=== PATIENT | female | born 1940 | race Caucasian/White ===

== ENCOUNTER → 2017-08-10 14:10 | Outpatient (CLI) | payer MEDICARE, OTHER, SELFPAY ==
--- NOTE | 2017-08-10 14:11 | ECHOD_ITS ---
Reason For Study: Dyspnea/SOB Procedure This was a 2D Doppler, Color Flow transthoracic echocardiogram. The study was technically difficult. Did not use Definity due to increased PAP. Exam performed in department. Left Ventricle Normal size and thickness. The estimated ejection fraction is 60 %. No regional wall motion abnormalities noted. Right Ventricle Normal size and thickness. Normal systolic function. Atria The left atrium is mildly enlarged. Normal right atrium. Normal atrial septum. Mitral Valve The mitral valve is structurally normal. No prolapse or stenosis seen. Trivial mitral valve insufficiency. Tricuspid Valve Normal tricuspid valve. Mild (1+) tricuspid valve insufficiency. Right ventricular systolic pressure estimated to be 55 mmHg. Moderate pulmonary hypertension. Aortic Valve Trisinus/trileaflet aortic valve. Mild diffuse aortic valve thickening. Trivial aortic valve insufficiency. Pulmonic Valve Normal pulmonic valve. Great Vessels Normal aortic root. Normal arch. The inferior vena cava is dilated. No collapse of the inferior vena cava. Pericardium/Pleural No pericardial effusion. MMode/2D Measurements & Calculations LVIDd: 4.3 cm IVSd: 0.85 cm Ao root diam: 2.9 cm LVIDs: 2.6 cm LVPWd: 0.67 cm LA dimension: 3.6 cm RVDd: 3.1 cm FS: 38.5 % LAV(MOD-bp): 52.2 ml LA A4 area: 20.1 cm2 RA A4 area: 17.8 cm2 LAV(MOD-bp) Indexed: 28.0 ml/m2 LAV(MOD-sp2): 43.5 ml LAV(MOD-sp4): 50.2 ml Time Measurements MV dec time: 0.10 sec Doppler Measurements & Calculations MV E max lori: 148.2 cm/sec MV V2 max: 142.4 cm/sec MV P1/2t max lori: 136.5 cm/sec MV max P.2 mmHg MV P1/2t: 70.7 msec MV V2 mean: 71.7 cm/sec MV dec slope: 565.3 cm/sec2 MV mean P.6 mmHg MVA(P1/2t): 3.1 cm2 MV V2 VTI: 30.2 cm Ao V2 max: 186.2 cm/sec LV V1 max: 121.6 cm/sec PA V2 max: 118.2 cm/sec Ao max P.0 mmHg LV V1 max P.0 mmHg Ao V2 mean: 131.0 cm/sec Ao mean P.6 mmHg Ao V2 VTI: 35.4 cm TR max lori: 340.1 cm/sec TR max P.3 mmHg Interpretation Summary The estimated ejection fraction is 60 %. The left atrium is mildly enlarged. Mild (1+) tricuspid valve insufficiency. Right ventricular systolic pressure estimated to be 55 mmHg. Moderate pulmonary hypertension. Compared to echo report dated 06/10/2013, LV function has remained the same, and RVSP is slightly worse; 49 to 55 mm Hg. Pt appears to be in atrial fibrillation. Ordering Physician: Shaheen Ford Referring Physician: Otis Roman Performed By: Nubia Limon, JARRED, RVT
== END ==
PROVIDERS: Family Provider Family Medicine; PCP Family Medicine; Visit Provider Internal Medicine Critical Care Medicine
DX: R06.02 Shortness of breath (principal)
CPT/HCPCS: 93306

== ENCOUNTER → 2017-08-25 11:40 | Outpatient (CLI) | payer MEDICARE, OTHER, SELFPAY ==
--- NOTE | 2017-08-25 11:50 | RAD_ITS ---
STUDY: X-RAY - THORACIC SPINE REASON FOR EXAM: Female, 77 years old. Back pain x2 years, getting worse TECHNIQUE: 3 view(s) of the thoracic spine were obtained. COMPARISON: None. FINDINGS: Normal kyphosis of the thoracic spine. There is no substantial scoliosis. There is multilevel endplate spondylosis of the thoracic vertebrae. There is multilevel disc space narrowing of the thoracic spine. The soft tissue structures are unremarkable. RAD/Thoracic Spine 3 Views IMPRESSION: Multilevel degenerative changes. No malalignment or compression injury detected. Electronically Signed: Vita Zuniga MD at 7:20 EDT , Service support ,
== END ==
PROVIDERS: Family Provider Family Medicine; PCP Family Medicine; Visit Provider Anesthesiology Pain Medicine
DX: M54.9 Dorsalgia, unspecified (principal)
CPT/HCPCS: 72072

== ENCOUNTER → 2017-12-22 10:49 | Outpatient (CLI) | payer MEDICARE, OTHER, SELFPAY ==
[2017-12-22 11:14] VITALS: PULSE 64; PULSE 75; PULSE 82; PULSE 83; PULSE 84; O2SAT 95; O2SAT 96; O2SAT 97
--- NOTE | 2017-12-22 13:51 | PCM.PSN.6M ---
PSN 6 Minute Walk Test - 6 Minute Walk Test 6 Minute Walk Test: 6 Minute Walk Test PSN:6-Minute Walk Test Start: 12/22/17 11:13 Freq: Status: Active Protocol: RESP.6MINW Document 12/22/17 11:14 RENAE (Rec: 12/22/17 11:16 RENAE [id number]) 6 Minute Walk Test Date Performed 12/22/17 Time Performed 11:00 Height 5 ft 1 in Weight: 102.512 kg Weight in Pounds 226.[address]: Shaheen Ford Assistive device used: Walker Pre-test Oxygen Delivery Method Room Air Pulse Ox (%) 95 Pulse Rate (60-100 beats/min) 64 Dyspnea Rene Scale (0-10) 0 Exertion Rene Scale (6-20) 6 1st minute Oxygen Delivery Method Room Air Pulse Ox (%) 97 Pulse Rate (60-100 beats/min) 82 2nd minute Oxygen Delivery Method Room Air Pulse Ox (%) 96 Pulse Rate (60-100 beats/min) 84 3rd minute Oxygen Delivery Method Room Air Pulse Ox (%) 97 Pulse Rate (60-100 beats/min) 75 4th minute Oxygen Delivery Method Room Air Pulse Ox (%) 95 Pulse Rate (60-100 beats/min) 83 Number of Rests Taken 1 5th minute Oxygen Delivery Method Room Air Pulse Ox (%) 96 Pulse Rate (60-100 beats/min) 84 6th minute Oxygen Delivery Method Room Air Pulse Ox (%) 97 Pulse Rate (60-100 beats/min) 84 Dyspnea Rene Scale (0-10) 3 Exertion Rene Scale (6-20) 11 Post-test Oxygen Delivery Method Room Air Pulse Ox (%) 97 Pulse Rate (60-100 beats/min) 75 Full Laps Walked 9 Partial Lap, Number of Tiles Walked 15 Total Distance Walked (ft) 546 - Interpretation Interpretation: The patient was able to ambulate only 546 feet over the course of 6 minutes on room air with the assistance of a walker and one break. No significant desaturation or tachycardia was noted. These findings are consistent with a musculoskeletal limitation exercise tolerance.
== END ==
PROVIDERS: Family Provider Family Medicine; PCP Family Medicine; Visit Provider Internal Medicine Cardiovascular Disease
DX: R06.02 Shortness of breath (principal); I27.21 Secondary pulmonary arterial hypertension; I36.1 Nonrheumatic tricuspid (valve) insufficiency
CPT/HCPCS: 94618

== ENCOUNTER → 2017-12-24 10:43 | Outpatient (CLI) | payer MEDICARE, OTHER, SELFPAY ==
--- NOTE | 2017-12-24 15:10 | PFTCOMP ---
COMPLETE PULMONARY FUNCTION TEST INTERPRETATION Brief HPI: Patient is a 77 year old female, currently under the care of Dr. Watkins and Dr. Ford, who presents to [facility] for complete pulmonary function tests secondary to diagnosis of dyspnea. Respiratory therapist reports good effort and reproducible results. Interpretation: Forced expiration spirometry shows no large airways obstructive ventilatory defect with an FEV1 of 76% predicted. There is no significant bronchodilator response by ATS criteria. Spirograms are of good quality and plateau normally. The respiratory flow volume loop shows decreased expiratory flow rates at all lung volumes consistent with airway obstruction. Lung volumes by body plethysmography show a normal total lung capacity at 3.25 L, 82% predicted. All other lung volumes are reduced symmetrically. Diffusion capacity by carbon monoxide is decreased at 59% predicted. The airway resistance is normal. No previous pulmonary function tests were available for review. Impression: Isolated reduction in diffusing capacity consistent with a pulmonary vascular disorder. Lung volumes are at the lower limit of normal, so early interstitial lung disease cannot be excluded.
== END ==
PROVIDERS: Family Provider Family Medicine; PCP Family Medicine; Visit Provider Internal Medicine Cardiovascular Disease
DX: I27.21 Secondary pulmonary arterial hypertension (principal); R06.02 Shortness of breath
CPT/HCPCS: 94060; 94726; 94729

== ENCOUNTER → 2018-02-23 10:22 | Outpatient (CLI) | payer MEDICARE, OTHER, SELFPAY ==
--- NOTE | 2018-02-23 10:25 | RAD_ITS ---
STUDY: X-RAY - THORACIC SPINE REASON FOR EXAM: Female, 77 years old. Pain after twisting TECHNIQUE: 3 view(s) of the thoracic spine were obtained. COMPARISON: 08/25/2017 FINDINGS: Stable diffuse spondylosis. No acute compression deformities are seen. Normal alignment. Soft tissues are unremarkable. Rotator cuff repair. RAD/Thoracic Spine 2 Views IMPRESSION: Stable diffuse spondylosis with normal alignment. Electronically Signed: Kalen Cartwright MD at 9:17 EST Tel , Service support ,
--- NOTE | 2018-02-23 10:26 | RAD_ITS ---
STUDY: X-RAY - LUMBAR SPINE REASON FOR EXAM: Female, 77 years old. pain x 1 week pt states she twisted wrong last week TECHNIQUE: 3 view(s) of the lumbar spine were obtained. COMPARISON: None FINDINGS: Normal lumbar lordosis. There is a subtle dextroscoliosis. There is subtle anterior listhesis of L5 on S1 by approximately 4.5 mm. This appears secondary to posterior facet arthropathy. Vertebral body height is maintained. Multilevel degenerative endplate changes are present with multilevel marginal osteophytes and subtle endplate sclerosis. There is posterior facet arthropathy most evident from L3 through S1. Diffuse disc height loss is noted with multilevel vacuum disc phenomenon throughout the lumbar spine. Mild atherosclerosis noted. RAD/Lumbar Spine 2 or 3 Views IMPRESSION: Diffuse degenerative spondylosis of the lumbar spine. No evidence of acute superimposed fracture. See above. Electronically Signed: Luba Haney MD at 9:23 EST , Service support ,
== END ==
PROVIDERS: Family Provider Family Medicine; PCP Family Medicine; Referring Provider Anesthesiology Pain Medicine; Visit Provider Anesthesiology Pain Medicine
DX: M54.9 Dorsalgia, unspecified (principal)
CPT/HCPCS: 72070; 72100

== ENCOUNTER → 2018-03-29 15:26 | Outpatient (CLI) | payer MEDICARE, OTHER, SELFPAY ==
[2018-01-18 13:10] VITALS: BMI 43.0
--- NOTE | 2018-03-29 15:31 | BI_ITS ---
MAMMOGRAPHY - BILATERAL SCREENING REASON FOR EXAM: Female, 77 years old. Routine annual screening examination. PERTINENT HISTORY: Non-contributory. TECHNIQUE: Digital bilateral breast julianne (3D mammographic acquisition) in the CC and MLO projections. 2-D mediolateral oblique (MLO) and craniocaudad (CC) views of both breasts were obtained. CAD: Full Field Digital Mammography with Computer Added Detection was performed. COMPARISON: Comparison is made with prior study dated January 20, 2017 and December 11, 2015. FINDINGS: Breast Composition: There are scattered areas of fibroglandular density. There are no dominant masses or suspicious calcifications. Stable small benign-appearing bilateral axillary lymph nodes. No other significant abnormalities are identified. There has been no significant change since the prior study. BI/SCREENING MAMM (CAD), BILAT IMPRESSION: Stable bilateral screening mammogram. Yearly follow-up mammogram recommended. (A) ASSESSMENT CATEGORY: BIRADS Category 2: Benign. A letter regarding these results will be sent to the patient by the facility within 30 days. Approximately 10% of breast cancers are not detected by mammography. A normal mammogram should not delay biopsy of a clinically suspicious abnormality. [id number] Electronically Signed: Carlos Soto MD at 9:02 EST Tel [phone], Service support ,
--- OUTSIDE RECORDS SUMMARY | 2018-05-15 21:53 | XMS RPT_ITS ---
:1940 Author Organization OHIP Support Name Relationship Address Phone R Unavailable Unavailable Unavailable ANGI MAYNARD Unavailable [address] + [place] [address] R Unavailable Unavailable Unavailable ALEYDA ANGI Unavailable [address] + [place] [address] R Unavailable Unavailable Unavailable ANGI MAYNARD Unavailable [address] + [place] [address] R Unavailable Unavailable Unavailable ALEYDA ANGI Unavailable [address] + [place] [address] R Unavailable Unavailable Unavailable ANGI MAYNARD Unavailable [address] + [place] [address] R Unavailable Unavailable Unavailable ALEYDA ANGI Unavailable [address] + [place] [address] R Unavailable Unavailable Unavailable ANGI MAYNARD Unavailable [address] + [place] [address] R Unavailable Unavailable Unavailable ALEYDA ANGI Unavailable [address] + [place] [address] R Unavailable Unavailable Unavailable ANGI MAYNARD Unavailable [address] + [place] [address] R Unavailable Unavailable Unavailable JEANNE MAYNARDE Unavailable [phone] [place] [address] R Unavailable Unavailable Unavailable ANGI MAYNARD Unavailable [phone] [place] [address] R Unavailable Unavailable Unavailable ALEYDA ANGI Unavailable [phone] [place] [address] R Unavailable Unavailable Unavailable ALEYDA ANGI Unavailable [phone] [place] [address] R Unavailable Unavailable Unavailable SCHONFELD, ANGI Unavailable [phone] [place] [address] R Unavailable Unavailable Unavailable SCHONFELD, ANGI Unavailable [phone] [place] [address] R Unavailable Unavailable Unavailable SCHONFELD, ANGI Unavailable [phone] [place] [address] R Unavailable Unavailable Unavailable SCHONFELD, ANGI Unavailable [phone] [place] [address] R Unavailable Unavailable Unavailable SCHONFELD, ANGI Unavailable [phone] [place] [address] R Unavailable Unavailable Unavailable SCHONFELD, ANGI Unavailable [phone] [place] [address] R Unavailable Unavailable Unavailable SCHONFELD, ANGI Unavailable [phone] [place] [address] R Unavailable Unavailable Unavailable SCHONFELD, ANGI Unavailable [address] [phone] [place] [address] Care Team Providers Name Role Phone Tanphaichitr, Natthavat Attending Unavailable Tanphaichitr, Natthavat Referring Unavailable Ranney, Christopher Primary Care Unavailable Tanphaichitr Natthavat Attending Unavailable Tanphaichitr, Natthavat Referring Unavailable Ranney, Christopher Primary Care Unavailable Ying Santana Attending Unavailable Ranney, Christopher Referring Unavailable Meri Gonzales Attending Unavailable Shaheen Ford Attending Unavailable Ranney, Christophjesusita Referring Unavailable Ranney, Christopher Primary Care Unavailable Shaheen Ford Attending Unavailable Shaheen Ford Referring Unavailable Ranney, Christopher Primary Care Unavailable Shaheen Ford Attending Unavailable Shaheen Ford Referring Unavailable Ranney, Christopher Primary Care Unavailable Carson Watkins D.O. Attending Unavailable Ranney, Christophjesusita Referring Unavailable Ranney, Christopher Primary Care Unavailable Carson Watkins D.O. Attending Unavailable Carson Watkins D.O. Referring Unavailable Ranney, Christopher Primary Care Unavailable Kiana Broussard Attending Unavailable Kiana Broussard Referring Unavailable Ranney, Christopher Primary Care Unavailable Shaheen Ford Attending Unavailable Carson Watkins D.O. Attending Unavailable Ranney, Christopher Referring Unavailable Ranney, Christopher Primary Care Unavailable Ford, Shaheen Attending Unavailable Ranney, Christopher Referring Unavailable Ford, Shaheen Attending Unavailable Ranney, Christopher Primary Care Unavailable Ford, Shaheen Referring Unavailable Ford, Shaheen Attending Unavailable Ford, Shaheen Referring Unavailable Ranney, Christopher Primary Care Unavailable Tanphaichitr, Natthavat Attending Unavailable Ranney, Christopher Primary Care Unavailable Tanphaichitr, Natthavat Referring Unavailable KipHamlet mendez Attending Unavailable Ford, Shaheen Referring Unavailable Kip, Hamlet Attending Unavailable Ford, Shaheen Referring Unavailable Santana, Ying Attending Unavailable Ranney, Christopher Referring Unavailable Ranney, Christopher Attending Unavailable Ranney, Christopher Primary Care Unavailable Basali, Ayman Attending Unavailable Basali, Ayman Referring Unavailable Ranney, Christopher Primary Care Unavailable PROBLEMS PROBLEMS DATE TYPE CONDITION / CODE ATTENDING STATUS SOURCE 04/21/2018 Unknown E03.9 - Tanphaichitr, Active [place] Hypothyroidism, Natthavat [facility] unspecified / Hospital E03.9(ICD-10) Repository 04/21/2018 Unknown I10 - Essential Tanphaichitr, Active [place] [facility] hypertension / Hospital I10(ICD-10) Repository 01/18/2018 Unknown Z23 - Encounter for Santana, Active [place] immunization / [facility] Z23(ICD-10) Hospital Repository 01/05/2018 Unknown R06.02 - Shortness Hamlet Shin Active [place] of breath / Community R06.02(ICD-10) Hospital Repository 12/07/2017 Unknown I48.2 - Chronic Shaheen Ford Active [place] atrial fibrillation Community / I48.2(ICD-10) Hospital Repository 12/07/2017 Unknown 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 / Hospital I27.21(ICD-10) Repository 12/07/2017 Unknown I36.1 - Shaheen Ford Active [place] Nonrheumatic [facility] tricuspid (valve) Hospital insufficiency / Repository I36.1(ICD-10) 07/22/2017 Unknown G47.33 - Tessie Green Obstructive sleep D.O. Community apnea (adult) Hospital (pediatric) / Repository G47.33(ICD-10) 07/22/2017 Unknown E66.9 - Obesity, Carson Watkins, Active [place] unspecified / D.O. Community E66.9(ICD-10) Hospital Repository 07/22/2017 Unknown I27.20 - Pulmonary Carson Watkins, Active [place] hypertension, D.O. Community unspecified / Hospital I27.20(ICD-10) Repository 05/29/2017 Unknown R06.09 - Other Shaheen Ford Active [place] forms of dyspnea / Community R06.09(ICD-10) Hospital Repository 05/29/2017 Unknown E66.01 - Morbid Shaheen Ford Active [place] (severe) obesity Community due to excess Hospital calories / Repository E66.01(ICD-10) 05/29/2017 Unknown Z68.41 - Body mass Shaheen Ford Active [place] index (BMI) Community 40.0-44.9, adult / Hospital Z68.41(ICD-10) Repository PROCEDURES PROCEDURES No Procedure Records FoundRESULTS RESULTS PULMONARY VISIT REPORT Observed: 04/22/2018 Status: F Source: [place] 12:11 PM [facility] [place] [facility] [place] [address] [place] [address] OFFICE VISIT Date of Service: 04/22/18 MR#: [id number] Acct: [id number] Name: SIS FARR Rep #: [id number] : 1940 Provider: Ying Santana Age/Sex: 77/F Location: [facility].PMW Status: Signed Assessment AND Plan 1. HELGA (obstructive sleep apnea) G47.33 Plan Improved. Patient is using and benefiting from Pap therapy. No indication for titration study at this time. Continue to encourage weight loss. Contact the office for any new or worsening symptoms in the meantime. Follow-up in 6 months. 2. Secondary pulmonary 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 Plan Stable. Follow-up with Dr. Watkins in 6 months. Contact the office with any new or worsening symptoms in the meantime. 3. Morbid obesity with BMI of 40.0-44.9, adult E66.01; Z68.41 Plan Continue to encourage weight loss. 4. Chronic atrial fibrillation I48.2 Plan Complicates exam, plan, care and prognosis. Plan Detail Follow Up 6 Months (DMB) HPI 2 M FU: Chief Complaint: Shortness of breath on exertion HPI Comments Details: This is a 77 year old F, here to follow up for sleep apnea shortness of breath on exertion and pulmonary hypertension. 40, with the use of. She is on room air and accompanied today by a nurses aid. She has not required any prednisone or antibiotics since her last office visit. She has not been seen in the ED or urgent care for any illnesses since her last office visit. Last office visit she was prescribed an albuterol rescue inhaler to be used for shortness of breath. She states that she continues to experience shortness of breath on exertion only, denies any shortness of breath with rest or conversation. She has utilized a rescue inhaler a few times before exertional activities and reports that she did receive some relief. She denies any cough, sputum production or hemoptysis. She denies any wheezing, chest pain, chest tightness or palpitations. She denies any fever, chills or body aches. She continues to experience a moderate amount of lower extremity edema. Current use of pressure support therapy is on average of 9 hours per night with current settings of 17/11 cmH2O. SIS denies any daytime somnolence, dry mouth in the morning, nocturia, snoring through the mask, morning headaches or difficulty with mask leaks. SIS reports feeling rested in the morning and is benefitting from current therapy. Compliance report was reviewed and shows 100% compliance, AHI is slightly elevated at an average of 4.3 events per hour and leaks appear to be occasional problem. Intake Vital Signs04/22/18 Height 5 ft 04/22/18 Weight: 229 lb 04/22/18 Body Mass Index (BMI) 44.7 04/22/18 Blood Pressure 150/90 H Intake Visit Reasons: 2 M FU DME Vendor: [employer] Accompanied by: Family / Other Allergies atorvastatin calcium [From Lipitor] Allergy (Verified 04/22/18 08:02) Pain in joints Penicillins Allergy (Verified 04/22/18 08:02) Rash pseudoephedrine Allergy (Verified 04/22/18 08:02) Rash Sulfa (Sulfonamide Antibiotics) Allergy (Verified 04/22/18 08:02) Rash hydrochlorothiazide Adverse Reaction (Verified 04/22/18 08:02) Nausea sulfamethoxazole [From Bactrim] Adverse Reaction (Verified 04/22/18 08:02) Nausea trimethoprim [From Bactrim] Adverse Reaction (Verified 04/22/18 08:02) Nausea SSRI Allergy (Unknown, Uncoded 04/22/18 08:02) Other Medications Fenofibrate Nanocrystallized [Tricor] 48 mg PO QHS 04/18/16 [History Confirmed 04/22/18] Pramipexole Di-HCl [Mirapex] 0.25 mg PO QHS 04/18/16 [History Confirmed 04/22/18] Rivaroxaban [Xarelto] 20 mg PO DAILY 04/18/16 [History Confirmed 04/22/18] Levothyroxine Sodium [Synthroid] 50 mcg PO DAILY 04/19/16 [History Confirmed 04/22/18] Acetaminophen [Tylenol Tablet] 650 mg PO Q6H PRN PRN #0 tab 05/09/16 [Rx Confirmed 04/22/18] Valsartan [Diovan] 160 mg PO DAILY #30 tab 05/09/16 [Rx Confirmed 04/22/18] simvastatin 80 mg tablet 80 mg PO QPM 05/26/17 [History Confirmed 04/22/18] carvedilol 12.5 mg tablet 12.5 mg PO BID #180 tab 07/02/17 [Rx Confirmed 04/22/18] gabapentin 600 mg tablet 600 mg PO .QID tab 07/22/17 [History Confirmed 04/22/18] albuterol sulfate 90 mcg/actuation breath activated powder inhaler 2 puff INHALATION Q4H PRN #1 ea 01/18/18 [Rx Confirmed 04/22/18] furosemide 40 mg tablet 40 mg PO DAILY #90 tab 03/30/18 [Rx Confirmed 04/22/18] PFSH Medical History Chronic atrial fibrillation (Chronic) Non-rheumatic tricuspid valve insufficiency (Chronic) Secondary pulmonary arterial hypertension (Chronic) Morbid obesity with BMI of 40.0-44.9, adult (Chronic) Occlusion of carotid artery without cerebral infarction (Chronic) HTN (hypertension) (Chronic) History of hypothyroidism (Chronic) H/O transient cerebral ischemia (Chronic) Asthma (Chronic) Obstructive sleep apnea (Chronic) Surgical History History of arthroscopy of left knee (Chronic) History of bunionectomy of both great toes (Chronic) History of repair of right rotator cuff (Chronic) Hx of cholecystectomy (Chronic) Family History Mother CVA (cerebral vascular accident) Diabetes Social History Smoking Status: Never smoker alcohol intake: current alcohol intake frequency: holidays/special occasions only Alcohol type: wine Review of Systems Const CONSTITUTIONAL: Negative anorexia, body ache, chills, daytime sleepiness, fever(s), night sweats, oral thrush, stops breathing during sleep, weight loss, sleeping in chair, fatigue, weight loss, weight gain, frequent colds, seasonal allergies, other, headache(s) or orthopnea EETM Ear Nose Throat Mouth: Positive hearing normal; negative hard of hearing, hoarseness, dry mouth in morning, change in vision, itchy eyes, eye pain, swallowing Difficulty, ear pain, nose bleed, headache(s), mouth pain, nasal congestion, nasal discharge, post nasal drip, sinus pain, sinus pressure, sore throat or other Cardio Cardiovascular: Negative chest pain, chest pain at rest, chest pain with activity, irregular heart rhythm, edema, shortness of breath when lying down, palpitations, murmur or other Resp Respiratory: Positive as per HPI and shortness of breath shortness of breath: Positive with activity; negative pain with cough, wheezing, chest congestion, cough, chest tightness, pain on inspiration, inhalers, increase use of rescue inhalers, snoring, apnea or other Gastro Gastrointestional: Negative bloody stools, change in appetite, difficulty swallowing, reflux, hematemesis, melena stool, loose stool, constipation or other Genitourinary: Negative blood in urine, nocturia, pain with urination or other Musc Musculoskeletal: Negative body pain, back pain, neck pain or other Skin/Breast Skin/Breast: Negative dry skin, itching, rash, unusual bruising, breast lump or other Neuro Neurological: Negative restless legs, confusion, weakness or other Psych Psychocological: Negative abnormal sleep pattern, anxiety, thoughts of hurting self/others, hopelessness or other Lymph Lymphatic: Negative easy bleeding, easy bruising, swollen lymph nodes or other Exam Const Constitutional: Positive conversant, cooperative, in no acute respiratory distress, well developed, well nourished, good hygiene and obese Head Head: Positive normocephalic and atraumatic; negative cyanosis of lips/distal nose Eyes Eye: Positive clear conjunctiva; negative nystagmus or scleral abnormality Ears Ear: Positive hearing normal and external ears normal; negative hard of hearing Nose Nose: Positive external nose normal and no nasal discharge; negative epistaxis Mouth Mouth: Positive oral mucosae normal, no lesions, dentures and crowded posterior oropharynx; negative post nasal drip, malodorous breath or oral thrush present Mallampati Score: III: Mallampati Score Neck Neck: Positive normal visual inspection, full ROM and trachea midline; negative lymphadenopathy, JVD or tender Chest Wall Chest: Positive normal inspection of the chest and symmetric chest movement; negative increased A/P diameter Resp lung sounds: Positive clear to auscultation, good air exchange, normal expiratory time and normal respiratory effort; negative diminished, wheezes, rhonchi, rales, dullness to percussion or wheeze present on forced exhalation Cardio Cardiac: Positive regular rate, regular rhythm, S1 normal and S2 normal; negative murmur GI GI: Positive normal to inspection and obese; negative distended Genitourinary: Positive deferred Musc Musculoskeletal: Positive steady gait, ROM normal and using an assistive device for ambulation; negative kyphosis or scoliosis Skin Pulmonary Skin Exam: Positive intact; negative rash Pulses Pulse: Yes pulses normal x4 extremities Extremities Extremities: Yes capillary refill normal, No clubbing, No cyanosis, Yes edema Location: lower extremity location: Bilateral pitting +2 Neuro Neurologic: Yes conversant, Yes no focal neuro deficits, Yes normal concentration, Yes understands questions, Yes cooperative, No tremor, Yes normal cognition, Yes normal coordination Lymph Lymphatic: No lymphadenopathy, No tenderness, No cervical adenopathy Psych Appearance: Positive grossly normal, eye contact and well kempt Mental Status: Positive mental status grossly normal Mood: Positive congruent mood Affect: Positive normal affect Coding Level of Care Code Off vis,est,level 3 Diagnoses HELGA (obstructive sleep apnea) G47.33 Secondary pulmonary 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 Morbid obesity with BMI of 40.0-44.9, adult E66.01; Z68.41 Chronic atrial fibrillation I48.2 04/22/18 1211 <Electronically signed by Ying CHOI> Date Ying CHOI Cosigner Signature: Date (if applicable) CC: Otis Roman MD CBC-COMPLETE BLOOD CNT Collected: 04/21/2018 Status: F Source: [place] NO [place] 1:42 PM [facility] [place] TYPE CODE TESTS RESULT OUT OF RANGE REFERENCE UNITS LAB L100.1000 4.4-11.0 K/mm3 Normal WBC 9.6 LAB L100.1200 4.2-5.4 M/mm3 Low RBC 3.06 LAB L100.1300 12.0-15.0 g/dl Low HGB 9.2 LAB L100.1400 37-47 % Low HCT 31.7 LAB L100.1500 81-99 fL High MCV 103.6 LAB L100.1600 27.0-32.0 pg Normal MCH 30.1 LAB L100.1700 32-36 g/gl Low MCHC 29.0 LAB L100.1810 11.6-14.6 % High RDW CV 16.3 LAB L100.1820 35.1-43.9 fl High RDW SD 59.8 LAB L100.1900 150-450 K/mm3 Normal PLT 290 LAB L100.2000 6.2-12.0 fl Normal MPV 11.0 Performed By: #### L100.0500 #### [facility] [address] [place], [address] RENAL PROFILE Collected: 04/21/2018 Status: F Source: [place] 1:42 PM [facility] [place] TYPE CODE TESTS RESULT OUT OF RANGE REFERENCE UNITS LAB L501.0100 74-106 mg/dL Normal GLU 98 Result Comment: Please note revised GLUCOSE reference range effective 2017. LAB L501.1000 7-18 mg/dL Normal BUN 11 LAB L501.1100 0.55-1.02 mg/dL Normal CREAT,SERUM 0.86 Result Comment: The validity of the calculated GFR AND GFRAA in patients over 70 years has not been determined. Clinical correlation is essential. LAB L501.1110 >60 mL/min Normal EST GFR 68 Result Comment: Non- GFR Calc LAB L501.1115 >60 mL/min Normal EST GFR - AA 82 Result Comment: GFR Calc LAB L501.1300 10-20 RATIO Normal BUN/CRE 12.8 LAB L501.1800 3.2-5.0 g/dL Normal ALB 3.7 LAB L501.2200 8.5-10.1 mg/dL CA Normal 8.6 LAB L501.2300 2.5-4.9 mg/dL Normal PHOS 3.1 LAB L501.5300 136-145 mmol/L NA Normal 140 LAB L501.5600 3.5-5.1 mmol/L K Normal 3.8 LAB L501.5900 98-107 mmol/L CL Normal 104 LAB L501.6100 21.0-32.0 mmol/L Normal CO2 26.0 Performed By: #### L500.3600, L501.5200 #### [facility] [address] [place], [place], [address] MAGNESIUM Collected: 04/21/2018 Status: F Source: [place] 1:42 PM [facility] [place] TYPE CODE TESTS RESULT OUT OF RANGE REFERENCE UNITS LAB L501.5200 1.6-2.6 mg/dL Normal MG 2.0 Performed By: #### L500.3600, L501.5200 #### [facility] [address] [place], [address] VITAMIN D,25 HYDROXY Collected: 04/21/2018 Status: F Source: [place] 1:42 PM [facility] [place] TYPE CODE TESTS RESULT OUT OF REFERENCE UNITS RANGE LAB L506.1000 29.95-100.01 ng/mL Low Vitamin D 9.4 25-OH Result Comment: Vitamin D 25(OH) Status Range Deficiency <20 ng/mL (50nmol/L) Insuffciency 20 - 30 ng/mL (50 - 75 nmol/L) Sufficiency 30 - 100 ng/mL (75 - 250 nmol/L) Toxicity >100 ng/mL (>250 nmol/L) Performed By: #### L506.1000 #### [facility] [address] [place], [place], [address] MICROALB:CREAT Collected: 04/21/2018 Status: F Source: [place] RATIO,RANDOM UR 1:42 PM [facility] [place] TYPE CODE TESTS RESULT OUT OF RANGE REFERENCE UNITS LAB L501.1200 NO RANGE EST. mg/dL < Normal UR 13.00 CREAT LAB L502.0500 NO RANGE EST. mg/L 10.5 Normal MICROALBUMI N,UR LAB L502.0600 <30 mg/g CRE mg/g CRE Test Normal not performed MALB:CREAT Performed By: #### L502.0250 #### [facility] [place], [place], [id number] PTHIN Collected: 04/21/2018 Status: F Source: [place] 1:42 PM [facility] [place] TYPE CODE TESTS RESULT OUT OF RANGE REFERENCE UNITS LAB L509.1000 18.4-80.1 pg/mL Normal PTHIN 58.8 Performed By: #### L509.1000 #### [facility] [place], [address] URINE SODIUM Collected: 04/05/2018 Status: F Source: [place] 12:00 PM [facility] [place] TYPE CODE TESTS RESULT OUT OF RANGE REFERENCE UNITS LAB L501.5500 Not Establ. mmol/L Normal UR NA 70 Performed By: #### L501.5500, L502.0250 #### [facility] [address] [place], [address] MICROALB:CREAT Collected: 04/05/2018 Status: F Source: [place] RATIO,RANDOM UR 12:00 PM [facility] [place] TYPE CODE TESTS RESULT OUT OF RANGE REFERENCE UNITS LAB L501.1200 NO RANGE EST. mg/dL Normal UR CREAT 161.00 LAB L502.0500 NO RANGE EST. mg/L Normal 121.0 MICROALBUMIN ,UR LAB L502.0600 <30 mg/g CRE mg/g CRE High 75.2 MALB:CREAT Performed By: #### L501.5500, L502.0250 #### [facility] [place], [address] COMPREHENSIVE METABOLIC Collected: 04/02/2018 Status: F Source: [place] 10:59 AM [facility] [place] TYPE CODE TESTS RESULT OUT OF RANGE REFERENCE UNITS LAB L501.0100 74-106 mg/dL Normal GLU 96 Result Comment: Please note revised GLUCOSE reference range effective 2017. LAB L501.1000 7-18 mg/dL Normal BUN 13 LAB L501.1100 0.55-1.02 mg/dL Normal CREAT,SERUM 0.69 Result Comment: The validity of the calculated GFR AND GFRAA in patients over 70 years has not been determined. Clinical correlation is essential. LAB L501.1110 >60 mL/min Normal EST GFR 88 Result Comment: Non- GFR Calc LAB L501.1115 >60 mL/min Normal EST GFR - AA 106 Result Comment: GFR Calc LAB L501.1300 10-20 RATIO Normal BUN/CRE 18.9 LAB L501.1500 6.4-8.2 g/dL T Normal PROT 6.5 LAB L501.1800 3.2-5.0 g/dL Normal ALB 3.7 LAB L501.1950 2.2-4.2 g/dL Normal GLOB 2.8 LAB L501.2000 0.9-2.4 RATIO Normal A/G 1.3 LAB L501.2200 8.5-10.1 mg/dL CA Normal 8.6 LAB L501.4100 15-37 U/L Low AST 12 LAB L501.4305 45-117 U/L Normal ALK P 70 LAB L501.4405 13-56 U/L Normal ALT 18 LAB L501.4600 0.20-1.00 mg/dL T Normal BILI 0.90 LAB L501.5300 136-145 mmol/L NA Normal 142 LAB L501.5600 3.5-5.1 mmol/L K Normal 3.9 LAB L501.5900 98-107 mmol/L CL Normal 106 LAB L501.6100 21.0-32.0 mmol/L Normal CO2 27.0 LAB L501.6200 5-15 Normal GAP 9 Performed By: #### L500.4050 #### [facility] [address] [place], [place], [address] LIPID PROFILE Collected: 04/02/2018 Status: F Source: [place] 10:59 AM [facility] [place] TYPE CODE TESTS RESULT OUT OF RANGE REFERENCE UNITS LAB L501.4900 200 mg/dL Normal CHOL 122 Result Comment: <200 mg/dL Desirable 200-240 mg/dL Borderline >240 mg/dL High Risk LAB L501.5000 mg/dL Normal TRIG 63 Result Comment: The drugs N-Acetylcysteine and Metamizole may falsely depress this assay. Serum Triglycerides Reference Interval Normal <150 mg/dL Borderline high 150 - 199 mg/dL High 200 - 499 mg/dL Very High > or = 500 mg/dL LAB L501.6400 mg/dL Normal HDL 57 Result Comment: The drugs N-Acetylcysteine and Metamizole may falsely depress this assay. Reference Range HDL <40 mg/dL Low HDL Cholesterol HDL >or= 60 mg/dL High HDL Cholesterol LAB L501.6500 0-130 mg/dL Normal LDL 52 LAB L501.6600 5-40 mg/dL Normal VLDL 13 Performed By: #### L500.4100 #### [facility] [address] [place], [place], [address] RENAL PROFILE Collected: 04/02/2018 Status: F Source: [place] 10:38 AM [facility] [place] Order Comment: DR. VERMA ORDERED NA URINE PROCRE MG RENAL DR. YADAV ORDERED BMP LIPID TYPE CODE TESTS RESULT OUT OF RANGE REFERENCE UNITS LAB L501.0100 74-106 mg/dL Normal GLU 96 Result Comment: Please note revised GLUCOSE reference range effective 2017. LAB L501.1000 7-18 mg/dL Normal BUN 14 LAB L501.1100 0.55-1.02 mg/dL Normal CREAT,SERUM 0.66 Result Comment: The validity of the calculated GFR AND GFRAA in patients over 70 years has not been determined. Clinical correlation is essential. LAB L501.1110 >60 mL/min Normal EST GFR 93 Result Comment: Non- GFR Calc LAB L501.1115 >60 mL/min Normal EST GFR - AA 112 Result Comment: GFR Calc LAB L501.1300 10-20 RATIO High BUN/CRE 21.4 LAB L501.1800 3.2-5.0 g/dL Normal ALB 3.7 LAB L501.2200 8.5-10.1 mg/dL CA Normal 8.5 LAB L501.2300 2.5-4.9 mg/dL Normal PHOS 3.3 LAB L501.5300 136-145 mmol/L NA Normal 142 LAB L501.5600 3.5-5.1 mmol/L K Normal 3.9 LAB L501.5900 98-107 mmol/L CL Normal 106 LAB L501.6100 21.0-32.0 mmol/L Normal CO2 28.0 Performed By: #### L500.3600, L501.5200 #### [facility] [address] [place], [address] MAGNESIUM Collected: 04/02/2018 Status: F Source: [place] 10:38 AM [facility] [place] Order Comment: DR. VERMA ORDERED NA URINE PROCRE MG RENAL DR. YADAV ORDERED BMP LIPID TYPE CODE TESTS RESULT OUT OF RANGE REFERENCE UNITS LAB L501.5200 1.6-2.6 mg/dL Normal MG 2.0 Performed By: #### L500.3600, L501.5200 #### [facility] [address] [place], [address] SCREENING MAMM (CAD), Observed: 03/29/2018 Status: F Source: [place] BIL 3:31 PM [facility] [place] [facility] Imaging Services [address] [place] [address] SCREENING MAMM (CAD), BILAT MR#: [id number] Acct: [id number] Name: SIS FARR Rep #: [id number] : 1940 F 77 From: Carlos Soto MD PCP: Otis Roman MD Status: REG CLI Study: SCREENING MAMM (CAD), BILAT Date of Exam: 03/29/18 Exam# [id number] Ordering Dr: Ej Roman MD MAMMOGRAPHY - BILATERAL SCREENING REASON FOR EXAM: Female, 77 years old. Routine annual screening examination. PERTINENT HISTORY: Non-contributory. TECHNIQUE: Digital bilateral breast julianne (3D mammographic acquisition) in the CC and MLO projections. 2-D mediolateral oblique (MLO) and craniocaudad (CC) views of both breasts were obtained. CAD: Full Field Digital Mammography with Computer Added Detection was performed. COMPARISON: Comparison is made with prior study dated January 20, 2017 and December 11, 2015. FINDINGS: Breast Composition: There are scattered areas of fibroglandular density. There are no dominant masses or suspicious calcifications. Stable small benign-appearing bilateral axillary lymph nodes. No other significant abnormalities are identified. There has been no significant change since the prior study. BI/SCREENING MAMM (CAD), BILAT IMPRESSION: Stable bilateral screening mammogram. Yearly follow-up mammogram recommended. (A) ASSESSMENT CATEGORY: BIRADS Category 2: Benign. A letter regarding these results will be sent to the patient by the facility within 30 days. Approximately 10% of breast cancers are not detected by mammography. A normal mammogram should not delay biopsy of a clinically suspicious abnormality. [id number] Electronically Signed: Carlos Soto MD at 9:02 EST Tel [phone], Service support , CC: Otis Roman MD Grease Rack Worker: Signed THORACIC SPINE 2 Observed: 02/23/2018 Status: F Source: [place] 10:26 AM [facility] [place] [facility] [place] [address] Thoracic Spine 2 Views MR#: [id number] Acct: [id number] Name: SIS FARR Rep #: [id number] : 1940 F 77 From: Kalen Cartwright MD PCP: Otis Roman MD Status: REG CLI Study: Thoracic Spine 2 Views Date of Exam: 02/23/18 Exam# [id number] Ordering Dr: Kiana Broussard MD STUDY: X-RAY - THORACIC SPINE REASON FOR EXAM: Female, 77 years old. Pain after twisting TECHNIQUE: 3 view(s) of the thoracic spine were obtained. COMPARISON: 08/25/2017 FINDINGS: Stable diffuse spondylosis. No acute compression deformities are seen. Normal alignment. Soft tissues are unremarkable. Rotator cuff repair. RAD/Thoracic Spine 2 Views IMPRESSION: Stable diffuse spondylosis with normal alignment. Electronically Signed: Kalen Cartwright MD at 9:17 EST Tel , Service support , CC: Kiana Broussard MD; Otis Roman MD Grease Rack Worker: Signed LUMBAR SPINE 2 OR 3 Observed: 02/23/2018 Status: F Source: [place] VIEWS 10:26 AM [facility] [place] [facility] Imaging Services [address] [place] [address] Lumbar Spine 2 or 3 Views MR#: [id number] Acct: [id number] Name: SIS FARR Rep #: [id number] : 1940 F 77 From: Luba Haney MD PCP: Otis Roman MD Status: REG CLI Study: Lumbar Spine 2 or 3 Views Date of Exam: 02/23/18 Exam# [id number] Ordering Dr: Kiana Broussard MD STUDY: X-RAY - LUMBAR SPINE REASON FOR EXAM: Female, 77 years old. pain x 1 week pt states she twisted wrong last week TECHNIQUE: 3 view(s) of the lumbar spine were obtained. COMPARISON: None FINDINGS: Normal lumbar lordosis. There is a subtle dextroscoliosis. There is subtle anterior listhesis of L5 on S1 by approximately 4.5 mm. This appears secondary to posterior facet arthropathy. Vertebral body height is maintained. Multilevel degenerative endplate changes are present with multilevel marginal osteophytes and subtle endplate sclerosis. There is posterior facet arthropathy most evident from L3 through S1. Diffuse disc height loss is noted with multilevel vacuum disc phenomenon throughout the lumbar spine. Mild atherosclerosis noted. RAD/Lumbar Spine 2 or 3 Views IMPRESSION: Diffuse degenerative spondylosis of the lumbar spine. No evidence of acute superimposed fracture. See above. Electronically Signed: Luba Haney MD at 9:23 EST , Service support , CC: Kiana Broussard MD; Otis Roman MD Grease Rack Worker: Signed PULMONARY VISIT REPORT Observed: 01/18/2018 Status: F Source: [place] 2:54 PM [facility] [place] [facility] [address] [place] [address] OFFICE VISIT Date of Service: 01/18/18 MR#: [id number] Acct: [id number] Name: SIS FARR Rep #: [id number] : 1940 Provider: Ying Santana Age/Sex: 77/F Location: [facility] Status: Signed Assessment AND Plan 1. HELGA (obstructive sleep apnea) G47.33 Plan Deteriorated. Due for a new/upgraded machine in February. Plan to follow-up in March at which time I can review a one-month compliance report and determine if the patient requires additional testing, such as a titration study. Explained this to the patient, she is agreeable to follow-up and plan. Currently, she is using and benefiting from her BiPAP. 2. Secondary pulmonary 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 Plan New. Explained pulmonary hypertension to the patient. Ruled out need for supplemental oxygen. No additional testing at this time. Follow-up in 2 months. 3. Morbid obesity with BMI of 40.0-44.9, adult E66.01; Z68.41 Plan Continue to encourage weight loss. Complicates exam, plan, care and prognosis. 4. Chronic atrial fibrillation I48.2 Plan Also complicates plan, exam, care and prognosis. Certainly makes treating sleep apnea a high priority. 5. Dyspnea on exertion R06.09 Plan Deteriorated. Trial on albuterol rescue inhaler. At the follow-up visit we will evaluate how frequently she was using the medication and how effective it was. Plan Detail Other Orders Orders: Other Medications New: albuterol sulfate 90 mcg/actuation (ProAir Re2 puffs Inhalation Q4H PRN 1 ea 6RF yunes spiClick) administer with spacer s of breath or wheezing Discontinued: Fluad 2017- 65yr up(PF)45 mcg(15 mcgx3)/0.5 mL intramuscula0.5 mL IM ONCE #1 0RF NS Z23 r syringe (flu vac 2017 [id number](PF)) Discontinued Re ason: Office Medication has been Documented as given Follow Up 2 Months (CSM) HPI TEST RESULTS: Chief Complaint: Shortness of breath on exertion HPI Comments Details: This patient presents the office today to review recent test results ordered by her gear shaper. She is in a wheelchair, currently on room air and accompanied by family. She reports that she continues to experience the same shortness of breath on exertion that has been going on for the past 2-3 months. The shortness of breath is more prevalent when going up stairs, walking long distances or rushing around. She denies any chest pain or palpitations, but does report that she has A. fib. She has some trouble with lower extremity edema, however today her family member reports that she has 60 ankles. She denies any cough, sputum production or hemoptysis. She denies any wheezing or chest tightness. She is not currently on any inhalers. She does report that at times it feels as though it is difficult to get air in or get air out. She has not experienced any fever, chills or body aches. She is compliant with her Pap therapy, currently on BiPAP. Her last sleep study was in 2012, this is when the machine was originally awarded to her. She did report that if she was waiting very long for me she would have fallen asleep in a wheelchair. She does report persistent daytime hypersomnia. Unfortunately, due to the age of her machine I am unable to obtain a compliance report. She states that she is eligible for a new machine next month. Pulmonary function test was completed on December 24, 2017 and was interpreted as showing an isolated reduction in diffusing capacity, consider pulmonary vascular disorder. FVC 79% of predicted, FEV1 76% of predicted, FEV1/FVC 71% of predicted, TLC 82% of predicted, RV 91% of predicted and DLCO 59% of predicted. Prior stress test completed on December 22, 2017 the patient was able to Evangelina 546 feet over the course of 6 minutes. She did not become hypoxic and therefore supplemental oxygen is not indicated. She also did not become tachycardic. Intake Vital Signs01/18/18 Height 5 ft 1 in 01/18/18 Weight: 228 lb Intake Visit Reasons: TEST RESULTS DME Vendor: [employer] Accompanied by: Family / Other Allergies atorvastatin calcium [From Lipitor] Allergy (Verified 01/18/18 13:10) Pain in joints Penicillins Allergy (Verified 01/18/18 13:10) Rash pseudoephedrine Allergy (Verified 01/18/18 13:10) Rash Sulfa (Sulfonamide Antibiotics) Allergy (Verified 01/18/18 13:10) Rash hydrochlorothiazide Adverse Reaction (Verified 01/18/18 13:10) Nausea sulfamethoxazole [From Bactrim] Adverse Reaction (Verified 01/18/18 13:10) Nausea trimethoprim [From Bactrim] Adverse Reaction (Verified 01/18/18 13:10) Nausea SSRI Allergy (Unknown, Uncoded 01/18/18 13:10) Other Medications Fenofibrate Nanocrystallized [Tricor] 48 mg PO QHS 04/18/16 [History Confirmed 01/18/18] Furosemide [Lasix] 40 mg PO DAILY 04/18/16 [History Confirmed 01/18/18] Pramipexole Di-HCl [Mirapex] 0.25 mg PO QHS 04/18/16 [History Confirmed 01/18/18] Rivaroxaban [Xarelto] 20 mg PO DAILY 04/18/16 [History Confirmed 01/18/18] Levothyroxine Sodium [Synthroid] 50 mcg PO DAILY 04/19/16 [History Confirmed 01/18/18] Acetaminophen [Tylenol Tablet] 650 mg PO Q6H PRN PRN #0 tab 05/09/16 [Rx Confirmed 01/18/18] Valsartan [Diovan] 160 mg PO DAILY #30 tab 05/09/16 [Rx Confirmed 01/18/18] simvastatin 80 mg tablet 80 mg PO QPM 05/26/17 [History Confirmed 01/18/18] carvedilol 12.5 mg tablet 12.5 mg PO BID #180 tab 07/02/17 [Rx Confirmed 01/18/18] gabapentin 600 mg tablet 600 mg PO .QID tab 07/22/17 [History Confirmed 01/18/18] albuterol sulfate 90 mcg/actuation breath activated powder inhaler 2 puff INHALATION Q4H PRN #1 ea 01/18/18 [Rx Confirmed 01/18/18] PFSH Medical History Chronic atrial fibrillation (Chronic) Non-rheumatic tricuspid valve insufficiency (Chronic) Secondary pulmonary arterial hypertension (Chronic) Morbid obesity with BMI of 40.0-44.9, adult (Chronic) Occlusion of carotid artery without cerebral infarction (Chronic) HTN (hypertension) (Chronic) History of hypothyroidism (Chronic) H/O transient cerebral ischemia (Chronic) Asthma (Chronic) Obstructive sleep apnea (Chronic) Surgical History History of arthroscopy of left knee (Chronic) History of bunionectomy of both great toes (Chronic) History of repair of right rotator cuff (Chronic) Hx of cholecystectomy (Chronic) Family History Mother CVA (cerebral vascular accident) Diabetes Social History Smoking Status: Never smoker alcohol intake: current alcohol intake frequency: holidays/special occasions only Alcohol type: wine Review of Systems Const CONSTITUTIONAL: Positive fatigue; negative anorexia, body ache, chills, daytime sleepiness, fever(s), night sweats, oral thrush, stops breathing during sleep, weight loss, sleeping in chair, weight loss, weight gain, frequent colds, seasonal allergies, other, headache(s) or orthopnea EETM Ear Nose Throat Mouth: Positive nasal discharge (chronic) and hearing normal; negative hoarseness, dry mouth in morning, change in vision, itchy eyes, eye pain, swallowing Difficulty, ear pain, headache(s), mouth pain, nasal congestion, sinus pain, sinus pressure, sore throat, other, hard of hearing, nose bleed or post nasal drip Cardio Cardiovascular: Positive murmur; negative chest pain, chest pain at rest, chest pain with activity, irregular heart rhythm, edema, shortness of breath when lying down, palpitations or other Resp Respiratory: Positive as per HPI and shortness of breath shortness of breath: Positive with activity; negative pain with cough, wheezing, chest congestion, cough, chest tightness, pain on inspiration, inhalers, increase use of rescue inhalers, snoring, apnea or other Gastro Gastrointestional: Negative bloody stools, change in appetite, difficulty swallowing, reflux, hematemesis, melena stool, loose stool, constipation or other Genitourinary: Negative blood in urine, nocturia, pain with urination or other Musc Musculoskeletal: Negative body pain, back pain, neck pain or other Skin/Breast Skin/Breast: Negative dry skin, itching, unusual bruising, breast lump, other or rash Neuro Neurological: Negative restless legs, confusion, weakness or other Psych Psychocological: Negative abnormal sleep pattern, anxiety, thoughts of hurting self/others, hopelessness or other Lymph Lymphatic: Negative easy bleeding, easy bruising, other or swollen lymph nodes Exam Const Constitutional: Positive cooperative, in no acute respiratory distress, well developed, well nourished, good hygiene, obese and conversant Head Head: Positive normocephalic and atraumatic; negative cyanosis of lips/distal nose Eyes Eye: Positive clear conjunctiva; negative nystagmus or scleral abnormality Ears Ear: Positive hearing normal and external ears normal; negative hard of hearing Nose Nose: Positive external nose normal and no nasal discharge; negative epistaxis Mouth Mouth: Positive oral mucosae normal, posterior oropharynx is adequate and no lesions; negative post nasal drip, malodorous breath or oral thrush present Mallampati Score: II: Mallampati Score Neck Neck: Positive normal visual inspection, full ROM, trachea midline, thick neck and female neck greater than 37 cm (15 in); negative lymphadenopathy, JVD or tender Chest Wall Chest: Positive normal inspection of the chest and symmetric chest movement; negative increased A/P diameter Resp lung sounds: Positive clear to auscultation, diminished, normal expiratory time and normal respiratory effort; negative wheezes, rhonchi, rales, dullness to percussion or wheeze present on forced exhalation Cardio Cardiac: Positive regular rate, regular rhythm, S1 normal, S2 normal and murmur murmur: Positive systolic, LUSB and RUSB GI GI: Positive normal to inspection and obese; negative distended Genitourinary: Positive deferred Musc Musculoskeletal: Positive ROM normal and in a wheelchair; negative kyphosis or scoliosis Skin Pulmonary Skin Exam: Positive intact; negative rash, lesion, ulcers or erythema Pulses Pulse: Yes pulses normal x4 extremities Extremities Extremities: Yes capillary refill normal, No clubbing, No cyanosis, No edema Neuro Neurologic: Yes conversant, Yes no focal neuro deficits, Yes normal concentration, Yes understands questions, Yes cooperative, Yes normal cognition, Yes normal coordination, No tremor Lymph Lymphatic: No lymphadenopathy, No tenderness, No cervical adenopathy Psych Appearance: Positive grossly normal, eye contact and well kempt Mental Status: Positive mental status grossly normal Mood: Positive congruent mood Affect: Positive normal affect Office Meds Fluad 2017- 65yr up(PF)45 mcg(15 mcgx3)/0.5 mL intramuscular syringe Performing Provider: JIMBO Fair Administered by: Mackenzie Taylor on 01/18/18 13:54 Dose Route Admin Location Lot Number Expiration Date [employer] 0.5 mL IM Lt Deltoid [id number] 08/17/18 05370-517-28 SEQIRUS Coding Level of Care Code Off vis,est,level 4 Diagnoses HELGA (obstructive sleep apnea) G47.33 Secondary pulmonary 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 Morbid obesity with BMI of 40.0-44.9, adult E66.01; Z68.41 Chronic atrial fibrillation I48.2 Dyspnea on exertion R06.09 01/18/18 1454 <Electronically signed by Ying CHOI> Date Ying CHOI Cosigner Signature: Date (if applicable) CC: Otis Roman MD PULMONARY FUNCTION Observed: 12/24/2017 Status: F Source: [place] RE[place] COMP 3:14 PM [facility] [place] [facility] Pulmonary Services/Neurology [address] [place] [address] MR#: [id number] Acct: [id number] Name: SIS FARR Rep #: [id number] : 1940 77 From: Hamlet Shin MD Referring Dr: Shaheen Ford MD Status: REG CLI Ordering Dr: Date: Location: [facility] Sex: F C COMPLETE PULMONARY FUNCTION TEST INTERPRETATION Brief HPI: Patient is a 77 year old female, currently under the care of Dr. Watkins and Dr. Ford, who presents to [facility] for complete pulmonary function tests secondary to diagnosis of dyspnea. Respiratory therapist reports good effort and reproducible results. Interpretation: Forced expiration spirometry shows no large airways obstructive ventilatory defect with an FEV1 of 76% predicted. There is no significant bronchodilator response by ATS criteria. Spirograms are of good quality and plateau normally. The respiratory flow volume loop shows decreased expiratory flow rates at all lung volumes consistent with airway obstruction. Lung volumes by body plethysmography show a normal total lung capacity at 3.25 L, 82% predicted. All other lung volumes are reduced symmetrically. Diffusion capacity by carbon monoxide is decreased at 59% predicted. The airway resistance is normal. No previous pulmonary function tests were available for review. Impression: Isolated reduction in diffusing capacity consistent with a pulmonary vascular disorder. Lung volumes are at the lower limit of normal, so early interstitial lung disease cannot be excluded. 12/24/17 1514 <Electronically signed by Hamlet Shin MD> Date Hamlet Shin MD CC: Hamlet Shin MD; Otis Roman MD; Shaheen Ford MD Date Dictated: 12/24/171509 Date Transcribed: 12/24/171509 Grease Rack Worker: MANUEL Signed 6 MINUTE WALK TEST Observed: 12/22/2017 Status: F Source: [place] 1:52 PM [facility] [place] [facility] Pulmonary Services/Neurology [address] [place] [address] MR#: [id number] Acct: [id number] Name: SIS FARR Rep #: [id number] : 1940 77 From: Hamlet Shin MD Referring Dr: Shaheen Ford MD Date: Ordering Dr: Sex: F C Location: PSN PSN 6 Minute Walk Test - 6 Minute Walk Test 6 Minute Walk Test: 6 Minute Walk Test PSN:6-Minute Walk Test Start: 12/22/17 11:13 Freq: Status: Active Protocol: RESP.6MINW Document 12/22/17 11:14 JLA (Rec: 12/22/17 11:16 JLA [id number]) 6 Minute Walk Test Date Performed 12/22/17 Time Performed 11:00 Height 5 ft 1 in Weight: 102.512 kg Weight in Pounds 226.[address]: Shaheen Ford Assistive device used: Walker Pre-test Oxygen Delivery Method Room Air Pulse Ox (%) 95 Pulse Rate (60-100 beats/min) 64 Dyspnea Rene Scale (0-10) 0 Exertion Rene Scale (6-20) 6 1st minute Oxygen Delivery Method Room Air Pulse Ox (%) 97 Pulse Rate (60-100 beats/min) 82 2nd minute Oxygen Delivery Method Room Air Pulse Ox (%) 96 Pulse Rate (60-100 beats/min) 84 3rd minute Oxygen Delivery Method Room Air Pulse Ox (%) 97 Pulse Rate (60-100 beats/min) 75 4th minute Oxygen Delivery Method Room Air Pulse Ox (%) 95 Pulse Rate (60-100 beats/min) 83 Number of Rests Taken 1 5th minute Oxygen Delivery Method Room Air Pulse Ox (%) 96 Pulse Rate (60-100 beats/min) 84 6th minute Oxygen Delivery Method Room Air Pulse Ox (%) 97 Pulse Rate (60-100 beats/min) 84 Dyspnea Rene Scale (0-10) 3 Exertion Rene Scale (6-20) 11 Post-test Oxygen Delivery Method Room Air Pulse Ox (%) 97 Pulse Rate (60-100 beats/min) 75 Full Laps Walked 9 Partial Lap, Number of Tiles Walked 15 Total Distance Walked (ft) 546 - Interpretation Interpretation: The patient was able to ambulate only 546 feet over the course of 6 minutes on room air with the assistance of a walker and one break. No significant desaturation or tachycardia was noted. These findings are consistent with a musculoskeletal limitation exercise tolerance. 12/22/17 1352 <Electronically signed by Hamlet Shin MD> Date Hamlet Shin MD CC: Date Dictated: 12/22/17 135 Date Transcribed: 12/22/171350 Grease Rack Worker: Hamlet Shin Signed CARDIOLOGY VISIT Observed: 12/07/2017 Status: F Source: [place] REPORT 3:54 PM [facility] [place] [facility] [address] [place] [address] OFFICE VISIT Date of Service: 12/07/17 MR#: [id number] Acct: [id number] Name: SIS FARR Rep #: [id number] : 1940 Provider: Shaheen Ford MD Age/Sex: 77/F Location: [facility] [place] Status: Signed HPI HPI Chief Complaint: Routine F/u Details: Referring physician Dr. Roman Mrs FarrIs a very pleasant 77-year-old morbidly obese nondiabetic female with a history of hypertension, hypercholesterolemia, hypothyroidism, obstructive sleep apnea diagnosed in 2012, currently using CPAP. Patient presented in 2010 with new onset CVA with a aphasia which lasted about 3 days' time and then completely resolved. That time she was not found to be in atrial fibrillation and was treated medically. 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 Patient was found to be in atrial fibrillation and was placed on xeralto, which she has been on consistently over the last several years. In addition she underwent a 2-D echo with Doppler on 06/10/13 which demonstrated an LVEF of 55%, mild biatrial enlargement, 1-2+ tricuspid regurgitation with an RVSP of approximately 59 mmHg. The patient reports that she has been compliant with her CPAP every night. patient underwent a stress echocardiogram on 04/05/14 which was negative for inducible ischemia. Since her last visit, she has been doing relatively well. She has no ability to detect whether she is in and out of atrial fibrillation. She denies any chest pain, angina, shortness of breath or dyspnea on exertion. She is taking and tolerating her medicines well. Patient states that she recently had a mechanical fall tripping over her cane which got caught on her toe. She had no presyncope, syncope,lightheadedness, dizziness or head trauma. patient was previously admitted to [facility] on 05/12/16 with what appeared to be significant flu like symptoms Which progressed into sepsis due to pneumonia. She also apparently had a UTI. on 04/27/16 patient underwent a non-walking nuclear stress test which was negative for inducible ischemia. The symptoms have completely resolved and she is doing fairly well. From a cardiac standpoint she denies any exertional chest pain, angina, but does use the conrad and doorways to get her way around the house. She has had no falls. she walks with a wheeled walker, without any difficulty. Patient's main complaint today is dyspnea on exertion and shortness of breath as well as occasional lower extremity edema. She reports that her dyspnea on exertion is fairly acute when she gets in and out of a car. She is seen Dr. Watkins in the past, and it has been many years since her last pulmonary function In our office today her blood pressure is 112/52, and pulse is 68 and irregular. Her physical exam demonstrates significant obesity, clear lungs bilaterally, irregularly irregular rhythm, normal S2, with a faint 2/6 holosystolic murmur best heard at the lower left sternal border. She has No significant edema, and her lipids as of 09/25/16 showed an HDL of 68 and an LDL of 55.. Recent EKG dated 03/15/14 demonstrates atrial fibrillation with possible old anteroseptal wall myocardial infarction versus lead misplacement. EKG On previous visit and as of 04/26/16 demonstrates atrial fibrillation with controlled ventricular response. Echocardiogram dated 08/10/17 showed an EF of 60%, RVSP of 55 mmHg, and consistent atrial fibrillation. Intake Vital Signs12/07/17 Body Mass Index (BMI) 43.9 12/07/17 Blood Pressure 112/52 12/07/17 Body Mass Index (BMI) 43.9 12/07/17 Blood Pressure 112/52 Intake Visit Reasons: 6 M [employer] Required: No Accompanied by: Caregiver Is patient in pain?: No Allergies atorvastatin calcium [From Lipitor] Allergy (Verified 12/07/17 08:36) Pain in joints Penicillins Allergy (Verified 12/07/17 08:36) Rash pseudoephedrine Allergy (Verified 12/07/17 08:36) Rash Sulfa (Sulfonamide Antibiotics) Allergy (Verified 12/07/17 08:36) Rash hydrochlorothiazide Adverse Reaction (Verified 12/07/17 08:36) Nausea sulfamethoxazole [From Bactrim] Adverse Reaction (Verified 12/07/17 08:36) Nausea trimethoprim [From Bactrim] Adverse Reaction (Verified 12/07/17 08:36) Nausea SSRI Allergy (Unknown, Uncoded 10/27/17 13:00) Other Medications Fenofibrate Nanocrystallized [Tricor] 48 mg PO QHS 04/18/16 [History Confirmed 10/27/17] Furosemide [Lasix] 40 mg PO DAILY 04/18/16 [History Confirmed 10/27/17] Pramipexole Di-HCl [Mirapex] 0.25 mg PO QHS 04/18/16 [History Confirmed 10/27/17] Rivaroxaban [Xarelto] 20 mg PO DAILY 04/18/16 [History Confirmed 10/27/17] Levothyroxine Sodium [Synthroid] 50 mcg PO DAILY 04/19/16 [History Confirmed 10/27/17] Acetaminophen [Tylenol Tablet] 650 mg PO Q6H PRN PRN #0 tab 05/09/16 [Rx Confirmed 10/27/17] Valsartan [Diovan] 160 mg PO DAILY #30 tab 05/09/16 [Rx Confirmed 10/27/17] simvastatin 80 mg tablet 80 mg PO QPM 05/26/17 [History Confirmed 10/27/17] carvedilol 12.5 mg tablet 12.5 mg PO BID #180 tab 07/02/17 [Rx Confirmed 10/27/17] gabapentin 600 mg tablet 600 mg PO .QID tab 07/22/17 [History Confirmed 10/27/17] PFSH Medical History Chronic atrial fibrillation (Chronic) Non-rheumatic tricuspid valve insufficiency (Chronic) Secondary pulmonary arterial hypertension (Chronic) Morbid obesity with BMI of 40.0-44.9, adult (Chronic) Occlusion of carotid artery without cerebral infarction (Chronic) HTN (hypertension) (Chronic) History of hypothyroidism (Chronic) H/O transient cerebral ischemia (Chronic) Asthma (Chronic) Obstructive sleep apnea (Chronic) Surgical History History of arthroscopy of left knee (Chronic) History of bunionectomy of both great toes (Chronic) History of repair of right rotator cuff (Chronic) Hx of cholecystectomy (Chronic) Family History Mother CVA (cerebral vascular accident) Diabetes Social History Smoking Status: Never smoker alcohol intake: current alcohol intake frequency: holidays/special occasions only Alcohol type: wine ROS Const Const: Positive for other (still having dyspnea, cath cancelled d/t shingles in May); negative for body ache, fever(s), chills, night sweats, daytime sleepiness, difficulty sleeping, weight gain, weight loss, increased appetite, poor appetite, anorexia, fatigue, excessive sweating, weakness, headache(s) or frequent falls Eyes Eyes: Negative for blind spots, loss of peripheral vision, transient loss of vision, change in vision, floaters, tunnel vision, other, blurry vision or double vision ENT ENT: Positive for balance problems (from CVA); negative for hearing loss, tinnitus, Nosebleed/epistaxis, post nasal drip, bleeding gums, hoarseness, neck pain, dry mouth, other, headache(s), dizziness, lip swelling or tongue swelling Cardio Chest Pain: No Palpitations: Yes (sometimes can feel fluttering from her a-fib) Edema: Bilateral (mjild pittind to [place]) Muscle aches with walking: None Resp Respiratory: Positive for SOB with activity, Cough (dry cough) and other (Uses CPAP); negative for SOB at rest, SOB orthopnea\SOB lying down, Coughing up blood/hemoptysis, chest congestion, pain on inspiration, snoring, stridor, wheezing, crackles or paroxysmal nocturnal dyspnea GI GI: Negative nausea, vomiting, heartburn, constipation, belching, bloating, cramping, vomiting blood/hematemesis, bright, red blood in stools, black,tarry stools, loose stools, Difficulty Swallowing or other : Negative for hematuria, frequent nighttime urination/ nocturia, erectile dysfunction or abnormal vaginal bleeding Musc Musc: Positive for balance problems (from CVA) and joint pain (left knee); negative for muscle aches/ myalgia or muscle weakness Skin Skin: Negative redness, non-healing lesions, unusual bruising, skin ulcer, wounds, jaundice, other or rash Neuro Neuro: Positive for lack of coordination and other (History of CVS, also left kene arthritis, walks with a cane); negative for weakness, headache(s), frequent falls, blurry vision, double vision, dizziness, lightheadedness, near syncope, syncope, orthostatic symptoms, confusion, memory loss, restless legs, vertigo or seizures Chepe Hematologic/Lymphatic: Negative for easy bleeding, easy bruising, enlarged lymph nodes or other Endo Endo: Negative for fatigue, excessive sweating, cold intolerance, heat intolerance, flushing, increased thirst/drinking, increased hunger, hair loss, hair growth or other Psych Psych: Negative for anxiety, depression, thoughts of harming anyone, thoughts of harming yourself, visual hallucinations, panic attacks or audible hallucinations Allergy Allergy/Immunology: Negative for lip swelling, Negative for tongue swelling, Negative for rash, Negative for throat swelling, Negative for hives Cardiology Exam Const Appearance: cooperative, healthy appearing and no acute distress Nutritional Appearance: well nourished Orientation: alert, oriented x3 and oriented to person Head Head: normal to inspection, atraumatic and normocephalic Nose: external nose normal Face and Sinus: face symmetric Mouth: oral mucosae normal Eyes General: appearance normal, both eyes and all related structures Eyelids: eyelids normal Conjunctivae: conjunctivae normal Pupils: PERRL and normal by confrontation EOM: EOM intact bilaterally Neck Neck: normal visual inspection and full ROM Carotids: normal carotid upstroke Chest Chest inspection: normal inspection of the chest Auscultation: Bilateral: Clear to Auscultation Cardio Palpation: normal PMI Rate: regular rate Rhythm: irregular rhythm Heart sounds: S2 normal Murmur: Grade 2/6 and holosystolic GI GI: normal to inspection, no hepatosplenomegaly and bowel sounds present Neuro General: alert, oriented x3, awake, CN's II-XI intact bilaterally and moves all extremities Skin Skin: no rashes or lesions noted Extremities Pulses: Normal: Right Femoral Pulse, Left Femoral Pulse, Right Dorsalis Pedis Pulse, Left Dorsalis Pedis Pulse, Right Posterior Tibial Pulse, Left Posterior Tibial Pulse, Right Radial Pulse, Left Radial Pulse Lower Extremity Edema: None: Bilateral Psych Psychological: normal affect Assessment AND Plan 1. Chronic atrial fibrillation I48.2 Plan 1. Atrial fibrillation: The patient has chronic persistent atrial fibrillation is not a candidate for invasive or external cardioversion. Her heart rate and blood pressure well controlled. Recommend that she continue her Coreg, Lasix, and Xarelto. Her blood pressure is optimized. Continue valsartan. 2. Secondary pulmonary 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 Plan 2. Pulmonary hypertension: The patient has at least moderate pulmonary hypertension by echocardiogram with an RVSP of at least 55 mmHg. I recommended that she undergo full pulmonary function test as she has not had this in several years and complains of dyspnea on exertion with minimal activity. In addition recommend that she continue her anticoagulation long-term. Would also recommend evaluation of possible chronic O2 therapy with a 6 minute walk test equivalent with her walker. We will then refer her back to Dr. Watkins for possible low tooth herpes. 3. Hyperlipidemia: Her LDL and HDL cholesterol are fairly well-controlled as of February 2017. Continue Zocor. 4. Return office in 6 Months. This note was generated using a voice recognition system and there may be incorrect words, spelling or punctuation that were not noted when reviewing the office note prior to saving.. Orders Orders: Plan Detail Other Orders Orders: Other Medications Discontinued: Follow Up +6M ([place]) Coding Level of Care Code Off vis,est,level 3 Diagnoses Chronic atrial fibrillation I48.2 Secondary pulmonary 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 Coding Level of Care Code Off vis,est,level 3 Diagnoses Chronic atrial fibrillation I48.2 Secondary pulmonary 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 12/07/17 8854 <Electronically signed by Shaheen Ford MD> Date Shaheen Ford MD Cosigner Signature: Date (if applicable) CC: Otis Roman MD CARDIOLOGY VISIT Observed: 12/07/2017 Status: F Source: [facility] RE[facility] 9:49 AM [facility] [place] [facility] [address] [place] [address] OFFICE VISIT Date of Service: 12/07/17 MR#: [id number] Acct: [id number] Name: SIS FARR Rep #: [id number] : 1940 Provider: Shaheen Ford MD Age/Sex: 77/F Location: [facility] [place] Status: Signed HPI HPI Details: SIS FARR, is a 77 F who presents to the office today for Intake Vital Signs12/07/17 Body Mass Index (BMI) 43.9 12/07/17 Blood Pressure 112/52 Intake Visit Reasons: 6 M FU Allergies atorvastatin calcium [From Lipitor] Allergy (Verified 12/07/17 08:36) Pain in joints Penicillins Allergy (Verified 12/07/17 08:36) Rash pseudoephedrine Allergy (Verified 12/07/17 08:36) Rash Sulfa (Sulfonamide Antibiotics) Allergy (Verified 12/07/17 08:36) Rash hydrochlorothiazide Adverse Reaction (Verified 12/07/17 08:36) Nausea sulfamethoxazole [From Bactrim] Adverse Reaction (Verified 12/07/17 08:36) Nausea trimethoprim [From Bactrim] Adverse Reaction (Verified 12/07/17 08:36) Nausea SSRI Allergy (Unknown, Uncoded 10/27/17 13:00) Other Medications Fenofibrate Nanocrystallized [Tricor] 48 mg PO QHS 04/18/16 [History Confirmed 10/27/17] Furosemide [Lasix] 40 mg PO DAILY 04/18/16 [History Confirmed 10/27/17] Pramipexole Di-HCl [Mirapex] 0.25 mg PO QHS 04/18/16 [History Confirmed 10/27/17] Rivaroxaban [Xarelto] 20 mg PO DAILY 04/18/16 [History Confirmed 10/27/17] Levothyroxine Sodium [Synthroid] 50 mcg PO DAILY 04/19/16 [History Confirmed 10/27/17] Acetaminophen [Tylenol Tablet] 650 mg PO Q6H PRN PRN #0 tab 05/09/16 [Rx Confirmed 10/27/17] Valsartan [Diovan] 160 mg PO DAILY #30 tab 05/09/16 [Rx Confirmed 10/27/17] aspirin 81 mg tablet,delayed release 81 mg PO QDAY 05/26/17 [History Confirmed 10/27/17] enoxaparin 100 mg/mL subcutaneous syringe 100 mg SC Q12H #10 ml 05/26/17 [Rx Confirmed 10/27/17] simvastatin 80 mg tablet 80 mg PO QPM 05/26/17 [History Confirmed 10/27/17] clopidogrel 75 mg tablet 75 mg PO QDAY #30 tab 06/30/17 [Rx Confirmed 10/27/17] carvedilol 12.5 mg tablet 12.5 mg PO BID #180 tab 07/02/17 [Rx Confirmed 10/27/17] gabapentin 600 mg tablet 600 mg PO .QID tab 07/22/17 [History Confirmed 10/27/17] PFSH Medical History Chronic atrial fibrillation (Chronic) Non-rheumatic tricuspid valve insufficiency (Chronic) Secondary pulmonary arterial hypertension (Chronic) Morbid obesity with BMI of 40.0-44.9, adult (Chronic) Occlusion of carotid artery without cerebral infarction (Chronic) HTN (hypertension) (Chronic) History of hypothyroidism (Chronic) H/O transient cerebral ischemia (Chronic) Asthma (Chronic) Obstructive sleep apnea (Chronic) Surgical History History of arthroscopy of left knee (Chronic) History of bunionectomy of both great toes (Chronic) History of repair of right rotator cuff (Chronic) Hx of cholecystectomy (Chronic) Family History Mother CVA (cerebral vascular accident) Diabetes Social History Smoking Status: Never smoker alcohol intake: current alcohol intake frequency: holidays/special occasions only Alcohol type: wine ROS Const Const: Negative for fatigue, weakness, body ache, fever(s), headache(s), chills, frequent falls, night sweats, daytime sleepiness, difficulty sleeping, excessive sweating, weight gain, weight loss, increased appetite, poor appetite, anorexia or other Eyes Eyes: Negative for blind spots, loss of peripheral vision, transient loss of vision, blurry vision, change in vision, double vision, floaters, tunnel vision or other ENT ENT: Negative for headache(s), dizziness, hearing loss, tinnitus, Nosebleed/epistaxis, balance problems, post nasal drip, lip swelling, tongue swelling, bleeding gums, hoarseness, neck pain, dry mouth or other Cardio Chest Pain: No Resp Respiratory: Negative for SOB with activity, SOB at rest, SOB orthopnea\SOB lying down, Coughing up blood/hemoptysis, chest congestion, pain on inspiration, snoring, stridor, wheezing, crackles, paroxysmal nocturnal dyspnea or other GI GI: Negative nausea, vomiting, heartburn, constipation, belching, bloating, cramping, vomiting blood/hematemesis, bright, red blood in stools, black,tarry stools, loose stools, Difficulty Swallowing or other : Negative for hematuria, frequent nighttime urination/ nocturia, erectile dysfunction or abnormal vaginal bleeding Musc Musc: Negative for balance problems, muscle aches/ myalgia, muscle weakness or joint pain Skin Skin: Negative redness, non-healing lesions, rash, unusual bruising, skin ulcer, wounds, jaundice or other Neuro Neuro: Negative for weakness, headache(s), frequent falls, blurry vision, double vision, dizziness, lightheadedness, near syncope, syncope, orthostatic symptoms, confusion, memory loss, restless legs, vertigo, seizures, lack of coordination or other Chepe Hematologic/Lymphatic: Negative for easy bleeding, easy bruising, enlarged lymph nodes or other Endo Endo: Negative for fatigue, excessive sweating, cold intolerance, heat intolerance, flushing, increased thirst/drinking, increased hunger, hair loss, hair growth or other Psych Psych: Negative for anxiety, depression, thoughts of harming anyone, thoughts of harming yourself, visual hallucinations, panic attacks or audible hallucinations Allergy Allergy/Immunology: Negative for lip swelling, Negative for tongue swelling, Negative for rash, Negative for throat swelling, Negative for hives Assessment AND Plan Medications Discontinued: albuterol sulfate Discontinued 2.5 mg (3 mL) Inhalation Q2H PRN P Zamzam Ngo NP-C Reason: PT.NTKING RN #90 0RF guaifenesin ER Discontinued Rea1,200 mg PO BID 30 tabs 0RF Zamzam Ngo, ACCOUNTING INSTRUCTOR-C son: .REASON Coding Level of Care Code Off vis,est,level 3 Coding Level of Care Code Off vis,est,level 3 12/07/17 0949 <Electronically signed by Shaheen Ford MD> Date Shaheen Ford MD Cosigner Signature: Date (if applicable) CC: Otis Roman MD PULMONARY VISIT REPORT Observed: 10/27/2017 Status: F Source: [place] 1:38 PM [facility] [place] [facility] Medicine [address] [place] [address] OFFICE VISIT Date of Service: 10/27/17 MR#: [id number] Acct: [id number] Name: SIS FARR Rep #: [id number] : 1940 Provider: Carson Watkins D.O. Age/Sex: 77/F Location: [facility] Status: Signed Assessment AND Plan 1. HELGA (obstructive sleep apnea) G47.33 Plan The patient is currently compliant with the use of nocturnal BiPAP therapy with a pressure support setting of 17/11 cm of water. She appears to be benefiting clinically from its use, noting the presence of restorative sleep and less daytime hypersomnolence. We will plan to continue the aforementioned therapy without change. The patient has been advised to call this office with any issues pertaining to her BiPAP machine. She will follow-up with us in 1 year. 2. Obesity E66.9 Plan Weight loss through dietary modification and a graded exercise regimen is strongly encouraged. Plan Detail Follow Up 1 Year (DMB) HPI HPI Comments Details: The patient is a 77-year-old female who presents to the clinic today for a routine scheduled follow-up office visit. If you recall, the patient did complete a diagnostic polysomnogram and titration study in 2012, for which it was recommended that the patient be placed on bilevel with a pressure setting of 17/11 cm water with humidification. Surface echocardiogram completed in 2013 demonstrated preserved ejection fraction with mild biatrial enlargement and a right ventricular systolic pressure estimated to be 59 mmHg. She has been followed by Dr. Ford of cardiology. Per Dr. Ford's last cardiology office visit note, there was tentative plan for the patient to undergo a repeat echocardiogram and cardiac catheterization. However, the patient developed shingles and the procedure had to be canceled. She is a lifelong non- smoker. 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 She is currently compliant with use of her nocturnal BiPAP. She will be due to have her equipment replaced in February of this year. She is currently utilizing a full facemask. Her DME provider is [employer]. A repeat surface echocardiogram completed in July 2017 revealed normal LV size and thickness with an ejection fraction of 60%. Right ventricular systolic pressure was estimated to be 55 mmHg. The patient's nocturnal compliance report was personally reviewed at today's office visit. Over the last 30 days, she has demonstrated 100% compliance with its use. She is currently utilizing her BiPAP just over 8 hours per night. She is currently prescribed a bilevel pressure support of 17/11 cm of water with humidification. She has a residual AHI of 2.9. Occasional air leaks are noted. The patient denies any BiPAP related issues. She does report that her cushions are currently in need of replacement. She receives her equipment through [employer]. He does report the presence of restorative sleep upon awakening in the morning. She denies significant daytime hypersomnolence. She does report that she occasionally takes an afternoon nap. Intake Vital Signs10/27/17 Height 5 ft 10/27/17 Weight: 230 lb Intake Visit Reasons: 3 M FU Chief Complaint: Routine F/u Accompanied by: Daughter Allergies atorvastatin calcium [From Lipitor] Allergy (Verified 10/27/17 13:00) Pain in joints Penicillins Allergy (Verified 10/27/17 13:00) Rash pseudoephedrine Allergy (Verified 10/27/17 13:00) Rash Sulfa (Sulfonamide Antibiotics) Allergy (Verified 10/27/17 13:00) Rash hydrochlorothiazide Adverse Reaction (Verified 10/27/17 13:00) Nausea sulfamethoxazole [From Bactrim] Adverse Reaction (Verified 10/27/17 13:00) Nausea trimethoprim [From Bactrim] Adverse Reaction (Verified 10/27/17 13:00) Nausea SSRI Allergy (Unknown, Uncoded 10/27/17 13:00) Other Medications Fenofibrate Nanocrystallized [Tricor] 48 mg PO QHS 04/18/16 [History Confirmed 10/27/17] Furosemide [Lasix] 40 mg PO DAILY 04/18/16 [History Confirmed 10/27/17] Pramipexole Di-HCl [Mirapex] 0.25 mg PO QHS 04/18/16 [History Confirmed 10/27/17] Rivaroxaban [Xarelto] 20 mg PO DAILY 04/18/16 [History Confirmed 10/27/17] Levothyroxine Sodium [Synthroid] 50 mcg PO DAILY 04/19/16 [History Confirmed 10/27/17] Acetaminophen [Tylenol Tablet] 650 mg PO Q6H PRN PRN #0 tab 05/09/16 [Rx Confirmed 10/27/17] Valsartan [Diovan] 160 mg PO DAILY #30 tab 05/09/16 [Rx Confirmed 10/27/17] aspirin 81 mg tablet,delayed release 81 mg PO QDAY 05/26/17 [History Confirmed 10/27/17] enoxaparin 100 mg/mL subcutaneous syringe 100 mg SC Q12H #10 ml 05/26/17 [Rx Confirmed 10/27/17] simvastatin 80 mg tablet 80 mg PO QPM 05/26/17 [History Confirmed 10/27/17] clopidogrel 75 mg tablet 75 mg PO QDAY #30 tab 06/30/17 [Rx Confirmed 10/27/17] carvedilol 12.5 mg tablet 12.5 mg PO BID #180 tab 07/02/17 [Rx Confirmed 10/27/17] gabapentin 600 mg tablet 600 mg PO .QID tab 07/22/17 [History Confirmed 10/27/17] PFSH Medical History Chronic atrial fibrillation (Chronic) Non-rheumatic tricuspid valve insufficiency (Chronic) Secondary pulmonary arterial hypertension (Chronic) Morbid obesity with BMI of 40.0-44.9, adult (Chronic) Occlusion of carotid artery without cerebral infarction (Chronic) HTN (hypertension) (Chronic) History of hypothyroidism (Chronic) H/O transient cerebral ischemia (Chronic) Asthma (Chronic) Obstructive sleep apnea (Chronic) Surgical History History of arthroscopy of left knee (Chronic) History of bunionectomy of both great toes (Chronic) History of repair of right rotator cuff (Chronic) Hx of cholecystectomy (Chronic) Family History Mother CVA (cerebral vascular accident) Diabetes Social History Smoking Status: Never smoker alcohol intake: current alcohol intake frequency: holidays/special occasions only Alcohol type: wine Review of Systems Const CONSTITUTIONAL: Negative anorexia, body ache, chills, daytime sleepiness, fever(s), night sweats, oral thrush, stops breathing during sleep, weight loss, sleeping in chair, fatigue, weight loss, weight gain, frequent colds, seasonal allergies, other, headache(s) or orthopnea EETM Ear Nose Throat Mouth: Positive hearing normal; negative hard of hearing, hoarseness, dry mouth in morning, change in vision, itchy eyes, eye pain, swallowing Difficulty, ear pain, nose bleed, headache(s), mouth pain, nasal congestion, nasal discharge, post nasal drip, sinus pain, sinus pressure, sore throat or other Cardio Cardiovascular: Negative chest pain, chest pain at rest, chest pain with activity, irregular heart rhythm, edema, shortness of breath when lying down, palpitations, murmur or other Resp Respiratory: Positive as per HPI and shortness of breath shortness of breath: Positive with activity; negative pain with cough, wheezing, chest congestion, cough, chest tightness, pain on inspiration, inhalers, increase use of rescue inhalers, snoring, apnea or other Gastro Gastrointestional: Negative bloody stools, change in appetite, difficulty swallowing, reflux, hematemesis, melena stool, loose stool, constipation or other Genitourinary: Negative blood in urine, nocturia, pain with urination or other Musc Musculoskeletal: Positive body pain; negative back pain, neck pain or other Skin/Breast Skin/Breast: Negative dry skin, itching, rash, unusual bruising, breast lump or other Neuro Neurological: Negative restless legs, confusion, weakness or other Psych Psychocological: Negative abnormal sleep pattern, anxiety, thoughts of hurting self/others, hopelessness or other Lymph Lymphatic: Negative easy bleeding, easy bruising, swollen lymph nodes or other Exam Const Constitutional: Positive conversant, cooperative, in no acute respiratory distress, well developed, well nourished, good hygiene and obese Head Head: Positive normocephalic and atraumatic; negative cyanosis of lips/distal nose Eyes Eye: Positive clear conjunctiva; negative nystagmus or scleral abnormality Ears Ear: Positive hearing normal and external ears normal; negative hard of hearing Nose Nose: Positive external nose normal; negative epistaxis Mouth Mouth: Positive oral mucosae normal and posterior oropharynx is adequate; negative no lesions or post nasal drip Mallampati Score: III: Mallampati Score Neck Neck: Positive normal visual inspection, trachea midline and thick neck; negative lymphadenopathy Chest Wall Chest: Positive symmetric chest movement Normal AP diameter. Resp lung sounds: Positive clear to auscultation and good air exchange; negative wheezes, rhonchi or rales Cardio Cardiac: Positive S1 normal and S2 normal; negative rub, gallop or murmur Irregular rhythm GI GI: Positive normal bowel sounds and obese Soft without distention Genitourinary: Positive deferred Musc Musculoskeletal: Positive in a wheelchair Skin Pulmonary Skin Exam: Positive intact; negative lesion, ulcers, dermal atrophy or rash Pulses Pulse: Yes Pedal pulses present: Extremities Extremities: No clubbing, No cyanosis, No edema Neuro Neurologic: Yes conversant, Yes no focal neuro deficits, Yes cooperative Lymph Lymphatic: No lymphadenopathy Psych Appearance: Positive grossly normal Mental Status: Positive mental status grossly normal Mood: Positive congruent mood Affect: Positive normal affect Coding Level of Care Code Off vis,est,level 3 Diagnoses HELGA (obstructive sleep apnea) G47.33 Obesity E66.9 10/27/17 1338 <Electronically signed by Carson Watkins DO> Date Carson Watkins DO Cosigner Signature: Date (if applicable) CC: Otis Roman MD THORACIC SPINE 3 Observed: 08/25/2017 Status: F Source: [place] VIEWS 11:44 AM [facility] REPOSITORY [facility] Imaging Services [address] [place] [address] Thoracic Spine 3 Views MR#: [id number] Acct: [id number] Name: SIS FARR Rep #: [id number] : 1940 F [id number] From: Vita Zuniga MD PCP: Otis Roman MD Status: REG CLI Study: Thoracic Spine 3 Views Date of Exam: 08/25/17 Exam# [id number] Ordering Dr: Kiana Broussard MD STUDY: X-RAY - THORACIC SPINE REASON FOR EXAM: Female, 77 years old. Back pain x2 years, getting worse TECHNIQUE: 3 view(s) of the thoracic spine were obtained. COMPARISON: None. FINDINGS: Normal kyphosis of the thoracic spine. There is no substantial scoliosis. There is multilevel endplate spondylosis of the thoracic vertebrae. There is multilevel disc space narrowing of the thoracic spine. The soft tissue structures are unremarkable. RAD/Thoracic Spine 3 Views IMPRESSION: Multilevel degenerative changes. No malalignment or compression injury detected. Electronically Signed: Vita Zuniga MD at 7:20 EDT , Service support , CC: Kiana Broussard MD; Otis Roman MD Grease Rack Worker: Signed ECHOCARDIOGRAM COMPLETE Observed: 08/11/2017 Status: F Source: [place] 5:12 PM [facility] REPOSITORY [facility] Cardiovascular Services [address] [place] [address] Echo Complete 08/10/17 1413 MR#: [id number] Acct: [id number] Name: SIS FARR Rep #: [id number] : 1940 77 From: Shaheen Ford MD Attending Dr: Carson Watkins D.O. Status: REG CLI Ordering Dr: Carson Watkins DO Date: 08/10/17 Location: [facility] Sex: F C Admitted: Reason For Study: Dyspnea/SOB Procedure This was a 2D Doppler, Color Flow transthoracic echocardiogram. The study was technically difficult. Did not use Definity due to increased PAP. Exam performed in department. Left Ventricle Normal size and thickness. The estimated ejection fraction is 60 %. No regional wall motion abnormalities noted. Right Ventricle Normal size and thickness. Normal systolic function. Atria The left atrium is mildly enlarged. Normal right atrium. Normal atrial septum. Mitral Valve The mitral valve is structurally normal. No prolapse or stenosis seen.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 de/V779251353(RXN Community SNOMED CT) ORM) Hospital Repository Drug sulfamethoxazole/ Nausea Unknown [place] 9 Allergy/909007585( M372213257(RXNORM Community SNOMED CT) ) Hospital Repository Drug trimethoprim/F006 Nausea Unknown [place] 9 Allergy/629198224( 462457(RXNORM) [facility] SNOMED CT) Hospital Repository Miscellaneous SSRI Other Unknown [place] 9 Allergy/410383109( Community SNOMED [facility]) Hospital Repository ENCOUNTERS ENCOUNTERS ADMIT/DISCHARGE ACCOUNT ADMITTING ENCOUNTER LOCATION SOURCE NUMBER CLASS 04/22/2018/ [id number] Ambulatory BMSBuilding:B [place] 9 5 [facility] Repository 04/21/2018 [id number] Ambulatory [place] 2 [facility] ing:MTLAB Repository 04/05/2018 [id number] Ambulatory [place] 4 [facility] ing:LABSPEC Repository 04/02/2018 [id number] Ambulatory [place] 8 [facility] ing:MTLAB Repository 03/29/2018 [id number] Ambulatory [place] 8 [facility] ing:OPBI Repository 02/23/2018 [id number] Ambulatory [place] 6 [facility] ing:RAD Repository 01/18/2018/ [id number] Ambulatory BMSBuilding:B [place] 8 0 MS.[facility] Hospital Repository 12/24/2017 [id number] Ambulatory [place] 1 [facility] ing:PSN Repository 12/24/2017 [id number] Ambulatory BMSBuilding:W [place] 8 [facility] Repository 12/22/2017 [id number] Ambulatory [place] 0 [facility] ing:PSN Repository 12/22/2017 [id number] Ambulatory BMSBuilding:W [place] 1 [facility] Repository 12/07/2017/ [id number] Ambulatory BMSBuilding:B [place] [address] Repository 10/27/2017/ [id number] Ambulatory BMSBuilding:B [place] 8 6 [facility] Repository 08/25/2017 [id number] Ambulatory [place] 6 [facility] ing:RAD Repository 08/10/2017 [id number] Ambulatory [place] 4 [facility] ing:CVS Repository 08/10/2017 [id number] Ambulatory BMSBuilding:W [place] 2 [facility] Repository 07/22/2017/ [id number] Ambulatory BMSBuilding:B [place] 8 0 [facility] Repository 07/01/2017 [id number] Ambulatory [place] 5 [facility] ing:CLSP Repository 06/26/2017 [id number] Ambulatory [place] 3 [facility] ing:CVS Repository 05/26/2017/ [id number] Ambulatory BMSBuilding:B [place] [address] [facility] Repository 05/25/2017 [id number] Ambulatory BMSBuilding:B [place] [address] [facility] Repository PAYERS PAYERS ENCOUNTER GUARANTOR PAYER SUBSCRIBER SOURCE 04/22/2018 SIS Colin Primary SIS L [place] [id number] Insurance:MEDICARE CIUCADOB: [facility] PART A [facility] [id number] Number[place] Repository [address]Udu: [phone]) [id number] [phone] () Date:2018-01-18 04/22/2018 Secondary SIS L [place] Insurance:AETNAPolicy CIUCADOB: [facility] Number: [id number] Hospital [id number] Repository Date:6611-69-67GN DEBBIE 444362JOGÉNESIS LOZOYA [address]EU: 04/22/2018 Tertiary NOT GIVENUNK [place] Insurance:SELF PAY [facility] Number: Effective Repository Date:2018-03-16 04/21/2018 SIS L Primary SIS L [place] [id number] Insurance:MEDICARE CIUCADOB: Community [place] PART A [facility] [id number] Number: Repository [address]Hah: 234 [id number] [phone] () Date:2018-04-21 04/21/2018 Secondary SIS L [place] Insurance:AETNAPolicy CIUCADOB: Community Number: [id number] Hospital [id number] Repository Date:6801-94-52ZK [facility] [id number] [place] [address]NF: 04/21/2018 Tertiary NOT GIVENUNK [place] Insurance:SELF PAY [facility] Number: Effective Repository Date:2018-04-21 04/05/2018 SIS L Primary SIS L [place] [id number] Insurance:MEDICARE CIUCADOB: Community [place] PART A [facility] [id number] Number: Repository [address]Ywm: 234 [id number] [phone] () Date:2018-04-05 04/05/2018 Secondary SIS L [place] Insurance:AETNAPolicy CIUCADOB: Community Number: [id number] Hospital [id number] Repository Date:6645-96-62AB [address] [address]NK: 04/05/2018 Tertiary NOT GIVENUNK [place] Insurance:SELF PAY [facility] Number: Effective Repository Date:2018-04-05 04/02/2018 SIS L Primary SIS L [place] [id number] Insurance:MEDICARE CIUCADOB: Community [place] PART A [facility] [id number] [place] Number: Repository [address]Aid: [id number] [phone] (HP) Date:2017-12-30 04/02/2018 Secondary SIS L [place] Insurance:AETNAPolicy CIUCADOB: Community Number: [id number] Hospital [id number] Repository Date:4327-50-82DD [address] [place], [place] [address]QI: 04/02/2018 Tertiary NOT GIVENUNK [place] Insurance:SELF PAY [facility] Number: Effective Repository Date:2017-12-30 03/29/2018 SIS L Primary SIS L [place] [id number] Insurance:MEDICARE CIUCADOB: Community [place] PART A [facility] [id number] Number: Repository [id number]: 234 [id number] [phone] () Date:2018-01-07 03/29/2018 Secondary SIS L [place] Insurance:AETNAPolicy CIUCADOB: Community Number: [id number] Hospital [id number] Repository Date:5448-96-01DP [address] [address]YN: 03/29/2018 Tertiary NOT GIVENUNK [place] Insurance:SELF PAY [facility] Number: Effective Repository Date:2018-01-07 02/23/2018 SIS L Primary SIS L [place] [id number] Insurance:MEDICARE CIUCADOB: Community [place] PART A [facility] [id number] [place] Number: Repository [address]Xoi: 234 [id number] [phone] () Date:2018-02-23 02/23/2018 Secondary SIS L [place] Insurance:AETNAPolicy CIUCADOB: Community Number: [id number] Hospital [id number] Repository Date:1029-81-72OJ [address] [place] [address]QI: 02/23/2018 Tertiary NOT GIVENUNK [place] Insurance:SELF PAY Community [facility] Number: Effective Repository Date:2018-02-23 01/18/2018 SIS Colin Primary SIS Colin [place] [id number] Insurance:MEDICARE CIUCADOB: Community [place] PART A olic [id number] [place] Number: Repository [id number]: [phone] [id number] [phone] (HP) Date:2018-01-18 01/18/2018 Secondary SIS Colin [place] Insurance:AETNAPolicy CIUCADOB: Community Number: [id number] Hospital [id number] Repository Date:7789-97-11ME [address] [address]DN: 01/18/2018 Tertiary NOT GIVENUNK [place] Insurance:SELF PAY [facility] Number: Effective Repository Date:2018-01-18 12/24/2017 SIS L Primary SIS Colin [place] [id number] Insurance:MEDICARE CIUCADOB: Community [place] PART A [facility] [id number] [place] Number[facility] Repository [address]Cbk: 234 [id number] [phone] (HP) Date:2017-12-07 12/24/2017 Secondary SIS [place] Insurance:AETNAPolicy CIUCADOB: Community Number: [id number] Hospital [id number] Repository Date:5507-29-07JM [address] [address]XO: 12/24/2017 Tertiary NOT GIVENUNK [place] Insurance:SELF PAY [facility] Number: Effective Repository Date:2017-12-07 12/24/2017 SIS L Primary SIS Colin [place] [id number] Insurance:MEDICARE CIUCADOB: Community [place] PART A [facility] [id number] [facility] [place] Number: Repository [address]Cvi: ([phone]) [id number] [phone] (HP) Date:2017-12-07 12/24/2017 Secondary SIS L [place] Insurance:AETNAPolicy CIUCADOB: Community Number: [id number] Hospital [id number] Repository Date:2529-83-12GT [address] [place] [address]NZ: 12/24/2017 Tertiary NOT GIVENUNK [place] Insurance:SELF PAY [facility] Number: Effective Repository Date:2017-12-24 12/22/2017 SIS L Primary SIS L [place] [id number] Insurance:MEDICARE CIUCADOB: Community [place] PART A [facility] [id number] [facility] [place] Number: Repository [address]Bns: [phone] [id number] [phone] () Date:2017-12-07 12/22/2017 Secondary SIS L [place] Insurance:AETNAPolicy CIUCADOB: Community Number: [id number] Hospital [id number] Repository Date:4770-26-20KC [address] [place] [address]IA: 12/22/2017 Tertiary NOT GIVENUNK [place] Insurance:SELF PAY [facility] Number: Effective Repository Date:2017-12-07 12/22/2017 SIS L Primary SIS L [place] [id number] Insurance:MEDICARE CIUCADOB: Community [place] PART A [facility] [id number] [facility] [place] Number: Repository [address]Koo: [phone] [id number] [phone] () Date:2017-12-07 12/22/2017 Secondary SIS L [place] Insurance:AETNAPolicy CIUCADOB: Community Number: [id number] Hospital [id number] Repository Date:9826-80-86WK [address] [place] [address]BY: 12/22/2017 Tertiary NOT GIVENUNK [place] Insurance:SELF PAY [facility] Number: Effective Repository Date:2017-12-22 12/07/2017 SIS L Primary SIS L [place] [id number] Insurance:MEDICARE CIUCADOB: Community [place] PART A [facility] [id number] [place] Number: Repository [address]Ikc: 234 [id number] [phone] () Date:2017-05-26 12/07/2017 Secondary SIS L [place] Insurance:AETNAPolicy CIUCADOB: Community Number: [id number] Hospital [id number] Repository Date:4513-55-71AD [address] [address]LX: 12/07/2017 Tertiary NOT GIVENUNK [place] Insurance:SELF PAY [facility] Number: Effective Repository Date:2017-12-07 10/27/2017 SIS L Primary SIS L [place] [id number] Insurance:MEDICARE CIUCADOB: Community [place] PART A [facility] [id number] [facility] [place] [facility] [place] Number: Repository [address]Msz: 234 [id number] [phone] () Date:2017-07-22 10/27/2017 Secondary SIS L [place] Insurance:AETNAPolicy CIUCADOB: Community Number: [id number] Hospital [id number] Repository Date:4500-73-91TP [address] [address]CS: 10/27/2017 Tertiary NOT GIVENUNK [place] Insurance:SELF PAY [facility] Number: Effective Repository Date:2017-10-19 08/25/2017 SIS L Primary SIS L [place] [id number] Insurance:MEDICARE CIUCADOB: Community [place] PART A [facility] [id number] Number: Repository [address]Xzv: 234 [id number] [phone] () Date:2017-08-25 08/25/2017 Secondary SIS L [place] Insurance:AETNAPolicy CIUCADOB: Community Number: [id number] Hospital [id number] Repository Date:9542-38-38AP [address] [address]ZQ: 08/25/2017 Tertiary NOT GIVENUNK [place] Insurance:SELF PAY [facility] Number: Effective Repository Date:2017-08-25 08/10/2017 SIS L Primary SIS L [place] [id number] Insurance:MEDICARE CIUCADOB: Community [place] PART A [facility] [id number] [place], [place] Number: Repository [id number]: 234 [id number] [phone] (HP) Date:2017-07-22 08/10/2017 Secondary SIS L [place] Insurance:AETNAPolicy CIUCADOB: Community Number: [id number] Hospital [id number] Repository Date:9488-29-80ST [address] [address]EW: 08/10/2017 Tertiary NOT GIVENUNK [place] Insurance:SELF PAY [facility] Number: Effective Repository Date:2017-07-22 08/10/2017 SIS L Primary SIS L [place] [id number] Insurance:MEDICARE CIUCADOB: Community [place] PART A [facility] [id number] [place] Number: Repository [address]Xsy: 234 [id number] [phone] () Date:2017-07-22 08/10/2017 Secondary SIS L [place] Insurance:AETNAPolicy CIUCADOB: Community Number: [id number] Hospital [id number] Repository Date:7064-87-73KQ [address] [address]OT: 08/10/2017 Tertiary NOT GIVENUNK [place] Insurance:SELF PAY [facility] Number: Effective Repository Date:2017-08-10 07/22/2017 SIS L Primary SIS L [place] [id number] Insurance:MEDICARE CIUCADOB: Community [place] PART A [facility] [id number] Number: Repository [address]Npl: [phone] [id number] [phone] (HP) Date:2017-05-28 07/22/2017 Secondary SIS L [place] Insurance:AETNAPolicy CIUCADOB: Community Number: [id number] Hospital [id number] Repository Date:1543-71-85RN [address] [address]ZY: 07/22/2017 Tertiary NOT GIVENUNK [place] Insurance:SELF PAY [facility] Number: Effective Repository Date:2017-07-17 07/01/2017 SIS L Primary SIS L [place] [id number] Insurance:MEDICARE CIUCADOB: Community [place] PART A [facility] [id number] Number: Repository [id number]: 234 [id number] [phone] () Date:2017-05-26 07/01/2017 Secondary SIS L [place] Insurance:AETNAPolicy CIUCADOB: Community Number: [id number] Hospital [id number] Repository Date:3746-47-20FY [address] [address]RO: 07/01/2017 Tertiary NOT GIVENUNK [place] Insurance:SELF PAY [facility] Number: Effective Repository Date:2017-05-26 06/26/2017 SIS L Primary SIS L [place] [id number] Insurance:MEDICARE CIUCADOB: Community [place] PART A [facility] [id number] [place] Number: Repository [id number]: 234 [id number] [phone] () Date:2017-05-26 06/26/2017 Secondary SIS L [place] Insurance:AETNAPolicy CIUCADOB: Community Number: [id number] Hospital [id number] Repository Date:0663-19-91ET [address] [address]YQ: 06/26/2017 Tertiary NOT GIVENUNK [place] Insurance:SELF PAY [facility] Number: Effective Repository Date:2017-05-26 05/26/2017 SIS L Primary SIS [place] [id number] Insurance:MEDICARE CIUCADOB: Community [place] PART A [facility] [id number] [place] Number: Repository [id number]: [phone] [id number] [phone] (HP) Date:2017-03-22 05/26/2017 Secondary SIS L [place] Insurance:AETNAPolicy CIUCADOB: Community Number: [id number] Hospital [id number] Repository Date:3611-37-22JY [address]ÉN[place] [place] [address]TB: 05/26/2017 Tertiary NOT GIVENUNK [place] Insurance:SELF PAY [facility] Hospital Number: Effective Repository Date:2017-03-22 05/25/2017 Sis L Primary Sis [place] [id number] Insurance:AETNAPolicy CiucaDOB: [place] Number: [id number] [id number] Repository [address]Fpu: Date:6026-05-84HD [phone]~216 715818FZGÉNESIS PEREZ 2 (HP) [address]WR: 05/25/2017 Secondary Sis [place] Insurance:MEDICARE CiucaDOB: Community PART A [facility] [id number] Hospital Number: Repository [id number] Date:2017-05-25 05/25/2017 Tertiary NOT GIVENUNK [place] Insurance:SELF PAY [facility] Number: Effective Repository Date:2017-05-25
== END ==
PROVIDERS: Family Provider Family Medicine; PCP Family Medicine; Visit Provider Family Medicine
DX: Z12.31 Encounter for screening mammogram for malignant neoplasm of breast (principal)
CPT/HCPCS: 77063; 77067

== ENCOUNTER → 2018-04-02 10:29 | Outpatient (CLI) | payer MEDICARE, OTHER, SELFPAY ==
[2018-01-18 13:10] VITALS: BMI 43.0
[2018-04-02 13:34] LABS: Albumin, Serum 3.7 g/dL (3.2-5.0); BUN 14 mg/dL (7-18); BUN/Creat Ratio 21.4 RATIO (10-20); Calcium,Total 8.5 mg/dL (8.5-10.1); Chloride 106 mmol/L (98-107); Creatinine, Serum 0.66 mg/dL (0.55-1.02); EST Glomerular Filtration Rate 93 mL/min (>60); Est Glom Filt Rate - Afr Amer 112 mL/min (>60); Glucose 96 mg/dL (74-106); Phosphorus 3.3 mg/dL (2.5-4.9); Potassium 3.9 mmol/L (3.5-5.1); Sodium Level 142 mmol/L (136-145)
[2018-04-02 15:17] LABS: ALB/GLOB Ratio 1.3 RATIO (0.9-2.4); AST(SGOT) 12 U/L (15-37); Alanine Aminotransfer ALT/SGPT 18 U/L (13-56); Albumin, Serum 3.7 g/dL (3.2-5.0); Alkaline Phosphatase 70 U/L (45-117); Anion Gap 9 (5-15); BUN 13 mg/dL (7-18); BUN/Creat Ratio 18.9 RATIO (10-20); Calcium,Total 8.6 mg/dL (8.5-10.1); Chloride 106 mmol/L (98-107); Cholesterol 122 mg/dL (200); Creatinine, Serum 0.69 mg/dL (0.55-1.02); EST Glomerular Filtration Rate 88 mL/min (>60); Est Glom Filt Rate - Afr Amer 106 mL/min (>60); Globulin 2.8 g/dL (2.2-4.2); Glucose 96 mg/dL (74-106); High Density Lipoprotein 57 mg/dL; Potassium 3.9 mmol/L (3.5-5.1); Protein, Total 6.5 g/dL (6.4-8.2); Sodium Level 142 mmol/L (136-145); Triglycerides 63 mg/dL; Very Low Density Lipoprotein 13 mg/dL (5-40)
--- OUTSIDE RECORDS SUMMARY | 2018-05-19 01:30 | XMS RPT_ITS ---
:1940 Author Organization OHIP Support Name Relationship Address Phone R Unavailable Unavailable Unavailable ANGI MAYNARD Unavailable [address] + [place] [address] R Unavailable Unavailable Unavailable ALEYDA ANGI Unavailable [address] + [place] [address] R Unavailable Unavailable Unavailable ANGI MAYNARD Unavailable [address] + [place] [address] R Unavailable Unavailable Unavailable ALEYDA ANGI Unavailable [address] + [place] [address] R Unavailable Unavailable Unavailable ANGI MAYNARD Unavailable [address] + [place] [address] R Unavailable Unavailable Unavailable ALEYDA ANGI Unavailable [address] + [place] [address] R Unavailable Unavailable Unavailable ANGI MAYNARD Unavailable [address] + [place] [address] R Unavailable Unavailable Unavailable ALEYDA ANGI Unavailable [address] + [place] [address] R Unavailable Unavailable Unavailable ANGI MAYNARD Unavailable [address] + [place] [address] R Unavailable Unavailable Unavailable JEANNE MAYNARDE Unavailable [phone] [place] [address] R Unavailable Unavailable Unavailable ANGI MAYNARD Unavailable [phone] [place] [address] R Unavailable Unavailable Unavailable ALEYDA ANGI Unavailable [phone] [place] [address] R Unavailable Unavailable Unavailable ALEYDA ANGI Unavailable [phone] [place] [address] R Unavailable Unavailable Unavailable SCHONFELD, ANGI Unavailable [phone] [place] [address] R Unavailable Unavailable Unavailable SCHONFELD, ANGI Unavailable [phone] [place] [address] R Unavailable Unavailable Unavailable SCHONFELD, ANGI Unavailable [phone] [place] [address] R Unavailable Unavailable Unavailable SCHONFELD, ANGI Unavailable [phone] [place] [address] R Unavailable Unavailable Unavailable SCHONFELD, ANGI Unavailable [phone] [place] [address] R Unavailable Unavailable Unavailable SCHONFELD, ANGI Unavailable [phone] [place] [address] R Unavailable Unavailable Unavailable SCHONFELD, ANGI Unavailable [phone] [place] [address] R Unavailable Unavailable Unavailable SCHONFELD, ANGI Unavailable [address] [phone] [place] [address] Care Team Providers Name Role Phone Tanphaichitr, Natthavat Attending Unavailable Tanphaichitr, Natthavat Referring Unavailable Ranney, Christopher Primary Care Unavailable Tanphaichitr Natthavat Attending Unavailable Tanphaichitr, Natthavat Referring Unavailable Ranney, Christopher Primary Care Unavailable Meri Gonzales Attending Unavailable Shaheen Ford Attending Unavailable Ranney, Christopher Referring Unavailable Ranney, Christopher Primary Care Unavailable Shaheen Ford Attending Unavailable Shaheen Ford Referring Unavailable Ranney, Christopher Primary Care Unavailable Ying Santana Attending Unavailable Ranney, Christopher Referring Unavailable Shaheen Ford Attending Unavailable Shaheen Ford Referring Unavailable Ranney, Christopher Primary Care Unavailable Carson Watkins D.O. Attending Unavailable Ranney, Christopher Referring Unavailable Ranney, Christopher Primary Care Unavailable Carson Watkins D.O. Attending Unavailable Carson Watkins D.O. Referring Unavailable Ranney, Christopher Primary Care Unavailable Kiaan Broussard Attending Unavailable Kiana Broussard Referring Unavailable [...] SOURCE 04/21/2018 Unknown E03.9 - Tanphaichitr, Active [place] Hypothyroidism, Natthavat [facility] unspecified / Hospital E03.9(ICD-10) Repository 04/21/2018 Unknown I10 - Essential Tanphaichitr, Active [place] [facility]) [facility] hypertension / Hospital I10(ICD-10) Repository 01/18/2018 Unknown Z23 - Encounter for Santana, Active [place] immunization / [facility] Z23(ICD-10) Hospital Repository 01/05/2018 Unknown R06.02 - Shortness Hamlet Shin Active [place] of breath / Community R06.02(ICD-10) Hospital Repository 12/07/2017 Unknown I48.2 - Chronic Shaheen Ford Active [place] atrial fibrillation Community / I48.2(ICD-10) Hospital Repository 12/07/2017 Unknown 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 / Hospital I27.21(ICD-10) Repository 12/07/2017 Unknown I36.1 - Shaheen Ford Active [place] Nonrheumatic [facility] tricuspid (valve) Hospital insufficiency / Repository I36.1(ICD-10) [...] Unknown E66.01 - Morbid Shaheen Ford Active [place] (severe) obesity Community due to excess Hospital calories / Repository E66.01(ICD-10) 05/29/2017 Unknown Z68.41 - Body mass Shaheen Ford Active [place] index (BMI) Community 40.0-44.9, adult / Hospital Z68.41(ICD-10) Repository PROCEDURES PROCEDURES No Procedure Records FoundRESULTS RESULTS PULMONARY VISIT REPORT Observed: 04/22/2018 Status: F Source: [place] 12:11 PM [facility] REPOSITORY [facility] [place] [address] [place] [address] OFFICE VISIT Date of Service: 04/22/18 MR#: [id number] Acct: [id number] Name: SIS FARR Rep #: [id number] : 1940 Provider: Ying Santana Age/Sex: 77/F Location: [facility] Status: Signed Assessment AND Plan 1. HELGA [...] F Source: [place] NO DIFF 1:42 PM [facility] REPOSITORY TYPE CODE TESTS RESULT OUT OF [...] MPV 11.0 Performed By: #### L100.0500 #### [facility] [address] [place], [address] RENAL PROFILE Collected: 04/21/2018 Status: F Source: [place] 1:42 PM [facility] REPOSITORY TYPE CODE TESTS RESULT OUT OF [...] 26.0 Performed By: #### L500.3600, L501.5200 #### [facility] [address] [place], [place], [address] MAGNESIUM Collected: 04/21/2018 Status: F Source: [place] 1:42 PM [facility] REPOSITORY TYPE CODE TESTS RESULT OUT OF RANGE REFERENCE UNITS LAB L501.5200 1.6-2.6 mg/dL Normal MG 2.0 Performed By: #### L500.3600, L501.5200 #### [facility] [address] [place] [place], [address] VITAMIN D,25 HYDROXY Collected: 04/21/2018 Status: F Source: [place] 1:42 PM [facility] REPOSITORY TYPE CODE TESTS RESULT OUT OF REFERENCE UNITS RANGE LAB L506.1000 29.95-100.01 ng/mL Low Vitamin D 9.4 25-OH Result Comment: Vitamin D 25(OH) Status Range Deficiency <20 ng/mL (50nmol/L) Insuffciency 20 - 30 ng/mL (50 - 75 nmol/L) Sufficiency 30 - 100 ng/mL (75 - 250 nmol/L) Toxicity >100 ng/mL (>250 nmol/L) Performed By: #### L506.1000 #### [facility] [address] [place], [place], [address] MICROALB:CREAT Collected: 04/21/2018 Status: F Source: [place] RATIO,RANDOM UR 1:42 PM [facility] REPOSITORY TYPE CODE TESTS RESULT OUT OF RANGE REFERENCE UNITS LAB L501.1200 NO RANGE EST. mg/dL < Normal UR 13.00 CREAT LAB L502.0500 NO RANGE EST. mg/L 10.5 Normal MICROALBUMI N,UR LAB L502.0600 <30 mg/g CRE mg/g CRE Test Normal not performed MALB:CREAT Performed By: #### L502.0250 #### [facility] [place], [place], [address] PTHIN Collected: 04/21/2018 Status: F Source: [place] 1:42 PM [facility] REPOSITORY TYPE CODE TESTS RESULT OUT OF RANGE REFERENCE UNITS LAB L509.1000 18.4-80.1 pg/mL Normal PTHIN 58.8 Performed By: #### L509.1000 #### [facility] [place], [address] URINE SODIUM Collected: 04/05/2018 Status: F Source: [place] 12:00 PM [facility] REPOSITORY TYPE CODE TESTS RESULT OUT OF RANGE REFERENCE UNITS LAB L501.5500 Not Establ. mmol/L Normal UR NA 70 Performed By: #### L501.5500, L502.0250 #### [facility] [address] [place], [address] MICROALB:CREAT Collected: 04/05/2018 Status: F Source: [place] RATIO,RANDOM UR 12:00 PM [facility] REPOSITORY TYPE CODE TESTS RESULT OUT OF RANGE REFERENCE UNITS LAB L501.1200 NO RANGE EST. mg/dL Normal UR CREAT 161.00 LAB L502.0500 NO RANGE EST. mg/L Normal 121.0 MICROALBUMIN ,UR LAB L502.0600 <30 mg/g CRE mg/g CRE High 75.2 MALB:CREAT Performed By: #### L501.5500, L502.0250 #### [facility] [place], [address] COMPREHENSIVE METABOLIC Collected: 04/02/2018 Status: F Source: [place] LOVE 10:59 AM [facility] REPOSITORY TYPE CODE TESTS RESULT OUT OF [...] GAP 9 Performed By: #### L500.4050 #### [facility] [address] [place], [place], [address] LIPID PROFILE Collected: 04/02/2018 Status: F Source: [place] 10:59 AM [facility] REPOSITORY TYPE CODE TESTS RESULT OUT OF [...] VLDL 13 Performed By: #### L500.4100 #### [facility] [address] [place], [place], [address] RENAL PROFILE Collected: 04/02/2018 Status: F Source: [place] 10:38 AM [facility] REPOSITORY Order Comment: DR. VERMA ORDERED NA [...] 28.0 Performed By: #### L500.3600, L501.5200 #### [facility] [address] [place], [address] MAGNESIUM Collected: 04/02/2018 Status: F Source: [place] 10:38 AM [facility] REPOSITORY Order Comment: DR. VERMA ORDERED NA URINE PROCRE MG RENAL DR. YADAV ORDERED BMP LIPID TYPE CODE TESTS RESULT OUT OF RANGE REFERENCE UNITS LAB L501.5200 1.6-2.6 mg/dL Normal MG 2.0 Performed By: #### L500.3600, L501.5200 #### [facility] [address] [place], [address] SCREENING MAMM (CAD), Observed: 03/29/2018 Status: F Source: [place] BIL 3:31 PM [facility] REPOSITORY [facility] Imaging Services [address] [place] [address] SCREENING MAMM (CAD), BILAT MR#: [id number] Acct: [id number] Name: SIS FARR Rep #: [id number] : 1940 F 77 From: Carlos Soto MD PCP: Otis Roman MD Status: REG CLI Study: SCREENING MAMM (CAD), BILAT Date of Exam: 03/29/18 Exam# [id number] Ordering Dr: Ej Roman MD MAMMOGRAPHY - [...] delay biopsy of a clinically suspicious abnormality. [id number] Electronically Signed: Carlos Soto MD at 9:02 EST Tel [phone], Service support , CC: Otis Roman MD Revenue Cycle Specialist: Signed THORACIC SPINE 2 Observed: 02/23/2018 Status: F Source: [place] VIEWS 10:26 AM [facility] REPOSITORY [facility] [place] [address] Thoracic Spine 2 Views MR#: [id number] Acct: [id number] Name: SIS FARR Rep #: [id number] : 1940 F 77 From: Kalen Cartwright MD PCP: Otis Roman MD Status: REG CLI Study: Thoracic Spine 2 Views Date of Exam: 02/23/18 Exam# [id number] Ordering Dr: Kiana Broussard MD STUDY: X-RAY [...] CC: Kiana Broussard MD; Otis Roman MD Revenue Cycle Specialist: Signed LUMBAR SPINE 2 OR 3 Observed: 02/23/2018 Status: F Source: [place] VIEWS 10:26 AM [facility] REPOSITORY [facility] Imaging Services [address] [place] [address] Lumbar Spine 2 or 3 Views MR#: [id number] Acct: [id number] Name: SIS FARR Rep #: [id number] : 1940 F 77 From: Luba Haney MD PCP: Otis Roman MD Status: REG CLI Study: Lumbar Spine 2 or 3 Views Date of Exam: 02/23/18 Exam# [id number] Ordering Dr: Kiana Broussard MD STUDY: X-RAY [...] CC: Kiana Broussard MD; Otis Roman MD Revenue Cycle Specialist: Signed PULMONARY VISIT REPORT Observed: 01/18/2018 Status: F Source: [place] 2:54 PM [facility] REPOSITORY Pulmonary Medicine of [address] [place] [address] OFFICE VISIT Date of Service: 01/18/18 MR#: [id number] Acct: [id number] Name: SIS FARR Rep #: [id number] : 1940 Provider: Ying Santana Age/Sex: 77/F Location: [facility] Status: Signed Assessment AND Plan 1. HELGA [...] NS Z23 r syringe (flu vac 2017 [id number](PF)) Discontinued Re ason: Office Medication has been Documented as given Follow Up 2 Months (CSM) HPI TEST RESULTS: Chief Complaint: Shortness of breath on exertion HPI Comments Details: This patient presents the office today to review recent test results ordered by her hoister. She is in a wheelchair, currently on [...] Admin Location Lot Number Expiration Date NDC Media Buyer 0.5 mL IM Lt Deltoid [id number] 08/17/18 68323-283-05 SEQIRUS Coding Level of Care Code Off [...] F Source: [place] REPORT COMP 3:14 PM [facility] REPOSITORY [facility] Pulmonary Services/Neurology [address] [place] [address] MR#: [id number] Acct: [id number] Name: SIS FARR Rep #: [id number] : 1940 77 From: Hamlet Shin MD Referring Dr: Shaheen Ford MD Status: REG CLI Ordering Dr: Date: Location: [facility] Sex: F C COMPLETE PULMONARY FUNCTION TEST INTERPRETATION Brief HPI: Patient is a 77 year old female, currently under the care of Dr. Watkins and Dr. Ford, who presents to [facility] for complete pulmonary function tests secondary to [...] excluded. 12/24/17 1514 <Electronically signed by Hamlet Sihn MD> Date Hamlet Shin MD CC: Hamlet Shin MD; Otis Roman MD; Shaheen Ford MD Date Dictated: 12/24/171509 Date Transcribed: 12/24/171509 Revenue Cycle Specialist: MANUEL Signed 6 MINUTE WALK TEST Observed: 12/22/2017 Status: F Source: [place] 1:52 PM [facility] REPOSITORY [facility] Pulmonary Services/Neurology [address] [place] [address] MR#: [id number] Acct: [id number] Name: SIS FARR Rep #: [id number] : 1940 77 From: Hamlet Shin MD Referring Dr: Shaheen Ford MD Date: Ordering Dr: Sex: F C Location: PSN PSN 6 Minute Walk Test - 6 Minute Walk Test 6 Minute Walk Test: 6 Minute Walk Test PSN:6-Minute Walk Test Start: 12/22/17 11:13 Freq: Status: Active Protocol: RESP.6MINW Document 12/22/17 11:14 JLA (Rec: 12/22/17 11:16 JLA [id number]) 6 Minute Walk Test Date Performed 12/22/17 [...] Date Dictated: 12/22/17 135 Date Transcribed: 12/22/171350 Revenue Cycle Specialist: Hamlet Shin Signed CARDIOLOGY VISIT Observed: 12/07/2017 Status: F Source: [place] REPORT 3:54 PM [facility] REPOSITORY [place] [facility] [address] [place] [address] OFFICE VISIT Date of Service: 12/07/17 MR#: [id number] Acct: [id number] Name: SIS FARR Rep #: [id number] : 1940 Provider: Shaheen Ford MD Age/Sex: 77/F Location: [facility] Status: Signed HPI HPI Chief Complaint: Routine [...] head trauma. 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 [place] [address] OFFICE VISIT Date of Service: 12/07/17 MR#: [id number] Acct: [id number] Name: SIS FARR Rep #: [id number] : 1940 Provider: Shaheen Ford MD Age/Sex: 77/F Location: [facility] Status: Signed HPI HPI Details: SIS FARR, [...] PO BID 30 tabs 0RF Zamzam Ngo, PRINTING ROLLER POLISHER-C son: .REASON Coding Level of Care Code Off vis,est,level 3 Coding Level of Care Code Off vis,est,level 3 12/07/17 0949 <Electronically signed by Shaheen Ford MD> Date Shaheen Ford MD Cosigner Signature: Date (if applicable) CC: Otis Roman MD PULMONARY VISIT REPORT Observed: 10/27/2017 Status: F Source: [place] 1:38 PM [facility] REPOSITORY Pulmonary Medicine [address] [place] [address] OFFICE VISIT Date of Service: 10/27/17 MR#: [id number] Acct: [id number] Name: SIS FARR Rep #: [id number] : 1940 Provider: Carson Watkins D.O. Age/Sex: 77/F [facility] Status: Signed Assessment AND Plan 1. HELGA [...] of replacement. She receives her equipment through [email or web address]. He does report the presence of restorative [...] Status: F Source: [place] VIEWS 11:44 AM [facility] REPOSITORY [facility] Imaging Services [address] [place] [address] Thoracic Spine 3 Views MR#: [id number] Acct: [id number] Name: SIS FARR Rep #: [id number] : 1940 F 77 From: Vita Zuniga MD PCP: Otis Roman MD Status: REG CLI Study: Thoracic Spine 3 Views Date of Exam: 08/25/17 Exam# [id number] Ordering Dr: Kiana Broussard MD STUDY: X-RAY [...] CC: Kiana Broussard MD; Otis Roman MD Revenue Cycle Specialist: Signed ECHOCARDIOGRAM COMPLETE Observed: 08/11/2017 Status: F Source: [place] 5:12 PM [facility] REPOSITORY [facility] Cardiovascular Services [address] [place] [address] Echo Complete 08/10/17 1413 MR#: [id number] Acct: [id number] Name: SIS FARR Rep #: [id number] : 1940 77 From: Shaheen Ford MD Attending Dr: Carson Watkins D.O. Status: REG CLI Ordering Dr: Carson Watkins DO Date: 08/10/17 Location: [facility] Sex: F C Admitted: Reason For [...] Date Dictated: 08/10/17 1413 Date Transcribed: 08/11/171710 Revenue Cycle Specialist: Signed PULMONARY VISIT REPORT Observed: 07/22/2017 Status: F Source: [place] 1:52 PM [facility] REPOSITORY Pulmonary Medicine of [address] [place] [address] OFFICE VISIT Date of Service: 07/22/17 MR#: [id number] Acct: [id number] Name: SIS FARR Rep #: [id number] : 1940 Provider: Carson Watkins D.O. Age/Sex: 76/F Location: [facility] Status: Signed Assessment AND Plan 1. HELGA (obstructive sleep apnea) G47.33 Plan The patient is currently benefiting clinically from the use of nocturnal BiPAP therapy. She will be continued on her current pressure settings. Will ask that [facility] provide us with a download of [...] CARDIOLOGY VISIT Observed: 05/26/2017 Status: F Source: [place] REPORT 2:03 PM [facility] REPOSITORY [facility] [address] [place] [address] OFFICE VISIT Date of Service: 05/26/17 MR#: [id number] Acct: [id number] Name: SIS FARR Rep #: [id number] : 1940 Provider: Shaheen Ford MD Age/Sex: 76/F [place] [facility] Status: Signed HPI HPI Chief Complaint: Routine [...] Observed: 05/26/2017 Status: F Source: [place] BY [facility] 1:54 PM [facility] REPOSITORY [facility] [address] [place] [address] 12 Lead EKG performed by [facility] 05/26/17 1352 MR#: [id number] Acct: [id number] Name: SIS FARR Rep #: [id number] : 1940 76 From: Shaheen Ford MD Attending Dr: Shaheen Ford MD Status: DEP [facility] Ordering Dr: Shaheen Ford MD Date: 05/26/17 [place] [facility] Sex: F C Admitted: BMS/12 Lead EKG performed by [facility] ECG Report Interpretation Atrial fibrillation Diffuse low voltage. -Anteroseptal infarct -age undetermined. ABNORMAL Electronically signed on 06/08/2017 at 13:52 by Shaheen Ford 06/08/17 1358 Date Shaheen Ford MD CC: Otis Roman MD Date Dictated: 05/26/17 135 Date Transcribed: 05/26/171351 Revenue Cycle Specialist: Signed ALLERGIES ALLERGIES DATE TYPE / CODE NAME / CODE REACTION SEVERITY SOURCE Drug atorvastatin Pain in Unknown [place] 9 Allergy/484524101( calcium/K14531136 joints Community SNOMED CT) 2(RXNORM) Hospital Repository Drug Penicillins/F0010 Rash Unknown [place] 9 Allergy/540105848( 99704(RXNORM) Community SNOMED CT) Hospital Repository Drug Sulfa Rash Unknown [place] 9 Allergy/447890046( (Sulfonamide Community SNOMED CT) Antibiotics)/F001 Hospital 067227(RXNORM) Repository Drug pseudoephedrine/F Rash Unknown [place] 9 Allergy/514194817( 076461364(RXNORM) [facility] SNOMED CT) Hospital Repository Drug hydrochlorothiazi Nausea Unknown [place] 9 Allergy/072227477( de/E418982035(RXN Community SNOMED CT) ORM) Hospital Repository Drug sulfamethoxazole/ Nausea Unknown [place] 9 Allergy/067142783( I635867221(RXNORM Community SNOMED CT) ) Hospital Repository Drug trimethoprim/F006 Nausea Unknown [place] 9 Allergy/731972349( 711183(RXNORM) [facility] SNOMED CT) Hospital Repository Miscellaneous SSRI Other Unknown [place] 9 Allergy/422700622( Community SNOMED CT) Hospital Repository ENCOUNTERS ENCOUNTERS ADMIT/DISCHARGE ACCOUNT ADMITTING ENCOUNTER LOCATION SOURCE NUMBER CLASS 04/22/2018/ [id number] Ambulatory BMSBuilding:B [place] 9 5 [facility] Repository 04/21/2018 [id number] Ambulatory [place] [facility] ing:MTLAB Repository 04/05/2018 [id number] Ambulatory [place] 4 [facility] ing:LABSPEC Repository 04/02/2018 [id number] Ambulatory [place] 8 [facility] ing:MTLAB Repository 03/29/2018 [id number] Ambulatory [place] 8 [facility] ing:OPBI Repository 02/23/2018 [id number] Ambulatory [place] 6 [facility] ing:RAD Repository 01/18/2018/ [id number] Ambulatory BMSBuilding:B [place] 8 0 [facility] Hospital Repository 12/24/2017 [id number] Ambulatory [place] 1 [facility] ing:PSN Repository 12/24/2017 [id number] Ambulatory BMSBuilding:W [place] 8 [facility] Repository 12/22/2017 [id number] Ambulatory [place] 0 [facility] ing:PSN Repository 12/22/2017 [id number] Ambulatory BMSBuilding:W [place] 1 [facility] Repository 12/07/2017/ [id number] Ambulatory BMSBuilding:B [place] 8 8 [facility] Repository 10/27/2017/ [id number] Ambulatory BMSBuilding:B [place] 8 6 [place].[facility] Repository 08/25/2017 [id number] Ambulatory [place] 6 [facility] ing:RAD Repository 08/10/2017 [id number] Ambulatory [place] 4 [facility] ing:CVS Repository 08/10/2017 [id number] Ambulatory BMSBuilding:W [place] 2 [facility] Repository 07/22/2017/ [id number] Ambulatory BMSBuilding:B [place] 8 0 [facility] Repository 07/01/2017 [id number] Ambulatory [place] 5 [facility] ing:CLSP Repository 06/26/2017 [id number] Ambulatory [place] 3 [facility] ing:CVS Repository 05/26/2017/ [id number] Ambulatory BMSBuilding:B [place] 8 2 [facility] Repository 05/25/2017 [id number] Ambulatory BMSBuilding:B [place] 2 [facility] Repository PAYERS PAYERS ENCOUNTER GUARANTOR PAYER SUBSCRIBER SOURCE 04/22/2018 SIS Colin Primary SIS L [place] [id number] Insurance:MEDICARE CIUCADOB: [facility] PART A [facility] [id number]: Repository [address]Rlj: [phone] [id number] [phone] () Date:2018-01-18 04/22/2018 Secondary SIS L [place] Insurance:AETNAPolicy CIUCADOB: [facility] Number: [id number] Hospital [id number] Repository Date:[id number] DEBBIE [id number] LOZOYA [id number]: 04/22/2018 Tertiary NOT GIVENUNK [place] Insurance:SELF PAY [facility] Number: Effective Repository Date:2018-03-16 04/21/2018 SIS L Primary SIS L [place] [id number] Insurance:MEDICARE CIUCADOB: Community DALY PART A [facility] [id number] Number: Repository [id number]: 234 [id number] [phone] () Date:2018-04-21 04/21/2018 Secondary SIS L [place] Insurance:AETNAPolicy CIUCADOB: Community Number: [id number] Hospital [id number] Repository Date:3881-72-91SY [facility] [address] [place] [address]QP: 04/21/2018 Tertiary NOT GIVENUNK [place] Insurance:SELF PAY [facility] Number: Effective Repository Date:2018-04-21 04/05/2018 SIS L Primary SIS L [place] [id number] Insurance:MEDICARE CIUCADOB: Community DALY PART A [facility] [id number] [place] Number: Repository [address]Uoq: 234 [id number] [phone] () Date:2018-04-05 04/05/2018 Secondary SIS L [place] Insurance:AETNAPolicy CIUCADOB: Community Number: [id number] Hospital [id number] Repository Date:9920-86-98FS [address] [place] [address]OG: 04/05/2018 Tertiary NOT GIVENUNK [place] Insurance:SELF PAY [facility] Number: Effective Repository Date:2018-04-05 04/02/2018 SIS L Primary SIS L [place] [id number] Insurance:MEDICARE CIUCADOB: Community DALY PART A [facility] [id number] Number: Repository [id number]: 234 [id number] [phone] (HP) Date:2017-12-30 04/02/2018 Secondary SIS L [place] Insurance:AETNAPolicy CIUCADOB: Community Number: [id number] Hospital [id number] Repository Date:9042-52-14SJ [address] [place], [place] [address]MU: 04/02/2018 Tertiary NOT GIVENUNK [place] Insurance:SELF PAY [facility] Effective Rep[facility] Date:2017-12-30 03/29/2018 SIS L Primary SIS L [place] [id number] Insurance:MEDICARE CIUCADOB: Community DALY PART A [facility] [id number] [place] Number: Repository [address]Zvi: 234 [id number] [phone] () Date:2018-01-07 03/29/2018 Secondary SIS L [place] Insurance:AETNAPolicy CIUCADOB: Community Number: [id number] Hospital [id number] Repository Date:5334-15-50UF [address], [place] [address]JV: 03/29/2018 Tertiary NOT GIVENUNK [place] Insurance:SELF PAY [facility] Number: Effective Repository Date:2018-01-07 02/23/2018 SIS L Primary SIS L [place] [id number] Insurance:MEDICARE CIUCADOB: Community DALY PART A [facility] [id number] Number: Repository [address]Lsu: 234 [id number] [phone] () Date:2018-02-23 02/23/2018 Secondary SIS L [place] Insurance:AETNAPolicy CIUCADOB: Community Number: [id number] Hospital [id number] Repository Date:4125-08-14VT [address] [place] [address]SJ: 02/23/2018 Tertiary NOT GIVENUNK [place] Insurance:SELF PAY [facility] Number: Effective Repository Date:2018-02-23 01/18/2018 SIS Colin Primary SIS Colin [place] [id number] Insurance:MEDICARE CIUCADOB: Community DALY PART A olic [id number] Number: Repository [id number]: [phone] [id number] [phone] (HP) Date:2018-01-18 01/18/2018 Secondary SIS Colin [place] Insurance:AETNAPolicy CIUCADOB: Community Number: [id number] Hospital [id number] Repository Date:5073-34-19ZJ [address], [place] [address]AJ: 01/18/2018 Tertiary NOT GIVENUNK [place] Insurance:SELF PAY [facility] Number: Effective Repository Date:2018-01-18 12/24/2017 SIS L Primary SIS Colin [place] [id number] Insurance:MEDICARE CIUCADOB: Community DALY PART A [facility] [id number] Number[facility] Repository [address]Qsy: 234 [id number] [phone] (HP) Date:2017-12-07 12/24/2017 Secondary SIS [place] Insurance:AETNAPolicy CIUCADOB: Community Number: [id number] Hospital [id number] Repository Date:3483-15-45AX [address], [place] [address]JK: 12/24/2017 Tertiary NOT GIVENUNK [place] Insurance:SELF PAY [facility] Number: Effective Repository Date:2017-12-07 12/24/2017 SIS L Primary SIS Colin [place] [id number] Insurance:MEDICARE CIUCADOB: Community DALY PART A [id number] [place] Number[facility] Repository [address]Fnb: [phone] [id number] [phone] (HP) Date:2017-12-07 12/24/2017 Secondary SIS L [place] Insurance:AETNAPolicy CIUCADOB: Community Number: [id number] Hospital [id number] Repository Date:7390-46-04AX [address] [place] [address]EW: 12/24/2017 Tertiary NOT GIVENUNK [place] Insurance:SELF PAY [facility] Number: Effective Repository Date:2017-12-24 12/22/2017 SIS L Primary SIS L [place] [id number] Insurance:MEDICARE CIUCADOB: Community DALY PART A [facility] [id number] [place] Number: Repository [address]Sjy: [phone] [id number] [phone] () Date:2017-12-07 12/22/2017 Secondary SIS L [place] Insurance:AETNAPolicy CIUCADOB: Community Number: [id number] Hospital [id number] Repository Date:2169-77-50VX [address] [place] [address]XK: 12/22/2017 Tertiary NOT GIVENUNK [place] Insurance:SELF PAY [facility] Number: Effective Repository Date:2017-12-07 12/22/2017 SIS L Primary SIS L [place] [id number] Insurance:MEDICARE CIUCADOB: Community DALY PART A [facility] [id number] [place] Number: Repository [address]Oag: [phone] [id number] [phone] () Date:2017-12-07 12/22/2017 Secondary SIS L [place] Insurance:AETNAPolicy CIUCADOB: Community Number: [id number] Hospital [id number] Repository Date:1473-30-47CA [address] [place] [address]BB: 12/22/2017 Tertiary NOT GIVENUNK [place] Insurance:SELF PAY [facility] Number: Effective Repository Date:2017-12-22 12/07/2017 SIS L Primary SIS L [place] [id number] Insurance:MEDICARE CIUCADOB: Community DALY PART A [facility] [id number] Number: Repository [address]Elp: 234 [id number] [phone] () Date:2017-05-26 12/07/2017 Secondary SIS L [place] Insurance:AETNAPolicy CIUCADOB: Community Number: [id number] Hospital [id number] Repository Date:3120-78-60IC [address], [place] [address]BO: 12/07/2017 Tertiary NOT GIVENUNK [place] Insurance:SELF PAY [facility] Number: Effective Repository Date:2017-12-07 10/27/2017 SIS L Primary SIS L [place] [id number] Insurance:MEDICARE CIUCADOB: Community DALY PART A [facility] [id number][facility] [place] Number: Repository [address]Jyu: 234 [id number] [phone] () Date:2017-07-22 10/27/2017 Secondary SIS L [place] Insurance:AETNAPolicy CIUCADOB: Community Number: [id number] Hospital [id number] Repository Date:8489-55-19EZ [address], [place] [address]IT: 10/27/2017 Tertiary NOT GIVENUNK [place] Insurance:SELF PAY [facility] Number: Effective Repository Date:2017-10-19 08/25/2017 SIS L Primary SIS L [place] [id number] Insurance:MEDICARE CIUCADOB: Community DALY PART A [facility] [id number] [place] Number: Repository [address]Znt: 234 [id number] [phone] () Date:2017-08-25 08/25/2017 Secondary SIS L [place] Insurance:AETNAPolicy CIUCADOB: Community Number: [id number] Hospital [id number] Repository Date:6898-37-64KF [address] [place] [address]GP: 08/25/2017 Tertiary NOT GIVENUNK [place] Insurance:SELF PAY [facility] Number: Effective Repository Date:2017-08-25 08/10/2017 SIS L Primary SIS L [place] [id number] Insurance:MEDICARE CIUCADOB: Community DALY PART A [facility] [id number] [place] Number: Repository [address]Wbo: 234 [id number] [phone] (HP) Date:2017-07-22 08/10/2017 Secondary SIS L [place] Insurance:AETNAPolicy CIUCADOB: Community Number: [id number] Hospital [id number] Repository Date:7190-60-61EL [address] [place] [address]WF: 08/10/2017 Tertiary NOT GIVENUNK [place] Insurance:SELF PAY [facility] Number: Effective Repository Date:2017-07-22 08/10/2017 SIS L Primary SIS L [place] [id number] Insurance:MEDICARE CIUCADOB: Community DALY PART A [facility] [id number] Number: Repository [address]Mui: 234 [id number] [phone] () Date:2017-07-22 08/10/2017 Secondary SIS L [place] Insurance:AETNAPolicy CIUCADOB: Community Number: [id number] Hospital [id number] Repository Date:7261-52-01LM [address], [place] [address]CG: 08/10/2017 Tertiary NOT GIVENUNK [place] Insurance:SELF PAY [facility] Number: Effective Repository Date:2017-08-10 07/22/2017 SIS L Primary SIS L [place] [id number] Insurance:MEDICARE CIUCADOB: Community DALY PART A [facility] [id number] [place] Number: Repository [address]Two: [phone] [id number] [phone] (HP) Date:2017-05-28 07/22/2017 Secondary SIS L [place] Insurance:AETNAPolicy CIUCADOB: Community Number: [id number] Hospital [id number] Repository Date:3688-64-23GX [address] [place] [address]FA: 07/22/2017 Tertiary NOT GIVENUNK [place] Insurance:SELF PAY [facility] Number: Effective Repository Date:2017-07-17 07/01/2017 SIS L Primary SIS L [place] [id number] Insurance:MEDICARE CIUCADOB: Community DALY PART A [facility] [id number] Number: Repository [address]Oai: 234 [id number] [phone] () Date:2017-05-26 07/01/2017 Secondary SIS L [place] Insurance:AETNAPolicy CIUCADOB: Community Number: [id number] Hospital [id number] Repository Date:8227-52-06OF [address], [place] [address]PU: 07/01/2017 Tertiary NOT GIVENUNK [place] Insurance:SELF PAY [facility] Number: Effective Repository Date:2017-05-26 06/26/2017 SIS L Primary SIS L [place] [id number] Insurance:MEDICARE CIUCADOB: Community DALY PART A [facility] [id number] [place] Number: Repository [address]Umc: 234 [id number] [phone] () Date:2017-05-26 06/26/2017 Secondary SIS L [place] Insurance:AETNAPolicy CIUCADOB: Community Number: [id number] Hospital [id number] Repository Date:8984-67-55YK [address], [place] [address]UQ: 06/26/2017 Tertiary NOT GIVENUNK [place] Insurance:SELF PAY [facility] Number: Effective Repository Date:2017-05-26 05/26/2017 SIS L Primary SIS [place] [id number] Insurance:MEDICARE CIUCADOB: Community DALY PART A [facility] [id number] Number: Repository [address]Uep: [phone] [id number] [phone] (HP) Date:2017-03-22 05/26/2017 Secondary SIS L [place] Insurance:AETNAPolicy CIUCADOB: Community Number: [id number] Hospital [id number] Repository Date:2705-71-57VY [address] [place] [address]CV: 05/26/2017 Tertiary NOT GIVENUNK [place] Insurance:SELF PAY [facility] Number: Effective Repository Date:2017-03-22 05/25/2017 Sis L Primary Sis [place] [id number] Insurance:AETNAPolicy CiucaDOB: Community [place] Number: [id number] [id number] Repository [address]Kmv: Date:2446-16-94[phone]~216 [address]GOGÉN[place] PEREZ 2 (HP) [address]FO: 05/25/2017 Secondary Sis [place] Insurance:MEDICARE CiucaDOB: Community PART A [facility] [id number] Hospital Number: Repository [id number] Date:2017-05-25 05/25/2017 Tertiary NOT GIVENUNK [place] Insurance:SELF PAY [facility] Number: Effective Repository Date:2017-05-25
== END ==
PROVIDERS: Family Medicine; Family Provider Family Medicine; PCP Family Medicine; Referring Provider Internal Medicine Nephrology; Visit Provider Internal Medicine Nephrology
DX: I10 Essential (primary) hypertension (principal)
CPT/HCPCS: 36415; 80053; 80061; 80069; 83735

== ENCOUNTER → 2018-04-05 14:16 | Outpatient (CLI) | payer MEDICARE, OTHER, SELFPAY ==
[2018-04-05 14:16] VITALS: BMI 43.9
[2018-04-06 08:32] LABS: Microalbumin:Creatinine Ratio 75.2 mg/g CRE (<30 mg/g CRE); Urine Sodium 70 mmol/L (Not Establ.)
== END ==
PROVIDERS: Family Provider Family Medicine; PCP Family Medicine; Referring Provider Internal Medicine Nephrology; Visit Provider Internal Medicine Nephrology
DX: E87.1 Hypo-osmolality and hyponatremia (principal); E22.2 Syndrome of inappropriate secretion of antidiuretic hormone
CPT/HCPCS: 82043; 82570; 84300

== ENCOUNTER → 2018-04-21 13:35 | Outpatient (CLI) | payer MEDICARE, OTHER, SELFPAY ==
[2018-04-05 14:16] VITALS: BMI 43.9
[2018-04-21 15:44] LABS: Hematocrit 31.7 % (37-47); Hemoglobin 9.2 g/dl (12.0-15.0); Mean Corpuscular Hgb 30.1 pg (27.0-32.0); Mean Corpuscular Volume 103.6 fL (81-99); Platelet Count 290 K/mm3 (150-450); RBC Distribution Width CV 16.3 % (11.6-14.6); RBC Distribution Width SD 59.8 fl (35.1-43.9); Red Blood Count 3.06 M/mm3 (4.2-5.4); White Blood Count 9.6 K/mm3 (4.4-11.0)
[2018-04-21 15:55] LABS: Scan Indicated on CBC? Y/N NO
[2018-04-21 15:59] LABS: Albumin, Serum 3.7 g/dL (3.2-5.0); BUN 11 mg/dL (7-18); BUN/Creat Ratio 12.8 RATIO (10-20); Calcium,Total 8.6 mg/dL (8.5-10.1); Chloride 104 mmol/L (98-107); Creatinine, Serum 0.86 mg/dL (0.55-1.02); EST Glomerular Filtration Rate 68 mL/min (>60); Est Glom Filt Rate - Afr Amer 82 mL/min (>60); Glucose 98 mg/dL (74-106); Phosphorus 3.1 mg/dL (2.5-4.9); Potassium 3.8 mmol/L (3.5-5.1); Sodium Level 140 mmol/L (136-145)
[2018-04-21 16:05] LABS: Vitamin D,25 Hydroxy 9.4 ng/mL (29.95-100.01)
[2018-04-21 16:15] LABS: Creatinine, Urine (random) < 13.00 mg/dL (NO RANGE EST.); Microalbumin,Random Urine 10.5 mg/L (NO RANGE EST.)
[2018-04-21 16:20] LABS: PTHIN 58.8 pg/mL (18.4-80.1)
== END ==
PROVIDERS: Family Provider Family Medicine; PCP Family Medicine; Referring Provider Internal Medicine Nephrology; Visit Provider Internal Medicine Nephrology
DX: E03.9 Hypothyroidism, unspecified (principal); I10 Essential (primary) hypertension
CPT/HCPCS: 36415; 80069; 82043; 82306; 82570; 83735; 83970; 85027

== ENCOUNTER → 2018-07-22 12:17 | Outpatient (CLI) | payer MEDICARE, OTHER, SELFPAY ==
[2018-07-14 15:01] VITALS: BMI 43.9
[2018-07-22 14:22] LABS: Absolute Lymphocyte Count 1.18 X10^3/ul (0.83-4.51); Absolute Neutrophil Count 7.9 X10^3/uL (2.0-7.7); Basophil# 0.02 X10^3/uL; Basophil% 0.2 % (0-1); Eosinophil# 0.08 X10^3/uL; Eosinophils% 0.8 % (0-5); Hematocrit 31.6 % (37-47); Hemoglobin 9.5 g/dl (12.0-15.0); Lymphocyte # 1.18 X10^3/ul (4.0); Lymphocyte % 11.1 % (19-41); Mean Corp Hgb Conc 30.1 g/gl (32-36); Mean Corpuscular Hgb 29.4 pg (27.0-32.0); Mean Corpuscular Volume 97.8 fL (81-99); Mean Platelet Vol. 10.9 fl (6.2-12.0); Monocyte# 1.48 X10^3/uL; Monocyte% 13.9 % (0-10); Neutrophil # 7.85 X10^3/uL (2.7-7.7); Neutrophil % 73.7 % (47-70); Platelet Count 258 K/mm3 (150-450); RBC Distribution Width CV 19.7 % (11.6-14.6); RBC Distribution Width SD 70.9 fl (35.1-43.9); Red Blood Count 3.23 M/mm3 (4.2-5.4); White Blood Count 10.6 K/mm3 (4.4-11.0)
[2018-07-22 14:25] LABS: Differential Indicated SCAN CRITERIA MET; POSITIVE COUNT NO; POSITIVE DIFFERENTIAL NO; POSITIVE MORPHOLOGY YES
[2018-07-22 14:26] LABS: ALB/GLOB Ratio 1.1 RATIO (0.9-2.4); AST(SGOT) 16 U/L (15-37); Alanine Aminotransfer ALT/SGPT 17 U/L (13-56); Albumin, Serum 3.3 g/dL (3.2-5.0); Alkaline Phosphatase 73 U/L (45-117); Anion Gap 9 (5-15); BUN 7 mg/dL (7-18); BUN/Creat Ratio 11.1 RATIO (10-20); Calcium,Total 8.6 mg/dL (8.5-10.1); Chloride 102 mmol/L (98-107); Creatinine, Serum 0.63 mg/dL (0.55-1.02); EST Glomerular Filtration Rate 97 mL/min (>60); Est Glom Filt Rate - Afr Amer 117 mL/min (>60); Globulin 2.9 g/dL (2.2-4.2); Glucose 111 mg/dL (74-106); Protein, Total 6.2 g/dL (6.4-8.2); Sodium Level 138 mmol/L (136-145)
[2018-07-22 14:51] LABS: Anisocytosis 2+; Hypochromasia 1+
== END ==
PROVIDERS: Family Provider Family Medicine; PCP Family Medicine; Referring Provider Family Medicine; Visit Provider Family Medicine
DX: K57.92 Diverticulitis of intestine, part unspecified, without perforation or abscess without bleeding (principal)
CPT/HCPCS: 36415; 80053; 85025; 86140

== ENCOUNTER → 2018-09-28 09:54 | Outpatient (CLI) | payer MEDICARE, OTHER, SELFPAY ==
[2018-07-14 15:01] VITALS: BMI 43.9
[2018-09-28 12:12] LABS: Hematocrit 34.9 % (37-47); Hemoglobin 10.8 g/dl (12.0-15.0); Mean Corp Hgb Conc 30.9 g/gl (32-36); Mean Corpuscular Hgb 31.8 pg (27.0-32.0); Mean Corpuscular Volume 102.6 fL (81-99); Mean Platelet Vol. 10.6 fl (6.2-12.0); Platelet Count 297 K/mm3 (150-450); RBC Distribution Width SD 59.8 fl (35.1-43.9); White Blood Count 11.2 K/mm3 (4.4-11.0)
[2018-09-28 12:13] LABS: Scan Indicated on CBC? Y/N NO
[2018-09-28 12:45] LABS: ALB/GLOB Ratio 1.1 RATIO (0.9-2.4); AST(SGOT) 14 U/L (15-37); Alanine Aminotransfer ALT/SGPT 20 U/L (13-56); Albumin, Serum 3.6 g/dL (3.2-5.0); Alkaline Phosphatase 77 U/L (45-117); Anion Gap 6 (5-15); BUN 11 mg/dL (7-18); BUN/Creat Ratio 17.4 RATIO (10-20); Calcium,Total 8.8 mg/dL (8.5-10.1); Chloride 105 mmol/L (98-107); Cholesterol 130 mg/dL (200); Creatinine, Serum 0.63 mg/dL (0.55-1.02); EST Glomerular Filtration Rate 96 mL/min (>60); Est Glom Filt Rate - Afr Amer 116 mL/min (>60); Ferritin 27 ng/mL (8-252); Globulin 3.2 g/dL (2.2-4.2); Glucose 94 mg/dL (74-106); High Density Lipoprotein 56 mg/dL; Iron 52 ug/dL (50-170); Protein, Total 6.8 g/dL (6.4-8.2); Sodium Level 138 mmol/L (136-145); Thyroid Stim Hormone (TSH) 2.45 uIU/mL (0.358-3.74); Triglycerides 65 mg/dL; Very Low Density Lipoprotein 13 mg/dL (5-40)
[2018-09-28 12:46] LABS: Vitamin D,25 Hydroxy 41.2 ng/mL (29.95-100.01)
== END ==
PROVIDERS: Family Provider Family Medicine; PCP Family Medicine; Referring Provider Family Medicine; Visit Provider Family Medicine
DX: E55.9 Vitamin D deficiency, unspecified (principal); I10 Essential (primary) hypertension; E03.9 Hypothyroidism, unspecified; D64.9 Anemia, unspecified
CPT/HCPCS: 36415; 80053; 80061; 82306; 82728; 83540; 84443; 85027

== ENCOUNTER 2019-01-23 14:02 | Emergency (ER) | payer MEDICARE, OTHER, SELFPAY ==
[2018-10-26 06:38] VITALS: BMI 42.2
[2019-01-23 14:03] VITALS: BP 140/77; PULSE 88; RESP 18; TEMP 36.9; O2SAT 97; BMI 41.5
--- NOTE | 2019-01-23 14:59 | ED.VISSUMM ---
- ER Visit Summary Date of Service: 01/23/19 Chief Complaint: Left leg laceration History of Present Illness: The patient is a 78 F who cut her right left lateral mid leg on a car door prior to arrival. Unknown last tetanus. She is on anticoagulation Physical Examination: Afebrile vital signs stable There is an approximately 12 cm L-shaped laceration to the anterior lateral left leg. The skin is thin. There Is exposed fat cells. There is lymphedema.. Emergency Department Course and Treatment: Wound was locally anesthetized using 1% lidocaine. Is washed with Shur-Clens and explored. Patient skin was extremely thin and can easily tear. It was clear the wound edges were going to be under tension and therefore horizontal mattresses were placed. A total of 6 horizontal 4-0 Ethilon sutures were placed. 2 simple interrupted Ethilon sutures were placed. Wound edges were approximated skin was under less tension. I discussed with the patient and son-in-law at length regarding the high risk of infection and poor wound healing that she is at risk for. We will place her on Keflex. Family states she has been on this in the past and tolerated it well. Have asked that they follow-up with her doctor later this week for wound check. Stitches will need to be removed in about 10 days Impression: 1. 12 cm left leg laceration with the. 2. Tetanus update This note was generated with [employer] dictation software. It may contain incorrect words, spelling, and punctuation that were not noted in review of the chart prior to signing ED Disposition - Plan for ED Patient: Disposition: Home or Assisted Living Instructions: LACERATION, Extrem (Suture, Staple or Tape) Prescriptions: Cephalexin [Keflex] 500 mg PO Q6 #20 cap Prescription Printed Referrals: Ej Roman MD [Primary Care Provider] - (later this week for wound check. ) Additional Instructions: Stitches will need to be removed in about 10 days. You are at high risk for wound infection and poor wound healing. I asked that he follow-up with your doctor for wound checks.
[2019-01-23] MEDS: Diphth,Pertuss(Acell),Tet Vac 0.5 ML Vial IM (15:11)
[2019-01-23 15:37] VITALS: BP 148/69; PULSE 63; TEMP -8.8; TEMP 16
== END 2019-01-23 15:38 | disposition home or self-care (01) ==
PROVIDERS: Emergency Provider Emergency Medicine; Family Provider Family Medicine; PCP Family Medicine
DX: S81.812A Laceration without foreign body, left lower leg, initial encounter (principal); W45.8XXA Other foreign body or object entering through skin, initial encounter; Y93.9 Activity, unspecified; I48.91 Unspecified atrial fibrillation; I10 Essential (primary) hypertension; Z79.01 Long term (current) use of anticoagulants; Z79.899 Other long term (current) drug therapy
CPT/HCPCS: 12004; 90715; 99283

== ENCOUNTER → 2019-02-18 11:44 | Outpatient (CLI) | payer MEDICARE, OTHER, SELFPAY ==
[2019-01-31 14:33] VITALS: BMI 41.0
--- NOTE | 2019-02-18 11:48 | RAD_ITS ---
STUDY: X-RAY CHEST REASON FOR EXAM: Female, 78 years old. Asthma exacerbation TECHNIQUE: AP and lateral views of the chest. COMPARISON: April 25, 2016 chest x-ray FINDINGS: The interstitial markings are mildly prominent similar to the prior study within the right lung base. There are similar appearing lingular atelectasis and/or scarring. There is no demonstrated pleural abnormality. There is mild cardiomegaly. Normal mediastinum and susie. Normal visualized pulmonary arteries. Normal visualized aortic arch and descending thoracic aorta. There are diffuse degenerative changes of the visualized thoracic spine. Normal visualized ribs, clavicles, and shoulders. There is no demonstrated abnormality of the visualized soft tissue structures of the upper abdomen. RAD/Chest PA and Lateral IMPRESSION: Stable chest. Chronic-appearing right lower lobe atelectasis. Lingular atelectasis and/or scarring. Electronically Signed: Floridalma Trent MD at 16:08 EST Tel , Service support ,
== END ==
PROVIDERS: Family Provider Family Medicine; PCP Family Medicine; Referring Provider Family Medicine; Visit Provider Family Medicine
DX: J45.901 Unspecified asthma with (acute) exacerbation (principal)
CPT/HCPCS: 71046

== ENCOUNTER → 2019-03-31 15:30 | Outpatient (CLI) | payer MEDICARE, OTHER, SELFPAY ==
[2018-10-26 06:38] VITALS: BMI 42.2
[2019-01-31 14:33] VITALS: BMI 41.0
--- NOTE | 2019-03-31 15:32 | BI_ITS ---
MAMMOGRAPHY - BILATERAL SCREENING REASON FOR EXAM: Female, 78 years old. Routine annual screening examination. PERTINENT HISTORY: Non-contributory. TECHNIQUE: Digital bilateral breast nancy (3D mammographic acquisition) in the CC and MLO projections. 2-D mediolateral oblique (MLO) and craniocaudad (CC) views of both breasts were obtained. CAD: Full Field Digital Mammography with Computer Added Detection was performed. COMPARISON: Comparison is made with prior study dated March 29, 2018 and January 20, 2017. FINDINGS: Breast Composition: There are scattered areas of fibroglandular density. There are no dominant masses or suspicious calcifications. Stable appearance of the benign appearing bilateral axillary lymph nodes. No other significant abnormalities are identified. There has been no significant change since the prior study. BI/SCREEN MAMM (CAD) W/NANCY BILAT IMPRESSION: Stable bilateral screening mammogram. Yearly follow-up mammogram recommended. (A) ASSESSMENT CATEGORY: BIRADS Category 2: Benign. A letter regarding these results will be sent to the patient by the facility within 30 days. Approximately 10% of breast cancers are not detected by mammography. A normal mammogram should not delay biopsy of a clinically suspicious abnormality. [id number] Electronically Signed: Carlos Soto, at 8:42 EST , Service support ,
--- NOTE | 2019-03-31 15:36 | BD_ITS ---
STUDY: DUAL ENERGY X-RAY ABSORPTIOMETRY / DXA REASON FOR EXAM: Female, 78 years old. The patient is postmenopausal. Loss of height. TECHNIQUE: Bone Mineral Density (BMD) measurements of lumbar spine and bilateral hips were obtained. COMPARISON: Comparison is made with prior study dated December 11, 2015. FINDINGS: Lumbar Spine (L1-L4): g/cm2 (1.318) / T-score (1.0) / Z-score (2.8) Findings are suggestive of normal bone density with a low fracture risk. Left Femur Total: g/cm2 (0.938) / T-score (-0.6) / Z-score (1.4) Left Femoral Neck: g/cm2 (0.837) / T-score (-1.4) / Z-score (0.7) Right Femur Total: g/cm2 (0.942) / T-score (-0.5) / Z-score (1.5) Right Femoral Neck: g/cm2 (0.819) / T-score (-1.6) / Z-score (0.6) The T-Scores on the most recent prior examination were: Lumbar Spine (L1-L4): There has been worsening of bone density since the previous examination. Left Femur Total: which represents a worsening of 2.8%. Right Femur Total: which represents a worsening of 7.4%. BD/Dexa Bone Density Study IMPRESSION: The patient is considered osteopenic as outlined below according to World Anthony Organization (WHO) criteria with a moderate fracture risk. There has been worsening of bone density since the previous examination. Reference Information: The T-score is the number of standard deviations above or below the standard which is normal for young adults at their peak bone mineral density. The World Health Organization (WHO) interprets the T-scores as follows: Above -1 Normal bone density Between -1 and -2.5 Osteopenia Equal to / or below -2.5 Osteoporosis As a practical clinical guideline, osteopenia may be graded as follows: Mild -1 through -1.5 Moderate -1.6 through -2.0 Severe -2.1 through -2.4 The Z-score is the number of standard deviations above or below age-matched controls. A Z-score of less than -1.5 would be considered abnormal. References: 1. NIH Osteoporosis and Related Bone Diseases http://www.osteo.org 2. International Society for Clinical Densitometry http://www.iscd.org 3. National Osteoporosis Foundation http://www.nof.org Electronically Signed: Carlos Soto, at 10:26 EST , Service support ,
== END ==
PROVIDERS: Family Provider Family Medicine; PCP Family Medicine; Referring Provider Family Medicine; Visit Provider Family Medicine
DX: Z12.31 Encounter for screening mammogram for malignant neoplasm of breast (principal); Z78.0 Asymptomatic menopausal state
CPT/HCPCS: 77063; 77067; 77080

== ENCOUNTER → 2019-04-07 14:57 | Outpatient (CLI) | payer MEDICARE, OTHER, SELFPAY ==
[2019-01-31 14:33] VITALS: BMI 41.0
--- NOTE | 2019-04-07 14:57 | ECHOD_ITS ---
Reason For Study: PHTN Procedure This was a 2D Doppler, Color Flow transthoracic echocardiogram. The study was technically difficult. Contrast injection was performed. Exam performed in department. Left Ventricle Normal size and thickness. The estimated ejection fraction is 65 %. Unable to assess diastolic dysfunction due to arrhythmia. No regional wall motion abnormalities noted. Right Ventricle Severely dilated right ventricle. Mild global right ventricular systolic dysfunction. Atria The left atrium is moderately enlarged. The right atrium is severely enlarged. Normal atrial septum. Mitral Valve The mitral valve is structurally normal. No prolapse or stenosis seen. Trivial mitral valve insufficiency. Tricuspid Valve Normal tricuspid valve. Mild to moderate (1-2+) tricuspid valve insufficiency. Right ventricular systolic pressure estimated to be 60 mmHg. Severe pulmonary hypertension. Aortic Valve Trisinus/trileaflet aortic valve. Mild diffuse aortic valve thickening. Trivial aortic valve insufficiency. Pulmonic Valve Normal pulmonic valve. Trivial pulmonic valve insufficiency. Great Vessels Normal aortic root. Normal arch. The inferior vena cava is dilated. No collapse of the inferior vena cava. Pericardium/Pleural No pericardial effusion. Medication 22 gauge I.V. with prn adaptor inserted into left arm. Diluted definity 1.5ml given slow IV push to enhance endocardial definition. MMode/2D Measurements & Calculations LVIDd: 4.6 cm IVSd: 0.76 cm Ao root diam: 3.4 cm LVIDs: 2.6 cm LVPWd: 0.86 cm RVDd: 4.0 cm FS: 44.1 % LAV(MOD-bp): 60.3 ml LVAd ap4: 29.0 cm2 SV(MOD-sp4): 69.9 ml LAV(MOD-bp) Indexed: 32.3 ml/m2 EDV(MOD-sp4): 96.0 ml LAV(MOD-sp2): 64.4 ml EDV(sp4-el): 98.5 ml LAV(MOD-sp4): 55.2 ml LVAs ap4: 13.3 cm2 ESV(MOD-sp4): 26.0 ml ESV(sp4-el): 26.1 ml EF(MOD-sp4): 72.9 % EF(sp4-el): 73.5 % SV(sp4-el): 72.5 ml LA A4 area: 21.4 cm2 LA dimension(2D): 4.4 cm RA A4 area: 26.3 cm2 Doppler Measurements & Calculations Ao V2 max: 134.1 cm/sec LV V1 max: 126.0 cm/sec PA V2 max: 119.2 cm/sec Ao max P.2 mmHg LV V1 max P.4 mmHg TR max lori: 326.5 cm/sec TR max P.8 mmHg Interpretation Summary The estimated ejection fraction is 65 %. Unable to assess diastolic dysfunction due to arrhythmia. Severely dilated right ventricle. Mild global right ventricular systolic dysfunction. The left atrium is moderately enlarged. The right atrium is severely enlarged. Trivial mitral valve insufficiency. Mild to moderate (1-2+) tricuspid valve insufficiency. Right ventricular systolic pressure estimated to be 60 mmHg. Severe pulmonary hypertension. Trivial aortic valve insufficiency. The inferior vena cava is dilated Pt appears to be in atrial fibrillation. Compared to echo report dated 08/10/2017, no appreciable changes noted. The study was technically difficult. Contrast injection was performed. Ordering Physician: Shaheen Ford Referring Physician: LULÚ WEBSTER Performed By: Susan Camejo, JARRED, RVT
== END ==
PROVIDERS: Family Provider Family Medicine; PCP Family Medicine; Referring Provider Internal Medicine Cardiovascular Disease; Visit Provider Internal Medicine Cardiovascular Disease
DX: G47.33 Obstructive sleep apnea (adult) (pediatric) (principal); I10 Essential (primary) hypertension; I48.20 Chronic atrial fibrillation, unspecified; I27.21 Secondary pulmonary arterial hypertension
CPT/HCPCS: 93306; Q9957; A4216; C8929

== ENCOUNTER → 2019-04-25 10:19 | Outpatient (CLI) | payer MEDICARE, SELFPAY ==
[2019-01-31 14:33] VITALS: BMI 41.0
[2019-04-25 12:22] LABS: Hematocrit 39.5 % (37-47); Hemoglobin 12.6 g/dL (12.0-15.0); Mean Corp Hgb Conc 31.9 g/dL (32-36); Mean Corpuscular Hgb 34.7 pg (27.0-32.0); Mean Corpuscular Volume 108.8 fL (81-99); Mean Platelet Vol. 10.7 fl (6.2-12.0); Platelet Count 236 K/mm3 (150-450); RBC Distribution Width SD 57.1 fl (35.1-43.9); Red Blood Count 3.63 M/mm3 (4.2-5.4); White Blood Count 11.5 K/mm3 (4.4-11.0)
[2019-04-25 12:48] LABS: Albumin, Serum 3.6 g/dL (3.2-5.0); BUN 14 mg/dL (7-18); BUN/Creat Ratio 19.8 RATIO (10-20); Calcium,Total 9.1 mg/dL (8.5-10.1); Chloride 106 mmol/L (98-107); Creatinine, Serum 0.71 mg/dL (0.55-1.02); EST Glomerular Filtration Rate 85 mL/min (>60); Est Glom Filt Rate - Afr Amer 103 mL/min (>60); Glucose 96 mg/dL (74-106); Phosphorus 3.4 mg/dL (2.5-4.9); Potassium 3.8 mmol/L (3.5-5.1); Sodium Level 138 mmol/L (136-145)
[2019-04-25 13:15] LABS: Anion Gap 4 (5-15); BUN 14 mg/dL (7-18); BUN/Creat Ratio 19.6 RATIO (10-20); Calcium,Total 9.2 mg/dL (8.5-10.1); Chloride 105 mmol/L (98-107); Creatinine, Serum 0.72 mg/dL (0.55-1.02); EST Glomerular Filtration Rate 84 mL/min (>60); Est Glom Filt Rate - Afr Amer 101 mL/min (>60); Glucose 96 mg/dL (74-106); Potassium 3.8 mmol/L (3.5-5.1); Sodium Level 138 mmol/L (136-145); Thyroid Stim Hormone (TSH) 2.85 uIU/mL (0.358-3.74)
[2019-04-25 13:54] LABS: Color, Urine Yellow (Yellow); Glucose, Dipstick Normal (Normal); Ketone-Dipstick Negative (Negative); Leukocyte Esterase-Dipstick 500 /ul (Negative); Nitrite-Dipstick Positive (Negative); Occult Blood-Urine 25 /ul (Negative); Protein-Dipstick 100 mg/dl (Negative); Urine Bilirubin Dipstick Negative (Negative); Urine Clarity Cloudy (Clear); Urine Urobilinogen 1 mg/dl (Normal)
== END ==
PROVIDERS: Family Provider Family Medicine; PCP Family Medicine; Referring Provider Internal Medicine Nephrology; Visit Provider Internal Medicine Nephrology
DX: I10 Essential (primary) hypertension (principal); D64.9 Anemia, unspecified; E03.9 Hypothyroidism, unspecified; E87.1 Hypo-osmolality and hyponatremia
CPT/HCPCS: 36415; 80048; 80069; 81002; 84443; 85027

== ENCOUNTER → 2019-11-01 12:34 | Outpatient (CLI) | payer MEDICARE, SELFPAY ==
[2019-10-25 07:40] VITALS: BMI 42.6
== END ==
PROVIDERS: PCP Family Medicine; Referring Provider Internal Medicine Critical Care Medicine; Visit Provider Internal Medicine Critical Care Medicine
DX: G47.33 Obstructive sleep apnea (adult) (pediatric) (principal)
CPT/HCPCS: 98960; G0463

== ENCOUNTER → 2020-01-16 09:20 | Outpatient (CLI) | payer MEDICARE, SELFPAY ==
[2019-12-09 10:02] VITALS: BMI 42.0
[2020-01-16 12:14] LABS: Hematocrit 36.8 % (37-47); Hemoglobin 11.5 g/dL (12.0-15.0); Mean Corp Hgb Conc 31.3 g/dL (32-36); Mean Corpuscular Hgb 33.9 pg (27.0-32.0); Mean Corpuscular Volume 108.6 fL (81-99); Mean Platelet Vol. 10.5 fl (6.2-12.0); Platelet Count 235 K/mm3 (150-450); RBC Distribution Width CV 13.7 % (11.6-14.6); RBC Distribution Width SD 54.5 fl (35.1-43.9); RET-HE 37.4 pg (30-35); Red Blood Count 3.39 M/mm3 (4.2-5.4); Reticulocyte Count 3.66 % (0.5-1.5); White Blood Count 9.9 K/mm3 (4.4-11.0)
[2020-01-16 12:51] LABS: Vitamin B12 > 2000 pg/mL (211-911)
[2020-01-16 12:52] LABS: ALB/GLOB Ratio 1.2 RATIO (0.9-2.4); AST(SGOT) 15 U/L (15-37); Alanine Aminotransfer ALT/SGPT 20 U/L (13-56); Albumin, Serum 3.5 g/dL (3.2-5.0); Alkaline Phosphatase 78 U/L (45-117); Anion Gap 4 (5-15); BUN 11 mg/dL (7-18); BUN/Creat Ratio 16.9 RATIO (10-20); Bilirubin, Direct 0.44 mg/dL (0.00-0.30); Calcium,Total 8.7 mg/dL (8.5-10.1); Chloride 105 mmol/L (98-107); Cholesterol 127 mg/dL (200); Creatinine, Serum 0.65 mg/dL (0.55-1.02); EST Glomerular Filtration Rate 93 mL/min (>60); Est Glom Filt Rate - Afr Amer 113 mL/min (>60); Ferritin 125 ng/mL (8-252); Globulin 2.9 g/dL (2.2-4.2); Glucose 99 mg/dL (74-106); High Density Lipoprotein 61 mg/dL; Iron 102 ug/dL (50-170); Potassium 3.7 mmol/L (3.5-5.1); Protein, Total 6.4 g/dL (6.4-8.2); Sodium Level 138 mmol/L (136-145); Thyroid Stim Hormone (TSH) 2.87 uIU/mL (0.358-3.74); Triglycerides 66 mg/dL; Very Low Density Lipoprotein 13 mg/dL (5-40)
== END ==
PROVIDERS: PCP Family Medicine; Referring Provider Family Medicine; Visit Provider Family Medicine
DX: D64.9 Anemia, unspecified (principal); E03.9 Hypothyroidism, unspecified; I10 Essential (primary) hypertension
CPT/HCPCS: 36415; 80053; 80061; 82248; 82607; 82728; 83540; 84443; 85027; 85045

== ENCOUNTER → 2020-04-10 14:39 | Outpatient (CLI) | payer MEDICARE, SELFPAY ==
[2019-12-09 10:02] VITALS: BMI 42.0
== END ==
PROVIDERS: PCP Family Medicine; Referring Provider Family Medicine; Visit Provider Family Medicine
DX: R39.15 Urgency of urination (principal)
CPT/HCPCS: 87086; 87088; 87186

== ENCOUNTER → 2020-04-23 12:58 | Outpatient (CLI) | payer MEDICARE, SELFPAY ==
[2019-12-09 10:02] VITALS: BMI 42.0
[2020-04-23 13:11] LABS: Mucous, Urine 0 SEEN /hpf (<or=2+)
[2020-04-23 15:40] LABS: Color, Urine Yellow (Yellow); Glucose, Dipstick Normal (Normal); Ketone-Dipstick Negative (Negative); Leukocyte Esterase-Dipstick 25 /ul (Negative); Nitrite-Dipstick Negative (Negative); Occult Blood-Urine 10 /ul (Negative); Protein-Dipstick 15 mg/dl (Negative); Urine Bilirubin Dipstick Negative (Negative); Urine Clarity Clear (Clear); Urine Urobilinogen 4 mg/dl (Normal)
[2020-04-23 15:59] LABS: Protein:Creat Ratio 70 mg/g CRE (0-200); Vitamin D,25 Hydroxy 21.8 ng/mL
[2020-04-23 16:00] LABS: Anion Gap 6 (5-15); BUN 13 mg/dL (7-18); BUN/Creat Ratio 15.6 RATIO (10-20); Calcium,Total 9.1 mg/dL (8.5-10.1); Chloride 101 mmol/L (98-107); Creatinine, Serum 0.84 mg/dL (0.55-1.02); EST Glomerular Filtration Rate 70 mL/min (>60); Est Glom Filt Rate - Afr Amer 84 mL/min (>60); Glucose 93 mg/dL (74-106); Potassium 4.3 mmol/L (3.5-5.1); Sodium Level 135 mmol/L (136-145)
[2020-04-23 16:25] LABS: Bacteria RARE /hpf (None Seen); Red Blood Cells-Urine 0-5 SEEN /hpf (0-5); Squamous Epithelial Cells - UA 0-5 SEEN /hpf (5-10); White Blood Cells 0-5 SEEN /hpf (0-5)
== END ==
PROVIDERS: PCP Family Medicine; Referring Provider Internal Medicine; Visit Provider Internal Medicine
DX: I10 Essential (primary) hypertension (principal); E87.1 Hypo-osmolality and hyponatremia; E55.9 Vitamin D deficiency, unspecified
CPT/HCPCS: 36415; 80048; 81001; 82306; 82570; 84156

== ENCOUNTER → 2020-05-09 13:11 | Outpatient (CLI) | payer MEDICARE, SELFPAY ==
[2019-12-09 10:02] VITALS: BMI 42.0
--- NOTE | 2020-05-09 13:15 | BI_ITS ---
MAMMOGRAPHY - BILATERAL SCREENING REASON FOR EXAM: Female, 79 years old. Routine annual screening examination. PERTINENT HISTORY: Non-contributory. TECHNIQUE: Digital bilateral breast nancy (3D mammographic acquisition) in the CC and MLO projections. 2-D mediolateral oblique (MLO) and craniocaudad (CC) views of both breasts were obtained. CAD: Full Field Digital Mammography with Computer Added Detection was performed. COMPARISON: Comparison is made with prior study dated 03/31/2019 and 03/29/2018. FINDINGS: Breast Composition: There are scattered areas of fibroglandular density. There are no dominant masses or suspicious calcifications. Stable benign-appearing bilateral axillary lymph nodes. No other significant abnormalities are identified. There has been no significant change since the prior study. BI/SCRN MAMM (CAD)W/NANCY BILAT IMPRESSION: Stable bilateral screening mammogram. Yearly follow-up mammogram recommended. (A) ASSESSMENT CATEGORY: BIRADS Category 2: Benign. A letter regarding these results will be sent to the patient by the facility within 30 days. Approximately 10% of breast cancers are not detected by mammography. A normal mammogram should not delay biopsy of a clinically suspicious abnormality. [id number] Electronically Signed: Carlos Soto MD at 14:05 EST , Service support ,
== END ==
PROVIDERS: PCP Family Medicine; Referring Provider Family Medicine; Visit Provider Family Medicine
DX: Z12.31 Encounter for screening mammogram for malignant neoplasm of breast (principal)
CPT/HCPCS: 77063; 77067

== ENCOUNTER 2020-05-11 13:09 | Outpatient (RCR) | payer MEDICARE, SELFPAY ==
[2019-12-09 10:02] VITALS: BMI 42.0
== END 2020-05-11 23:59 ==
LOC: IMMUN 13:09
PROVIDERS: PCP Family Medicine; Visit Provider Family Medicine
DX: Z23 Encounter for immunization (principal)
CPT/HCPCS: 0011A; 0012A; 91301

== ENCOUNTER → 2020-07-09 15:10 | Outpatient (CLI) | payer MEDICARE, SELFPAY ==
[2020-06-05 10:51] VITALS: BMI 42.0
[2020-07-09 17:50] LABS: Anion Gap 4 (5-15); BUN 14 mg/dL (7-18); BUN/Creat Ratio 18.4 RATIO (10-20); Calcium,Total 9.3 mg/dL (8.5-10.1); Chloride 103 mmol/L (98-107); Creatinine, Serum 0.76 mg/dL (0.55-1.02); EST Glomerular Filtration Rate 78 mL/min (>60); Est Glom Filt Rate - Afr Amer 94 mL/min (>60); Glucose 114 mg/dL (74-106); Potassium 3.5 mmol/L (3.5-5.1); Sodium Level 137 mmol/L (136-145)
== END ==
PROVIDERS: PCP Family Medicine; Visit Provider Family Medicine
DX: I10 Essential (primary) hypertension (principal)
CPT/HCPCS: 36415; 80048

== ENCOUNTER → 2020-09-28 12:20 | Outpatient (CLI) | payer MEDICARE, SELFPAY ==
[2020-06-05 10:51] VITALS: BMI 42.0
--- NOTE | 2020-09-28 12:23 | CT_ITS ---
STUDY: CT ABDOMEN AND PELVIS WITH CONTRAST REASON FOR EXAM: Female, 80 years old. Intermittent lower abdominal pain. RADIATION DOSAGE (If Supplied By Facility): CTDIvol = ( 21.45 ) mGy, DLP = ( 1047.63 ) mGycm TECHNIQUE: Transaxial images were obtained from the dome of the diaphragm to the symphysis pubis with oral contrast. Oral and amp; IV Gastrografin and amp; 100mL Isovue-370 was administered. Sagittal and coronal images were reconstructed. Individualized dose optimization techniques were used for this CT. COMPARISON: None. FINDINGS: The visualized lung bases are unremarkable. The visualized portions of the heart are within normal limits. There is a 1.5 cm cyst in the lateral aspect of the left lobe of the liver. The patient is status post ARNIE cystectomy. Normal spleen. Normal pancreas. Normal bilateral adrenal glands. Normal right kidney. Normal left kidney. Normal visualized stomach. Normal small intestine. There are multiple colonic diverticula consistent with diverticulosis. Mild increased markings in the surrounding peritoneal fat in the region of the distal sigmoid colon and rectum. This is suggestive of an inflammatory process most likely secondary to a noncomplicated diverticulitis. The appendix is visualized and appears normal. There is diffuse atherosclerotic calcification of the abdominal aorta and its major visceral branches, without a demonstrated aneurysm. Normal inferior vena cava. Normal retroperitoneum. Normal urinary bladder. Normal abdominal wall. There are diffuse degenerative changes of the visualized lumbar spine. Minimal anterior listhesis of L5 on S1 without spondylolysis most likely secondary to facet joint osteoarthritis. CT/Abdomen/Pelvis WITH Contrast IMPRESSION: Findings in keeping with a noncomplicated diverticulitis involving the distal portion of the sigmoid colon and proximal rectum. Small hepatic cyst. Electronically Signed: Carlos Soto MD at 15:08 EDT , Service support ,
[2020-09-28 14:46] LABS: CREATININE FINGERSTICK 0.9 mg/dL (0.55-1.02); EGFR FINGERSTICK > 60.0000 mL/min (>60)
== END ==
PROVIDERS: PCP Family Medicine; Referring Provider Family Medicine; Visit Provider Family Medicine
DX: R10.9 Unspecified abdominal pain (principal)
CPT/HCPCS: 74177; 87077; 87086; 87088; 87186; Q9967

== ENCOUNTER → 2020-10-16 13:48 | Outpatient (CLI) | payer MEDICARE, SELFPAY ==
[2020-06-05 10:51] VITALS: BMI 42.0
[2020-10-16 15:29] LABS: Glucose, Dipstick Normal (Normal); Ketone-Dipstick Negative (Negative); Leukocyte Esterase-Dipstick Negative /ul (Negative); Nitrite-Dipstick Negative (Negative); Occult Blood-Urine 250 /ul (Negative); Protein-Dipstick Negative (Negative); Urine Bilirubin Dipstick Negative (Negative); Urine Urobilinogen Normal (Normal)
[2020-10-16 15:30] LABS: Color, Urine YELLOW (Yellow)
[2020-10-16 15:31] LABS: Urine Clarity Clear (Clear)
[2020-10-16 15:50] LABS: Anion Gap 7 (5-15); BUN 9 mg/dL (7-18); BUN/Creat Ratio 13.6 RATIO (10-20); Calcium,Total 9.1 mg/dL (8.5-10.1); Chloride 102 mmol/L (98-107); Creatinine, Serum 0.66 mg/dL (0.55-1.02); EST Glomerular Filtration Rate 91 mL/min (>60); Est Glom Filt Rate - Afr Amer 110 mL/min (>60); Glucose 98 mg/dL (74-106); Potassium 3.6 mmol/L (3.5-5.1); Sodium Level 136 mmol/L (136-145)
[2020-10-16 16:04] LABS: Protein, Urine (Random) < 6.0 mg/dL (<11.9)
[2020-10-16 16:40] LABS: Vitamin D,25 Hydroxy 32.4 ng/mL
== END ==
PROVIDERS: PCP Family Medicine; Referring Provider Internal Medicine; Visit Provider Internal Medicine
DX: E87.1 Hypo-osmolality and hyponatremia (principal); I10 Essential (primary) hypertension; E55.9 Vitamin D deficiency, unspecified
CPT/HCPCS: 36415; 80048; 81002; 82306; 82570; 84156

== ENCOUNTER → 2021-01-17 15:23 | Outpatient (CLI) | payer MEDICARE, SELFPAY ==
[2021-01-17 17:32] LABS: Hematocrit 36.3 % (37-47); Hemoglobin 11.1 g/dL (12.0-15.0); Mean Corp Hgb Conc 30.6 g/dL (32-36); Mean Corpuscular Hgb 32.7 pg (27.0-32.0); Mean Corpuscular Volume 107.1 fL (81-99); Mean Platelet Vol. 11.1 fl (6.2-12.0); Platelet Count 229 K/mm3 (150-450); RBC Distribution Width CV 13.6 % (11.6-14.6); Red Blood Count 3.39 M/mm3 (4.2-5.4); White Blood Count 6.9 K/mm3 (4.4-11.0)
[2021-01-17 17:53] LABS: Vitamin D,25 Hydroxy 24.4 ng/mL
[2021-01-17 18:08] LABS: AST(SGOT) 12 U/L (15-37); Alanine Aminotransfer ALT/SGPT 16 U/L (13-56); Albumin, Serum 3.4 g/dL (3.2-5.0); Alkaline Phosphatase 87 U/L (45-117); Anion Gap 9 (5-15); BUN 11 mg/dL (7-18); BUN/Creat Ratio 18.2 RATIO (10-20); Calcium,Total 8.6 mg/dL (8.5-10.1); Chloride 103 mmol/L (98-107); Cholesterol 119 mg/dL (200); EST Glomerular Filtration Rate 101 mL/min (>60); Est Glom Filt Rate - Afr Amer 122 mL/min (>60); Globulin 3.4 g/dL (2.2-4.2); Glucose 101 mg/dL (74-106); High Density Lipoprotein 50 mg/dL; Potassium 3.7 mmol/L (3.5-5.1); Protein, Total 6.8 g/dL (6.4-8.2); Sodium Level 140 mmol/L (136-145); Thyroid Stim Hormone (TSH) 2.42 uIU/mL (0.358-3.74); Triglycerides 112 mg/dL; Very Low Density Lipoprotein 22 mg/dL (5-40)
== END ==
PROVIDERS: PCP Family Medicine; Referring Provider Family Medicine; Visit Provider Family Medicine
DX: E55.9 Vitamin D deficiency, unspecified (principal); I48.91 Unspecified atrial fibrillation; I63.9 Cerebral infarction, unspecified
CPT/HCPCS: 36415; 80053; 80061; 82306; 84443; 85027

== ENCOUNTER 2021-03-08 20:39 | Inpatient (IN) | payer MEDICARE, SELFPAY ==
[2021-03-08] VITALS (9 sets, daily range): BP systolic 185–215; BP diastolic 91–118; PULSE 81–94; RESP 15–28; TEMP 35.7; O2SAT 88–100; BMI 41.0
--- NOTE | 2021-03-08 20:59 | RAD_ITS ---
STUDY: X-RAY CHEST REASON FOR EXAM: Female, 80 years old. Respiratory distress, hypoxia, wheezing TECHNIQUE: Single AP portable view of the chest. COMPARISON: 02/18/2019. FINDINGS: The lungs are clear and expanded. There is no demonstrated pleural abnormality. There is mild cardiac enlargement. Normal mediastinum and susie. Normal visualized pulmonary arteries. Normal visualized aortic arch and descending thoracic aorta. Mild degenerative changes of the left shoulder. Prior rotator cuff repair on the right. Mild thoracic spondylosis. Soft tissues and bony structures are otherwise unremarkable. RAD/Chest 1 View (Portable) IMPRESSION: No acute findings. Electronically Signed: Namrata Garrett MD at 22:28 EST Tel , Service support ,
--- NOTE | 2021-03-08 20:59 | EKG12_ITS ---
Test Reason : DYSRHYTHMIA Blood Pressure : / mmHG Vent. Rate : 079 BPM Atrial Rate : 120 BPM P-R Int : 000 ms QRS Dur : 074 ms QT Int : 366 ms P-R-T Axes : 000 054 069 degrees QTc Int : 419 ms Atrial fibrillation Septal infarct , age undetermined Abnormal ECG Confirmed by LUZ MCLAUGHLIN, WILNER ([id number]), industrial editor VICKIE GARG ([id number]) on 03/11/2021 1:20:43 PM Referred By: ALICJA Confirmed By:WILNER ESCOBAR MD
--- NOTE | 2021-03-08 21:08 | EDS_ITS ---
HPI <Dr. Forrest Whalen MD - Last Filed: 03/08/21 22:48> History of Present Illness Chief Complaint: Shortness of Breath Informant: patient and family Onset/Context/Timing Onset: Days (Onset Thursday became suddenly worse 1 to 2 hours prior to arrival) Context: sudden (Suddenly worse 1 to 2 hours prior to arrival), gradual (Initially) and rest Timing: Continuous Quality: Positive for Dyspnea on exertion and Wheezing; Negative for Orthopnea and PND Current Severity: Severe Maximum Severity: Severe Worsened by: Exertion and Coughing Relieved by: Nothing Associated Symptoms cough and rhinorrhea; Negative for post nasal drip, ear pain, fever, sore throat, subjective, chills, sweats, clear sputum, white sputum, yellow sputum or green sputum Chest Pain: Positive for - (Bandlike sensation around her chest 1 to 2 hours prior to arrival without radiation) Narrative Narrative: Patient is an elderly woman with history of chronic atrial fibrillation, hyperlipidemia, essential hypertension, secondary pulmonary hypertension, obstructive sleep apnea who presents with upper respiratory symptoms started Thursday is gradually gotten worse. She abruptly got worse 2 hours prior to presentation and 1 to 2 hours prior to presentation developed a bandlike sensation across her chest. She denies history of coronary disease. She denies orthopnea or PND. She does report chronic runny nose. She had a negative Covid test today. She denies fever or chills. Denies loss of taste or smell. She still complains of pressure sensation in her chest. Daughter states her legs are normally slightly swollen. There is no history of VTE. She denies leg pain or discoloration. She denies black or maroon-colored stool. PE Risk Factors: Negative for Cancer, OCP + Smoking + > 35, Prior DVT or PE, Recent immobilization, Recent surgery and Recent travel Prior similar symptoms: No Recent Illness/Hospitalization: No PFSH <Dr. Forrest Whalen MD - Last Filed: 03/08/21 22:48> PFSH Medical History Asthma Chronic atrial fibrillation Essential hypertension H/O transient cerebral ischemia History of hypothyroidism Hyperlipidemia Morbid obesity with BMI of 40.0-44.9, adult Non-rheumatic tricuspid valve insufficiency Occlusion of carotid artery without cerebral infarction HELGA (obstructive sleep apnea) HELGA on CPAP Right ventricular dilation Secondary pulmonary arterial hypertension Home Medications pramipexole 0.25 mg PO QHS 04/18/16 [History Last Taken 04/26/16] levothyroxine 50 mcg PO DAILY 04/19/16 [History Last Taken 04/27/16] vit B lgrq-[id number]-copper-zinc 1 ea PO DAILY 01/23/19 [History Last Taken Unknown] losartan 50 mg tablet 50 mg PO DAILY 90 Days #90 tab 07/09/20 [Rx Last Taken Unknown] furosemide 40 mg tablet 40 mg PO DAILY #90 tablet 07/30/20 [Rx Last Taken Unknown] fenofibrate nanocrystallized 48 mg tablet 48 mg PO QHS #90 tab 08/20/20 [Rx Last Taken Unknown] rivaroxaban 20 mg tablet 20 mg PO DAILY #90 tab 09/10/20 [Rx Last Taken Unknown] simvastatin 40 mg tablet 40 mg PO QHS #90 tab 09/14/20 [Rx Last Taken Unknown] carvedilol 12.5 mg tablet 12.5 mg PO BID #180 tab 12/31/20 [Rx Last Taken Unknown] Allergy/AdvReac Type Severity Reaction Status Date / Time atorvastatin calcium Allergy Pain in Verified 12/13/20 11:02 [From Lipitor] joints Penicillins Allergy Rash Verified 12/13/20 11:02 pseudoephedrine Allergy Rash Verified 12/13/20 11:02 Sulfa (Sulfonamide Allergy Rash Verified 12/13/20 11:02 Antibiotics) hydrochlorothiazide AdvReac Nausea Verified 12/13/20 11:02 sulfamethoxazole AdvReac Nausea Verified 12/13/20 11:02 [From Bactrim] trimethoprim [From Bactrim] AdvReac Nausea Verified 12/13/20 11:02 SSRI Allergy Unknown Other Uncoded 12/13/20 11:02 Family History Mother CVA (cerebral vascular accident) Diabetes Surgical History History of arthroscopy of left knee History of bunionectomy of both great toes History of repair of right rotator cuff Hx of cholecystectomy Social History (Updated 03/08/21 @ 21:[address] Forrest Whalen MD) household members: family Smoking Status: Unknown if ever smoked alcohol intake: current alcohol intake frequency: holidays/special occasions only Alcohol type: wine substance use type: does not use caffeine: Yes Type: coffee Number of servings: 1 ROS <Dr. Forrest Whalen MD - Last Filed: 03/08/21 22:48> ROS ED Constitutional Constitutional ED: Denies chills, fever(s), sweats or weight loss Eyes Eyes: Denies blurry vision, change in vision or diplopia ENT ENT ED: Reports rhinorrhea; Denies ear pain or sore throat Cardiovascular Cardiovascular: Reports chest pain; Denies orthopnea, palpitations, paroxysmal nocturnal dyspnea or racing heartbeat Respiratory/Chest Respiratory/Chest: Reports cough, dyspnea and dyspnea on exertion; Denies orthopnea, paroxysmal nocturnal dyspnea or sputum Gastrointestinal Gastrointestinal: Denies abdominal pain, diarrhea, nausea or vomiting Genitourinary Genitourinary ED: Denies dysuria, hematuria or urinary frequency Musculoskeletal Musculoskeletal: Denies arthralgias, back pain, myalgias or neck pain Integumentary Denies Abrasions or rash Neurologic Neurologic: Reports weakness; Denies headache(s) or paresthesias Endocrine Endocrinology: Denies polydipsia, polyphagia or polyuria Hematologic/Lymphatic Hematologic/Lymphatic: Denies easy bleeding or easy bruising EXAM <Dr. Forrest Whalen MD - Last Filed: 03/08/21 22:48> Physical Exam Const Vital Signs: 03/08/21 20:40 03/08/21 20:59 03/08/21 21:01 Temperature 96.3 F L Temperature Source Temporal Pulse Rate 81 Respiratory Rate 15 Respiratory Effort Short of Breath Labored Accessory Muscle Use Respiratory Depth Deep Respiratory Pattern Blood Pressure 214/91 H Blood Pressure Mean 132 Pulse Ox 88 100 Oxygen Delivery Method Room Air Nasal Cannula Nasal Cannula Oxygen Flow Rate (L/min) 4 4 03/08/21 21:22 03/08/21 21:53 03/08/21 22:05 Temperature Temperature Source Pulse Rate 81 94 86 Respiratory Rate 28 H 26 H 21 H Respiratory Effort Respiratory Depth Respiratory Pattern Tachypnea Blood Pressure 215/101 H 208/97 H Blood Pressure Mean 139 134 Pulse Ox 98 97 Oxygen Delivery Method Nasal Cannula Nasal Cannula Oxygen Flow Rate (L/min) 2 2 03/08/21 22:50 03/08/21 23:02 03/08/21 23:21 Temperature Temperature Source Pulse Rate 86 82 Respiratory Rate 23 H 28 H 23 H Respiratory Effort Short of Breath Labored Respiratory Depth Shallow Respiratory Pattern Tachypnea Blood Pressure 197/118 H 185/101 H Blood Pressure Mean 144 129 Pulse Ox 97 98 92 Oxygen Delivery Method Nasal Cannula Nasal Cannula Room Air Oxygen Flow Rate (L/min) 2 2 Positive well nourished, well developed and obese General Appearance ED: well developed; Negative for NAD Nutritional Appearance: obese HEENT Reports TM's clear and moist mucous membranes HEENT Narrative: Head is normocephalic. Ears are normal. atraumatic Tympanic Membrane ED: Yes TM's clear Eyes PERRL and EOMs intact bilaterally General Eye ED: Negative for pale conjunctiva or scleral icterus Neck no lymphadenopathy, supple, no meningeal signs and no JVD Neck Narrative: There is no inspiratory or expiratory stridor. Resp No normal respiratory effort Resp Narrative: Patient has use of accessory muscles with mild retractions. She has conversational dyspnea. Auscultation: wheezes and diminished lung sounds Cardio regular rate, regular rhythm, S1 normal heart sound, S2 normal heart sound and no murmurs GI non-tender, non-distended and no masses Auscultation: normoactive bowel sounds Palpation: soft Back/Spine no CVA tenderness and normal to inspection Extremity normal to inspection General Extremety ED: Negative for edema or tenderness General Extremity: Negative for edema Neuro oriented x3 and CN's II-XII intact bilaterally Sensorium / Orientation: alert Psych mental status grossly normal Thought Process: normal thought process Skin no wounds Lesions: no lesions Rashes: no rashes <Dr. Gordo De Leon, DO - Last Filed: 03/09/21 00:48> Physical Exam Const Vital Signs: 03/08/21 20:40 03/08/21 20:59 03/08/21 21:01 Temperature 96.3 F L Temperature Source Temporal Pulse Rate 81 Respiratory Rate 15 Respiratory Effort Short of Breath Labored Accessory Muscle Use Respiratory Depth Deep Respiratory Pattern Blood Pressure 214/91 H Blood Pressure Mean 132 Pulse Ox 88 100 Oxygen Delivery Method Room Air Nasal Cannula Nasal Cannula Oxygen Flow Rate (L/min) 4 4 03/08/21 21:22 03/08/21 21:53 03/08/21 22:05 Temperature Temperature Source Pulse Rate 81 94 86 Respiratory Rate 28 H 26 H 21 H Respiratory Effort Respiratory Depth Respiratory Pattern Tachypnea Blood Pressure 215/101 H 208/97 H Blood Pressure Mean 139 134 Pulse Ox 98 97 Oxygen Delivery Method Nasal Cannula Nasal Cannula Oxygen Flow Rate (L/min) 2 2 03/08/21 22:50 03/08/21 23:02 03/08/21 23:21 Temperature Temperature Source Pulse Rate 86 82 Respiratory Rate 23 H 28 H 23 H Respiratory Effort Short of Breath Labored Respiratory Depth Shallow Respiratory Pattern Tachypnea Blood Pressure 197/118 H 185/101 H Blood Pressure Mean 144 129 Pulse Ox 97 98 92 Oxygen Delivery Method Nasal Cannula Nasal Cannula Room Air Oxygen Flow Rate (L/min) [address] [facility] <Dr. Forrest Whalen MD - Last Filed: 03/08/21 22:48> [facility] MDM Narrative Medical decision making narrative: With abrupt onset of shortness of breath with chest tightness need to rule cardiac ischemia. Also need to entertain possibility of asthma, pneumonia, viral upper respiratory infection causing bronchospasm, CHF. EKG, chest x-ray and appropriate blood work was initiated. Patient reports allergy to albuterol. Since chest x-ray reveals no evidence of heart failure she was treated with albuterol. She states she has taken albuterol in the past has not had a reaction. Since patient chest x-ray unremarkable she has abrupt onset of shortness of breath with respiratory distress need to evaluate for pulmonary embolus. CTA was ordered. Patient was reassessed at 2244. She still is using accessory muscles. She is still wheezing but it has improved markedly. She still requiring oxygen. Since this occurred abruptly there is an 19% probability that this may represent pulmonary embolus. Will obtain a CTA. Patient was treated with additional aerosol treatments and Solu-Medrol. She will require admission. Case will be turned over to the evening physician to make disposition once CT has been performed and interpreted. Lab Data Attestation: I reviewed the patient's lab results. Lab results narrative: CBC is normal. Patient does have mild anemia. This wo uld not explain her abrupt onset of shortness of breath. Troponin is normal. BNP is slightly elevated 244.7; however, the chest x-ray reveals no acute process. Labs: Laboratory Results - last 24 hr 03/08/21 03/08/21 03/08/21 20:50 20:50 20:50 WBC 9.7 RBC 3.27 L Hgb 11.1 L Hct 33.8 L MCV 103.4 H MCH 33.9 H MCHC 32.8 RDW Std Deviation 52.4 H RDW Coeff of Gala 13.7 Plt Count 227 MPV 10.4 Immature Gran % (Auto) 1.300 H Neut % (Auto) 67.1 Lymph % (Auto) 16.9 L [place] % (Auto) 12.7 H Eos % (Auto) 1.5 Baso % (Auto) 0.5 Absolute Neuts (auto) 6.5 Absolute Lymphs (auto) 1.64 Nucleated RBC % 0.2 Sodium 136 Potassium 3.5 Chloride 103 Carbon Dioxide 27.0 Anion Gap 6 BUN 9 Creatinine 0.60 Estim Creat Clear Calc 31.69 Est GFR (MDRD) Af Amer 123 Est GFR (MDRD) Non-Af 101 BUN/Creatinine Ratio 15.0 Glucose 116 H Calcium 8.7 Troponin I High Sens 11 B-Natriuretic Peptide 244.7 H ABG Data ABG results: ABG 03/08/21 21:30 Specimen Type ART Sample Site R Radial pH 7.38 Bicarbonate Actual 25.9 Total CO2 27 Base Excess 1 O2 Saturation 96 ABG pCO2 44.0 ABG pO2 87 Sunil Test Positive O2 Delivery Device Cannula Liter Flow 2.0 Radiography Chest X-Ray - ED: 1 View, Read by ED Physician (Interpreted by me at 2031), Normal, Heart, Mediastinum, Bony Structures, No Acute Disease and Chronic Changes Diagnostic Testing: Clinical Impression(s) from Imaging Studies Chest X-Ray 03/08/21 20:59 IMPRESSION: No acute findings. Electronically Signed: Namrata Grarett MD at 22:28 EST Tel , Service support , Chest CTA 03/08/21 22:39 IMPRESSION: No pulmonary embolism. Mild to moderate cardiac enlargement. Mild interstitial thickening. Mild edema could have this appearance. There is nonspecific mild peribronchial thickening. Consider possible bronchitis. Small nodule right middle lobe measuring 4.6 mm. Recommend follow-up CT scan of the chest in 6 months to ensure stability. Mild hepatic enlargement. Mild lobulation of the left hepatic lobe. Could consider possible underlying cirrhosis, recommend correlation with laboratory values.. Stable hepatic cysts. Stable mild splenomegaly. Electronically Signed: Floridalma Trent MD at 0:11 EST Tel , Service support , EKG Initial EKG: Attestation: I personally reviewed and interpreted this EKG as follows: Interpretation: Atrial Fibrillation (Ventricular rate 79. QS duration 74 ms. QT duration 366 ms. [place] is normal. There is decreased anterior force. There is no acute ischemic changes noted.) <Dr. Gordo De Leon, DO - Last Filed: 03/09/21 00:48> MDM MDM Narrative Medical decision making narrative: Patient was signed out to me while pending CTA. CTA revealed inflammatory changes consistent with bronchitis but no pulmonary embolism pleural effusion pneumothorax or infiltrate. On reevaluation she is doing better speaking in 7-10 word sentences versus 1-2. Her resting pulse ox on a few liters is in the mid 90s and her work of breathing has been reduced. However at this time based on the persistent shortness of breath and need for supplemental oxygen which she does not have to use at home I do not feel it is safe for her to be discharged and therefore should be admitted for further care. Lab Data Attestation: I reviewed the patient's lab results. Labs: Laboratory Results - last 24 hr 03/08/21 03/08/21 03/08/21 20:50 20:50 20:50 WBC 9.7 RBC 3.27 L Hgb 11.1 L Hct 33.8 L MCV 103.4 H MCH 33.9 H MCHC 32.8 RDW Std Deviation 52.4 H RDW Coeff of Gala 13.7 Plt Count 227 MPV 10.4 Immature Gran % (Auto) 1.300 H Neut % (Auto) 67.1 Lymph % (Auto) 16.9 L [place] % (Auto) 12.7 H Eos % (Auto) 1.5 Baso % (Auto) 0.5 Absolute Neuts (auto) 6.5 Absolute Lymphs (auto) 1.64 Nucleated RBC % 0.2 Sodium 136 Potassium 3.5 Chloride 103 Carbon Dioxide 27.0 Anion Gap 6 BUN 9 Creatinine 0.60 Estim Creat Clear Calc 31.69 Est GFR (MDRD) Af Amer 123 Est GFR (MDRD) Non-Af 101 BUN/Creatinine Ratio 15.0 Glucose 116 H Calcium 8.7 Troponin I High Sens 11 B-Natriuretic Peptide 244.7 H ABG Data ABG results: ABG 03/08/21 21:30 Specimen Type ART Sample Site R Radial pH 7.38 Bicarbonate Actual 25.9 Total CO2 27 Base Excess 1 O2 Saturation 96 ABG pCO2 44.0 ABG pO2 87 Sunil Test Positive O2 Delivery Device Cannula Liter Flow 2.0 Radiography Diagnostic Testing: Clinical Impression(s) from Imaging Studies Chest X-Ray 03/08/21 20:59 IMPRESSION: No acute findings. Electronically Signed: Namrata Garrett MD at 22:28 EST Tel , Service support , Chest CTA 03/08/21 22:39 IMPRESSION: No pulmonary embolism. Mild to moderate cardiac enlargement. Mild interstitial thickening. Mild edema could have this appearance. There is nonspecific mild peribronchial thickening. Consider possible bronchitis. Small nodule right middle lobe measuring 4.6 mm. Recommend follow-up CT scan of the chest in 6 months to ensure stability. Mild hepatic enlargement. Mild lobulation of the left hepatic lobe. Could consider possible underlying cirrhosis, recommend correlation with laboratory values.. Stable hepatic cysts. Stable mild splenomegaly. Electronically Signed: Floridalma Trent MD at 0:11 EST Tel , Service support , Discharge Plan Triage Chief Complaint: Shortness of Breath ED Provider: Forrest Whalen Dx/Rx/DC Orders Clinical Impression: Acute bronchospasm, Essential hypertension, Hypoxia, Chest tightness Prescriptions: No Action pramipexole 0.25 MG tablet 0.25 mg PO QHS RF: 0 levothyroxine 50 MCG tablet 50 mcg PO DAILY RF: 0 vit B cfrv-P-JI-copper-zinc 1 EACH tablet 1 ea PO DAILY RF: 0 losartan 50 mg tablet 50 mg PO DAILY 90 Days Qty: 90 RF: 4 furosemide 40 mg tablet 40 mg PO DAILY Qty: 90 RF: 3 fenofibrate nanocrystallized 48 mg tablet 48 mg PO QHS Qty: 90 RF: 3 rivaroxaban 20 mg tablet 20 mg PO DAILY Qty: 90 RF: 3 simvastatin 40 mg tablet 40 mg PO QHS Qty: 90 RF: 3 carvedilol 12.5 mg tablet 12.5 mg PO BID Qty: 180 RF: 3 Primary Care Provider: Ej Roman Referrals: Ej Roman MD [Primary Care Provider] - Disposition Disposition: Acute Care Hospital [facility]
[2021-03-08 21:12] LABS: Absolute Lymphocyte Count 1.64 X10^3/uL (0.83-4.51); Absolute Neutrophil Count 6.5 X10^3/uL (2.0-7.7); Basophil# 0.05 X10^3/uL; Basophil% 0.5 % (0-1); Eosinophil# 0.15 X10^3/uL; Eosinophils% 1.5 % (0-5); Hematocrit 33.8 % (37-47); Hemoglobin 11.1 g/dL (12.0-15.0); Lymphocyte # 1.64 X10^3/ul (0.83-4.51); Lymphocyte % 16.9 % (19-41); Mean Corp Hgb Conc 32.8 g/dL (32-36); Mean Corpuscular Hgb 33.9 pg (27.0-32.0); Mean Corpuscular Volume 103.4 fL (81-99); Mean Platelet Vol. 10.4 fl (6.2-12.0); Monocyte# 1.23 X10^3/uL; Monocyte% 12.7 % (0-10); NRBC Flagged by Analyzer 0.2 % (0-5); Neutrophil # 6.51 X10^3/uL (2.7-7.7); Neutrophil % 67.1 % (47-70); Platelet Count 227 K/mm3 (150-450); RBC Distribution Width CV 13.7 % (11.6-14.6); RBC Distribution Width SD 52.4 fl (35.1-43.9); Red Blood Count 3.27 M/mm3 (4.2-5.4); White Blood Count 9.7 K/mm3 (4.4-11.0)
--- NOTE | 2021-03-08 21:34 | ED.RN ---
notified of Dr. Whalen of hypertension and informed Dr. Whalen that pt. has not taken coreg yet tonight for BP. Also asked doctor about breathing treatments. said pt. was allergic to them and followed up with a conversation with pt. Awaiting further orders. Will continue to monitor.
[2021-03-08 21:36] LABS: Allen Test Positive; Base Excess 1 mmol/L (-2 to +2); Bicarbonate 25.9 mmol/L (22-26); Blood Gas Specimen Type ART; O2 Delivery Device Cannula; PO2 87 mmHG (75-100); SITE R Radial; SO2 96 % (95-99); Total Carbon Dioxide 27 mmol/L; pH 7.38 (7.35-7.45)
[2021-03-08 21:39] LABS: BNP,B-Type NATRIURETIC PEPTIDE 244.7 pg/mL (0-100)
[2021-03-08 21:43] LABS: Anion Gap 6 (5-15); BUN 9 mg/dL (7-18); Calcium,Total 8.7 mg/dL (8.5-10.1); Chloride 103 mmol/L (98-107); EST Glomerular Filtration Rate 101 mL/min (>60); Est Glom Filt Rate - Afr Amer 123 mL/min (>60); Estimated Creatinine Clearance 31.69 ml/min; Glucose 116 mg/dL (74-106); Potassium 3.5 mmol/L (3.5-5.1); Sodium Level 136 mmol/L (136-145); Troponin-I HS 11 pg/mL (3.0-54.0)
[2021-03-08] MEDS: Albuterol 2.5 MG/3 ML VIAL.NEB. INHALATION ×2 (21:53→23:02)
--- NOTE | 2021-03-08 22:39 | CT_ITS ---
STUDY: CTA CHEST REASON FOR EXAM: Female, 80 years old. Suspect pulmonary embolus RADIATION DOSAGE (If Supplied By Facility): CTDIvol = ( 13.59 ) mGy, DLP = ( 520.39 ) mGycm TECHNIQUE: The examination was performed with the intravenous administration of IV 100mL Isovue-370. Post-processing of the angiographic images was performed, with multiplanar reformation and 3D reconstruction. Individualized dose optimization techniques were used for this CT. COMPARISON: Chest x-ray March 08, 2021 FINDINGS: Normal enhancement of the main pulmonary artery and right and left pulmonary arteries. Normal enhancement of the bilateral peripheral pulmonary arteries. There is no demonstrated pulmonary embolism. There is atherosclerotic tortuosity of the aortic arch and descending thoracic aorta. There is no demonstrated aortic dissection. There is mild to moderate cardiac enlargement. There is a reactive lymph node in the precarinal space measuring 1.3 x 1.3 cm. There are small subcentimeter mediastinal lymph nodes. There is a anterior tracheal lymph node measuring 1.1 cm. Normal hilar regions. There is nonspecific mild peribronchial thickening. There are areas of mild interstitial thickening minimal air trapping. There is no consolidation. There is a right middle lobe nodule measuring 4.6 mm Normal pleura. Normal chest wall structures. There is kyphosis of the thoracic spine is multilevel spondylosis. The liver is mildly enlarged. The left hepatic lobe is mildly lobulated. There is a cyst in the left hepatic lobe measuring 7.6 mm. The spleen measures 12.[address]/CTA Chest W/WO Contrast IMPRESSION: No pulmonary embolism. Mild to moderate cardiac enlargement. Mild interstitial thickening. Mild edema could have this appearance. There is nonspecific mild peribronchial thickening. Consider possible bronchitis. Small nodule right middle lobe measuring 4.6 mm. Recommend follow-up CT scan of the chest in 6 months to ensure stability. Mild hepatic enlargement. Mild lobulation of the left hepatic lobe. Could consider possible underlying cirrhosis, recommend correlation with laboratory values.. Stable hepatic cysts. Stable mild splenomegaly. Electronically Signed: Floridalma Trent MD at 0:11 EST Tel , Service support ,
[2021-03-08] MEDS: MethylPREDNISolone 125 MG/2 ML Vial IV (22:48)
--- NOTE | 2021-03-08 23:29 | CPS ---
[2302] Albuterol x1 given to pt. Pre-assessment: 91 HR, 28 breaths/min and wheezes throughout. Post-assessment: 93 HR, 26 breaths/min with better aeration with wheezes.
--- NOTE | 2021-03-08 23:45 | EKG12_ITS ---
Test Reason : REPEAT CP Blood Pressure : / mmHG Vent. Rate : 077 BPM Atrial Rate : 084 BPM P-R Int : 000 ms QRS Dur : 078 ms QT Int : 366 ms P-R-T Axes : 000 005 019 degrees QTc Int : 414 ms Atrial fibrillation Low voltage QRS Septal infarct , age undetermined Abnormal ECG Confirmed by LUZ MCLAUGHLIN, WILNER ([id number]), editor & co founder VICKIE GARG ([id number]) on 03/11/2021 1:21:02 PM Referred By: ALICJA Confirmed By:WILNER ESCOBAR MD
--- NOTE | 2021-03-08 23:48 | ED.RN ---
Pt. c/o's of chest pressure. Dr. De Leon updated. Called for repeat EKG.
[2021-03-09] VITALS (18 sets, daily range): BP systolic 151–207; BP diastolic 69–116; PULSE 62–115; RESP 12–35; TEMP 36.4–36.9; O2SAT 88–100; BMI 39.7
--- NOTE | 2021-03-09 00:43 | PCM.HP.STD ---
HPI - General General Date of Admission: 03/09/21 Date of Service: 03/09/21 Chief Complaint: Cough, dyspnea, wheezing. HPI Narrative The patient is a 80 y/o F w/ PMHx: ? Chronic Asthma, Chronic atrial fibrillation, HTN, HLD, Hx TIA, Morbid Obesity, HELGA on BIPAP q HS, Hx Carotid disease, Hypothyroidism who presents to the [facility] ED on 03/09/21 with history of onset of worsening dyspnea and wheezing starting on Thursday the week of presentation however worsened significantly over the last several hours prior to ED evaluation, worsened dyspnea especially with exertion with ongoing harsh coughing as well as rhinorrhea but no associated fever, chills or productive sputum with pleuritic chest discomfort described as a bandlike sensation ongoing around her chest described as a tightness for least 2 hours constantly prior to ED evaluation. Patient does report having had a Covid test on day of presentation which was negative and has been vaccinated with a 2 dose series but has yet to have a booster. Patient has unchanged chronic lower extremity swelling. Patient denies any orthopnea or PND. Work-up in the ED included T 96.3, HR 81, BP 214/91, RR 15, 88% on RA initially-->HR 82, BP 185/101, respiratory rate 28, 98% on 2 L with improvement to 92% on room air following that, CBC with WC 9.7, hemoglobin 11.1, platelet 227 with increased immature granulocytes, ABG unremarkable appearing, BMP with glucose 116, troponin XI, BNP 244.7, chest x-ray with no acute cardiopulmonary findings, CTPA with no evidence of pulmonary embolism, mild to moderate cardiac enlargement, mild interstitial thickening, nonspecific mild peribronchial thickening consistent with possibly bronchitis, small nodule right middle lobe measuring 4.6 cm with recommended follow-up CT chest in 6 months, mild hepatic enlargement, mild lobulation left hepatic lobe, stable hepatic cysts, stable mild splenomegaly, EKG with atrial fibrillation, rate controlled with no acute evidence of ischemia. COVID PCR pending per ED. In the ED patient ministered albuterol as well as Solu-Medrol 125 mg IV x1. The ED patient has waxed and waned and upon evaluation per hospitalist physician has ongoing significant work of breathing, diffuse expiratory wheezing, conversational dyspnea therefore discussed with RT and BiPAP will be initiated. [facility] Medical History Asthma Chronic atrial fibrillation Essential hypertension H/O transient cerebral ischemia History of hypothyroidism Hyperlipidemia Morbid obesity with BMI of 40.0-44.9, adult Non-rheumatic tricuspid valve insufficiency Occlusion of carotid artery without cerebral infarction HELGA (obstructive sleep apnea) HELGA on CPAP Right ventricular dilation Secondary pulmonary arterial hypertension Home Medications pramipexole 0.25 mg PO QHS 04/18/16 [History Last Taken 04/26/16] levothyroxine 50 mcg PO DAILY 04/19/16 [History Last Taken 04/27/16] vit B qika-S-BG-copper-zinc 1 ea PO DAILY 01/23/19 [History Last Taken Unknown] losartan 50 mg tablet 50 mg PO DAILY 90 Days #90 tab 07/09/20 [Rx Last Taken Unknown] furosemide 40 mg tablet 40 mg PO DAILY #90 tablet 07/30/20 [Rx Last Taken Unknown] fenofibrate nanocrystallized 48 mg tablet 48 mg PO QHS #90 tab 08/20/20 [Rx Last Taken Unknown] rivaroxaban 20 mg tablet 20 mg PO DAILY #90 tab 09/10/20 [Rx Last Taken Unknown] simvastatin 40 mg tablet 40 mg PO QHS #90 tab 09/14/20 [Rx Last Taken Unknown] carvedilol 12.5 mg tablet 12.5 mg PO BID #180 tab 12/31/20 [Rx Last Taken Unknown] Allergy/AdvReac Type Severity Reaction Status Date / Time atorvastatin calcium Allergy Pain in Verified 12/13/20 11:02 [From Lipitor] joints Penicillins Allergy Rash Verified 12/13/20 11:02 pseudoephedrine Allergy Rash Verified 12/13/20 11:02 Sulfa (Sulfonamide Allergy Rash Verified 12/13/20 11:02 Antibiotics) hydrochlorothiazide AdvReac Nausea Verified 12/13/20 11:02 sulfamethoxazole AdvReac Nausea Verified 12/13/20 11:02 [From Bactrim] trimethoprim [From Bactrim] AdvReac Nausea Verified 12/13/20 11:02 SSRI Allergy Unknown Other Uncoded 12/13/20 11:02 Family History (Updated 03/09/21 @ 02:[address] Yokasta Richardson MD) Mother CVA (cerebral vascular accident) Diabetes Father Brain aneurysm Surgical History History of arthroscopy of left knee History of bunionectomy of both great toes History of repair of right rotator cuff Hx of cholecystectomy Social History (Updated 03/09/21 @ 02:[address] Yokasta Richardson MD) household members: family Smoking Status: Never smoker alcohol intake: current alcohol intake frequency: holidays/special occasions only Alcohol type: wine substance use type: does not use caffeine: Yes Type: coffee Number of servings: 1 ROS ROS Narrative Admission Review of Systems: CONSTITUTIONAL: No weight loss, fever, chills, + weakness or fatigue. HEENT: + Congestion, rhinorrhea. Eyes: No visual loss, blurred vision, double vision or yellow sclerae. Ears, Nose, Throat: No hearing loss, sneezing. SKIN: No rash or itching, lesions, wounds. CARDIOVASCULAR: + Pleuritic chest pain, No palpitations, edema, orthopnea, syncopal events. RESPIRATORY: + shortness of breath, cough without marked sputum, wheezing, No hemoptysis. GASTROINTESTINAL: No anorexia, nausea, vomiting or diarrhea, abdominal pain, melena, BRBPR. GENITOURINARY: No dysuria, frequency, urgency or retention. NEUROLOGICAL: No headache, dizziness, syncope, paralysis, ataxia, numbness or tingling in the extremities, focal weakness, change in bowel or bladder control, seizure. MUSCULOSKELETAL: + muscle, back pain, joint pain or stiffness. HEMATOLOGIC: + anemia, bleeding or bruising. LYMPHATICS: No enlarged nodes. No history of splenectomy. PSYCHIATRIC: No history of depression or anxiety. ENDOCRINOLOGIC: No reports of sweating, cold or heat intolerance. No polyuria or polydipsia. ALLERGIES: No history of asthma, hives, eczema or rhinitis. Vital Signs Vital Signs Vital Signs: 03/08/21 20:40 03/08/21 20:59 03/08/21 21:01 Temperature 96.3 F L Temperature Source Temporal Pulse Rate 81 Respiratory Rate 15 Respiratory Effort Short of Breath Labored Accessory Muscle Use Respiratory Depth Deep Respiratory Pattern Blood Pressure 214/91 H Blood Pressure Mean 132 Pulse Ox 88 100 Oxygen Delivery Method Room Air Nasal Cannula Nasal Cannula Oxygen Flow Rate (L/min) 4 4 03/08/21 21:22 03/08/21 21:53 03/08/21 22:05 Temperature Temperature Source Pulse Rate 81 94 86 Respiratory Rate 28 H 26 H 21 H Respiratory Effort Respiratory Depth Respiratory Pattern Tachypnea Blood Pressure 215/101 H 208/97 H Blood Pressure Mean 139 134 Pulse Ox 98 97 Oxygen Delivery Method Nasal Cannula Nasal Cannula Oxygen Flow Rate (L/min) 2 2 03/08/21 22:50 03/08/21 23:02 03/08/21 23:21 Temperature Temperature Source Pulse Rate 86 82 Respiratory Rate 23 H 28 H 23 H Respiratory Effort Short of Breath Labored Respiratory Depth Shallow Respiratory Pattern Tachypnea Blood Pressure 197/118 H 185/101 H Blood Pressure Mean 144 129 Pulse Ox 97 98 92 Oxygen Delivery Method Nasal Cannula Nasal Cannula Room Air Oxygen Flow Rate (L/min) 2 2 Weight Weight: 210 lb Body Mass Index (BMI) 41.0 Physical Exam Narrative Physical Examination: General: Awake, alert, oriented x 3 and cooperative, seated upright in the ED bed, fatigued evidence of respiratory distress with increased work of breathing, accessory muscle usage, ongoing conversational dyspnea. Skin: Normal color, normal turgor, no icterus, no cyanosis. HEENT: AT/NC, EOMI, PERRLA, mildly dry MM, no carotid bruits or JVD noted. Lungs: Diminished, diffuse expiratory wheezing, increased respiratory rate, accessory muscle usage, worsening conversational dyspnea, mildly coarse, no rales. Heart: Irregular, rate controlled; no gallop, rub audible. Abdomen: Soft, morbidly obese, NTTP, ND, distant normal BS, no obvious evidence of HSM; however, habitus makes examination difficult. Extremities: No cyanosis, no clubbing, chronic unchanged bilateral lower extremity swelling. Neurological: Patient awake, alert, oriented as noted, cognitive function intact; pupils equally reactive to light and accommodation, cranial nerves II-XII grossly normal, moving all 4 extremities, no focal deficits, strength severely global decrease secondary to acute presentation. Psychiatric: Affect appears fatigued, evidence of respiratory distress, no acute evidence of depressive or anxiety feelings. Results Lab / Micro Data Result Diagrams: 03/08/21 20:50 03/08/21 20:50 Labs: Laboratory Results - last 24 hr 03/08/21 20:50: WBC 9.7, RBC 3.27 L, Hgb 11.1 L, Hct 33.8 L, MCV 103.4 H, MCH 33.9 H, MCHC 32.8, RDW Std Deviation 52.4 H, RDW Coeff of Gala 13.7, Plt Count 227, MPV 10.4, Immature Gran % (Auto) 1.300 H, Neut % (Auto) 67.1, Lymph % (Auto) 16.9 L, Dougherty % (Auto) 12.7 H, Eos % (Auto) 1.5, Baso % (Auto) 0.5, Absolute Neuts (auto) 6.5, Absolute Lymphs (auto) 1.64, Nucleated RBC % 0.2 03/08/21 20:50: Sodium 136, Potassium 3.5, Chloride 103, Carbon Dioxide 27.0, Anion Gap 6, BUN 9, Creatinine 0.60, Estim Creat Clear Calc 31.69, Est GFR (MDRD) Af Amer 123, Est GFR (MDRD) Non-Af 101, BUN/Creatinine Ratio 15.0, Glucose 116 H, Calcium 8.7, Troponin I High Sens 11 03/08/21 20:50: B-Natriuretic Peptide 244.7 H ABG Data ABG results: ABG 03/08/21 21:30 Specimen Type ART Sample Site R Radial pH 7.38 Bicarbonate Actual 25.9 Total CO2 27 Base Excess 1 O2 Saturation 96 ABG pCO2 44.0 ABG pO2 87 Sunil Test Positive O2 Delivery Device Cannula Liter Flow 2.0 Radiology Impression Chest X-Ray 03/08/21 20:59 IMPRESSION: No acute findings. Electronically Signed: Namrata Garrett MD at 22:28 EST Tel , Service support , Chest CTA 03/08/21 22:39 IMPRESSION: No pulmonary embolism. Mild to moderate cardiac enlargement. Mild interstitial thickening. Mild edema could have this appearance. There is nonspecific mild peribronchial thickening. Consider possible bronchitis. Small nodule right middle lobe measuring 4.6 mm. Recommend follow-up CT scan of the chest in 6 months to ensure stability. Mild hepatic enlargement. Mild lobulation of the left hepatic lobe. Could consider possible underlying cirrhosis, recommend correlation with laboratory values.. Stable hepatic cysts. Stable mild splenomegaly. Electronically Signed: Floridalma Trent MD at 0:11 EST Tel , Service support , Assessment & Plan Assessment/Plan (1) Acute bronchospasm: (2) Acute respiratory failure with hypoxia: PLAN: The patient is a 80 y/o F w/ PMHx: ? Chronic Asthma, Chronic atrial fibrillation, HTN, HLD, Hx TIA, Morbid Obesity, HELGA on BIPAP q HS, Hx Carotid disease, Hypothyroidism who presents to the [facility] ED on 03/09/21 with history of onset of worsening dyspnea and wheezing starting on Thursday the week of presentation however worsened significantly over the last several hours prior to ED evaluation, worsened dyspnea especially with exertion with ongoing harsh coughing as well as rhinorrhea but no associated fever, chills or productive sputum with pleuritic chest discomfort. 1. Acute bronchitis with acute bronchospasms with Acute Hypoxic Respiratory Failure: Given presentation with severe work of breathing, accessory muscle usage, conversational dyspnea requested patient be placed on BIPAP in the ED. Although patient denies any COPD or asthma history it is reported in her file previously but she denies this and no listed history specifically by pulmonary medicine and her last note, only reported item was HELGA. Will admit to medical surgical floor, maintain on oxygen with wean as tolerated to room air, continue ATC duonebs, PRN albuterol, IV methylprednisolone, HOB, IS parameters, will defer immediate antibiotic therapy pending sputum culture, full respiratory viral panel. COVID PCR pending per ED also. 2. Incidental mild hepatic enlargement with mild lobulation of the left hepatic lobe with stable hepatic cysts: We will obtain liver profile to be cautious and may benefit from follow-up. 3. Incidental lung nodule right middle lobe: CT with 4.6 cm right middle lobe nodule, will need follow-up CT chest in 6 months. 4. Chronic atrial fibrillation: We will continue patient home Coreg as well as Xarelto regimen. 5. Hypertension: Continue home regimen including Lasix, losartan, Coreg with hold parameters as needed, PRN hydralazine. 6. Hyperlipidemia: We will continue patient home statin therapy. 7. History TIA: We will continue patient home Xarelto, statin, hypertensive regimen. 8. Hypothyroidism: Continue home synthroid regimen. 9. Morbid Obesity: Weight loss and lifestyle changes encouraged. 10. Carotid disease: We will continue patient home Xarelto, statin, hypertensive regimen. 11. Chronic anemia, macrocytic: Admission hemoglobin 11.1, prior baseline similar, trend CBC. 12. HELGA: We will continue patient BiPAP nightly 17/11 cm water. 13. Restless leg syndrome: We will continue patient home Mirapex regimen. 14. DVT prophylaxis: SCDs, continue home Xarelto regimen. 15. CODE status: Patient HCPANGELINE are her daughters 1 of whom is present and is a nurse herself and living will is currently in place. Discussed CODE status at length including difference between FULL code, DNR-CCA and DNR-CC status. Following discussions about the differences in these status, requested DNR-CCA, no intubation. Advanced Care Planning Face to Face Time: 16 minutes. Charges/Coding Visit Charges Inpatient E&M: 68543 Init Hosp L3 Procedures Hospitalists Procedures: 46049 Advncd Care Plan 30 Min
[2021-03-09 01:42] LABS: Procalcitonin 0.16 ng/mL (0.00-0.09)
--- NOTE | 2021-03-09 04:58 | NURSING ---
PANDEMIC DOCUMENTATION DATE:03/09/21 TIME: 0428
--- NOTE | 2021-03-09 05:01 | NURSING ---
Lab called critical value RSV+B, primary RNClaudia made aware.
[2021-03-09] MEDS: Levothyroxine 50 MCG Tablet PO (06:06)
[2021-03-09] MEDS: 0.9% Normal Saline 1,000 ML 100 ML IV (06:07)
[2021-03-09] MEDS: Carvedilol 12.5 MG Tablet PO ×2 (06:07→20:22)
[2021-03-09] MEDS: Losartan Potassium 50 MG Tablet PO (06:07)
--- NOTE | 2021-03-09 06:41 | NURSING ---
Coreg and Losaartan given early d/t pt missing HS doses of both, BP 207/112.
[2021-03-09] MEDS: Ipratropium/Albuterol Sulfate 3 ML AMPUL.NEB INHALATION ×4 (07:05→18:44)
[2021-03-09 08:18] LABS: Absolute Lymphocyte Count 0.55 X10^3/uL (0.83-4.51); Absolute Neutrophil Count 6.6 X10^3/uL (2.0-7.7); Basophil# 0.02 X10^3/uL; Basophil% 0.3 % (0-1); Hematocrit 32.8 % (37-47); Hemoglobin 10.7 g/dL (12.0-15.0); Lymphocyte # 0.55 X10^3/ul (0.83-4.51); Lymphocyte % 7.4 % (19-41); Mean Corp Hgb Conc 32.6 g/dL (32-36); Mean Corpuscular Hgb 33.5 pg (27.0-32.0); Mean Corpuscular Volume 102.8 fL (81-99); Mean Platelet Vol. 10.7 fl (6.2-12.0); Monocyte# 0.19 X10^3/uL; Monocyte% 2.6 % (0-10); NRBC Flagged by Analyzer 0 % (0-5); Neutrophil # 6.56 X10^3/uL (2.7-7.7); Neutrophil % 88.1 % (47-70); POSITIVE DIFFERENTIAL YES; Platelet Count 205 K/mm3 (150-450); RBC Distribution Width SD 52.9 fl (35.1-43.9); Red Blood Count 3.19 M/mm3 (4.2-5.4); White Blood Count 7.4 K/mm3 (4.4-11.0)
[2021-03-09 08:21] LABS: Differential Indicated SCAN CRITERIA MET
[2021-03-09 08:40] LABS: ALB/GLOB Ratio 1.1 RATIO (0.9-2.4); AST(SGOT) 31 U/L (15-37); Alanine Aminotransfer ALT/SGPT 18 U/L (13-56); Albumin, Serum 3.5 g/dL (3.2-5.0); Alkaline Phosphatase 86 U/L (45-117); Anion Gap 7 (5-15); BUN 9 mg/dL (7-18); BUN/Creat Ratio 16.8 RATIO (10-20); Calcium,Total 8.5 mg/dL (8.5-10.1); Chloride 105 mmol/L (98-107); Creatinine, Serum 0.54 mg/dL (0.55-1.02); EST Glomerular Filtration Rate 116 mL/min (>60); Est Glom Filt Rate - Afr Amer 141 mL/min (>60); Estimated Creatinine Clearance 31.69 ml/min; Globulin 3.2 g/dL (2.2-4.2); Glucose 152 mg/dL (74-106); Potassium 3.9 mmol/L (3.5-5.1); Protein, Total 6.7 g/dL (6.4-8.2); Sodium Level 136 mmol/L (136-145)
[2021-03-09 08:59] LABS: Probe Check PASS; Specimen Processing Control PASS
[2021-03-09] MEDS: Furosemide 40 MG Tablet PO (09:08)
[2021-03-09] MEDS: Rivaroxaban 20 MG Tablet PO (09:08)
--- NOTE | 2021-03-09 11:35 | CASEMGMT ---
ANDREW PONCE assessment: Face to Face with patient for initial transition planning/care coordination assessment. ANDREW PONCE introduced self and role at [facility], pt voices understanding and consents to assessment. Pt is sitting up in bed in no distress on 3L nc. Pt is A/Ox4 and answers all questions appropriately. Care providers, pharmacy, and demographics verified. Presentation: Pt c/o SOB, doing treatments at home without relief Admitting dx: Acute bronchitis PCP: Jessie Specialists: Jhony, nephro; Jessica, cardio; Roland pulian Preferred [facility]acy: [facility] Insurance: AeR Prescription Benefit: AeR Living Will/HPOA: Pt has LW/HPOA and is aware that they are on file at [facility]. Pt's daughter, Jolanta Abrams, is HPOA. LNOK: Shelly Lincoln, daughter Living Arrangements: Pt lives alone in 1 story home with 2 railed steps in and states no concerns at home. Pt is independent with ADL's. Transportation: Pt states aides drive and states no transportation concerns. DME/HHC: Pt has the following DME: WW, rollator, upright walker, grab bars, shower chair w/ WI shower, raised toilet seat, medical alert, rails, and nebulizer. Pt states no need for any further DME, but would like [employer] if qualifies for home oxygen. Pt states no hx of HHC or SNF. Pt states has aides 3-4days/week for 8hours/day thru [facility]. Pt states no concerns with going home at time of discharge. Pt is retired. Pt states does not smoke cigarettes but does occasionally drink ETOH. Pt voices no further concerns/needs. CM to follow for home oxygen need and any further discharge planning/needs. Advised pt to ask for CM if any further questions/concerns/needs arise, voices understanding. Pt Goal: Home Plan: [place] ANDREW PONCE
[2021-03-09] MEDS: Pramipexole Di-HCl 0.25 MG Tablet PO ×2 (12:30→20:22)
--- NOTE | 2021-03-09 15:15 | PN.HOSP_ITS ---
Subjective Subjective Patient seen and examined. She was admitted with a complaint of cough and dyspnea and wheeziness and is being managed for bronchospasms. Patient was on BiPAP at time I reviewed her this morning. She said she felt her breathing was much better. She had no active complaints. Review of systems otherwise negative.She is on BiPAP but has otherwise remained hemodynamically stable. Objective Data Objective Data Vital Signs: Vital Signs Temp Pulse Resp BP Pulse Ox 97.6 F L 64 18 168/100 H 100 03/09/21 14:52 03/09/21 14:52 03/09/21 14:52 03/09/21 14:52 03/09/21 14:52 Oxygen Flow Rate (L/min) 3 Oxygen Delivery Method Nasal Cannula Weight: 203 lb 9.55 oz Body Mass Index (BMI) 39.7 Intake & Output: Intake and Output for Last 24 Hours 03/07/21 03/08/21 03/09/21 23:59 23:59 23:59 Output Total 600 / 600 Balance -600 / -600 Lab / Micro Data Result Diagrams: 03/09/21 07:56 03/09/21 07:56 Labs: Laboratory Results - last 24 hr 03/08/21 20:50: WBC 9.7, RBC 3.27 L, Hgb 11.1 L, Hct 33.8 L, MCV 103.4 H, MCH 33.9 H, MCHC 32.8, RDW Std Deviation 52.4 H, RDW Coeff of Gala 13.7, Plt Count 227, MPV 10.4, Immature Gran % (Auto) 1.300 H, Neut % (Auto) 67.1, Lymph % (Auto) 16.9 L, Stevens % (Auto) 12.7 H, Eos % (Auto) 1.5, Baso % (Auto) 0.5, Absolute Neuts (auto) 6.5, Absolute Lymphs (auto) 1.64, Nucleated RBC % 0.2 03/08/21 20:50: Sodium 136, Potassium 3.5, Chloride 103, Carbon Dioxide 27.0, Anion Gap 6, BUN 9, Creatinine 0.60, Estim Creat Clear Calc 31.69, Est GFR (MDRD) Af Amer 123, Est GFR (MDRD) Non-Af 101, BUN/Creatinine Ratio 15.0, Glucose 116 H, Calcium 8.7, Troponin I High Sens 11 03/08/21 20:50: B-Natriuretic Peptide 244.7 H 03/09/21 00:48: COVID-19 (BRENDA) Negative 03/09/21 00:58: Procalcitonin 0.16 H 03/09/21 07:56: WBC 7.4, RBC 3.19 L, Hgb 10.7 L, Hct 32.8 L, MCV 102.8 H, MCH 33.5 H, MCHC 32.6, RDW Std Deviation 52.9 H, RDW Coeff of Gala 14.0, Plt Count 20 5, MPV 10.7, Immature Gran % (Auto) 1.600 H, Neut % (Auto) 88.1 H, Lymph % (Auto) 7.4 L, Stevens % (Auto) 2.6, Eos % (Auto) 0.0, Baso % (Auto) 0.3, Absolute Neuts (auto) 6.6, Absolute Lymphs (auto) 0.55 L, Nucleated RBC % 0 03/09/21 07:56: Sodium 136, Potassium 3.9, Chloride 105, Carbon Dioxide 24.0, Anion Gap 7, BUN 9, Creatinine 0.54 L, Estim Creat Clear Calc 31.69, Est GFR (MDRD) Af Amer 141, Est GFR (MDRD) Non-Af 116, BUN/Creatinine Ratio 16.8, Glucose 152 H, Calcium 8.5, Total Bilirubin 1.80 H, AST 31, ALT 18, Alkaline Phosphatase 86, Total Protein 6.7, Albumin 3.5, Globulin 3.2, Albumin/Globulin Ratio 1.1 Micro: Microbiology 03/09/21 14:12 Urine, Clean Catch Legionella Antigen - Final 03/09/21 14:12 Urine, Clean Catch Streptococcus pneumoniae Antigen (M - Final 03/09/21 00:48 Mucosa - Nasopharyngeal Respiratory Panel (PCR) - Final RSV B ABG Data ABG results: ABG 03/08/21 21:30 Specimen Type ART Sample Site R Radial pH 7.38 Bicarbonate Actual 25.9 Total CO2 27 Base Excess 1 O2 Saturation 96 ABG pCO2 44.0 ABG pO2 87 Sunil Test Positive O2 Delivery Device Cannula Liter Flow 2.0 Radiography Diagnostic Testing: Radiology Impression Chest X-Ray 03/08/21 20:59 IMPRESSION: No acute findings. Electronically Signed: Namrata Garrett MD at 22:28 EST Tel , Service support , Chest CTA 03/08/21 22:39 IMPRESSION: No pulmonary embolism. Mild to moderate cardiac enlargement. Mild interstitial thickening. Mild edema could have this appearance. There is nonspecific mild peribronchial thickening. Consider possible bronchitis. Small nodule right middle lobe measuring 4.6 mm. Recommend follow-up CT scan of the chest in 6 months to ensure stability. Mild hepatic enlargement. Mild lobulation of the left hepatic lobe. Could consider possible underlying cirrhosis, recommend correlation with laboratory values.. Stable hepatic cysts. Stable mild splenomegaly. Electronically Signed: Floridalma Trnet MD at 0:11 EST Tel , Service support , Physical Exam Const alert, oriented x3 and no apparent distress Exam Limitations: no limitations Nutritional Appearance: morbidly obese HEENT head/scalp atraumatic and moist oral mucous membranes Head and Scalp: normocephalic Eyes PERRL, EOMs intact bilaterally and conjunctivae normal Neck no lymphadenopathy Cardio Cardio Narrative: diminished breath sounds bibasally, few crackles and mild wheezing. on BIPAP GI normal to inspection, nondistended, normoactive bowel sounds, soft to palpation, non-tender and non-distended Extremity normal to inspection, full ROM and no clubbing, cyanosis or edema Peripheral Pulses: Yes pulses 2+ throughout Skin no rashes or lesions noted Neuro oriented x3, CN's II-XII intact bilaterally and moves all extremities Sensorium / Orientation: awake and alert Psych affect normal Assessment & Plan Assessment/Plan (1) Hypoxia: (2) Acute respiratory failure with hypoxia: PLAN: #Acute hypoxic respiratory failure due to acute bronchitis with bronchospasms * On BiPAP. Feeling much better. * Titrate oxygen to maintain saturation above 90%. Breathing treatments bronchodilators. * On IV Solu-Medrol. Wean off BiPAP as tolerated onto oxygen by nasal cannula * Covid PCR test was negative. * #Lung nodule: * CT of the chest showed incidental finding of right lung nodule of 4.6 cm. * Follow-up with lodging manager and PCP in 6 months for follow-up imaging. #Chronic atrial fibrillation: On Coreg. On Xarelto. Currently rate controlled. #Hypertension: On losartan and Coreg as well as Lasix. IV hydralazine as needed. #Hyperlipidemia: On statin #History of TIA: On statin and also on Xarelto #Hypothyroidism: On Synthroid #HELGA: On BiPAP nightly at 17/11 centimeters #Restless leg syndrome: Mirapex DVT prophylaxis: Xarelto Charges/Coding Visit Charges Inpatient E&M: 55174 Subs Hosp L3
[2021-03-09] MEDS: Simvastatin 20 MG Tablet 40 MG PO (20:22)
[2021-03-09] MEDS: Fenofibrate 48 MG Tablet PO (20:22)
[2021-03-09] MEDS: 0.9% Saline Lock 10 ML Syringe IV (20:23)
[2021-03-09] MEDS: Senna/Docusate Sodium 1 Tablet 2 TABLET PO (20:27)
--- NOTE | 2021-03-09 22:39 | CPS ---
Patient's home BiPAP machine setup at bedside. Water chamber filled and mask placed on with comfort. Will assess patient for oxygen needs by starting patient on RA and bleeding in oxygen if needed.
[2021-03-10] VITALS (19 sets, daily range): BP systolic 148–194; BP diastolic 81–104; PULSE 59–80; RESP 18–20; TEMP 36.6–36.9; O2SAT 93–99
[2021-03-10 04:51] LABS: Absolute Lymphocyte Count 0.75 X10^3/uL (0.83-4.51); Absolute Neutrophil Count 5.3 X10^3/uL (2.0-7.7); Hematocrit 29.4 % (37-47); Hemoglobin 9.4 g/dL (12.0-15.0); Lymphocyte # 0.75 X10^3/ul (0.83-4.51); Lymphocyte % 11.1 % (19-41); Mean Corpuscular Hgb 33.6 pg (27.0-32.0); Mean Platelet Vol. 10.5 fl (6.2-12.0); Monocyte# 0.65 X10^3/uL; Monocyte% 9.6 % (0-10); NRBC Flagged by Analyzer 0 % (0-5); Neutrophil # 5.26 X10^3/uL (2.7-7.7); Neutrophil % 78.1 % (47-70); Platelet Count 180 K/mm3 (150-450); RBC Distribution Width CV 13.9 % (11.6-14.6); RBC Distribution Width SD 52.5 fl (35.1-43.9); White Blood Count 6.7 K/mm3 (4.4-11.0)
[2021-03-10 05:16] LABS: Anion Gap 6 (5-15); BUN 15 mg/dL (7-18); BUN/Creat Ratio 26.7 RATIO (10-20); Calcium,Total 8.6 mg/dL (8.5-10.1); Chloride 102 mmol/L (98-107); Creatinine, Serum 0.56 mg/dL (0.55-1.02); EST Glomerular Filtration Rate 110 mL/min (>60); Est Glom Filt Rate - Afr Amer 133 mL/min (>60); Estimated Creatinine Clearance 31.69 ml/min; Glucose 145 mg/dL (74-106); Potassium 3.7 mmol/L (3.5-5.1); Sodium Level 137 mmol/L (136-145)
[2021-03-10] MEDS: 0.9% Saline Lock 10 ML Syringe IV ×5 (05:35→22:47)
[2021-03-10] MEDS: Levothyroxine 50 MCG Tablet PO (05:35)
[2021-03-10] MEDS: Albuterol 2.5 MG/3 ML VIAL.NEB. INHALATION (05:47)
[2021-03-10] MEDS: Losartan Potassium 50 MG Tablet PO (10:11)
[2021-03-10] MEDS: Furosemide 40 MG Tablet PO (10:11)
[2021-03-10] MEDS: Carvedilol 12.5 MG Tablet PO ×2 (10:11→20:50)
[2021-03-10] MEDS: Rivaroxaban 20 MG Tablet PO (10:11)
--- NOTE | 2021-03-10 10:17 | PN.HOSP_ITS ---
Subjective Subjective Patient seen and examined. She states she has some recurrence of wheezing overnight. She is also coughing and was able to expectorate some sputum. She is now on 2 to 3 L of oxygen. Her blood pressure is elevated this morning at 184/86. Review of systems otherwise negative. Objective Data Objective Data Vital Signs: Vital Signs Temp Pulse Resp BP Pulse Ox 98.5 F 70 18 184/86 H 94 03/10/21 10:09 03/10/21 10:09 03/10/21 10:09 03/10/21 10:09 03/10/21 10:09 Oxygen Flow Rate (L/min) 2 Oxygen Delivery Method Nasal Cannula Weight: 203 lb 0.732 oz Body Mass Index (BMI) 39.7 Intake & Output: Intake and Output for Last 24 Hours 03/08/21 03/09/21 03/10/21 23:59 23:59 23:59 Intake Total 1450 / 1450 760 / 760 Output Total 1200 / 1200 Balance 250 / 250 760 / 760 Lab / Micro Data Result Diagrams: 03/10/21 04:15 03/10/21 04:15 Labs: Laboratory Results - last 24 hr 03/10/21 04:15: WBC 6.7, RBC 2.80 L, Hgb 9.4 L, Hct 29.4 L, MCV 105.0 H, MCH 33.6 H, MCHC 32.0, RDW Std Deviation 52.5 H, RDW Coeff of Gala 13.9, Plt Count 180, MPV 10.5, Immature Gran % (Auto) 1.200 H, Neut % (Auto) 78.1 H, Lymph % (A uto) 11.1 L, [place] % (Auto) 9.6, Eos % (Auto) 0.0, Baso % (Auto) 0.0, Absolute Neuts (auto) 5.3, Absolute Lymphs (auto) 0.75 L, Nucleated RBC % 0 03/10/21 04:15: Sodium 137, Potassium 3.7, Chloride 102, Carbon Dioxide 29.0, Anion Gap 6, BUN 15, Creatinine 0.56, Estim Creat Clear Calc 31.69, Est GFR (MDRD) Af Amer 133, Est GFR (MDRD) Non-Af 110, BUN/Creatinine Ratio 26.7 H, Glucose 145 H, Calcium 8.6 Micro: Microbiology 03/09/21 14:12 Urine, Clean Catch Legionella Antigen - Final 03/09/21 14:12 Urine, Clean Catch Streptococcus pneumoniae Antigen (M - Final 03/09/21 00:48 Mucosa - Nasopharyngeal Respiratory Panel (PCR) - Final RSV B Physical Exam Const alert, oriented x3 and no apparent distress Exam Limitations: no limitations Nutritional Appearance: morbidly obese HEENT head/scalp atraumatic and moist oral mucous membranes Head and Scalp: normocephalic Eyes PERRL, EOMs intact bilaterally and conjunctivae normal Neck no lymphadenopathy Resp Resp Narrative: mild wheezing in the upper lung lynn bilaterally, no rhonchi Cardio regular rate, regular rhythm, S1 normal heart sound, S2 normal heart sound and no murmurs GI normal to inspection, nondistended, normoactive bowel sounds, soft to palpation, non-tender and non-distended Extremity normal to inspection, full ROM and no clubbing, cyanosis or edema Peripheral Pulses: Yes pulses 2+ throughout Skin no rashes or lesions noted Neuro oriented x3, CN's II-XII intact bilaterally and moves all extremities Sensorium / Orientation: awake and alert Psych affect normal Assessment & Plan Assessment/Plan (1) Hypoxia: (2) Acute respiratory failure with hypoxia: PLAN: #Acute hypoxic respiratory failure due to acute bronchitis with bronchospasms * now off BIPAP, on 2-3L of oxygen. * Titrate oxygen to maintain saturation above 90%. Breathing treatments with bronchodilators. * On IV Solu-Medrol. * Covid PCR test was negative. * sputum culure ordered, and pending * #Lung nodule: * CT of the chest showed incidental finding of right lung nodule of 4.6 cm. 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 #Chronic atrial fibrillation: On Coreg. On Xarelto. Currently rate controlled. #Hypertension: On losartan and Coreg as well as Lasix. IV hydralazine as needed. #Hyperlipidemia: On statin #History of TIA: On statin and also on Xarelto #Hypothyroidism: On Synthroid #HELGA: On BiPAP nightly at 17/11 centimeters #Restless leg syndrome: Mirapex DVT prophylaxis: Xarelto Charges/Coding Visit Charges Inpatient E&M: 28638 Subs Hosp L2
[2021-03-10] MEDS: Ipratropium/Albuterol Sulfate 3 ML AMPUL.NEB INHALATION ×3 (10:30→18:39)
[2021-03-10] MEDS: hydrALAZINE 20 MG/ML Vial 10 MG IV ×2 (18:11→22:47)
[2021-03-10] MEDS: Fenofibrate 48 MG Tablet PO (20:50)
[2021-03-10] MEDS: Simvastatin 20 MG Tablet 40 MG PO (20:50)
[2021-03-10] MEDS: Pramipexole Di-HCl 0.25 MG Tablet PO (20:50)
[2021-03-11] VITALS (20 sets, daily range): BP systolic 156–189; BP diastolic 72–103; PULSE 57–84; RESP 12–20; TEMP 36.4–36.9; O2SAT 90–100
[2021-03-11] MEDS: hydrALAZINE 20 MG/ML Vial 10 MG IV ×2 (02:21→05:34)
[2021-03-11] MEDS: 0.9% Saline Lock 10 ML Syringe IV ×4 (02:22→20:22)
[2021-03-11] MEDS: Acetaminophen 325 MG Tablet 650 MG PO (03:04)
[2021-03-11] MEDS: Metoprolol Tartrate 5 MG/5 ML Vial IV (04:24)
[2021-03-11 05:16] LABS: Absolute Lymphocyte Count 0.89 X10^3/uL (0.83-4.51); Absolute Neutrophil Count 8.6 X10^3/uL (2.0-7.7); Basophil# 0.02 X10^3/uL; Basophil% 0.2 % (0-1); Hematocrit 32.3 % (37-47); Hemoglobin 10.5 g/dL (12.0-15.0); Lymphocyte # 0.89 X10^3/ul (0.83-4.51); Lymphocyte % 8.5 % (19-41); Mean Corp Hgb Conc 32.5 g/dL (32-36); Mean Corpuscular Hgb 34.3 pg (27.0-32.0); Mean Corpuscular Volume 105.6 fL (81-99); Mean Platelet Vol. 10.4 fl (6.2-12.0); Monocyte# 0.62 X10^3/uL; Monocyte% 5.9 % (0-10); NRBC Flagged by Analyzer 0 % (0-5); Neutrophil # 8.62 X10^3/uL (2.7-7.7); Neutrophil % 82.1 % (47-70); Platelet Count 218 K/mm3 (150-450); RBC Distribution Width CV 14.5 % (11.6-14.6); RBC Distribution Width SD 55.8 fl (35.1-43.9); Red Blood Count 3.06 M/mm3 (4.2-5.4); White Blood Count 10.5 K/mm3 (4.4-11.0)
[2021-03-11] MEDS: Levothyroxine 50 MCG Tablet PO (05:33)
[2021-03-11 05:53] LABS: Anion Gap 6 (5-15); BUN 16 mg/dL (7-18); BUN/Creat Ratio 31.1 RATIO (10-20); Calcium,Total 8.8 mg/dL (8.5-10.1); Chloride 103 mmol/L (98-107); Creatinine, Serum 0.52 mg/dL (0.55-1.02); EST Glomerular Filtration Rate 122 mL/min (>60); Est Glom Filt Rate - Afr Amer 147 mL/min (>60); Estimated Creatinine Clearance 31.69 ml/min; Glucose 156 mg/dL (74-106); Potassium 3.6 mmol/L (3.5-5.1); Sodium Level 137 mmol/L (136-145)
[2021-03-11] MEDS: Losartan Potassium 50 MG Tablet PO (06:33)
[2021-03-11] MEDS: Carvedilol 12.5 MG Tablet PO ×2 (06:33→20:23)
[2021-03-11] MEDS: Ipratropium/Albuterol Sulfate 3 ML AMPUL.NEB INHALATION ×4 (07:06→19:41)
[2021-03-11] MEDS: Furosemide 40 MG Tablet PO (08:37)
[2021-03-11] MEDS: amLODIPine 10 MG Tablet PO (08:38)
[2021-03-11] MEDS: Rivaroxaban 20 MG Tablet PO (08:38)
--- NOTE | 2021-03-11 10:06 | PCM.PN.HOSP ---
Subjective Subjective Doing well, no issues overnight. She would like to go home today if possible Objective Data Objective Data Vital Signs: Vital Signs Temp Pulse Resp BP Pulse Ox 97.7 F L 67 16 164/81 H 97 03/11/21 08:00 03/11/21 08:03 03/11/21 08:00 03/11/21 08:00 03/11/21 08:00 Oxygen Flow Rate (L/min) 1 Oxygen Delivery Method Nasal Cannula Weight: 203 lb 5.317 oz Body Mass Index (BMI) 39.7 Intake & Output: Intake and Output for Last 24 Hours 03/10/21 03/11/21 03/12/21 03:59 03:59 03:59 Intake Total 1810 / 1810 194 / 1939 200 / 200 Output Total 1200 / 1200 Balance 610 / 610 1939 / 1939 200 / 200 Lab / Micro Data Result Diagrams: 03/11/21 04:45 03/11/21 04:45 Labs: Laboratory Results - last 24 hr 03/11/21 04:45: WBC 10.5, RBC 3.06 L, Hgb 10.5 L, Hct 32.3 L, MCV 105.6 H, MCH 34.3 H, MCHC 32.5, RDW Std Deviation 55.8 H, RDW Coeff of Gala 14.5, Plt Count 218, MPV 10.4, Immature Gran % (Auto) 3.300 H, Neut % (Auto) 82.1 H, Lymph % (Auto) 8.5 L, [place] % (Auto) 5.9, Eos % (Auto) 0.0, Baso % (Auto) 0.2, Absolute Neuts (auto) 8.6 H, Absolute Lymphs (auto) 0.89, Nucleated RBC % 0 03/11/21 04:45: Sodium 137, Potassium 3.6, Chloride 103, Carbon Dioxide 28.0, Anion Gap 6, BUN 16, Creatinine 0.52 L, Estim Creat Clear Calc 31.69, Est GFR (MDRD) Af Amer 147, Est GFR (MDRD) Non-Af 122, BUN/Creatinine Ratio 31.1 H, Glucose 156 H, Calcium 8.8 Micro: Microbiology 03/10/21 10:35 Sputum, Expectorated/Coughed Gram Stain - Final 03/09/21 14:12 Urine, Clean Catch Legionella Antigen - Final 03/09/21 14:12 Urine, Clean Catch Streptococcus pneumoniae Antigen (M - Final 03/09/21 00:48 Mucosa - Nasopharyngeal Respiratory Panel (PCR) - Final RSV B Physical Exam Const alert, oriented x3 and no apparent distress General Appearance: cooperative HEENT normocephalic and moist oral mucous membranes Eyes PERRL, EOMs intact bilaterally and conjunctivae normal Neck supple and no JVD Resp normal respiratory effort, no retractions and no use of accessory muscles Auscultation: diminished lung sounds; Negative for crackles, rales, rhonchi or wheezes Cardio regular rate, regular rhythm, S1 normal heart sound, S2 normal heart sound and no murmurs GI soft to palpation, non-tender and non-distended; Negative for hepatosplenomegaly Extremity no clubbing, cyanosis or edema Skin no rashes or lesions noted Neuro no focal motor deficits and no sensory deficits noted Psych affect normal Appearance: appropriate Assessment & Plan Assessment/Plan (1) Hypoxia: (2) Acute respiratory failure with hypoxia: PLAN: 1. Acute hypoxic respiratory failure secondary to bronchitis due to RSV/HELGA ?Maintaining oxygen sats on 1 to 2 L nasal cannula. Will obtain an ambulatory pulse ox prior to discharge ?Continue with steroids and breathing treatments, will plan to discharge on p.o. prednisone and home albuterol ?PCR for Covid was negative ?She does have a lung nodule on CT scan she will need to follow-up with her lung doctor for repeat CT scan in about 6 months. The right lung nodules about 4.6 mm ?Continue with nightly CPAP 2. HTN/HLD/history of TIA/chronic A. fib ?Blood pressures are stable but a little high ?Continue with her home blood pressure medications, will add Norvasc this morning to help control her elevated blood pressures ?Continue with Xarelto ?Continue with statin 3. Hypothyroidism ?Stable ?Continue with Synthroid DVT: Xarelto Charges/Coding Visit Charges Inpatient E&M: 05997 Subs Hosp L2
[2021-03-11] MEDS: Pramipexole Di-HCl 0.25 MG Tablet PO ×2 (14:06→20:23)
--- NOTE | 2021-03-11 16:39 | CHAPLAIN ---
Type of Pastoral Visit _x__ Initial Visit ___ Follow-up Visit ___ On-call Visit ___ General Patient Visit ___ Spiritual Assessment ___ Family Conference ___ Bereavement ___ Rapid Response ___ Code Blue ___ Other (describe below) Pastoral Care Referral From _x__ Patient ___ Family ___ Nurse ___ Physician ___ Shoe Patternmaker ___ Museum Attendant ___ Other (describe below) Sacrament/Intervention _x__ Active listening ___ Anointing ___ Jew ___ Bereavement ___ Communion ___ Gela exploration ___ _x__ Life review _x__ Prayer ___ Reconciliation ___ Sacrament of Sick ___ Supportive presence ___ Wedding ___ Other (describe below) Pastoral Comments
[2021-03-11] MEDS: Fenofibrate 48 MG Tablet PO (20:22)
[2021-03-11] MEDS: Simvastatin 20 MG Tablet 40 MG PO (20:22)
[2021-03-12] VITALS (7 sets, daily range): BP systolic 173–181; BP diastolic 66–96; PULSE 65–92; RESP 12–20; TEMP 36.3–36.6; O2SAT 93–96
[2021-03-12 05:54] LABS: Absolute Lymphocyte Count 0.91 X10^3/uL (0.83-4.51); Basophil# 0.02 X10^3/uL; Basophil% 0.2 % (0-1); Hematocrit 31.6 % (37-47); Hemoglobin 10.2 g/dL (12.0-15.0); Lymphocyte # 0.91 X10^3/ul (0.83-4.51); Lymphocyte % 9.3 % (19-41); Mean Corp Hgb Conc 32.3 g/dL (32-36); Mean Corpuscular Hgb 33.8 pg (27.0-32.0); Mean Corpuscular Volume 104.6 fL (81-99); Mean Platelet Vol. 10.5 fl (6.2-12.0); Monocyte# 0.62 X10^3/uL; Monocyte% 6.3 % (0-10); NRBC Flagged by Analyzer 0 % (0-5); Neutrophil # 8.02 X10^3/uL (2.7-7.7); Neutrophil % 81.6 % (47-70); Platelet Count 213 K/mm3 (150-450); RBC Distribution Width CV 14.4 % (11.6-14.6); RBC Distribution Width SD 54.1 fl (35.1-43.9); Red Blood Count 3.02 M/mm3 (4.2-5.4); White Blood Count 9.8 K/mm3 (4.4-11.0)
[2021-03-12] MEDS: Levothyroxine 50 MCG Tablet PO (06:02)
[2021-03-12] MEDS: 0.9% Saline Lock 10 ML Syringe IV (06:02)
[2021-03-12 06:15] LABS: Anion Gap 5 (5-15); BUN 19 mg/dL (7-18); BUN/Creat Ratio 29.2 RATIO (10-20); Calcium,Total 8.9 mg/dL (8.5-10.1); Chloride 101 mmol/L (98-107); Creatinine, Serum 0.65 mg/dL (0.55-1.02); EST Glomerular Filtration Rate 93 mL/min (>60); Est Glom Filt Rate - Afr Amer 112 mL/min (>60); Estimated Creatinine Clearance 31.69 ml/min; Glucose 138 mg/dL (74-106); Potassium 3.9 mmol/L (3.5-5.1); Sodium Level 138 mmol/L (136-145)
[2021-03-12] MEDS: Ipratropium/Albuterol Sulfate 3 ML AMPUL.NEB INHALATION ×2 (07:23→11:10)
[2021-03-12] MEDS: amLODIPine 10 MG Tablet PO (09:31)
[2021-03-12] MEDS: Carvedilol 12.5 MG Tablet PO (09:31)
[2021-03-12] MEDS: Losartan Potassium 50 MG Tablet PO (09:31)
[2021-03-12] MEDS: Furosemide 40 MG Tablet PO (09:31)
[2021-03-12] MEDS: Rivaroxaban 20 MG Tablet PO (09:31)
--- NOTE | 2021-03-12 10:32 | CASEMGMT ---
Addendum entered by Zhanna Elizabeth 03/12/21 12:18: VM received from [facility] stating they are able to accept pt w/SOC Thu, if pt is agreeable to same. ANDREW PONCE to room and informed pt. She states SOC on Thursday would be wonderful. TC back to [facility] and VM left re: pt agreeable to SOC on Thursday. Original Note: ANDREW PONCE NOTE: Therapy notes reviewed--additional therapy recommended. ANDREW PONCE to room to talk w/pt. Pt states wishes to discharge home and feels that she will be safe at home. Discussed HHC. Pt states would like HHC. Pt was provided with list of HHC providers including quality and resource use data and consistent with the patient's preferred geographic region, medical needs, and insurance network. Pt states has no preference. Made aware [facility] has HHC and pt states [facility]. TC to [facility] and referral made for HHC: SN and PT/OT. She is aware anticipate pt will be ready for discharge today. Awaiting response re: acceptance. Pt states she has a CPAP @ home and does not bleed O2 in. Is currently on RA. Inquired about aides through [facility]. Pt states this is covered under her long-term care policy. Pt states would like to do new OA paperwork. [facility] Bruce, made aware. Aguila FELDER RN, CM
--- NOTE | 2021-03-12 10:59 | PCM.DC ---
Discharge Instructions Diet Discharge Diet: Low fat / Low cholesterol Activity Discharge Activity: Return to Normal Activity Dressing / Incision Call your doctor if you observe: Fever of 101 or Higher, Shortness of breath, Dizziness, Fainting spells, Swelling in the ankles, Chest pain and Increased palpitations (irregular heartbeat) Follow Up Care Test Results: Test results from this visit will be discussed in further detail at your follow-up appointment, if applicable. Discharge Plan Admission Admit Date/Time: 03/09/21 00:45 Attending Provider: Andi Mccoy Primary Care Provider: Ej Roman Discharge Orders/Prescriptions Prescriptions: New amlodipine 10 mg Tablet 10 mg PO DAILY Qty: 30 RF: 0 prednisone 20 mg tablet 40 mg PO DAILY Qty: 14 RF: 0 albuterol sulfate [ProAir HFA] 90 mcg/actuation HFA aerosol inhaler 1 puff inhalation Q6H PRN (Reason: shortness of breath or wheezing) Qty: 6.7 RF: 0 Continued pramipexole 0.25 MG tablet 0.25 mg PO QHS RF: 0 levothyroxine 50 MCG tablet 50 mcg PO DAILY RF: 0 furosemide 40 mg Tablet 40 mg PO BID RF: 0 losartan 50 mg tablet 50 mg PO DAILY 90 Days Qty: 90 RF: 4 fenofibrate nanocrystallized 48 mg tablet 48 mg PO QHS Qty: 90 RF: 3 rivaroxaban 20 mg tablet 20 mg PO DAILY Qty: 90 RF: 3 simvastatin 40 mg tablet 40 mg PO QHS Qty: 90 RF: 3 carvedilol 12.5 mg tablet 12.5 mg PO BID Qty: 180 RF: 3 Referrals / Follow Up: Ej Roman MD [Primary Care Provider] - Within 1 Week Disposition Disposition (needs filled in before D/C Order can be placed): Home, Self Care
--- NOTE | 2021-03-12 11:06 | DS.PCM_ITS ---
Providers Date of Admission: 03/09/21 Primary Care Physician: Dr. Ej Roman MD Reason For Visit: ACUTE BRONCHITIS, BRONCHOSPASMS, RESPIARTORY Diagnosis Discharge Diagnosis (1) Hypoxia: Status: Acute Code(s): R09.02 - Hypoxemia (2) Acute respiratory failure with hypoxia: Status: Acute Code(s): J96.01 - Acute respiratory failure with hypoxia Medications at Discharge Home Medications pramipexole 0.25 mg PO QHS 04/18/16 levothyroxine 50 mcg PO DAILY 04/19/16 losartan 50 mg tablet 50 mg PO DAILY 90 Days #90 tab 07/09/20 fenofibrate nanocrystallized 48 mg tablet 48 mg PO QHS #90 tab 08/20/20 rivaroxaban 20 mg tablet 20 mg PO DAILY #90 tab 09/10/20 simvastatin 40 mg tablet 40 mg PO QHS #90 tab 09/14/20 carvedilol 12.5 mg tablet 12.5 mg PO BID #180 tab 12/31/20 furosemide 40 mg PO BID 03/09/21 albuterol sulfate [ProAir HFA] 1 puff INHALATION Q6H PRN #6.7 g 03/12/21 amlodipine 10 mg PO DAILY #30 tab 03/12/21 prednisone 40 mg PO DAILY #14 tab 03/12/21 Hospital Course Operations None Procedures None Summary of Care Provided Minutes Spent on Discharge: 35 Hospital Course: Per HPI: The patient is a 80 y/o F w/ PMHx: ? Chronic Asthma, Chronic atrial fibrillation, HTN, HLD, Hx TIA, Morbid Obesity, HELGA on BIPAP q HS, Hx Carotid disease, Hypothyroidism who presents to the [facility] ED on 03/09/21 with history of onset of worsening dyspnea and wheezing starting on Thursday the week of presentation however worsened significantly over the last several hours prior to ED evaluation, worsened dyspnea especially with exertion with ongoing harsh coughing as well as rhinorrhea but no associated fever, chills or productive sputum with pleuritic chest discomfort described as a bandlike sensation ongoing around her chest described as a tightness for least 2 hours constantly prior to ED evaluation. Patient does report having had a Covid test on day of presentation which was negative and has been vaccinated with a 2 dose series but has yet to have a booster. Patient has unchanged chronic lower extremity swelling. Patient denies any orthopnea or PND. Work-up in the ED included T 96.3, HR 81, BP 214/91, RR 15, 88% on RA initially-->HR 82, BP 185/101, respiratory rate 28, 98% on 2 L with improvement to 92% on room air following that, CBC with WC 9.7, hemoglobin 11.1, platelet 227 with increased immature granulocytes, ABG unremarkable appearing, BMP with glucose 116, troponin XI, BNP 244.7, chest x-ray with no acute cardiopulmonary findings, CTPA with no evidence of pulmonary embolism, mild to moderate cardiac enlargement, mild interstitial thickening, nonspecific mild peribronchial thickening consistent with possibly bronchitis, small nodule right middle lobe measuring 4.6 cm with recommended follow-up CT chest in 6 months, mild hepatic enlargement, mild lobulation left hepatic lobe, stable hepatic cysts, stable mild splenomegaly, EKG with atrial fibrillation, rate controlled with no acute evidence of ischemia. COVID PCR pending per ED. In the ED patient ministered albuterol as well as Solu-Medrol 125 mg IV x1. The ED patient has waxed and waned and upon evaluation per hospitalist physician has ongoing significant work of breathing, diffuse expiratory wheezing, conversational dyspnea therefore discussed with RT and BiPAP will be initiated. Hospital Course: 1. Acute hypoxic respiratory failure secondary to bronchitis due to RSV/HELGA ?Maintaining oxygen sats on 1 to 2 L nasal cannula. Will obtain an ambulatory pulse ox prior to discharge ?Continue with steroids and breathing treatments, will plan to discharge on p.o. prednisone and home albuterol ?PCR for Covid was negative ?She does have a lung nodule on CT scan she will need to follow-up with her lung doctor for repeat CT scan in about 6 months. The right lung nodules about 4.6 mm ?Continue with nightly CPAP 03/12/2021: Discussed the plan for discharge today she expressed understanding risk benefits of going home and she will go home today. She did not require any oxygen overnight and did not require any oxygen with ambulation. She does maintain herself on CPAP at night. We will plan for discharge on 7 more days of prednisone as well as an albuterol inhaler to she can follow-up with her PCP in 3 to 5 days. 2. HTN/HLD/history of TIA/chronic A. fib ?Blood pressures are stable but a little high ?Continue with her home blood pressure medications, will add Norvasc this morn ing to help control her elevated blood pressures ?Continue with Xarelto ?Continue with statin 3. Hypothyroidism ?Stable ?Continue with Synthroid Physical Exam Const alert, oriented x3 and no apparent distress General Appearance: cooperative HEENT normocephalic and moist oral mucous membranes Eyes PERRL, EOMs intact bilaterally and conjunctivae normal Neck supple and no JVD Resp normal respiratory effort, no retractions and no use of accessory muscles Auscultation: diminished lung sounds; Negative for crackles, rales, rhonchi or wheezes Cardio regular rate, regular rhythm, S1 normal heart sound, S2 normal heart sound and no murmurs GI soft to palpation, non-tender and non-distended; Negative for hepatosplenomegaly Extremity no clubbing, cyanosis or edema Skin no rashes or lesions noted Neuro no focal motor deficits and no sensory deficits noted Psych affect normal Appearance: appropriate Weight / BMI Weight Weight: 204 lb 5.896 oz Body Mass Index (BMI) 39.7 ABG / Lab / Microbiology Data Result Diagrams: 03/12/21 05:21 03/12/21 05:21 Laboratory: Laboratory Results - last 24 hr 03/12/21 05:21: WBC 9.8, RBC 3.02 L, Hgb 10.2 L, Hct 31.6 L, MCV 104.6 H, MCH 33.8 H, MCHC 32.3, RDW Std Deviation 54.1 H, RDW Coeff of Gala 14.4, Plt Count 213, MPV 10.5, Immature Gran % (Auto) 2.600 H, Neut % (Auto) 81.6 H, Lymph % (Auto) 9.3 L, [place] % (Auto) 6.3, Eos % (Auto) 0.0, Baso % (Auto) 0.2, Absolute Neuts (auto) 8.0 H, Absolute Lymphs (auto) 0.91, Nucleated RBC % 0 03/12/21 05:21: Sodium 138, Potassium 3.9, Chloride 101, Carbon Dioxide 32.0, Anion Gap 5, BUN 19 H, Creatinine 0.65, Estim Creat Clear Calc 31.69, Est GFR (MDRD) Af Amer 112, Est GFR (MDRD) Non-Af 93, BUN/Creatinine Ratio 29.2 H, Glucose 138 H, Calcium 8.9 Microbiology: Microbiology 03/10/21 10:35 Sputum, Expectorated/Coughed Gram Stain - Final 03/10/21 10:35 Sputum, Expectorated/Coughed Respiratory Culture - Preliminary Appears to be normal respiratory tomy. Further studies to follow. 03/09/21 14:12 Urine, Clean Catch Legionella Antigen - Final 03/09/21 14:12 Urine, Clean Catch Streptococcus pneumoniae Antigen (M - Zahraa l 03/09/21 00:48 Mucosa - Nasopharyngeal Respiratory Panel (PCR) - Final RSV B D/C Instructions Discharge Diet: Low fat / Low cholesterol Call your doctor if you observe: Fever of 101 or Higher, Shortness of breath, Dizziness, Fainting spells, Swelling in the ankles, Chest pain and Increased palpitations (irregular heartbeat) Meaningful Use Info Meaningful Use Diagnoses (Choose all that apply): None applicable Discharge Plan Admission Admit Date/Time: 03/09/21 00:45 Attending Provider: Andi Mccoy Primary Care Provider: Ej Roman Discharge Orders/Prescriptions Prescriptions: New amlodipine 10 mg Tablet 10 mg PO DAILY Qty: 30 RF: 0 prednisone 20 mg tablet 40 mg PO DAILY Qty: 14 RF: 0 albuterol sulfate [ProAir HFA] 90 mcg/actuation HFA aerosol inhaler 1 puff inhalation Q6H PRN (Reason: shortness of breath or wheezing) Qty: 6.7 RF: 0 Continued pramipexole 0.25 MG tablet 0.25 mg PO QHS RF: 0 levothyroxine 50 MCG tablet 50 mcg PO DAILY RF: 0 furosemide 40 mg Tablet 40 mg PO BID RF: 0 losartan 50 mg tablet 50 mg PO DAILY 90 Days Qty: 90 RF: 4 fenofibrate nanocrystallized 48 mg tablet 48 mg PO QHS Qty: 90 RF: 3 rivaroxaban 20 mg tablet 20 mg PO DAILY Qty: 90 RF: 3 simvastatin 40 mg tablet 40 mg PO QHS Qty: 90 RF: 3 carvedilol 12.5 mg tablet 12.5 mg PO BID Qty: 180 RF: 3 Referrals / Follow Up: Ej Roman MD [Primary Care Provider] - Within 1 Week Disposition Disposition (needs filled in before D/C Order can be placed): Home, Self Care Charges/Coding Visit Charges Inpatient E&M: 67247 Disch Hosp
--- NOTE | 2021-03-12 11:35 | CASEMGMT ---
Pt asked to update her Healthcare POA form. SW assisted pt in completing POA for Healthcare, pt put daughter Shelly Hahn as POA. SW gave pt original and copy, and placed a copy on the chart. Pt states has a living will so did not need to re-do this document. NAVNEET Mixon
== END 2021-03-12 14:10 | disposition home or self-care (01) | DRG 202 ==
LOC: ED 03-09 00:48 → MS2 03-09 02:12
PROVIDERS: Emergency Medicine; Student in an Organized Health Care Education/Training Program; Admitting Provider Family Medicine; Emergency Provider Emergency Medicine; PCP Family Medicine; Visit Provider Family Medicine
DX: J20.5 Acute bronchitis due to respiratory syncytial virus (principal); J96.01 Acute respiratory failure with hypoxia; I48.20 Chronic atrial fibrillation, unspecified; Z68.41 Body mass index [BMI] 40.0-44.9, adult; R91.1 Solitary pulmonary nodule; G47.33 Obstructive sleep apnea (adult) (pediatric); E03.9 Hypothyroidism, unspecified; E78.5 Hyperlipidemia, unspecified; I10 Essential (primary) hypertension; G25.81 Restless legs syndrome; Z86.73 Personal history of transient ischemic attack (TIA), and cerebral infarction without residual deficits; E66.01 Morbid (severe) obesity due to excess calories; I36.1 Nonrheumatic tricuspid (valve) insufficiency; I27.21 Secondary pulmonary arterial hypertension; K76.89 Other specified diseases of liver; Z79.01 Long term (current) use of anticoagulants; Z66 Do not resuscitate; D53.9 Nutritional anemia, unspecified; J45.909 Unspecified asthma, uncomplicated; Z79.890 Hormone replacement therapy; Z82.3 Family history of stroke; Z88.0 Allergy status to penicillin; Z88.2 Allergy status to sulfonamides; Z88.8 Allergy status to other drugs, medicaments and biological substances; Z90.49 Acquired absence of other specified parts of digestive tract
CPT/HCPCS: 36415; 36600; 71045; 71275; 80048; 80053; 82803; 83880; 84145; 84484; 85025; 87070; 87205; 87449; 87633; 87635; 93005; 94002; 94640; 97162; 97166; 97530; 97535; 99251; 99285; J7030; Q9967; U0005; A4216; G0463; U0003

== ENCOUNTER → 2021-04-18 16:56 | Outpatient (CLI) | payer MEDICARE, SELFPAY | PROVIDERS: PCP Family Medicine; Visit Provider Family Medicine | DX: U07.1 COVID-19 (principal) | CPT/HCPCS: 87635; U0003; U0005 ==

== ENCOUNTER 2021-07-25 13:51 | Outpatient (CLI) | payer MEDICARE, SELFPAY ==
--- NOTE | 2021-07-25 13:56 | BI_ITS ---
MAMMOGRAPHY - BILATERAL SCREENING REASON FOR EXAM: Female, 80 years old. Routine annual screening examination. PERTINENT HISTORY: Non-contributory. History of a bilateral inversion of the nipples. TECHNIQUE: Digital bilateral breast julianne (3D mammographic acquisition) in the CC and MLO projections. 2-D mediolateral oblique (MLO) and craniocaudad (CC) views of both breasts were obtained. CAD: Full Field Digital Mammography with Computer Added Detection was performed. COMPARISON: Comparison is made with prior study dated 05/09/2020 and 03/31/2019 FINDINGS: Breast Composition: There are scattered areas of fibroglandular density. There are no dominant masses or suspicious calcifications. No other significant abnormalities are identified. There has been no significant change since the prior study. BI/SCREENING MAMM (CAD), BILAT IMPRESSION: Stable bilateral screening mammogram. Yearly follow-up mammogram recommended. (A) ASSESSMENT CATEGORY: BIRADS Category 1: Negative. A letter regarding these results will be sent to the patient by the facility within 30 days. Approximately 10% of breast cancers are not detected by mammography. A normal mammogram should not delay biopsy of a clinically suspicious abnormality. [id number] Electronically Signed: Carlos Soto MD at 14:58 EDT ,
== END 2021-07-25 23:59 | disposition home or self-care (01) ==
LOC: OPBI 13:54
PROVIDERS: PCP Family Medicine; Visit Provider Family Medicine
DX: Z12.31 Encounter for screening mammogram for malignant neoplasm of breast (principal)
CPT/HCPCS: 77067

== ENCOUNTER → 2021-09-19 | Outpatient (CLI) | payer MEDICARE, SELFPAY ==
[2021-09-19 15:47] LABS: Hematocrit 36.6 % (37-47); Hemoglobin 11.3 g/dL (12.0-15.0); Mean Corp Hgb Conc 30.9 g/dL (32-36); Mean Corpuscular Hgb 33.2 pg (27.0-32.0); Mean Corpuscular Volume 107.6 fL (81-99); Mean Platelet Vol. 10.5 fl (6.2-12.0); Platelet Count 254 K/mm3 (150-450); RBC Distribution Width CV 13.6 % (11.6-14.6); RBC Distribution Width SD 54.4 fl (35.1-43.9); White Blood Count 9.5 K/mm3 (4.4-11.0)
[2021-09-19 16:30] LABS: Anion Gap 5 (5-15); BUN 11 mg/dL (7-18); BUN/Creat Ratio 18.5 RATIO (10-20); Calcium,Total 9.6 mg/dL (8.5-10.1); Chloride 104 mmol/L (98-107); EST Glomerular Filtration Rate 103 mL/min (>60); Est Glom Filt Rate - Afr Amer 124 mL/min (>60); Glucose 96 mg/dL (74-106); Potassium 4.6 mmol/L (3.5-5.1); Sodium Level 137 mmol/L (136-145); Thyroid Stim Hormone (TSH) 3.83 uIU/mL (0.358-3.74)
== END | disposition home or self-care (01) ==
LOC: MFPLAB 14:05
PROVIDERS: PCP Family Medicine; Visit Provider Family Medicine
DX: I10 Essential (primary) hypertension (principal); D64.9 Anemia, unspecified; E03.9 Hypothyroidism, unspecified
CPT/HCPCS: 36415; 80048; 84443; 85027

== ENCOUNTER → 2021-10-31 | Outpatient (CLI) | payer MEDICARE, SELFPAY ==
[2021-10-31 12:28] LABS: Vitamin B12 453 pg/mL (211-911)
[2021-10-31 12:47] LABS: Thyroid Stim Hormone (TSH) 2.38 uIU/mL (0.358-3.74)
[2021-10-31 12:52] LABS: AST(SGOT) 18 U/L (15-37); Alanine Aminotransfer ALT/SGPT 19 U/L (13-56); Albumin, Serum 3.7 g/dL (3.2-5.0); Alkaline Phosphatase 73 U/L (45-117); Bilirubin, Direct 0.22 mg/dL (0.00-0.30); Cholesterol 126 mg/dL (200); Ferritin 120 ng/mL (8-252); Globulin 3.1 g/dL (2.2-4.2); High Density Lipoprotein 63 mg/dL; Iron 66 ug/dL (50-170); Protein, Total 6.8 g/dL (6.4-8.2); Triglycerides 53 mg/dL; Very Low Density Lipoprotein 11 mg/dL (5-40)
== END | disposition home or self-care (01) ==
LOC: MTLAB 09:56
PROVIDERS: Psychiatry & Neurology Neurology; PCP Family Medicine; Referring Provider Family Medicine; Visit Provider Family Medicine
DX: D64.9 Anemia, unspecified (principal); E03.9 Hypothyroidism, unspecified; Z86.2 Personal history of diseases of the blood and blood-forming organs and certain disorders involving the immune mechanism
CPT/HCPCS: 36415; 80061; 80076; 82607; 82728; 82746; 83540; 84439; 84443

== ENCOUNTER → 2021-11-18 | Outpatient (CLI) | payer MEDICARE, SELFPAY ==
--- NOTE | 2021-11-18 12:20 | MRI_ITS ---
STUDY: MRA OF THE HEAD WITHOUT CONTRAST REASON FOR EXAM: Female, 81 years old. family history of cerebral aneurysm TECHNIQUE: 3-D gile-sk-sfviix (TOF) imaging was performed with MIPs. The study was performed unenhanced. COMPARISON: 11/01/2018. FINDINGS: Normal bilateral petrous carotid arteries. Normal right cavernous carotid artery with a normal supraclinoid bifurcation. Normal left cavernous carotid artery with a normal supraclinoid bifurcation. Normal right A1 segments of the anterior cerebral artery. Normal left A1 segments of the anterior cerebral artery. Normal intact anterior communicating artery (ACOM). Normal bilateral A2 segments of the anterior cerebral arteries. Normal right M1 and M2 segments of the middle cerebral arteries, with a normal M1 bifurcation. Normal left M1 and M2 segments of the middle cerebral arteries, with a normal M1 bifurcation. Dominant right vertebral artery is visualized, the left vertebral artery is small in size and terminates mainly as the left PICA, prominent left PICA is seen. Nonvisualization of the left V4 segment. No evidence of for areas of narrowing within the basilar artery. The left anterior inferior cerebellar artery is visualized and is unremarkable, and same level 2 vessels are visualized arising from the right lateral aspect of the basilar artery suggestive of right AICA''s. The visualized bilateral superior cerebellar (SCA) arteries are normal. The basilar bifurcation is unremarkable Normal bilateral P1, P2 and visualized P3 segments of the posterior cerebral arteries. There is no demonstrated aneurysm of the [place]. There is no major vessel occlusion or hemodynamically significant stenosis. Encephalomalacia visualized within the right occipital lobe with ex-vacuo dilatation of the occipital horn of the right lateral ventricle. MRI/MRA Head ONLY without Contrast IMPRESSION: Unremarkable MRA of the head . Electronically Signed: Sherman Hahn MD at 15:23 EDT ,
== END | disposition home or self-care (01) ==
LOC: MRI 12:17
PROVIDERS: PCP Family Medicine; Visit Provider Psychiatry & Neurology Neurology
DX: G93.89 Other specified disorders of brain (principal); Z82.49 Family history of ischemic heart disease and other diseases of the circulatory system
CPT/HCPCS: 70544

== ENCOUNTER → 2021-11-21 | Outpatient (CLI) | payer MEDICARE, SELFPAY ==
--- NOTE | 2021-11-21 12:56 | CDU_ITS ---
Reason For Study: bruit Rt. Velocities/BP Lt. Velocities/BP Prox CCA 60.4/9.5 cm/sec. Prox CCA 72.8/16.3 cm/sec. Mid CCA 68.2/12.1 cm/sec. Mid CCA 56.8/16.3 cm/sec. Dist CCA 59.1/14.7 cm/sec. Dist CCA 48.2/15.1 cm/sec. Prox ICA 42.1/9.5 cm/sec. Prox ICA 56.8/18.8 cm/sec. Mid ICA 54.2/12.4 cm/sec. Mid ICA 67.0/21.5 cm/sec. Dist ICA 87.6/26.2 cm/sec. Dist ICA 66.7/18.8 cm/sec. Rt. ICA/CCA = 1.3. Lt. ICA/CCA = 1.2. Prox ECA 78.6/5.6 cm/sec. Prox ECA 60.5/6.5 cm/sec. Rt. Vert. 42.1/12.6 cm/sec. Lt. Vert. 32.3/10.2 cm/sec. Right Extracranial There is intimal thickening but no significant atherosclerotic plaque noted in the right common carotid artery. There is heterogeneous, irregular atherosclerotic plaque noted in the right internal carotid artery. The right internal carotid artery is very tortuous. There is intimal thickening but no significant atherosclerotic plaque noted in the right external carotid artery. Antegrade flow is noted in the right vertebral artery. Left Extracranial There is intimal thickening but no significant atherosclerotic plaque noted in the left common carotid artery. There is intimal thickening but no significant atherosclerotic plaque noted in the left internal carotid artery. The left internal carotid artery is very tortuous. There is intimal thickening but no significant atherosclerotic plaque noted in the left external carotid artery. Antegrade flow is noted in the left vertebral artery. Procedure Carotid Duplex 22615. This is a Carotid Duplex examination using B-mode, color flow and specral Doppler. The exam was of fair technical quality due to exam done with pt sitting in wheelchair. Exam performed in department. VL/Carotid Duplex Ultrasound Interpretation Summary Minimal irregular plaque in the proximal right internal carotid artery with les s than 50% stenosis. Very tortuous right internal carotid artery noted Less than 50% stenosis right external carotid artery Intimal thickening at the proximal left internal carotid artery with less than 50% stenosis. Very tortuous left internal carotid artery noted Less than 50% stenosis left external carotid artery Patent antegrade vertebral arteries bilaterally No apparent change from the previous examination of November 01, 2012 except for th e tortuosity currently noted Ordering Physician: Gavin Jackson Performed By: Marques Alarcon RVClover
== END | disposition home or self-care (01) ==
LOC: CVS 12:54
PROVIDERS: PCP Family Medicine; Referring Provider Psychiatry & Neurology Neurology; Visit Provider Psychiatry & Neurology Neurology
DX: R09.89 Other specified symptoms and signs involving the circulatory and respiratory systems (principal)
CPT/HCPCS: 93880

== ENCOUNTER → 2022-04-07 | Outpatient (CLI) | payer MEDICARE, SELFPAY ==
--- NOTE | 2022-04-07 15:04 | CT_ITS ---
INDICATION: LUNG NODULE EXAMINATION: CT CHEST WITHOUT CONTRAST - CT Chest W/O Contrast Injection TECHNIQUE: Helically acquired images were obtained of the chest. A radiation dose optimization technique was used for this scan. IV Contrast dosage and agent: None. COMPARISON: March 08, 2021 FINDINGS: LUNGS, PLEURA AND LARGE AIRWAYS: Minor subsegmental atelectasis at the left base. Tiny nodular density in the right middle lobe measuring approximately 5 to 6 mm. There is a second tiny nodular density in the right middle lobe measuring approximately 4 mm in size . Small calcified granuloma in left upper lobe No pleural effusion or thickening. No pneumothorax. THYROID: No thyroid lesions. HEART AND PERICARDIUM: Heart is enlarged. Small pericardial effusion. CORONARY ARTERIES: Multivessel coronary artery calcification VESSELS: Atherosclerotic changes of the aorta without evidence for aneurysm.. MEDIASTINUM AND KAYLEI: Multiple small subcentimeter mediastinal nodes Esophagus is unremarkable. No hiatal hernia. UPPER ABDOMEN: Liver is mildly enlarged. There is a small cyst in the left lobe of the liver. Borderline splenomegaly. BONES: Dorsal spine demonstrates degenerative change No suspicious lytic or blastic abnormality. Previously noted tiny nodule in the right middle lobe is unchanged and there appears to be a second tiny nodule not clearly visualized on prior exam CT/Chest without Contrast IMPRESSION: ASHD. Minor subsegmental atelectasis at left base. Tiny subcentimeter nodules in the right middle lobe. Recommend additional follow-up utilizing Fleischner Society criteria. Electronically Signed: Martin Ramos MD at 16:01 EST ,
== END | disposition home or self-care (01) ==
LOC: CT 15:02
PROVIDERS: PCP Family Medicine; Referring Provider Family Medicine; Visit Provider Family Medicine
DX: R91.1 Solitary pulmonary nodule (principal)
CPT/HCPCS: 71250

== ENCOUNTER → 2022-09-30 | Outpatient (CLI) | payer MEDICARE, SELFPAY ==
[2022-09-30 15:43] LABS: Hematocrit 36.1 % (37-47); Hemoglobin 11.2 g/dL (12.0-15.0); Mean Corpuscular Hgb 34.7 pg (27.0-32.0); Mean Corpuscular Volume 111.8 fL (81-99); Mean Platelet Vol. 10.4 fl (6.2-12.0); Platelet Count 240 K/mm3 (150-450); RBC Distribution Width CV 14.6 % (11.6-14.6); RBC Distribution Width SD 60.8 fl (35.1-43.9); Red Blood Count 3.23 M/mm3 (4.2-5.4); White Blood Count 10.2 K/mm3 (4.4-11.0)
[2022-09-30 16:20] LABS: Anion Gap 6 (5-15); BUN 11 mg/dL (7-18); BUN/Creat Ratio 17.2 RATIO (10-20); Calcium,Total 9.3 mg/dL (8.5-10.1); Chloride 104 mmol/L (98-107); Creatinine, Serum 0.64 mg/dL (0.55-1.02); EST Glomerular Filtration Rate 94 mL/min (>60); Est Glom Filt Rate - Afr Amer 114 mL/min (>60); Glucose 95 mg/dL (74-106); Potassium 4.3 mmol/L (3.5-5.1); Sodium Level 138 mmol/L (136-145); Thyroid Stim Hormone (TSH) 2.95 uIU/mL (0.358-3.74)
== END | disposition home or self-care (01) ==
LOC: MFPLAB 14:14
PROVIDERS: PCP Family Medicine; Visit Provider Family Medicine
DX: I10 Essential (primary) hypertension (principal); D64.9 Anemia, unspecified; E03.9 Hypothyroidism, unspecified
CPT/HCPCS: 36415; 80048; 84443; 85027

== ENCOUNTER → 2022-12-18 | Outpatient (CLI) | payer MEDICARE, SELFPAY | END | disposition home or self-care (01) | LOC: SL 13:42 | PROVIDERS: PCP Family Medicine; Referring Provider Internal Medicine Critical Care Medicine; Visit Provider Internal Medicine Critical Care Medicine | DX: G47.33 Obstructive sleep apnea (adult) (pediatric) (principal) | CPT/HCPCS: 98960; G0463 ==

== ENCOUNTER → 2023-01-22 | Outpatient (CLI) | payer MEDICARE, SELFPAY ==
--- NOTE | 2023-01-22 15:10 | VDLE_ITS ---
Reason For Study: Right leg contusion/pain RIGHT GSV is normal. CFV is compressible, spontaneous, phasic, competent and demonstrates normal augmentation. FV is compressible, spontaneous, phasic, competent and demonstrates normal augmentation. POP V is compressible, spontaneous, phasic, competent and demonstrates normal augmentation. T/P Trunk is compressible. PTV is compressible. RT PerV is compressible. Procedure This is a venous duplex using B-mode, color flow and spectral Doppler. Exam performed in department. The study was technically difficult. A preliminary report was called and/or faxed to Dr. Canas. VL/Venous Duplex US, Unilateral Interpretation Summary Deep veins of the right lower extremity are patent and compressible segmentally . There is no evidence of right lower extremity deep vein thrombosis. The right great sapheno us vein appears patent and compressible segmentally. Ordering Physician: Aly Canas Referring Physician: Otis Roman MD Performed By: Bailee Amaral RVT
== END | disposition home or self-care (01) ==
LOC: CVS 15:08
PROVIDERS: PCP Family Medicine; Referring Provider Family Medicine; Visit Provider Family Medicine
DX: S80.10XA Contusion of unspecified lower leg, initial encounter (principal); R30.0 Dysuria; M79.604 Pain in right leg
CPT/HCPCS: 87086; 87088; 87186; 93971

== ENCOUNTER 2023-02-17 14:07 | Outpatient (CLI) | payer MEDICARE, SELFPAY ==
[2023-02-17 17:36] LABS: Hematocrit 36.9 % (37-47); Hemoglobin 11.1 g/dL (12.0-15.0); Mean Corp Hgb Conc 30.1 g/dL (32-36); Mean Corpuscular Volume 113.2 fL (81-99); Mean Platelet Vol. 10.5 fl (6.2-12.0); Platelet Count 259 K/mm3 (150-450); RBC Distribution Width CV 14.6 % (11.6-14.6); RBC Distribution Width SD 61.3 fl (35.1-43.9); Red Blood Count 3.26 M/mm3 (4.2-5.4); White Blood Count 12.8 K/mm3 (4.4-11.0)
[2023-02-17 17:55] LABS: BNP,B-Type NATRIURETIC PEPTIDE 112.5 pg/mL (0-100)
[2023-02-17 18:07] LABS: AST(SGOT) 12 U/L (15-37); Alanine Aminotransfer ALT/SGPT 17 U/L (13-56); Albumin, Serum 3.5 g/dL (3.2-5.0); Alkaline Phosphatase 71 U/L (45-117); Anion Gap 4 (5-15); BUN 17 mg/dL (7-18); BUN/Creat Ratio 20.8 RATIO (10-20); Chloride 104 mmol/L (98-107); Creatinine, Serum 0.82 mg/dL (0.55-1.02); EST Glomerular Filtration Rate 71 mL/min (>60); Est Glom Filt Rate - Afr Amer 86 mL/min (>60); Globulin 3.4 g/dL (2.2-4.2); Glucose 101 mg/dL (74-106); Potassium 4.2 mmol/L (3.5-5.1); Protein, Total 6.9 g/dL (6.4-8.2); Sodium Level 136 mmol/L (136-145); Thyroid Stim Hormone (TSH) 2.33 uIU/mL (0.358-3.74)
== END 2023-02-17 23:59 | disposition home or self-care (01) ==
LOC: MFPLAB 14:08
PROVIDERS: PCP Family Medicine; Visit Provider Family Medicine
DX: I48.91 Unspecified atrial fibrillation (principal); I27.20 Pulmonary hypertension, unspecified; E03.9 Hypothyroidism, unspecified; G47.33 Obstructive sleep apnea (adult) (pediatric); E78.5 Hyperlipidemia, unspecified
CPT/HCPCS: 36415; 80053; 83880; 84443; 85027

== ENCOUNTER → 2023-03-05 | Outpatient (CLI) | payer MEDICARE, SELFPAY ==
[2023-03-05 14:56] LABS: Absolute Lymphocyte Count 1.76 X10^3/uL (0.83-4.51); Absolute Neutrophil Count 8.1 X10^3/uL (2.0-7.7); Basophil# 0.07 X10^3/uL; Basophil% 0.6 % (0-1); Eosinophils% 0.9 % (0-5); Hematocrit 35.9 % (37-47); Hemoglobin 11.2 g/dL (12.0-15.0); Lymphocyte # 1.76 X10^3/ul (0.83-4.51); Lymphocyte % 15.2 % (19-41); Mean Corp Hgb Conc 31.2 g/dL (32-36); Mean Corpuscular Hgb 34.7 pg (27.0-32.0); Mean Corpuscular Volume 111.1 fL (81-99); Mean Platelet Vol. 10.6 fl (6.2-12.0); Monocyte# 1.39 X10^3/uL; NRBC Flagged by Analyzer 0 % (0-5); Neutrophil % 69.9 % (47-70); Platelet Count 241 K/mm3 (150-450); RBC Distribution Width CV 14.3 % (11.6-14.6); RBC Distribution Width SD 58.4 fl (35.1-43.9); Red Blood Count 3.23 M/mm3 (4.2-5.4); White Blood Count 11.6 K/mm3 (4.4-11.0)
[2023-03-05 15:12] LABS: Anion Gap 6 (5-15); BUN 13 mg/dL (7-18); Calcium,Total 8.5 mg/dL (8.5-10.1); Chloride 105 mmol/L (98-107); Creatinine, Serum 0.72 mg/dL (0.55-1.02); EST Glomerular Filtration Rate 82 mL/min (>60); Est Glom Filt Rate - Afr Amer 99 mL/min (>60); Glucose 104 mg/dL (74-106); Potassium 3.8 mmol/L (3.5-5.1); Sodium Level 141 mmol/L (136-145)
== END | disposition home or self-care (01) ==
LOC: MTLAB 13:16
PROVIDERS: PCP Family Medicine; Referring Provider Family Medicine; Visit Provider Family Medicine
DX: I48.91 Unspecified atrial fibrillation (principal)
CPT/HCPCS: 36415; 80048; 85025

== ENCOUNTER → 2023-03-18 | Outpatient (CLI) | payer MEDICARE, SELFPAY ==
--- NOTE | 2023-03-18 13:12 | ECHOCS_ITS ---
Reason For Study: AFIB Procedure This was a 2D Doppler, Color Flow transthoracic echocardiogram. The study was technically difficult. Contrast injection was performed. Exam performed in department. Left Ventricle Normal LV size. Left ventricular systolic function is normal. The estimated ejection fraction is 65 %. Stage 3 diastolic dysfunction. No regional wall motion abnormalities noted. Right Ventricle Normal right ventricle. Normal systolic function. Atria Normal left atrium. Normal right atrium. Mitral Valve Normal mitral valve. Tricuspid Valve Normal tricuspid valve. Mild to moderate (1-2+) tricuspid valve insufficiency. Pulmonary artery systolic pressure is 44 mmHg. Pulmonic Valve Normal pulmonic valve. Great Vessels Normal aortic root. Pericardium/Pleural No pericardial effusion. Medication 22 gauge I.V. with prn adaptor inserted into right arm. Diluted definity 3ml given slow IV push to enhance endocardial definition. MMode/2D Measurements & Calculations LVIDd: 4.5 cm IVSd: 1.0 cm Ao root diam: 3.5 cm LVIDs: 2.6 cm LVPWd: 1.2 cm FS: 41.6 % LAV(MOD-bp): 60.5 ml LVAd ap4: 29.5 cm2 SV(MOD-sp4): 68.9 ml LAV(MOD-bp) Indexed: 30.7 ml/m2 LVLd ap4: 7.1 cm LAV(MOD-sp2): 78.3 ml EDV(MOD-sp4): 104.3 ml LAV(MOD-sp4): 46.3 ml EDV(sp4-el): 103.2 ml LVAs ap4: 15.1 cm2 LVLs ap4: 5.8 cm ESV(MOD-sp4): 35.5 ml ESV(sp4-el): 33.1 ml EF(MOD-sp4): 66.0 % EF(sp4-el): 67.9 % SV(sp4-el): 70.1 ml LA A4 area: 18.9 cm2 LA dimension(2D): 4.3 cm RA A4 area: 32.6 cm2 TAPSE: 2.0 cm Time Measurements MV dec time: 0.17 sec Doppler Measurements & Calculations MV E max otis: 134.1 cm/sec Lat Peak E' Otis: 9.8 cm/sec Med Peak E' Otis: 9.2 cm/sec MV A max otis: 36.4 cm/sec E/E' lat: 13.6 E/E' med: 14.5 MV E/A: 3.7 MV V2 max: 150.8 cm/sec Ao V2 max: 159.4 cm/sec MV max P.2 mmHg MV dec slope: 770.8 cm/sec2 Ao max P.2 mmHg MV V2 mean: 89.1 cm/sec Ao V2 mean: 108.3 cm/sec MV mean P.8 mmHg Ao mean P.5 mmHg MV V2 VTI: 32.2 cm Ao V2 VTI: 38.7 cm AV (velocity ratio): 0.80 LV V1 max: 129.3 cm/sec PA V2 max: 103.8 cm/sec TR max otis: 323.2 cm/sec LV V1 max P.7 mmHg PA V2 mean: 69.4 cm/sec TR max P.8 mmHg LV V1 mean P.7 mmHg LV V1 mean: 89.2 cm/sec LV V1 VTI: 30.9 cm ECHO/Echo Complete W/ Contrast Interpretation Summary Normal LV size. Left ventricular systolic function is normal. The estimated ejection fraction is 65 %. Stage 3 diastolic dysfunction. Pulmonary artery systolic pressure is 44 mmHg. Contrast injection was performed. Ordering Physician: Ej Roman Referring Physician: Ej Roman Performed By: Yuliya Gonsalez RCS
== END | disposition home or self-care (01) ==
LOC: CVS 13:11
PROVIDERS: PCP Family Medicine; Referring Provider Family Medicine; Visit Provider Family Medicine
DX: I27.20 Pulmonary hypertension, unspecified (principal); I48.91 Unspecified atrial fibrillation
CPT/HCPCS: 93306; Q9957; A4216; C8929

== ENCOUNTER → 2023-05-25 | Outpatient (CLI) | payer MEDICARE, SELFPAY ==
--- NOTE | 2023-05-25 14:24 | CT_ITS ---
STUDY: CT CHEST WITHOUT CONTRAST REASON FOR EXAM: Female, 82 years old. LUNG NODULE RADIATION DOSAGE (If Supplied By Facility): CTDIvol = ( 11.34 ) mGy, DLP = ( 351.21 ) mGycm TECHNIQUE: Transaxial imaging was performed without the administration of intravenous contrast material. Multiplanar coronal and sagittal images were reformatted. Individualized dose optimization techniques were used for this CT. COMPARISON: Comparison is made with prior study dated April 07, 2022. FINDINGS: CHEST Stable 5 mm noncalcified nodule in the right middle lobe. Small calcified granuloma in the left upper lobe. There is no demonstrated pleural abnormality. There are calcifications of the coronary arteries. Cardiomegaly. There are multiple small lymph nodes within the mediastinum, which are normal in size and morphology most compatible with reactive lymph hyperplasia. Normal hilar regions. Normal unenhanced pulmonary arteries. There is atherosclerotic calcification of the aortic arch with tortuosity and elongation of the aortic arch and descending thoracic aorta. There are multi-level degenerative changes of the thoracic spine. There is no demonstrated abnormality of the visualized upper abdomen. CT/Chest without Contrast IMPRESSION: Stable examination. Electronically Signed: Carlos Soto MD at 14:53 EST ,
--- OUTSIDE RECORDS SUMMARY | 2023-05-25 16:21 | XMS RPT_ITS | CCD ---
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 [employer] Name Role Phone Brenda Washburn Unavailable Unavailable ANDREW Gonzales, Meri Murdock Unavailable UnavailBrenda Khalil Unavailable Unavailable Allergies Allergy Classification Reported Allergen(s) Allergy Type Date of Onset Reaction(s) Facility (3 sources) amLODIPine drug allergy 4 edema [facility] Work Phone: [phone] (3 sources) atorvastatin drug allergy 4 myalgia [facility] Work Phone: [phone] (3 sources) buPROPion drug allergy 4 nightmares [facility] Work Phone: [phone] (3 sources) hydroCHLOROthiazide / triamterene drug allergy 4 nausea [facility] Work Phone: [phone] (3 sources) lisinopril drug allergy 4 cough [facility] Work Phone: [phone] (3 sources) penicillin drug allergy 1 rash [facility] Work Phone: [phone] (3 sources) pseudoephedrine drug allergy 1 rash [facility] Work Phone: [phone] (3 sources) HCTZ drug allergy 4 hyponatremia [facility] Work Phone: [phone] Medications Completed/Discontinued Medications Medication Drug Class(es) Dates Sig (Normalized) Sig (Original) acetaminophen 325 mg / HYDROcodone bitartrate 5 mg oral tablet (9 sources) Opioid Agonist Start: 03-22-2014 End: 03-27-2015 HYDROCODONE-ACETAM INOPHEN 5-325 MG TABS as directed as needed pain HYDROCODONE-ACETAM INOPHEN [id number] Meri Gonzales RN ALBUTEROL SULFATE (9 sources) beta2-Adrenergic Agonist Start: 03-22-2014 End: 03-27-2015 PROAIR HFA 108 (90 Base) MCG/ACT AERS as directed ALBUTEROL SULFATE [id number] Shaheen Ford MD Problems Active Problems Problem Classification Problem Date Documented Da te Episodic/Chronic Acute cerebrovascular disease (3 sources) Cerebral infarction, unspecified; Translations: [Cerebral infarction, unspecified] Onset: 03-25-2016 03-25-2016 Chronic Cardiac dysrhythmias (6 sources) Chronic atrial fibrillation; Translations: [Atrial fibrillation] Onset: 03-22-2014 03-25-2016 Chronic Disorders of lipid metabolism (3 sources) Hyperlipidemia; Translations: [Hyperlipidemia, unspecified] Onset: 04-06-2014 04-06-2014 Chronic Essential hypertension (3 sources) Hypertensive disorder; Translations: [Essential (primary) hypertension] Onset: 03-22-2014 03-22-2014 Chronic Heart valve disorders (3 sources) Tricuspid valve disorder; 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, unspecified] Onset: 03-22-2014 03-22-2014 Chronic Other nutritional; endocrine; and metabolic disorders (3 sources) Body mass index (BMI) 40.0-44.9, adult; Translations: [Body mass index (BMI) 40.0-44.9, adult] Onset: 03-27-2014 03-27-2014 Chronic Pulmonary heart disease (3 sources) Pulmonary hypertension; Translations: [Other secondary pulmonary hypertension] Onset: 03-22-2014 03-22-2014 Chronic Unclassified (3 sources) Sleep apnea; Translations: [Sleep apnea, unspecified] Onset: 03-27-2014 03-27-2014 Chronic Past or Other Problems Problem Classification Problem Date Documented Da te Episodic/Chronic Other aftercare (6 sources) Long-term (current) use of other medications; Translations: [Other joint terminal attack controller (current) drug therapy] Onset: 04-06-2014 04-06-2014 Episodic Other and unspecified benign neoplasm (3 sources) Other benign neoplasm of skin of unspecified upper limb, including shoulder; Translations: [Other benign neoplasm of skin of unspecified upper limb, including shoulder] 03-11-2011 Episodic Other lower respiratory disease (3 sources) Dyspnea; Translations: [Dyspnea, unspecified] Onset: 03-22-2014 03-22-2014 Episodic Other skin disorders (3 sources) Senile hyperkeratosis; Translations: [Inflamed seborrheic keratosis] Onset: 03-10-2011 03-11-2011 Episodic Superficial injury; contusion (3 sources) Other injury of unspecified body region; Translations: [Other injury of unspecified body region] Onset: 03-10-2011 03-11-2011 Episodic Unclassified (6 sources) Edema; Translations: [Family history of stroke] Onset: 03-27-2014 03-27-2014 Episodic Results Test Name Value Interpretation Reference Range Facil ity Vital Signs Date Time Vital Sign Value Performing Clinician Teri gaona 09-25-2016 13:54-0400 BMI (Body Mass Index) 40.42 kg/m2 [facility] Work Phone: 09-25-2016 13:54-0400 BP Diastolic 76 mm[Hg] [facility] Work Phone: 09-25-2016 13:54-0400 BP Systolic 126 mm[Hg] [facility] Work Phone: 09-25-2016 13:54-0400 Height 152.4 cm [facility] Work Phone: 09-25-2016 13:54-0400 Pulse (Heart Rate) 70 /min [facility] Work Phone: 09-25-2016 13:54-0400 Respiratory Rate 20 /min [facility] Work Phone: 09-25-2016 13:54-0400 Weight 93.9 kg Brenda [facility] Work Phone: 03-25-2016 12:42-0500 BMI (Body Mass Index) 40.62 kg/m2 Meri Gonzales RN [facility] Work Phone: 03-25-2016 12:42-0500 BP Diastolic 70 mm[Hg] Meri Gonzales RN [facility] Work Phone: 03-25-2016 12:42-0500 BP Systolic 140 mm[Hg] ANDREW [facility] Work Phone: 03-25-2016 12:42-0500 BSA (Body Surface Area) 1.9 m2 ANDREW [facility] Work Phone: 03-25-2016 12:42-0500 Height 152.4 cm ANDREW [facility] Work Phone: 03-25-2016 12:42-0500 Pulse (Heart Rate) 76 /min [facility]RE[facility] Work Phone: 03-25-2016 12:42-0500 Respiratory Rate 20 /min [facility]RE[facility] Work Phone: 03-25-2016 12:42-0500 Weight 94.35 kg NADREW [facility] Work Phone: 03-27-2015 13:53-0500 Pulse Oximetry 97 % ANDREW [facility] Work Phone: 03-10-2011 13:40-0500 Body Temperature 98 [degF] ANDRE[facility] Work Phone: 03-10-2011 13:40-0500 Pulse Oximetry 94 % Meri Gonzales RN [facility] Work Phone: Procedures Date Procedure Procedure Detail Performing Clinician Start: 09-25-2016 End: 09-25-2016 TOÑO Ford MD Work Phone: Start: 09-25-2016 End: 09-25-2016 Follow Up Appt 6 months Shaheen Ford MD Work Phone: Start: 03-25-2016 End: 03-25-2016 TOÑO Ford MD Work Phone: Start: 03-25-2016 End: 03-25-2016 Electrocardiogram, complete Shaheen hinson MD Work Phone: Start: 03-25-2016 End: 03-25-2016 Follow Up Appt 6 months Shaheen Ford MD Work Phone: Start: 02-25-2016 End: 03-17-2016 *Hepatic Function Panel Shaheen Ford MD Work Phone: Start: 02-25-2016 End: 03-17-2016 Lipid panel [AGGREGATE] Shaheen Ford MD Work Phone: Start: 03-27-2015 End: 03-27-2015 DJN Shaheen Ford MD Work Phone: Start: 03-27-2015 End: 03-27-2015 Follow Up Appt 1 year Mathieu Russo Work Phone: Start: 03-21-2015 End: 03-21-2015 *Hepatic Function Panel Shaheen Ford MD Work Phone: Start: 03-21-2015 End: 03-21-2015 Lipid panel [AGGREGATE] Shaheen Ford MD Work Phone: Start: 10-09-2014 End: 03-20-2015 *Hepatic Function Panel Shaheen Ford MD Work Phone: Start: 10-09-2014 End: 10-16-2014 Lipid panel [AGGREGATE] Shaheen Ford MD Work Phone: Start: 04-03-2014 End: 04-03-2014 Follow Up BP Check Shaheen Ford MD Work Phone: Start: 03-27-2014 End: 04-03-2014 *BMP Shaheen Ford MD Work Phone: Start: 03-27-2014 End: 04-03-2014 *Hepatic Function Panel Shaheen Ford MD Work Phone: Start: 03-27-2014 End: 03-27-2014 ANAHYN Shaheen Ford MD Work Phone: Start: 03-27-2014 End: 03-27-2014 Follow Up Appt 1 year Mathieu Russo Work Phone: Start: 03-27-2014 End: 04-03-2014 Lipid panel [AGGREGATE] Shaheen Ford MD Work Phone: Start: 03-27-2014 End: 04-05-2014 Stress Echocardiogram - Dobutamine Shaheen Ford MD Work Phone: Plan of Treatment Date Care Activity Detail Author Start: 04-27-2017 End: 04-27-2017 Appointment Appointment [facility] Work Phone: Start: 09-25-2016 End: 09-25-2016 Appointment Appointment [facility] Work Phone: Start: 09-25-2016 End: 09-25-2016 TOÑO HIGGINBOTHAMN [facility] Work Phone: Start: 09-25-2016 End: 09-25-2016 Follow Up Appt 6 months Follow Up Appt 6 months [facility] Work Phone: Start: 03-25-2016 End: 03-25-2016 TOÑO HIGGINBOTHAMN [facility] Work Phone: Start: 03-25-2016 End: 03-25-2016 Electrocardiogram, complete EKG (In office) [facility] Work Phone: Start: 03-25-2016 End: 03-25-2016 Follow Up Appt 6 months Follow Up Appt 6 months [facility] Work Phone: Start: 02-25-2016 End: 03-17-2016 *Hepatic Function Panel *Hepatic Function Panel [facility] Work Phone: Start: 02-25-2016 End: 03-17-2016 Lipid panel [AGGREGATE] *Lipid Profile CC PCP [facility] Work Phone: Start: 04-10-2015 End: 03-21-2015 *Hepatic Function Panel *Hepatic Function Panel [facility] Work Phone: Start: 04-10-2015 End: 03-21-2015 Lipid panel [AGGREGATE] *Lipid Profile CC PCP [facility] Work Phone: Start: 03-27-2015 End: 03-27-2015 DJN ANAHYN [facility] Work Phone: Start: 03-27-2015 End: 03-27-2015 Follow Up Appt 1 year Follow Up Appt 1 year [facility] Work Phone: Start: 10-09-2014 End: 04-06-2014 *Hepatic Function Panel *Hepatic Function Panel [facility] Work Phone: Start: 10-09-2014 End: 04-06-2014 Lipid panel [AGGREGATE] *Lipid Profile CC PCP [facility] Work Phone: Start: 04-03-2014 End: 04-03-2014 Follow Up BP Check Follow Up BP Check [facility] Work Phone: Start: 03-27-2014 End: 04-03-2014 *BMP *BMP [email or web address] Work Phone: Start: 03-27-2014 End: 04-03-2014 *Hepatic Function Panel *Hepatic Function Panel [facility] Work Phone: Start: 03-27-2014 End: 03-27-2014 DJN ANAHYN [facility] Work Phone: Start: 03-27-2014 End: 03-27-2014 Follow Up Appt 1 year Follow Up Appt 1 year [facility] Work Phone: Start: 03-27-2014 End: 04-03-2014 Lipid panel [AGGREGATE] *Lipid Profile CC PCP [facility] Work Phone: Start: 03-27-2014 End: 03-27-2014 Stress Echocardiogram - Dobutamine Stress Echocardiogram - Dobutamine [facility] Work Phone: Patient Education [facility] Work Phone: Additional Source Comments FOR RECORDS PERTAINING TO PATIENTS WHO ARE OR HAVE BEEN ENROLLED IN A CHEMICAL DEPENDENCY/SUBSTANCEABUSE PROGRAM, SOME INFORMATION MAY BE OMITTED. This clinical summary was aggregated from multiple sources. Caution should be exercised in using it in the provision of clinical care. This summary normalizes information from multiple sources, and as a consequence, information in this document may materially change the coding, format and clinical context of patient data. In addition, data may be omitted in some cases. CLINICAL DECISIONS SHOULD BE BASED ON THE PRIMARY CLINICAL RECORDS. [facility]. provides no warranty or guarantee of the accuracy or completeness of information in this document.
== END | disposition home or self-care (01) ==
PROVIDERS: PCP Family Medicine; Referring Provider Family Medicine; Visit Provider Family Medicine
DX: R91.1 Solitary pulmonary nodule (principal)
CPT/HCPCS: 71250

== ENCOUNTER 2023-10-28 14:13 | Emergency (ER) | payer MEDICARE, SELFPAY ==
[2023-10-28 14:13] VITALS: BP 174/66; PULSE 65; RESP 17; TEMP 36.2; O2SAT 96
[2023-10-28] MEDS: morphine 10 MG/ML Syringe 8 MG IM (17:11)
[2023-10-28] MEDS: Ondansetron ODT 4 MG Tablet PO (17:12)
--- NOTE | 2023-10-28 17:21 | EDS_ITS ---
HPI History of Present Illness Chief Complaint: Back Informant: patient Onset/Context/Timing Onset: Month(s) Context: Gradual Onset Timing: Continuous Quality: Dull and Aching Location: Lumbar and Right Leg Current Severity: Moderate Maximum Severity: Moderate Worsened by: improves with Movement Associated Symptoms Associated Symptoms: Radiation to Right Leg; Negative for Numbness, Tingling, Radiation to Left Leg, Fever, Abdominal Pain, Dysuria, Unable to Ambulate, Unable to Transfer, Urinary Retention, Urinary Incontinence, Constipation or Fecal Incontinence Narrative Narrative: 83-year-old female with chronic low back pain. Says she has had an episode the last 2 months. Denies any fall injury or trauma. Saw her primary care physician's office and Dr. Chirag Earl put her on tramadol and several days of prednisone. Initially thought she was getting better and worse pain today. Denies any fever. No new bowel or bladder incontinence. No leg weakness. She does have at times radiation to her anterior thigh but not currently. She denies ever having any back surgery. She is on the blood thinner Xarelto. Prior similar symptoms: Yes Recent Illness/Hospitalization: No PFSH PFSH Medical History COVID-19 RSV bronchiolitis Pneumonia High cholesterol History of high blood pressure History of back problems Arthritis Stroke/cerebrovascular accident Right ventricular dilation Hyperlipidemia HELGA on CPAP Essential hypertension HELGA (obstructive sleep apnea) Asthma Chronic atrial fibrillation Non-rheumatic tricuspid valve insufficiency Secondary pulmonary arterial hypertension Morbid obesity with BMI of 40.0-44.9, adult H/O transient cerebral ischemia History of hypothyroidism Occlusion of carotid artery without cerebral infarction Home Medications ?Medication ?Instructions ?Recorded ?Last Taken ?Type pramipexole 0.25 mg tablet 0.25 mg PO QHS Check with primary 04/18/16 03/07/21 21:00 History doctor albuterol sulfate 90 mcg/actuation 1 puff inhalation Q6H PRN 03/12/21 Unknown Rx aerosol inhaler (ProAir HFA) shortness of breath or wheezing #6.7 grams losartan 50 mg tablet 50 mg PO DAILY 90 days #90 tabs 06/23/22 Unknown Rx carvedilol 12.5 mg tablet 12.5 mg PO BID #180 tabs 02/17/23 Unknown Rx cholecalciferol (vitamin D3) 25 25 mcg PO DAILY 03/11/23 Unknown History mcg (1,000 unit) capsule furosemide 40 mg tablet 40 mg PO BID 03/11/23 Unknown History albuterol sulfate 2.5 mg/3 mL mg inhalation Q4-6H PRN 06/08/23 Unknown History (0.083 %) solution for nebulization levothyroxine 75 mcg tablet mcg PO DAILY 06/08/23 Unknown History (Synthroid) fenofibrate nanocrystallized 48 mg 48 mg PO QHS #90 tabs 07/09/23 Unknown Rx tablet simvastatin 40 mg tablet 40 mg PO QHS #90 tabs 07/27/23 Unknown Rx rivaroxaban 20 mg tablet (Xarelto) See Rx Instructions .Route 09/04/23 Unknown Rx .COMPLEX #90 tabs oxycodone-acetaminophen 5 mg-325 1 tab PO Q6H PRN pain 5 days #10 10/28/23 Un known Rx mg tablet (Percocet) tabs Allergy/AdvReac Type Severity Reaction Status Date / Time atorvastatin calcium (From Allergy Pain in Verified 10/28/23 14:15 Lipitor) joints Penicillins Allergy Rash Verified 10/28/23 14:15 pseudoephedrine Allergy Rash Verified 10/28/23 14:15 Sulfa (Sulfonamide Allergy Rash Verified 10/28/23 14:15 Antibiotics) hydrochlorothiazide AdvReac Nausea Verified 10/28/23 14:15 sulfamethoxazole (From AdvReac Nausea Verified 10/28/23 14:15 Bactrim) trimethoprim (From Bactrim) AdvReac Nausea Verified 10/28/23 14:15 Family History Mother CVA (cerebral vascular accident) Diabetes Father Brain aneurysm Surgical History Hx of cholecystectomy History of arthroscopy of left knee History of repair of right rotator cuff History of bunionectomy of both great toes Social History household members: family Smoking Status: Never smoker second hand exposure: No alcohol intake: current alcohol intake frequency: holidays/special occasions only Alcohol type: wine details: wine occasionally substance use type: does not use caffeine: Yes Type: coffee Number of servings: 1 what type of physical activity do you participate in: none luisa/restoration: Protestant seatbelt use: always ROS ROS ED ROS Narrative Back pain. Denies recent illness. Review of Systems ROS Unobtainable: Denies due to encephalopathy Constitutional Constitutional ED: Denies chills or fever(s) Eyes Eyes: Denies blurry vision ENT ENT ED: Denies ear pain Cardiovascular Cardiovascular: Denies chest pain Respiratory/Chest Respiratory/Chest: Denies dyspnea Gastrointestinal Gastrointestinal: Denies abdominal pain Genitourinary Genitourinary ED: Denies dysuria Musculoskeletal Musculoskeletal: Reports back pain; Denies arthralgias, myalgias or neck pain Integumentary Denies abscess or Abrasions Neurologic Neurologic: Denies headache(s) Psychiatric Psychiatric: Denies anxiety or depression Endocrine Endocrinology: Denies cold intolerance Hematologic/Lymphatic Hematologic/Lymphatic: Denies easy bleeding Allergic/Immunologic Allergic/Immunologic ED: Denies mouth swelling EXAM Physical Exam Narrative Exam Narrative: Well-appearing 83-year-old female sitting upright in a chair accompanied by family in the [place]. Vital signs are stable afebrile. H EENT exam unremarkable. Neck nontender. Lungs clear. Heart regular rhythm no murmur. Chest wall and ribs nontender. Abdomen soft, nontender, normal bowel sounds without peritoneal signs. No pulsatile mass. She has normal motor strength and sensation in both upper and lower extremities. 5-5 net applications developer strength. Dorsi plantarflexion is intact. Negative straight leg raise bilaterally. No cauda equina. Normal sensation both upper and lower legs. Back there is no reproducible tenderness over her cervical, thoracic or lumbar spine. She has a lidocaine patch on the right paravertebral soft tissue but again is not reproducibly tender. There is no redness or warmth or any signs of trauma or bruising. Neurologically she is awake and alert and again no cauda equina. She has good strength and sensation in her lower extremities and is able to walk. Const Vital Signs: 10/28/23 14:13 Temperature 97.2 F L Temperature Source Temporal Pulse Rate 65 Respiratory Rate 17 Blood Pressure 174/66 H Blood Pressure Mean 102 Pulse Ox 96 Oxygen Delivery Method Room Air Positive well nourished and well developed; Negative for cachectic, contractures or unkempt General Appearance ED: well developed and NAD; Negative for unkempt, cachectic, contractures or pallor Nutritional Appearance: Negative for cachectic HEENT Reports moist mucous membranes; Denies dry mucous membranes Negative for trauma or tenderness Mouth ED: No dry mucous membranes Mouth: No dry mucous membranes Eyes PERRL and EOMs intact bilaterally General Eye ED: Negative for pale conjunctiva or scleral icterus Neck no lymphadenopathy, supple and no JVD General: Negative for tenderness Thyroid: Negative for other Chest Wall Chest: Negative for other Resp normal respiratory effort and clear to auscultation bilaterally Effort and Inspection: Negative for pain with movement Auscultation: Negative for rales, rhonchi, wheezes or diminished lung sounds Cardio regular rate, regular rhythm, S1 normal heart sound, S2 normal heart sound and no murmurs Palpation: Negative for palpable S3 Rate: Negative for bradycardia or tachycardic Rhythm: Negative for abnormal rhythm Bruits: Negative for other GI normal to inspection, nondistended, normoactive bowel sounds, soft to palpation, non-tender, non-distended and no masses Inspection: Negative for abdominal distention Palpation: Negative for tender or guarding Back/Spine normal to inspection and no thoracic nor lumbar tenderness Back/Spine Narrative: No reproducible back pain or signs of trauma. Cervical Spine: Negative for cervical spine tenderness and Negative for paracervical muscle tenderness Thoracic Spine / Upper Back: Negative for paraspinal muscle tenderness Lumbar Spine / Lower Back: straight leg raise negative bilaterally Extremity normal to inspection and no clubbing, cyanosis or edema General Extremety ED: Negative for edema or tenderness General Extremity: Negative for edema Neuro oriented x3 and no sensory deficits noted Neuro Narrative: Good motor strength and sensation in both upper and lower extremities. Sensorium / Orientation: alert; Negative for confused, lethargic or stuporous Motor Exam: strength 5/5 throughout Psych mental status grossly normal Appearance: Negative for unkempt Attitude: No agitated Mood & Affect: Negative for depressed Skin no rashes or lesions noted and no wounds General Skin Exam: Negative for jaundice or pallor Lesions: No lesion noted Rashes: No rashes noted Trauma: Negative for abrasion, puncture or other Wounds: Negative for wounds noted MDM MDM MDM Narrative Medical decision making narrative: 83-year-old female with acute on chronic low back pain. Normal strength and sensation in her lower extremities. No cauda equina. She is not having any new or changed incontinence. She is not having leg weakness. She does not meet criteria for emergent MRI. We discussed options to be given IM injection of morphine and p.o. Zofran. Several Percocet for home. And follow-up with her primary care physician and pain management. She and family are comfortable to plan. History & Record Review Discussion w/independent historian: Patient and Family Additional record(s) reviewed:: Prior inpatient record, Prior outpatient record, Prior ED visit, Prior labs and No prior records Discharge Plan Triage Chief Complaint: Back ED Provider: Grayson Lindsey Dx/Rx/DC Orders Clinical Impression: Back pain, History of atrial fibrillation, Chronic anticoagulation Instructions: ED Back Pain (Acute or Chronic) Prescriptions: New oxycodone-acetaminophen [Percocet] 5-325 mg tablet 1 tab PO Q6H PRN (Reason: pain) 5 Days Qty: 10 0RF No Action furosemide 40 mg tablet 40 mg PO BID cholecalciferol (vitamin D3) 25 mcg (1,000 unit) capsule 25 mcg PO DAILY albuterol sulfate 2.5 mg /3 mL (0.083 %) solution for nebulization inhalation Q4-6H PRN Patient Comments: INHALE 3 ML VIA NEBULIZER EVERY 4 HOURS NEEDED levothyroxine [Synthroid] 75 mcg tablet PO DAILY pramipexole 0.25 MG tablet 0.25 mg PO QHS Patient Comments: restless legs Parkinson albuterol sulfate [ProAir HFA] 90 mcg/actuation HFA aerosol inhaler 1 puff inhalation Q6H PRN (Reason: shortness of breath or wheezing) Qty: 6.7 0RF losartan 50 mg tablet 50 mg PO DAILY 90 Days Qty: 90 3RF carvedilol 12.5 mg tablet 12.5 mg PO BID Qty: 180 3RF Rx Instructions: must administer with a meal/food fenofibrate nanocrystallized 48 mg tablet 48 mg PO QHS Qty: 90 3RF simvastatin 40 mg tablet 40 mg PO QHS Qty: 90 3RF Xarelto 20 mg tablet See Rx Instructions .ROUTE .COMPLEX Qty: 90 3RF Dose Instruction: TAKE 1 TABLET DAILY Rx Instructions: TAKE 1 TABLET DAILY Primary Care Provider: Otis Roman Referrals: Otis Roman MD [Primary Care Provider] - As soon as possible Activity Restrictions/Additional Instructions: Percocet for pain. Plenty of fluids and fiber and stool softener prevent constipation. Do not drive if using the Percocet. Call and follow-up with Dr. Venkat Dunn. They can refer you to pain management Dr. Ash Arguelles. If the pain continues they may need to get an MRI of your lumbar spine. It is not emergent at this time because you have good strength and sensation in your legs. Print Language: Stateless Disposition Disposition: Home, Self Care
[2023-10-28 17:22] VITALS: BP 155/78; PULSE 61; RESP 18; TEMP 36.6; O2SAT 97
== END 2023-10-28 17:36 | disposition home or self-care (01) ==
LOC: ED 17:19
PROVIDERS: Emergency Provider Emergency Medicine; PCP Family Medicine; Visit Provider Emergency Medicine
DX: M54.50 Low back pain, unspecified (principal); I48.91 Unspecified atrial fibrillation; E78.00 Pure hypercholesterolemia, unspecified; I10 Essential (primary) hypertension; J45.909 Unspecified asthma, uncomplicated; Z79.01 Long term (current) use of anticoagulants; G89.29 Other chronic pain
CPT/HCPCS: 96372; 99282

== ENCOUNTER → 2023-12-04 | Outpatient (CLI) | payer MEDICARE, SELFPAY ==
--- NOTE | 2023-12-04 15:58 | RAD_ITS ---
STUDY: X-RAY - THORACIC SPINE REASON FOR EXAM: Female, 83 years old. Left rib pain. TECHNIQUE: 3 view(s) of the thoracic spine were obtained. COMPARISON: February 23, 2018 FINDINGS: Osteopenia. Slight increased kyphosis, unchanged. No scoliosis. Diffuse moderate intervertebral disc space narrowing. Osteophytes most marked in the mid to lower thoracic spine which is increased since the prior study. Vascular calcification. RAD/Thoracic Spine 3 Views IMPRESSION: Osteopenia with progression of diffuse thoracic spondylosis. Electronically Signed: Kavon Adair MD at 10:47 EDT ,
== END | disposition home or self-care (01) ==
LOC: RAD 15:57
PROVIDERS: PCP Family Medicine; Referring Provider Anesthesiology; Visit Provider Anesthesiology
DX: R07.81 Pleurodynia (principal)
CPT/HCPCS: 72072

== ENCOUNTER → 2023-12-04 | Outpatient (CLI) | payer MEDICARE, SELFPAY | END | disposition home or self-care (01) | LOC: RAD 15:45 | PROVIDERS: PCP Family Medicine; Referring Provider Anesthesiology; Visit Provider Anesthesiology | DX: R07.81 Pleurodynia (principal) ==

== ENCOUNTER 2023-12-07 13:11 | Emergency (ER) | payer MEDICARE, SELFPAY ==
[2023-12-07 13:12] VITALS: BP 154/62; PULSE 58; RESP 16; TEMP 36.4; O2SAT 98
[2023-12-07 16:30] VITALS: BP 159/78; PULSE 61; RESP 18; O2SAT 96
--- NOTE | 2023-12-07 16:33 | ED.RN ---
Pt refusing to get into hospital cart, states she would rather stay in her wheelchair
--- NOTE | 2023-12-07 16:46 | ED.VIS.BACK ---
HPI History of Present Illness Chief Complaint: Back Detail of Chief Complaint: Left upper back pain Informant: patient and family Narrative Narrative: Patient presents to the emergency department complaint of left upper back pain that she has had for about 3 days. Patient denies any injury. Patient states that about a week ago she had some pain around her waist but then that went away. She has had history of stroke and typically can only ambulate with a rollator. She states that if she stands for too long she gets back pain in her low back. Patient also in pain management and sees Dr. Broussard. Patient did take some Tylenol that seemed to help her pain little bit this afternoon. Patient also on baclofen. She is currently anticoagulated with Xarelto due to prior history of stroke. Pain is worse with certain movement and at times deep breath. No history of PE or DVT. [facility] Medical History COVID-19 RSV bronchiolitis Pneumonia High cholesterol History of high blood pressure History of back problems Arthritis Stroke/cerebrovascular accident Right ventricular dilation Hyperlipidemia HELGA on CPAP Essential hypertension HELGA (obstructive sleep apnea) Asthma Chronic atrial fibrillation Non-rheumatic tricuspid valve insufficiency Secondary pulmonary arterial hypertension Morbid obesity with BMI of 40.0-44.9, adult H/O transient cerebral ischemia History of hypothyroidism Occlusion of carotid artery without cerebral infarction Home Medications ?Medication ?Instructions ?Recorded ?Last Taken ?Type pramipexole 0.25 mg tablet 0.25 mg PO QHS Check with primary 04/18/16 03/07/21 21:00 History doctor albuterol sulfate 90 mcg/actuation 1 puff inhalation Q6H PRN 03/12/21 Unknown Rx aerosol inhaler (ProAir HFA) shortness of breath or wheezing #6.7 grams losartan 50 mg tablet 50 mg PO DAILY 90 days #90 tabs 06/23/22 Unknown Rx carvedilol 12.5 mg tablet 12.5 mg PO BID #180 tabs 02/17/23 Unknown Rx cholecalciferol (vitamin D3) 25 25 mcg PO DAILY 03/11/23 Unknown History mcg (1,000 unit) capsule furosemide 40 mg tablet 40 mg PO BID 03/11/23 Unknown History albuterol sulfate 2.5 mg/3 mL mg inhalation Q4-6H PRN 06/08/23 Unknown History (0.083 %) solution for nebulization levothyroxine 75 mcg tablet mcg PO DAILY 06/08/23 Unknown History (Synthroid) fenofibrate nanocrystallized 48 mg 48 mg PO QHS #90 tabs 07/09/23 Unknown Rx tablet simvastatin 40 mg tablet 40 mg PO QHS #90 tabs 07/27/23 Unknown Rx rivaroxaban 20 mg tablet (Xarelto) See Rx Instructions .Route 09/04/23 Unknown Rx .COMPLEX #90 tabs oxycodone-acetaminophen 5 mg-325 1 tab PO Q6H PRN pain 5 days #10 10/28/23 Unknown Rx mg tablet (Percocet) tabs hydrocodone-acetaminophen 5-325mg 1 tab PO Q4H PRN PRN Pain 2 days 12/07/23 Unknown Rx 5mg-325mg #10 TABLETS Allergy/AdvReac Type Severity Reaction Status Date / Time atorvastatin calcium (From Allergy Pain in Verified 12/07/23 13:14 Lipitor) joints Penicillins Allergy Rash Verified 12/07/23 13:14 pseudoephedrine Allergy Rash Verified 12/07/23 13:14 Sulfa (Sulfonamide Allergy Rash Verified 12/07/23 13:14 Antibiotics) hydrochlorothiazide AdvReac Nausea Verified 12/07/23 13:14 sulfamethoxazole (From AdvReac Nausea Verified 12/07/23 13:14 Bactrim) trimethoprim (From Bactrim) AdvReac Nausea Verified 12/07/23 13:14 Family History Mother CVA (cerebral vascular accident) Diabetes Father Brain aneurysm Surgical History Hx of cholecystectomy History of arthroscopy of left knee History of repair of right rotator cuff History of bunionectomy of both great toes Social History household members: family Smoking Status: Never smoker second hand exposure: No alcohol intake: current alcohol intake frequency: holidays/special occasions only Alcohol type: wine details: wine occasionally substance use type: does not use caffeine: Yes Type: coffee Number of servings: 1 what type of physical activity do you participate in: none luisa/mandaeism: Shinto seatbelt use: always ROS ROS ED Review of Systems ROS Unobtainable: other Constitutional Constitutional ED: Reports lethargy; Denies chills, fever(s), sweats or weight loss Eyes Eyes: Denies blurry vision, change in vision or diplopia ENT ENT ED: Denies rhinorrhea or sore throat Cardiovascular Cardiovascular: Denies chest pain, orthopnea or racing heartbeat Respiratory/Chest Respiratory/Chest: Denies cough, dyspnea, dyspnea on exertion, orthopnea or sputum Gastrointestinal Gastrointestinal: Denies abdominal pain, diarrhea, nausea or vomiting Genitourinary Genitourinary ED: Denies dysuria, hematuria or urinary frequency Musculoskeletal Musculoskeletal: Reports back pain; Denies arthralgias, myalgias or neck pain Integumentary Denies abscess, Abrasions or rash Neurologic Neurologic: Denies headache(s) or weakness Psychiatric Psychiatric: Denies anxiety, depression or suicidal thoughts Endocrine Endocrinology: Denies polydipsia, polyphagia or polyuria Hematologic/Lymphatic Hematologic/Lymphatic: Denies easy bleeding, easy bruising or lymphadenopathy Allergic/Immunologic Allergic/Immunologic ED: Denies mouth swelling, tongue swelling or urticaria EXAM Physical Exam Const Vital Signs: 12/07/23 13:12 12/07/23 16:30 12/07/23 19:31 Temperature 97.6 F L 97.8 F Temperature Source Temporal Pulse Rate 58 L 61 64 Respiratory Rate 16 18 16 Blood Pressure 154/62 H 159/78 H 149/74 H Blood Pressure Mean 92 105 99 Pulse Ox 98 96 95 Oxygen Delivery Method Room Air Room Air Positive well nourished and well developed General Appearance ED: well developed and NAD HEENT Reports TM's clear and moist mucous membranes normocephalic and atraumatic; Negative for trauma or tenderness Tympanic Membrane ED: Yes TM's clear Eyes PERRL and EOMs intact bilaterally General Eye ED: Negative for pale conjunctiva or scleral icterus Neck no lymphadenopathy, supple and no JVD General: Negative for tenderness Chest Wall inspection of chest normal and palpation of chest normal Chest: Negative for tenderness Resp normal respiratory effort and clear to auscultation bilaterally Effort and Inspection: Negative for respiratory distress or pain with movement Auscultation: Negative for rhonchi, wheezes or diminished lung sounds Cardio regular rate, regular rhythm, S1 normal heart sound, S2 normal heart sound and no murmurs Peripheral Pulses: pulses 2+ throughout GI normal to inspection, nondistended, normoactive bowel sounds, soft to palpation, non-tender, non-distended and no masses Back/Spine no CVA tenderness and no thoracic nor lumbar tenderness Back/Spine Narrative: Evaluation of her back reveals no ecchymosis or bruising. No skin changes. The pain is described to be left upper around her scapula but really cannot reproduce her pain with palpation of the ribs or the thoracic spine. No cellulitic changes. Extremity normal to inspection General Extremety ED: Negative for edema General Extremity: Negative for edema Neuro oriented x3, CN's II-XII intact bilaterally, no sensory deficits noted and gait normal Sensorium / Orientation: awake, alert, oriented to person, oriented to place and oriented to time Motor Exam: strength 5/5 throughout and strength abnormal Psych mental status grossly normal Skin no rashes or lesions noted and no wounds MDM MDM MDM Narrative Medical decision making narrative: Patient will be given a dose of Dilaudid 1 mg IM and Zofran 4 mg IM. Will obtain x-rays of the left ribs and chest to evaluate further. Patient did have thoracic x-rays within the last week that showed degenerative changes but no other acute findings. X-rays of the left ribs and chest x-ray showed no acute fractures or acute process. She did receive a milligram of Dilaudid and 4 mg Zofran and felt markedly improved after treatment. I will write her prescription for a few [place] for pain. She is seeing pain management in 2 days. Radiography Diagnostic Testing: Clinical Impression(s) from Imaging Studies Ribs w/Chest X-Ray 12/07/23 16:50 IMPRESSION: RIBS: No fracture seen. Demineralization. CHEST: Degenerative changes, as described above. No demonstrated acute cardiopulmonary process. Electronically Signed: Ben Trujillo MD at 19:00 EDT , 4 view x-rays of the left ribs and chest x-ray obtained interpreted by myself as no evidence of fractures or pneumothorax or acute disease process. Radiology in agreement. Discharge Plan Triage Chief Complaint: Back ED Provider: Meghan Rivera Dx/Rx/DC Orders Clinical Impression: Back pain Instructions: ED Back Pain (Acute or Chronic) Prescriptions: New hydrocodone-acetaminophen 5-325 mg tablet 1 tab PO Q4H PRN PRN (Reason: Pain) 2 Days Qty: 10 0RF No Action furosemide 40 mg tablet 40 mg PO BID cholecalciferol (vitamin D3) 25 mcg (1,000 unit) capsule 25 mcg PO DAILY albuterol sulfate 2.5 mg /3 mL (0.083 %) solution for nebulization inhalation Q4-6H PRN Patient Comments: INHALE 3 ML VIA NEBULIZER EVERY 4 HOURS NEEDED levothyroxine [Synthroid] 75 mcg tablet PO DAILY pramipexole 0.25 MG tablet 0.25 mg PO QHS Patient Comments: restless legs Parkinson albuterol sulfate [ProAir HFA] 90 mcg/actuation HFA aerosol inhaler 1 puff inhalation Q6H PRN (Reason: shortness of breath or wheezing) Qty: 6.7 0RF oxycodone-acetaminophen [Percocet] 5-325 mg tablet 1 tab PO Q6H PRN (Reason: pain) 5 Days Qty: 10 0RF losartan 50 mg tablet 50 mg PO DAILY 90 Days Qty: 90 3RF carvedilol 12.5 mg tablet 12.5 mg PO BID Qty: 180 3RF Rx Instructions: must administer with a meal/food fenofibrate nanocrystallized 48 mg tablet 48 mg PO QHS Qty: 90 3RF simvastatin 40 mg tablet 40 mg PO QHS Qty: 90 3RF Xarelto 20 mg tablet See Rx Instructions .ROUTE .COMPLEX Qty: 90 3RF Dose Instruction: TAKE 1 TABLET DAILY Rx Instructions: TAKE 1 TABLET DAILY Primary Care Provider: Otis Roman Referrals: Otis Roman MD [Primary Care Provider] - Activity Restrictions/Additional Instructions: Follow-up with your pain management doctor within the next 2 days. Print Language: Malay Disposition Disposition: Home, Self Care Discharge Date/Time: 12/07/23 19:32
--- NOTE | 2023-12-07 16:50 | RAD_ITS ---
STUDY: X-RAY - UNILATERAL RIBS ( LEFT ) WITH CHEST REASON FOR EXAM: Female, 83 years old. left back pain TECHNIQUE - RIBS: 4 view(s) of the ribs. TECHNIQUE - CHEST: Single frontal view of the chest. COMPARISON: None. FINDINGS - RIBS: There is demineralization of the osseous structures which diminishes the diagnostic sensitivity of this examination, however there is no visualized rib fracture. FINDINGS - CHEST: There is left mid lung scarring or atelectasis. There is no demonstrated pleural abnormality. There is moderate cardiac enlargement. Normal mediastinum and susie. Normal visualized pulmonary arteries. There is atherosclerotic calcification of the aortic arch with tortuosity. There is demineralization of the osseous structures. There is degenerative change of the spine and shoulders. There is postoperative change of the right shoulder. There is no demonstrated abnormality of the visualized soft tissue structures of the upper abdomen. RAD/Ribs Uni Min 3V w/PA Chest IMPRESSION: RIBS: No fracture seen. Demineralization. CHEST: Degenerative changes, as described above. No demonstrated acute cardiopulmonary process. Electronically Signed: Ben Trujillo MD at 19:00 EDT ,
[2023-12-07] MEDS: Ondansetron 4 MG/2 ML Vial IM (17:07)
[2023-12-07] MEDS: HYDROmorphone 1 MG/ML Syringe IM (17:07)
[2023-12-07 19:31] VITALS: BP 149/74; PULSE 64; RESP 16; TEMP 36.6; O2SAT 95
== END 2023-12-07 19:32 | disposition home or self-care (01) ==
PROVIDERS: Emergency Provider Emergency Medicine; PCP Family Medicine; Visit Provider Emergency Medicine
DX: M54.9 Dorsalgia, unspecified (principal); I48.20 Chronic atrial fibrillation, unspecified; E78.5 Hyperlipidemia, unspecified; I10 Essential (primary) hypertension; G47.33 Obstructive sleep apnea (adult) (pediatric); Z86.73 Personal history of transient ischemic attack (TIA), and cerebral infarction without residual deficits; Z86.16 Personal history of COVID-19; E03.9 Hypothyroidism, unspecified
CPT/HCPCS: 71101; 96372; 99282; J2405

== ENCOUNTER 2023-12-12 21:02 | Inpatient (IN) | payer MEDICARE, SELFPAY ==
[2023-12-12 21:02] VITALS: BP 235/119; PULSE 74; RESP 22; TEMP 37.1; O2SAT 100; BMI 44.5
[2023-12-12 21:06] VITALS: O2SAT 100
--- NOTE | 2023-12-12 21:16 | EKG12_ITS ---
Test Reason : SOB Blood Pressure : / mmHG Vent. Rate : 071 BPM Atrial Rate : 000 BPM P-R Int : 000 ms QRS Dur : 074 ms QT Int : 382 ms P-R-T Axes : 000 057 017 degrees QTc Int : 415 ms Atrial fibrillation Septal infarct , age undetermined Abnormal ECG Confirmed by Gregorio Ruiz ([id number]), editor in chief newspaper VICKIE GARG ([id number]) on 12/14/2023 10:52:00 AM Referred By: EMERALD Confirmed By:Gregorio Ruiz
--- NOTE | 2023-12-12 21:21 | ED.VIS.DYS ---
HPI History of Present Illness Chief Complaint: Shortness of Breath [facility] Medical History COVID-19 RSV bronchiolitis Pneumonia High cholesterol History of high blood pressure History of back problems Arthritis Stroke/cerebrovascular accident Right ventricular dilation Hyperlipidemia HELGA on CPAP Essential hypertension HELGA (obstructive sleep apnea) Asthma Chronic atrial fibrillation Non-rheumatic tricuspid valve insufficiency Secondary pulmonary arterial hypertension Morbid obesity with BMI of 40.0-44.9, adult H/O transient cerebral ischemia History of hypothyroidism Occlusion of carotid artery without cerebral infarction Home Medications ?Medication ?Instructions ?Recorded ?Last Taken ?Type pramipexole 0.25 mg tablet 0.25 mg PO QHS Check with primary 04/18/16 03/07/21 21:00 History doctor albuterol sulfate 90 mcg/actuation 1 puff inhalation Q6H PRN 03/12/21 Unknown Rx aerosol inhaler (ProAir HFA) shortness of breath or wheezing #6.7 grams losartan 50 mg tablet 50 mg PO DAILY 90 days #90 tabs 06/23/22 Unknown Rx carvedilol 12.5 mg tablet 12.5 mg PO BID #180 tabs 02/17/23 Unknown Rx cholecalciferol (vitamin D3) 25 25 mcg PO DAILY 03/11/23 Unknown History mcg (1,000 unit) capsule furosemide 40 mg tablet 40 mg PO DAILY 03/11/23 Unknown History albuterol sulfate 2.5 mg/3 mL 2.5 mg inhalation Q4-6H PRN 06/08/23 Unknown History (0.083 %) solution for nebulization shortness of breath or wheezing fenofibrate nanocrystallized 48 mg 48 mg PO QHS #90 tabs 07/09/23 Unknown Rx tablet simvastatin 40 mg tablet 40 mg PO QHS #90 tabs 07/27/23 Unknown Rx rivaroxaban 20 mg tablet (Xarelto) See Rx Instructions .Route 09/04/23 Unknown Rx .COMPLEX #90 tabs hydrocodone-acetaminophen 5-325mg 1 tab PO Q4H PRN PRN Pain 2 days 12/07/23 Unknown Rx 5mg-325mg #10 TABLETS levothyroxine 50 mcg tablet 50 mcg PO DAILY 12/12/23 Unknown History (Synthroid) Allergy/AdvReac Type Severity Reaction Status Date / Time atorvastatin calcium (From Allergy Pain in Verified 12/07/23 13:14 Lipitor) joints Penicillins Allergy Rash Verified 12/07/23 13:14 pseudoephedrine Allergy Rash Verified 12/07/23 13:14 Sulfa (Sulfonamide Allergy Rash Verified 12/07/23 13:14 Antibiotics) hydrochlorothiazide AdvReac Nausea Verified 12/07/23 13:14 sulfamethoxazole (From AdvReac Nausea Verified 12/07/23 13:14 Bactrim) trimethoprim (From Bactrim) AdvReac Nausea Verified 12/07/23 13:14 Family History Mother CVA (cerebral vascular accident) Diabetes Father Brain aneurysm Surgical History Hx of cholecystectomy History of arthroscopy of left knee History of repair of right rotator cuff History of bunionectomy of both great toes Social History household members: family Smoking Status: Never smoker second hand exposure: No alcohol intake: current alcohol intake frequency: holidays/special occasions only Alcohol type: wine details: wine occasionally substance use type: does not use caffeine: Yes Type: coffee Number of servings: 1 what type of physical activity do you participate in: none luisa/orthodoxy: Protestant seatbelt use: always EXAM Physical Exam Const Vital Signs: 12/12/23 21:02 12/12/23 21:06 12/12/23 22:59 Temperature 98.8 F Temperature Source Temporal Pulse Rate 74 64 Respiratory Rate 22 H 22 H Respiratory Effort Short of Breath Respiratory Depth Shallow Respiratory Pattern Tachypnea Blood Pressure 235/119 H 121/75 H Blood Pressure Mean 157 90 Pulse Ox 100 93 Oxygen Delivery Method Nasal Cannula Nasal Cannula Nasal Cannula Oxygen Flow Rate (L/min) 2 2 2 12/12/23 23:13 Temperature 99.0 F Temperature Source Pulse Rate 67 Respiratory Rate 28 H Respiratory Effort Respiratory Depth Respiratory Pattern Blood Pressure 183/85 H Blood Pressure Mean 117 Pulse Ox 93 Oxygen Delivery Method Oxygen Flow Rate (L/min) MDM MDM MDM Narrative Medical decision making narrative: HISTORY OF PRESENT ILLNESS: 83-year-old female presents concern for shortness of breath. Notes increased shortness of breath and left breast and shoulder pain as well. Pt endorsed a cough but denies sick contacts. Per EMS patient was saturating 88% on room air. She is given 1 DuoNeb en route. She was placed on a new 2 L oxygen requirement. Notes she is always short of breath but worse over the last couple days specifically today. Notes chronic leg swelling that is not worse. Denies any bleeding diathesis. The patient denies recent surgery in the last 4 weeks or immobilization in the last 3 days, denies previous diagnosis of DVT or PE, hemoptysis, unilateral leg swelling or malignancy with treatment the last 6 months or palliative. No estrogen use noted. Patient notes has been compliant with Xarelto. REVIEW OF SYSTEMS: Pertinent positives: Shortness of breath, chest pain, cough Pertinent negatives: PHYSICAL EXAM: Nursing triage notes reviewed, Vital signs reviewed Constitutional: please see mdm HENT: MMM Eyes: Pupils equal round and reactive to light, Extraocular muscles intact Neck: No stridor, no JVD, full neck ROM Lungs: Clear to auscultation, Bilateral wheezing/rales noted in bases. No increased work of breathing, no conversational dyspnea, no accessory muscle use, no nasal flaring. No respiratory distress noted Heart: Regular rate and rhythm, No murmurs, No rubs and No gallops, 2+ distal pulses (radial, femoral, posterior tibial) in all extremities Abdomen: Soft, there is no tenderness, rigidity, rebound or guarding, no obvious peritoneal signs, no palpable pulsatile abdominal masses, no auscultated abdominal bruit : No CVAT Extremities: No edema Neuro: No focal neurological deficits, cranial nerves II through XII intact, 5/5 strength in all extremities. Intact sensation to light touch in all extremities, 2+ reflexes bilateral patella tendons. Normal gait. No ataxia. Skin: No rash or lesions noted MEDICAL DECISION MAKING: Chief Complaint: Shortness of breath, chest pain External records reviewed: Prior imaging reviewed: Echocardiogram from 2022 shows ejection fraction 65% with stage II diastolic dysfunction but no regional wall motion abnormalities Factors affecting care: Atrial fibrillation, HELGA, CVA, chronic A-fib, hyperlipidemia, hypertension Social determinants of health: none History obtained from others: Family Consults: Internal Medicine (Dr. Carlos) MDM Narrative: Patient was initially hypertensive with a blood pressure 235/119, tachypneic with respiratory 22, she is afebrile she was nontachycardic. She is saturating 100% on new 2 L oxygen requirement. Given initial concerning blood pressure range concern for hypoxia and pulmonary edema gave 10 mg IV labetalol. I considered the following differential diagnosis: Flash pulm edema, CHF exacerbation, COPD, PE, ACS, arrhythmia, anemia While considered pulmonary embolism as a potential etiology patient had a low risk Wells score. In addition to this she is been compliant with home Xarelto. This makes PE less likely. I considered obtaining CT scan of the chest with contrast without this was not indicated given after mentioned factors. I obtained a broad lab and imaging workup to further elucidate etiology of the patient complaint. ALL IMAGES (IF OBTAINED) HAVE BEEN PERSONALLY REVIEWED AND INTERPRETED BY MYSELF. EKG with rate controlled atrial fibrillation, normal axis, normal intervals, no STEMI The patient's chest x-ray was read and reviewed person myself shows evidence of pulmonary vascular congestion and possible right lower lobe infiltrate. Radiologist agrees my interpretation CBC with signs of leukocytosis suggestive of systemic inflammation, noted severe anemia, no thrombocytopenia BMP with severe hypokalemia, no evidence of metabolic acidosis or endorgan hypoperfusion with normal bicarb and anion gap, no acute kidney injury High-sensitivity troponin is negative, no evidence of myocardial ischemia BNP elevated consistent with volume overload On reevaluation patient's blood pressure improved to 183 /85. On reassessment patient notes she felt symptomatically better The synthesis of the patient's history, physical exam, labs images suggest likely heart failure given elevated blood pressure and requirement for IV blood pressure control as well as potentially pneumonia given elevated white blood cell count and cough. Will cover broadly with ceftriaxone azithromycin for infectious etiologies. Will give 40 mg IV Lasix for initial diuresis. The patient and/or family, caregivers express understanding. The patient and/or family, caregivers agrees with the plan. Shared decision making: I will have a discussion with the patient and or visitors regarding risk/benefits of further testing or admission. They will be made aware of of the risk/benefits inherent in this decision they will be given the opportunity to voice understanding. Total critical care time today provided was at least 35 minutes. This excludes separately billable procedures. Critical care time (if documented) is secondary to the patient having high probability of clinically significant/life threatening deterioration in the patient's condition which required my urgent intervention. Impression: 1. Hypoxic 2. CHF exacerbation 3. Community acquired pneumonia Dispo: Admit This note was generated with Dragon dictation software. It may contain incorrect words, spelling, and punctuation that were not noted in review of the chart prior to signing. Lab Data Labs: Laboratory Results - last 24 hr 12/12/23 21:26 WBC 13.0 H RBC 2.63 L Hgb 8.7 L Hct 28.7 L MCV 109.1 H MCH 33.1 H MCHC 30.3 L RDW Std Deviation 64.6 H RDW Coeff of Gala 16.3 H Plt Count 243 MPV 10.3 Sodium 137 Potassium 3.0 L Chloride 100 Carbon Dioxide 29.0 Anion Gap 8 BUN 10 Creatinine 0.70 Estim Creat Clear Calc 56.77 Est GFR (MDRD) Af Amer 102 Est GFR (MDRD) Non-Af 84 BUN/Creatinine Ratio 14.2 Glucose 135 H Calcium 9.0 Troponin I High Sens 30 B-Natriuretic Peptide 327.7 H Radiography Diagnostic Testing: Clinical Impression(s) from Imaging Studies Chest X-Ray 12/12/23 21:35 IMPRESSION: Hazy lung opacities likely mild edema. No evidence of active intrathoracic disease. Electronically Signed: Susan Pabon MD at 22:16 EDT , Discharge Plan Triage Chief Complaint: Shortness of Breath ED Provider: Mukund Emery Dx/Rx/DC Orders Primary Care Provider: Otis Roman
[2023-12-12 21:34] LABS: Hematocrit 28.7 % (37-47); Hemoglobin 8.7 g/dL (12.0-15.0); Mean Corp Hgb Conc 30.3 g/dL (32-36); Mean Corpuscular Hgb 33.1 pg (27.0-32.0); Mean Corpuscular Volume 109.1 fL (81-99); Mean Platelet Vol. 10.3 fl (6.2-12.0); Platelet Count 243 K/mm3 (150-450); RBC Distribution Width CV 16.3 % (11.6-14.6); RBC Distribution Width SD 64.6 fl (35.1-43.9); Red Blood Count 2.63 M/mm3 (4.2-5.4)
[2023-12-12] MEDS: Labetalol (Prefilled) 20 MG/4 ML 10 MG IV (21:35)
--- NOTE | 2023-12-12 21:35 | RAD_ITS ---
INDICATION: SOB EXAMINATION/TECHNIQUE: X-RAY - XR Chest 1 View AP portable. 9:36 PM COMPARISON: 08/07/2023 FINDINGS: LINES/DEVICES: None. LUNGS: Mild hazy opacities in the mid to lower lungs increased compared to prior. No consolidation. No pneumothorax. MEDIASTINUM: Unremarkable. CARDIAC SILHOUETTE: Enlarged. Stable size. BONES AND SOFT TISSUES: No acute abnormalities. RAD/Chest 1 View (Portable) IMPRESSION: Hazy lung opacities likely mild edema. No evidence of active intrathoracic disease. Electronically Signed: Susan Pabon MD at 22:16 EDT ,
[2023-12-12 21:54] LABS: BNP,B-Type NATRIURETIC PEPTIDE 327.7 pg/mL (0-100)
[2023-12-12 21:58] LABS: Anion Gap 8 (5-15); BUN 10 mg/dL (7-18); BUN/Creat Ratio 14.2 RATIO (10-20); Chloride 100 mmol/L (98-107); EST Glomerular Filtration Rate 84 mL/min (>60); Est Glom Filt Rate - Afr Amer 102 mL/min (>60); Estimated Creatinine Clearance 56.77 ml/min; Glucose 135 mg/dL (74-106); Sodium Level 137 mmol/L (136-145); Troponin-I HS (w/2H Reflex) 30 pg/mL (3.0-54.0)
[2023-12-12 22:59] VITALS: BP 121/75; PULSE 64; RESP 22; O2SAT 93
[2023-12-12] MEDS: Furosemide 40 MG/4 ML Vial IV (23:11)
[2023-12-12 23:13] VITALS: BP 183/85; PULSE 67; RESP 28; TEMP 37.2; O2SAT 93
[2023-12-12 23:31] LABS: Reflex Troponin-HS? (from REC) Y
[2023-12-12] MEDS: Ceftriaxone 1 GM/50 ML BAG IV (23:31)
--- NOTE | 2023-12-12 23:35 | PCM.HP.STD ---
HPI - General General Date of Admission: 12/12/23 Date of Service: 12/12/23 Chief Complaint: Shortness of breath HPI Narrative SIS CANELA, is a 83 F who presented to the emergency department at [facility] on 12/12/2023 with a chief complaint of shortness of breath. She has had progressively worsening shortness of breath most notably with exertion since October. She reports her primary care physician has increased her Lasix some but she has not noticed a difference as of yet. She reports increased swelling in her legs and she thinks that her weight is gone up but she does not weigh herself on a regular basis. It does not sound like she really watches her sodium or fluid intake overall. She has known severe diastolic dysfunction and previously normal EF. She states she has been compliant with her home medications including her rivaroxaban. She denies any significant cough, fever, chills, she has had no URI symptoms recently and has been moving her bowels normally. She did say she had some nausea with some dry heaving earlier today but that has abated and now she is hungry. She does complain of orthopnea. She states she sleeps on a recliner of a bed however lately she has been able to recline at less than typical. She is compliant with home BiPAP. She does not wear oxygen at home. Vital signs on presentation showed a temperature of 98.8, heart rate 74, respiratory rate 20, initial blood pressure was 235/119 but repeat was 121/75, oxygen saturations were 93% on 2 L nasal cannula. Upon EMS arrival she was noted to be satting 88% on room air. She was given a DuoNeb and route and placed on 2 L which improved her oxygen saturations to above 89%. CBC shows a mild leukocytosis with a white count of 13. New anemia when compared to previous having a hemoglobin of 8.7 (baseline hemoglobin had been running between 10 and 12 in late last year. Her chemistry panel showed mild hypokalemia with a potassium of 3.0. Renal function is normal. Glucose was 135. Initial troponin was 30 but delta of troponin went up to 120., BNP was 327.7. EKG showed atrial fibrillation that is rate controlled and no ST-T wave changes concerning for acute ischemia. Chest x-ray was consistent with hazy bilateral lung opacities consistent with edema. PFSH Medical History COVID-19 RSV bronchiolitis Pneumonia High cholesterol History of high blood pressure History of back problems Arthritis Stroke/cerebrovascular accident Right ventricular dilation Hyperlipidemia HELGA on CPAP Essential hypertension HELGA (obstructive sleep apnea) Asthma Chronic atrial fibrillation Non-rheumatic tricuspid valve insufficiency Secondary pulmonary arterial hypertension Morbid obesity with BMI of 40.0-44.9, adult H/O transient cerebral ischemia History of hypothyroidism Occlusion of carotid artery without cerebral infarction Home Medications ?Medication ?Instructions ?Recorded ?Last Taken ?Type pramipexole 0.25 mg tablet 0.25 mg PO QHS Check with primary 04/18/16 03/07/21 21:00 History doctor albuterol sulfate 90 mcg/actuation 1 puff inhalation Q6H PRN 03/12/21 Unknown Rx aerosol inhaler (ProAir HFA) shortness of breath or wheezing #6.7 grams losartan 50 mg tablet 50 mg PO DAILY 90 days #90 tabs 06/23/22 Unknown Rx carvedilol 12.5 mg tablet 12.5 mg PO BID #180 tabs 02/17/23 Unknown Rx cholecalciferol (vitamin D3) 25 25 mcg PO DAILY 03/11/23 Unknown History mcg (1,000 unit) capsule furosemide 40 mg tablet 60 mg PO .COMPLEX diuretic 03/11/23 Unknown History albuterol sulfate 2.5 mg/3 mL 2.5 mg inhalation Q4-6H PRN 06/08/23 Unknown History (0.083 %) solution for nebulization shortness of breath or wheezing fenofibrate nanocrystallized 48 mg 48 mg PO QHS #90 tabs 07/09/23 Unknown Rx tablet simvastatin 40 mg tablet 40 mg PO QHS #90 tabs 07/27/23 Unknown Rx rivaroxaban 20 mg tablet (Xarelto) See Rx Instructions .Route 09/04/23 Unknown Rx .COMPLEX #90 tabs levothyroxine 50 mcg tablet 50 mcg PO DAILY 12/12/23 Unknown History (Synthroid) baclofen 5 mg tablet 10 mg PO TID back pain 12/13/23 Unknown History duloxetine 30 mg capsule,delayed 30 mg PO DAILY chronic back pain 12/13/23 Unknown History release Allergy/AdvReac Type Severity Reaction Status Date / Time atorvastatin calcium (From Allergy Pain in Verified 12/07/23 13:14 Lipitor) joints Penicillins Allergy Rash Verified 12/07/23 13:14 pseudoephedrine Allergy Rash Verified 12/07/23 13:14 Sulfa (Sulfonamide Allergy Rash Verified 12/07/23 13:14 Antibiotics) hydrochlorothiazide AdvReac Nausea Verified 12/07/23 13:14 sulfamethoxazole (From AdvReac Nausea Verified 12/07/23 13:14 Bactrim) trimethoprim (From Bactrim) AdvReac Nausea Verified 12/07/23 13:14 Family History Mother CVA (cerebral vascular accident) Diabetes Father Brain aneurysm Surgical History Hx of cholecystectomy History of arthroscopy of left knee History of repair of right rotator cuff History of bunionectomy of both great toes Social History household members: family Smoking Status: Never smoker second hand exposure: No alcohol intake: current alcohol intake frequency: holidays/special occasions only Alcohol type: wine details: wine occasionally substance use type: does not use caffeine: Yes Type: coffee Number of servings: 1 what type of physical activity do you participate in: none luisa/faith: Yazidism seatbelt use: always ROS Constitutional Constitutional: Reports fatigue; Denies anorexia, change in weight, chills, fever(s), malaise, night sweats, weakness or other Eyes Eyes: Denies blurry vision, change in eye color, change in vision, discharge from eye(s), double vision, erythema, eye pain, loss of vision or other ENT HEENT: Denies abnormal hearing, dysphagia, ear pain, epistaxis, headache(s), hearing loss, nasal congestion, nasal discharge, post nasal drip, sinus pressure, sore throat or other Cardiovascular Cardiovascular: Reports chest pain, dyspnea on exertion, edema and orthopnea; Denies claudication, lightheadedness, palpitations, paroxysmal nocturnal dyspnea, rapid heart rate, syncope or other Respiratory/Chest Respiratory/Chest: Reports dyspnea, shortness of breath at rest and shortness of breath with exertion; Denies cough, excessive phlegm production, hemoptysis, productive cough, wheezing or other Gastrointestinal Gastrointestinal: Denies abdominal pain, coffee ground emesis, constipation, diarrhea, dyspepsia, hematemesis, hematochezia, loose stools, melena, nausea, vomiting or other Genitourinary Genitourinary: Denies burning urination, difficulty urinating, dysuria, hematuria, nocturia, urinary frequency, urinary hesitancy, urinary incontinence, urinary urgency or other Musculoskeletal Musculoskeletal: Reports back pain and other Details: Left shoulder discomfort ; Denies arthralgias, joint pain, joint stiffness, joint swelling, myalgias or neck pain Neurologic Neurologic: Denies abnormal gait, abnormal speech, confusion, disequilibrium, dizziness, focal weakness, headache(s), numbness, paresthesias, seizure-like activity, seizures, syncope, tingling, tremor(s) or other Psychiatric Psychiatric: Denies anxiety, depression, homicidal ideation, suicidal ideation or other Endocrine Endocrinology: Denies change in body appearance, cold intolerance, excessive sweating, heat intolerance, polydipsia, polyuria or other Hematologic/Lymphatic Hematologic/Lymphatic: Reports anemia, easy bleeding and easy bruising; Denies lymphadenopathy or other Allergic/Immunologic Allergic/Immunologic: Denies rhinitis, hives, eczemia, asthma or other Vital Signs Vital Signs Vital Signs: 12/12/23 21:02 12/12/23 21:06 12/12/23 22:59 Temperature 98.8 F Temperature Source Temporal Pulse Rate 74 64 Respiratory Rate 22 H 22 H Respiratory Effort Short of Breath Respiratory Depth Shallow Respiratory Pattern Tachypnea Blood Pressure 235/119 H 121/75 H Blood Pressure Mean 157 90 Pulse Ox 100 93 Oxygen Delivery Method Nasal Cannula Nasal Cannula Nasal Cannula Oxygen Flow Rate (L/min) 2 2 2 12/12/23 23:13 Temperature 99.0 F Temperature Source Pulse Rate 67 Respiratory Rate 28 H Respiratory Effort Respiratory Depth Respiratory Pattern Blood Pressure 183/85 H Blood Pressure Mean 117 Pulse Ox 93 Oxygen Delivery Method Oxygen Flow Rate (L/min) Weight Weight: 103.5 kg Body Mass Index (BMI) 44.5 Physical Exam Const alert, oriented x3, no apparent distress and well nourished; Negative for average body habitus or healthy appearing Constitutional Narrative: Elderly, talkative, morbidly obese, white female, sitting up in bed, family at bedside, very pleasant, interacts appropriately, appears comfortable, does not look toxic General Appearance: cooperative HEENT normocephalic, head/scalp atraumatic, hearing grossly normal bilaterally and moist oral mucous membranes HEENT Narrative: Dentition is poor, Mallampati is 3, no thrush Eyes PERRL and EOMs intact bilaterally; Negative for conjunctivae normal Eyes Narrative: Bilateral conjunctiva pallor noted, no scleral icterus Neck no lymphadenopathy and supple Neck Narrative: Trachea midline, no thyroid enlargement, neck is short and thick Resp no retractions, no use of accessory muscles and No clear to auscultation bilaterally Resp Narrative: Crackles at bases bilaterally, no tachypnea at rest however patient does become a bit winded with exertion Cardio regular rate, S1 normal heart sound, S2 normal heart sound, no murmurs, no rub and no gallops Cardio Narrative: Irregularly irregular rhythm GI normal to inspection, nondistended, normoactive bowel sounds, soft to palpation and non-tender GI Narrative: Large protuberant abdomen Extremity Extremity Narrative: 2+ bilateral lower extremity edema, no cyanosis or clubbing Skin No no rashes or lesions noted, no wounds, skin turgor normal, no jaundice, no petechiae and no mottling Skin Narrative: Scattered ecchymotic changes Neuro oriented x3, CN's II-XII intact bilaterally, moves all extremities and no focal motor deficits Neuro Narrative: Generalized weakness noted Speech: speech normal Psych affect normal Psych Narrative: Very talkative, no dyspnea on conversation Results Lab / Micro Data 12/12/23 21:26 12/12/23 21:26 Labs: Laboratory Results - last 24 hr 12/12/23 21:26: WBC 13.0 H, RBC 2.63 L, Hgb 8.7 L, Hct 28.7 L, MCV 109.1 H, MCH 33.1 H, MCHC 30.3 L, RDW Std Deviation 64.6 H, RDW Coeff of Gala 16.3 H, Plt Count 243, MPV 10.3, Sodium 137, Potassium 3.0 L, Chloride 100, Carbon Dioxide 29.0, Anion Gap 8, BUN 10, Creatinine 0.70, Estim Creat Clear Calc 56.77, Est GFR (MDRD) Af Amer 102, Est GFR (MDRD) Non-Af 84, BUN/Creatinine Ratio 14.2, Glucose 135 H, Calcium 9.0, Troponin I High Sens 30, B-Natriuretic Peptide 327.7 H Micro: Microbiology 12/12/23 21:26 Mucosa - Nasopharyngeal SARS-CoV-2, Influenza & RSV (PCR) - Final Imaging Radiology Impression Chest X-Ray 12/12/23 21:35 IMPRESSION: Hazy lung opacities likely mild edema. No evidence of active intrathoracic disease. Electronically Signed: Susan Pabon MD at 22:16 EDT , Assessment & Plan Assessment/Plan (1) Hypoxia: (2) Shortness of breath: (3) Acute on chronic heart failure with preserved ejection fraction (HFpEF): (4) Hypertensive urgency: (5) Leukocytosis: (6) Anemia: (7) Hypokalemia: (8) Elevated brain natriuretic peptide (BNP) level: PLAN: Plan Hypoxia secondary to acute on chronic HFpEF -88% on room air and patient is not oxygen dependent at baseline -Stable on 2 L nasal cannula -Will need ambulatory pulse ox prior to discharge -COVID/flu/RSV are negative -Chest x-ray is consistent with volume overload -Hold home oral Lasix -Start Lasix 40 mg IV push twice daily -Fluid restriction -Sodium restriction -Daily weights -Strict I's and O's -Lower extremity Moris bandages -Check echocardiogram -Last echo was done on 03/18/2023 and showed an EF of 65% with stage III diastolic dysfunction and pulmonary artery pressure of 44 mmHg -Continue home carvedilol, losartan -Add Jardiance 10 mg daily -Will have to see if this is a covered medication for her at discharge Troponin elevation -30 on presentation and now greater than 100 -May very well be related to decompensated heart failure and elevated blood pressure -Continue cardiac enzymes cycle -Check echocardiogram -Patient is chest pain-free and EKG shows no acute changes -Consult cardiology for input with regards to any further noninvasive versus invasive testing as patient does have a complex history -Will hold off on anticoagulation at this point and continue home rivaroxaban for now Leukocytosis -Very mild -Patient without any marked infectious symptoms -Will hold off on antibiotics at this time and continue to monitor clinically Hypokalemia -Potassium replacement given -Repeat lab in a.m. -Check a.m. magnesium and phosphorus level Macrocytic anemia -Patient with marked difference compared to previous lab at the end of 2022 -Patient is anticoagulated at baseline -Check iron studies -Check ferritin -Check reticulocyte count -Check B12 -Check folate -Check stool guaiac -Will continue anticoagulation for now but if any further drop or positive stool guaiac will need to hold Hypertensive urgency with history of essential hypertension -Continue home medications with carvedilol, losartan, and diuretics however IV diuretics for now -As needed hydralazine available for systolic blood pressure greater than 160 Goal blood pressure is 130/80 or less -May need further oral agents but would like to see how she does once she gets all of her home oral medications on board prior to adding any new medication Persistent atrial fibrillation -Currently rate controlled -Continue carvedilol -Continue home rivaroxaban HELGA -Continue nocturnal BiPAP at 06/03 -Family is to bring in patient's home unit -Patient has good compliance at baseline Asthma -Continue as needed albuterol Hypothyroidism -Continue home levothyroxine Hyperlipidemia -Continue home fenofibrate -Continue home statin Chronic back pain -Continue home duloxetine -Continue home baclofen Bilateral carotid artery stenosis -Less than 50% bilaterally -Continue outpatient management Morbid obesity -BMI 43.1 -Complicates treatment, prognosis, outcomes DVT prophylaxis -Continue home rivaroxaban CODE STATUS -DNR CCA with no intubation per discussion with family at the bedside at the time of admission Charges/Coding Visit Charges Inpatient E&M: 63447 Init Hosp L3
[2023-12-12 23:59] LABS: Troponin-I HS 120 pg/mL (3.0-54.0)
[2023-12-13] VITALS (12 sets, daily range): BP systolic 143–196; BP diastolic 54–92; PULSE 57–88; RESP 16–22; TEMP 36.4–36.8; O2SAT 93–99; BMI 43.1; BMI 43.3
--- NOTE | 2023-12-13 00:40 | ECHOCS_ITS ---
Reason For Study: CHF Procedure This was a 2D Doppler, Color Flow transthoracic echocardiogram. The study was technically difficult. Contrast injection was performed. Exam performed in department. Left Ventricle Normal size and thickness. The left ventricular ejection fraction is 65 %. Stage 3 diastolic dysfunction. Right Ventricle Normal right ventricle. Atria There is severe biatrial dilatation. Mitral Valve Mild (1+) mitral valve insufficiency. Tricuspid Valve Mild to moderate (1-2+) tricuspid valve insufficiency. Right ventricular systolic pressure estimated to be 66 mmHg. Aortic Valve Trisinus/trileaflet aortic valve. Mild (1+) aortic valve insufficiency. Pulmonic Valve The pulmonic valve is not well visualized. Great Vessels Normal sized aortic root. Pericardium/Pleural No pericardial effusion. Medication Diluted definity 3ml given slow IV push to enhance endocardial definition. MMode/2D Measurements & Calculations LVIDd: 4.5 cm IVSd: 1.1 cm Ao root diam: 3.0 cm LVIDs: 3.1 cm LVPWd: 1.0 cm LA dimension: 4.5 cm FS: 30.8 % LAV(MOD-bp): 62.3 ml LVAd ap4: 26.9 cm2 SV(MOD-sp4): 58.6 ml LAV(MOD-bp) Indexed: 31.6 ml/m2 LVLd ap4: 6.8 cm LAV(MOD-sp2): 62.3 ml EDV(MOD-sp4): 87.1 ml LAV(MOD-sp4): 61.6 ml EDV(sp4-el): 89.8 ml LVAs ap4: 14.1 cm2 LVLs ap4: 5.7 cm ESV(MOD-sp4): 28.5 ml ESV(sp4-el): 29.6 ml EF(MOD-sp4): 67.3 % EF(sp4-el): 67.0 % SV(sp4-el): 60.2 ml LA A4 area: 23.0 cm2 TAPSE: 2.0 cm Time Measurements MV dec time: 0.16 sec Doppler Measurements & Calculations MV E max otis: 136.7 cm/sec Lat Peak E' Otis: 9.7 cm/sec Med Peak E' Otis: 12.2 cm/sec MV A max otis: 40.3 cm/sec E/E' lat: 14.1 E/E' med: 11.2 MV E/A: 3.4 MV V2 max: 156.1 cm/sec MV P1/2t max otis: 156.6 cm/sec Ao V2 max: 155.7 cm/sec MV max P.8 mmHg MV P1/2t: 56.7 msec Ao max P.7 mmHg MV V2 mean: 67.2 cm/sec Ao V2 mean: 101.7 cm/sec MV mean P.5 mmHg MV dec slope: 808.8 cm/sec2 Ao mean P.7 mmHg MV V2 VTI: 31.1 cm MVA(P1/2t): 3.9 cm2 Ao V2 VTI: 33.9 cm LV V1 max: 115.7 cm/sec MR max otis: 559.1 cm/sec PA V2 max: 101.6 cm/sec LV V1 max P.4 mmHg MR max P.0 mmHg PA max PG (full): 0.83 mmHg PA V2 mean: 73.0 cm/sec PA mean PG (full): 0.79 mmHg TR max otis: 356.8 cm/sec TR max P.9 mmHg ECHO/Echo Complete W/ Contrast Interpretation Summary The left ventricular ejection fraction is 65 %. Stage 3 diastolic dysfunction. There is severe biatrial dilatation. Mild (1+) mitral valve insufficiency. Mild to moderate (1-2+) tricuspid valve insufficiency. Right ventricular systolic pressure estimated to be 66 mmHg. Mild (1+) aortic valve insufficiency. The study was technically difficult. Ordering Physician: Kaelyn Carlos Performed By: Arden Barber RCS
[2023-12-13] MEDS: Azithromycin 500 MG in Dextrose 5%-Water (250mL Bag) 250 ML 250 MG IV (01:01)
[2023-12-13] MEDS: Potassium Chloride Oral Tablet 20 MEQ 60 MEQ PO (01:35)
[2023-12-13 03:58] LABS: Absolute Lymphocyte Count 1.41 X10^3/uL (0.83-4.51); Absolute Neutrophil Count 9.5 X10^3/uL (2.0-7.7); Basophil# 0.05 X10^3/uL; Basophil% 0.4 % (0-1); Eosinophil# 0.03 X10^3/uL; Eosinophils% 0.2 % (0-5); Hematocrit 26.3 % (37-47); Hemoglobin 8.1 g/dL (12.0-15.0); Lymphocyte # 1.41 X10^3/ul (0.83-4.51); Lymphocyte % 10.5 % (19-41); Mean Corp Hgb Conc 30.8 g/dL (32-36); Mean Corpuscular Hgb 33.8 pg (27.0-32.0); Mean Corpuscular Volume 109.6 fL (81-99); Mean Platelet Vol. 10.1 fl (6.2-12.0); Monocyte# 2.33 X10^3/uL; Monocyte% 17.3 % (0-10); NRBC Flagged by Analyzer 0 % (0-5); Neutrophil # 9.52 X10^3/uL (2.7-7.7); Neutrophil % 70.6 % (47-70); POSITIVE DIFFERENTIAL YES; Platelet Count 225 K/mm3 (150-450); RBC Distribution Width CV 16.1 % (11.6-14.6); RBC Distribution Width SD 64.2 fl (35.1-43.9); White Blood Count 13.5 K/mm3 (4.4-11.0)
[2023-12-13 04:08] LABS: Platelet Count 236 K/mm3 (150-450); Reticulocyte Count 7.04 % (0.5-1.5)
[2023-12-13 04:12] LABS: Differential Indicated SCAN CRITERIA MET
[2023-12-13 04:20] LABS: Troponin-I HS 267 pg/mL (3.0-54.0)
[2023-12-13 04:21] LABS: AST(SGOT) 12 U/L (15-37); Alanine Aminotransfer ALT/SGPT 13 U/L (13-56); Albumin, Serum 3.1 g/dL (3.2-5.0); Alkaline Phosphatase 65 U/L (45-117); Anion Gap 6 (5-15); BUN 9 mg/dL (7-18); Calcium,Total 8.5 mg/dL (8.5-10.1); Chloride 101 mmol/L (98-107); Creatinine, Serum 0.75 mg/dL (0.55-1.02); EST Glomerular Filtration Rate 79 mL/min (>60); Est Glom Filt Rate - Afr Amer 95 mL/min (>60); Estimated Creatinine Clearance 55.68 ml/min; Glucose 149 mg/dL (74-106); Magnesium 1.6 mg/dL (1.6-2.6); Potassium 3.3 mmol/L (3.5-5.1); Protein, Total 6.1 g/dL (6.4-8.2); Sodium Level 138 mmol/L (136-145)
[2023-12-13] MEDS: Levothyroxine 50 MCG Tablet PO (04:22)
[2023-12-13] MEDS: Baclofen 10 MG Tablet PO ×3 (04:22→21:39)
[2023-12-13 04:35] LABS: Ferritin 74 ng/mL (8-252); Iron 28 ug/dL (50-170); Iron Binding Capacity,Total 368 ug/dL (250-450); PERCENT IRON SATURATION 7.6 % (15.0-55.0)
[2023-12-13 04:55] LABS: Differential Comment SCANNED; Polychromasia RARE
[2023-12-13] MEDS: Potassium Chloride Oral Tablet 20 MEQ 40 MEQ PO (05:50)
--- NOTE | 2023-12-13 06:04 | PCM.HOSP.N ---
Hospitalist Note Anemia has continued to worsen down from 8.7-8.1 today with a baseline of 10-12. Reticulocyte count is elevated at 7.04 and iron studies are consistent with iron deficiency for the most part. Will hold anticoagulation, start SCDs and consult GI. Dr. Ovalle notified via text.
[2023-12-13] MEDS: Pramipexole Di-HCl 0.25 MG Tablet PO ×2 (06:39→21:39)
--- NOTE | 2023-12-13 07:22 | PCM.PN.HOSP ---
Reason for Visit Reason for Visit: Diagnoses Anemia, unspecified (12/12/23) Elevated white blood cell count, unspecified (12/12/23) Hypokalemia (12/12/23) Hypertensive urgency (12/12/23) Acute on chronic diastolic (congestive) heart failure (12/12/23) Shortness of breath (12/12/23) Hypoxemia (12/12/23) Other specified abnormal findings of blood chemistry (12/12/23) Subjective Subjective Patient is an 83-year-old female who presented with progressive shortness of breath as well as pain across the chest. An assessment of acute congestive heart failure, acute non-STEMI made. Admitted to a monitored bed for subsequent management Objective Data Objective Data Vital Signs: Vital Signs Temp Pulse Resp BP Pulse Ox O2 Del Method O2 Flow Rate 97.6 F L 67 18 154/76 H 95 CPAP 3 12/13/23 04:30 12/13/23 04:30 12/13/23 04:30 12/13/23 04:30 12/13/23 04:30 12/13/23 04:30 12/13/23 04:30 Oxygen Flow Rate (L/min) 3 Oxygen Delivery Method CPAP Weight: 100.6 kg Body Mass Index (BMI) 43.3 Intake & Output: Intake and Output for Last 24 Hours 12/11/23 12/12/23 12/13/23 23:59 23:59 23:59 Intake Total 305 / 305 Output Total 250 / 250 Balance 55 / 55 Lab / Micro Data 12/13/23 03:50 12/13/23 03:50 Labs: Laboratory Results - last 24 hr 12/12/23 21:26: WBC 13.0 H, RBC 2.63 L, Hgb 8.7 L, Hct 28.7 L, MCV 109.1 H, MCH 33.1 H, MCHC 30.3 L, RDW Std Deviation 64.6 H, RDW Coeff of Gala 16.3 H, Plt Count 243, MPV 10.3, Sodium 137, Potassium 3.0 L, Chloride 100, Carbon Dioxide 29.0, Anion Gap 8, BUN 10, Creatinine 0.70, Estim Creat Clear Calc 56.77, Est GFR (MDRD) Af Amer 102, Est GFR (MDRD) Non-Af 84, BUN/Creatinine Ratio 14.2, Glucose 135 H, Calcium 9.0, Troponin I High Sens 30, B-Natriuretic Peptide 327.7 H 12/12/23 23:35: Troponin I High Sens 120 H 12/13/23 03:50: WBC 13.5 H, RBC 2.40 L, Hgb 8.1 L, Hct 26.3 L, MCV 109.6 H, MCH 33.8 H, MCHC 30.8 L, RDW Std Deviation 64.2 H, RDW Coeff of Gala 16.1 H, Plt Count 225, MPV 10.1, Immature Gran % (Auto) 1.000 H, Neut % (Auto) 70.6 H, Lymph % (Auto) 10.5 L, Dickey % (Auto) 17.3 H, Eos % (Auto) 0.2, Baso % (Auto) 0.4, Absolute Neuts (auto) 9.5 H, Absolute Lymphs (auto) 1.41, Nucleated RBC % 0, Differential Comment SCANNED, Diff Path Review May foll, Polychromasia RARE, Retic Count 7.04 H, Immature Retic Fraction 31.10 H, Retic Hgb Equivalent 32.0, Sodium 138, Potassium 3.3 L, Chloride 101, Carbon Dioxide 31.0, Anion Gap 6, BUN 9, Creatinine 0.75, Estim Creat Clear Calc 55.68, Est GFR (MDRD) Af Amer 95, Est GFR (MDRD) Non-Af 79, BUN/Creatinine Ratio 12.0, Glucose 149 H, Calcium 8.5, Phosphorus 2.0 L, Magnesium 1.6, Iron 28 L, TIBC 368, Iron Saturation 7.6 L, Ferritin 74, Total Bilirubin 1.60 H, AST 12 L, ALT 13, Alkaline Phosphatase 65, Troponin I High Sens 267 H*, Total Protein 6.1 L, Albumin 3.1 L, Globulin 3.0, Albumin/Globulin Ratio 1.0, Folate 6.70 Micro: Microbiology 12/12/23 21:26 Mucosa - Nasopharyngeal SARS-CoV-2, Influenza & RSV (PCR) - Final Radiography Diagnostic Testing: Radiology Impression Chest X-Ray 12/12/23 21:35 IMPRESSION: Hazy lung opacities likely mild edema. No evidence of active intrathoracic disease. Electronically Signed: Susan Pabon MD at 22:16 EDT , Physical Exam Narrative GENERAL: cooperative but dyspneic at rest HEENT: Atraumatic; normocephalic EYES; Anicteric, Normal Conjunctiva NECK; supple, normal thyroid, RESPIRATORY: Diminished to auscultation CARDIOVASCULAR: Regular S1 S2, GI: soft, normoactive bowel sounds, : No Renal angle tenderness; EXTREMITIES: edema, no clubbing, MUSCULOSKELETAL: no muscle wasting NEURO: Awake; no lateralizing signs. SKIN: No Rash PSYCH; Flat affect Assessment & Plan Assessment/Plan (1) Hypoxia: (2) Shortness of breath: (3) Acute on chronic heart failure with preserved ejection fraction (HFpEF): (4) Hypertensive urgency: (5) Leukocytosis: (6) Anemia: (7) Hypokalemia: (8) Elevated brain natriuretic peptide (BNP) level: PLAN: Plan Patient is an 83-year-old female who presented with progressive shortness of breath as well as pain across the chest. An assessment of acute congestive heart failure, acute non-STEMI made. Admitted to a monitored bed for subsequent management Acute hypoxia ? Secondary to acute congestive heart failure with preserved ejection fraction. 2D echo from 03/18/2023 demonstrated EF of 65% with stage III diastolic dysfunction and pulmonary artery pressure of 44 mmHg. Patient has been admitted to a monitored bed. Managed with strict input and output, daily weight, fluid restriction, low-sodium diet as well as diuretic therapy.Repeat echo ordered for subsequent eval 2. Acute non-STEMI ? Patient presented with progressive dyspnea as well as chest pain. Troponin admission was 30 continues to climb. Troponin from this a.m. was 267. Echo ordered. Patient remains on therapy with beta-blockers ARB statin therapy added aspirin. Consultation was placed to cardiology on admission 3. Hypokalemia -Corrected per protocol 4. Macrocytic anemia ? Subsequent eval with B12 folic acid stool guaiac ordered. Iron studies came back consistent with iron deficiency anemia patient ordered parenteral iron 5. Hypophosphatemia ? Corrected per protocol 6. Chronic A-fib ? Rate controlled on systemic anticoagulation with rivaroxaban 7. Hypothyroidism ? Patient is on levothyroxine home dose continued 8. Dyslipidemia ?Patient is on statin and fibrate therapy, continued at home dose 9. Acute hypertensive emergency ? Patient presented with markedly elevated blood pressure?235/119 with evidence of endorgan damage i.e. congestive heart failure as well as elevated troponin. Treatment initiated per protocol patient blood pressure control has since improved 10. Restless leg syndrome ? Patient is on pramipexole continued 11. Obstructive sleep apnea ? Consistent use of PAP therapy encouraged 12. Class III obesity with BMI of 43.3 ? Complicating care weight loss advised 13. Mild intermittent mitten asthma ? Currently not in exacerbation aerosol treatment as needed 14. Chronic back pain ? Patient is on duloxetine as well as baclofen did continue 15. Bilateral carotid artery stenosis -Less than 50% bilaterally; plan is to continue optimization of medical therapy 16. DVT prophylaxis -Continue home rivaroxaban CODE STATUS -DNR CCA with no intubation Time spent in the patient's overall evaluation,decision-making process, review of diagnostic data, adjustment of management, discussion with other providers, nursing nursing and ancillary staff involved in patient's care documentation, 52 Minutes Charges/Coding Visit Charges Inpatient E&M: 30578 [facility] Hosp L3
[2023-12-13] MEDS: Carvedilol 12.5 MG Tablet PO ×2 (08:33→21:38)
[2023-12-13] MEDS: Furosemide 40 MG/4 ML Vial IV ×2 (08:33→17:07)
[2023-12-13] MEDS: Acetaminophen 325 MG Tablet 650 MG PO (08:33)
[2023-12-13] MEDS: Empagliflozin 10 MG Tablet PO (08:34)
[2023-12-13] MEDS: Losartan Potassium 50 MG Tablet PO (08:34)
[2023-12-13] MEDS: Cholecalciferol (VIT D3) 25 MCG TABLET (1,000 UNITS) PO (08:34)
[2023-12-13] MEDS: DULoxetine Hcl 30 MG Capsule PO (08:34)
[2023-12-13] MEDS: 0.9% Saline Lock 10 ML Syringe IV ×3 (08:34→17:07)
[2023-12-13] MEDS: Albuterol 2.5 MG/3 ML VIAL.NEB. INHALATION ×2 (08:38→16:29)
[2023-12-13] MEDS: Pantoprazole Sodium 40 MG in 0.9% Normal Saline (100mL MB+) 100 ML 330 MG IV ×2 (09:21→21:49)
[2023-12-13] MEDS: Sodium Ferric Gluconat 250 MG in 0.9% Normal Saline 250 ML 135 MG IV (10:57)
--- NOTE | 2023-12-13 12:25 | CON.PCM.CA_ITS ---
Assessment & Plan Assessment/Plan (1) Acute on chronic heart failure with preserved ejection fraction (HFpEF): PLAN: Started on IV diuretics. Continue beta-blockers, ARB. Agree with adding SGLT2 inhibitor. (2) Elevated troponin: PLAN: Most likely secondary to #1 above. Recommend Lexiscan stress Myoview. (3) Chronic atrial fibrillation: PLAN: On rivaroxaban. (4) Essential hypertension: PLAN: Beta-blockers, diuretics, angiotensin receptor aurelia. (5) Morbid obesity with BMI of 40.0-44.9, adult: PLAN: Lose weight. (6) HELGA on CPAP: PLAN: As per pulmonology. HPI Consult Data Date of Consult: 12/13/23 HPI Narrative Reason for Consultation: Elevated troponin HPI Narrative: This lady has past medical history significant for heart failure with preserved ejection fraction, hypertension, dyslipidemia and atrial fibrillation. She is admitted to the hospital with complaints of increasing shortness of breath over the last few days. Increased ankle swelling. She has sleep apnea and wears CPAP at night. Patient also complains of left shoulder discomfort. According to her, it has been constant over the last 1 month. Exacerbated with movement of the left shoulder. [facility] Medical History (Updated 12/13/23 @ 12:[address] Gunjan Sanchez MD) COVID-19 RSV bronchiolitis Pneumonia High cholesterol History of high blood pressure History of back problems Arthritis Stroke/cerebrovascular accident Right ventricular dilation Hyperlipidemia HELGA on CPAP Essential hypertension HELGA (obstructive sleep apnea) Asthma Chronic atrial fibrillation Non-rheumatic tricuspid valve insufficiency Secondary pulmonary arterial hypertension Morbid obesity with BMI of 40.0-44.9, adult H/O transient cerebral ischemia History of hypothyroidism Occlusion of carotid artery without cerebral infarction Home Medications ?Medication ?Instructions ?Recorded ?Last Taken ?Type pramipexole 0.25 mg tablet 0.25 mg PO QHS Check with primary 04/18/16 03/07/21 21:00 History doctor albuterol sulfate 90 mcg/actuation 1 puff inhalation Q6H PRN 03/12/21 Unknown Rx aerosol inhaler (ProAir HFA) shortness of breath or wheezing #6.7 grams losartan 50 mg tablet 50 mg PO DAILY 90 days #90 tabs 06/23/22 Unknown Rx carvedilol 12.5 mg tablet 12.5 mg PO BID #180 tabs 02/17/23 Unknown Rx cholecalciferol (vitamin D3) 25 25 mcg PO DAILY 03/11/23 Unknown History mcg (1,000 unit) capsule furosemide 40 mg tablet 60 mg PO .COMPLEX diuretic 03/11/23 Unknown History albuterol sulfate 2.5 mg/3 mL 2.5 mg inhalation Q4-6H PRN 06/08/23 Unknown History (0.083 %) solution for nebulization shortness of breath or wheezing fenofibrate nanocrystallized 48 mg 48 mg PO QHS #90 tabs 07/09/23 Unknown Rx tablet simvastatin 40 mg tablet 40 mg PO QHS #90 tabs 07/27/23 Unknown Rx rivaroxaban 20 mg tablet (Xarelto) See Rx Instructions .Route 09/04/23 Unknown Rx .COMPLEX #90 tabs levothyroxine 50 mcg tablet 50 mcg PO DAILY 12/12/23 Unknown History (Synthroid) baclofen 5 mg tablet 10 mg PO TID back pain 12/13/23 Unknown History duloxetine 30 mg capsule,delayed 30 mg PO DAILY chronic back pain 12/13/23 Unknown History release Allergy/AdvReac Type Severity Reaction Status Date / Time atorvastatin calcium (From Allergy Pain in Verified 12/07/23 13:14 Lipitor) joints Penicillins Allergy Rash Verified 12/07/23 13:14 pseudoephedrine Allergy Rash Verified 12/07/23 13:14 Sulfa (Sulfonamide Allergy Rash Verified 12/07/23 13:14 Antibiotics) hydrochlorothiazide AdvReac Nausea Verified 12/07/23 13:14 sulfamethoxazole (From AdvReac Nausea Verified 12/07/23 13:14 Bactrim) trimethoprim (From Bactrim) AdvReac Nausea Verified 12/07/23 13:14 Family History Mother CVA (cerebral vascular accident) Diabetes Father Brain aneurysm Surgical History Hx of cholecystectomy History of arthroscopy of left knee History of repair of right rotator cuff History of bunionectomy of both great toes Social History household members: family Smoking Status: Never smoker second hand exposure: No alcohol intake: current alcohol intake frequency: holidays/special occasions only Alcohol type: wine details: wine occasionally substance use type: does not use caffeine: Yes Type: coffee Number of servings: 1 what type of physical activity do you participate in: none luisa/latter day: Yazidi seatbelt use: always Physical Exam Narrative Comfortable. No apparent distress. Obese. Neck pain examination is difficult because of body habitus. Heart sounds 1 and 2 noted. Chest examination reveals decreased breath sounds at bilateral bases. Alert oriented x 3. 2+ bilateral ankle edema. Risk Stratification Risk Stratification Applicable: No Objective Data Vital Signs: Vital Signs Temp Pulse Resp BP Pulse Ox O2 Del Method O2 Flow Rate 98.1 F 67 20 H 143/70 H 96 Nasal Cannula 2 12/13/23 10:12 12/13/23 10:12 12/13/23 10:12 12/13/23 10:12 12/13/23 10:12 12/13/23 10:12 12/13/23 10:12 Oxygen Flow Rate (L/min) 2 Oxygen Delivery Method Nasal Cannula Weight: 221 lb 12.56 oz Body Mass Index (BMI) 43.3 Intake & Output: Intake and Output for Last 24 Hours 12/11/23 12/12/23 12/13/23 23:59 23:59 23:59 Intake Total 655 / 655 Output Total 1200 / 1200 Balance -545 / -545 Lab / Micro Data 12/13/23 03:50 12/13/23 03:50 Labs: Laboratory Results - last 24 hr 12/12/23 21:26: WBC 13.0 H, RBC 2.63 L, Hgb 8.7 L, Hct 28.7 L, MCV 109.1 H, MCH 33.1 H, MCHC 30.3 L, RDW Std Deviation 64.6 H, RDW Coeff of Gala 16.3 H, Plt Count 243, MPV 10.3, Sodium 137, Potassium 3.0 L, Chloride 100, Carbon Dioxide 29.0, Anion Gap 8, BUN 10, Creatinine 0.70, Estim Creat Clear Calc 56.77, Est GFR (MDRD) Af Amer 102, Est GFR (MDRD) Non-Af 84, BUN/Creatinine Ratio 14.2, G lucose 135 H, Calcium 9.0, Troponin I High Sens 30, B-Natriuretic Peptide 327.7 H 12/12/23 23:35: Troponin I High Sens 120 H 12/13/23 03:50: WBC 13.5 H, RBC 2.40 L, Hgb 8.1 L, Hct 26.3 L, MCV 109.6 H, MCH 33.8 H, MCHC 30.8 L, RDW Std Deviation 64.2 H, RDW Coeff of Gala 16.1 H, Plt Count 225, MPV 10.1, Immature Gran % (Auto) 1.000 H, Neut % (Auto) 70.6 H, Lymph % (Auto) 10.5 L, [place] % (Auto) 17.3 H, Eos % (Auto) 0.2, Baso % (Auto) 0.4, A bsolute Neuts (auto) 9.5 H, Absolute Lymphs (auto) 1.41, Nucleated RBC % 0, Differential Comment SCANNED, Diff Path Review August, Polychromasia RARE, R etic Count 7.04 H, Immature Retic Fraction 31.10 H, Retic Hgb Equivalent 32.0, Sodium 138, Potassium 3.3 L, Chloride 101, Carbon Dioxide 31.0, Anion Gap 6, BUN 9, Creatinine 0.75, Estim Creat Clear Calc 55.68, Est GFR (MDRD) Af Amer 95, Est GFR (MDRD) Non-Af 79, BUN/Creatinine Ratio 12.0, Glucose 149 H, Calcium 8.5, P hosphorus 2.0 L, Magnesium 1.6, Iron 28 L, TIBC 368, Iron Saturation 7.6 L, Ferritin 74, Total Bilirubin 1.60 H, AST 12 L, ALT 13, Alkaline Phosphatase 65, Troponin I High Sens 267 H*, Total Protein 6.1 L, Albumin 3.1 L, Globulin 3.0, Albumin/Globulin Ratio 1.0, Folate 6.70 Micro: Microbiology 12/12/23 21:26 Mucosa - Nasopharyngeal SARS-CoV-2, Influenza & RSV (PCR) - Final Rhythm Strip Rhythm Strip: A-fib Cardiology Labs/Tests 12/12/23 21:26: WBC 13.0 H, RBC 2.63 L, Hgb 8.7 L, Hct 28.7 L, MCV 109.1 H, MCH 33.1 H, MCHC 30.3 L, Plt Count 243, MPV 10.3, Sodium 137, Potassium 3.0 L, Chloride 100, Carbon Dioxide 29.0, Anion Gap 8, BUN 10, Creatinine 0.70, Est GFR (MDRD) Af Amer 102, Est GFR (MDRD) Non-Af 84, BUN/Creatinine Ratio 14.2, Glucose 135 H, Calcium 9.0, B-Natriuretic Peptide 327.7 H 12/13/23 03:50: WBC 13.5 H, RBC 2.40 L, Hgb 8.1 L, Hct 26.3 L, MCV 109.6 H, MCH 33.8 H, MCHC 30.8 L, Plt Count 225, MPV 10.1, Immature Gran % (Auto) 1.000 H, N eut % (Auto) 70.6 H, Lymph % (Auto) 10.5 L, [place] % (Auto) 17.3 H, Eos % (Auto) 0.2, Baso % (Auto) 0.4, Absolute Neuts (auto) 9.5 H, Nucleated RBC % 0, Sodium 138, Potassium 3.3 L, Chloride 101, Carbon Dioxide 31.0, Anion Gap 6, BUN 9, Creatinine 0.75, Est GFR (MDRD) Af Amer 95, Est GFR (MDRD) Non-Af 79, BUN/Creatinine Ratio 12.0, Glucose 149 H, Calcium 8.5, Phosphorus 2.0 L, Magnesium 1.6, Iron 28 L, TIBC 368, Iron Saturation 7.6 L, Ferritin 74, Total Bilirubin 1.60 H Rhythm: EKG: Atrial fibrillation. ECHO: Stress Test: Cardiac Cath: PCI: CT Surgery: Holter monitor: EPS: PPM: CXR: Chest CT Scan: Radiography Diagnostic Testing: Radiology Impression Chest X-Ray 12/12/23 21:35 IMPRESSION: Hazy lung opacities likely mild edema. No evidence of active intrathoracic disease. Electronically Signed: Susan Pabon MD at 22:16 EDT ,
[2023-12-13] MEDS: Na Biphos/Potassium Phosphate PACKET 1 PACKET PO ×2 (13:25→21:39)
[2023-12-13] MEDS: Simvastatin 20 MG Tablet 40 MG PO (21:38)
[2023-12-13] MEDS: Fenofibrate 48 MG Tablet PO (21:39)
[2023-12-13] MEDS: hydrALAZINE 20 MG/ML Vial 10 MG IV (22:35)
[2023-12-13] MEDS: LORazepam 0.5 MG Tablet PO (23:45)
[2023-12-14] VITALS (11 sets, daily range): BP systolic 113–178; BP diastolic 68–100; PULSE 60–72; RESP 18–20; TEMP 36.1–36.4; O2SAT 90–99; BMI 43.4
[2023-12-14] MEDS: Acetaminophen 325 MG Tablet 650 MG PO (00:38)
[2023-12-14] MEDS: Albuterol 2.5 MG/3 ML VIAL.NEB. INHALATION (01:03)
--- NOTE | 2023-12-14 01:19 | CPS ---
2L oxygen bled in with Home BIPAP
--- NOTE | 2023-12-14 05:00 | EKG12_ITS ---
Test Reason : STRESS TEST Blood Pressure : / mmHG Vent. Rate : 071 BPM Atrial Rate : 000 BPM P-R Int : 000 ms QRS Dur : 070 ms QT Int : 406 ms P-R-T Axes : 000 035 064 degrees QTc Int : 441 ms Atrial fibrillation Low voltage QRS Cannot rule out Anteroseptal infarct , age undetermined Abnormal ECG When compared with ECG of 12-DEC-2023 21:15, MANUAL COMPARISON REQUIRED, DATA IS UNCONFIRMED Confirmed by Gregorio Ruiz ([id number]), purchase request editor ALTAGRACIA ABARCA ([id number]) on 12/14/2023 1:41:24 PM Referred By: Confirmed By:Gregorio Ruiz
[2023-12-14 05:41] LABS: Absolute Lymphocyte Count 1.46 X10^3/uL (0.83-4.51); Absolute Neutrophil Count 9.1 X10^3/uL (2.0-7.7); Basophil# 0.09 X10^3/uL; Basophil% 0.7 % (0-1); Eosinophil# 0.07 X10^3/uL; Eosinophils% 0.5 % (0-5); Hematocrit 28.4 % (37-47); Hemoglobin 8.4 g/dL (12.0-15.0); Lymphocyte # 1.46 X10^3/ul (0.83-4.51); Mean Corp Hgb Conc 29.6 g/dL (32-36); Mean Corpuscular Hgb 32.8 pg (27.0-32.0); Mean Corpuscular Volume 110.9 fL (81-99); Mean Platelet Vol. 10.7 fl (6.2-12.0); Monocyte# 2.38 X10^3/uL; Monocyte% 17.9 % (0-10); NRBC Flagged by Analyzer 0 % (0-5); Neutrophil # 9.11 X10^3/uL (2.7-7.7); Neutrophil % 68.5 % (47-70); POSITIVE DIFFERENTIAL YES; POSITIVE MORPHOLOGY YES; Platelet Count 247 K/mm3 (150-450); RBC Distribution Width CV 16.2 % (11.6-14.6); RBC Distribution Width SD 66.6 fl (35.1-43.9); Red Blood Count 2.56 M/mm3 (4.2-5.4); White Blood Count 13.3 K/mm3 (4.4-11.0)
[2023-12-14] MEDS: Levothyroxine 50 MCG Tablet PO (05:58)
[2023-12-14] MEDS: Baclofen 10 MG Tablet PO ×3 (05:58→22:50)
[2023-12-14] MEDS: Losartan Potassium 50 MG Tablet PO (05:58)
[2023-12-14 06:01] LABS: Anion Gap 7 (5-15); BUN 13 mg/dL (7-18); BUN/Creat Ratio 16.5 RATIO (10-20); Calcium,Total 9.4 mg/dL (8.5-10.1); Chloride 104 mmol/L (98-107); Creatinine, Serum 0.79 mg/dL (0.55-1.02); EST Glomerular Filtration Rate 74 mL/min (>60); Est Glom Filt Rate - Afr Amer 90 mL/min (>60); Estimated Creatinine Clearance 55.81 ml/min; Glucose 115 mg/dL (74-106); Potassium 3.8 mmol/L (3.5-5.1); Sodium Level 141 mmol/L (136-145)
[2023-12-14 06:27] LABS: Differential Indicated SCAN CRITERIA MET
--- NOTE | 2023-12-14 11:05 | CASEMGMT ---
Addendum entered by Esme Pandey 12/14/23 11:41: Pt currently using O2 in room, family reports pt does not use O2 at home. ANDREW PONCE provided family with verbal list of local DME providers, pt family chose [facility] for O2 needs if pt needs oxygen at time of DC. Original Note: ANDREW PONCE Assessment: Face to Face with pt for initial transition planning/care coordination assessment. ANDREW PONCE introduced self and role at [facility], pt voices understanding and consents to assessment. Pt resting in chair, in and out of sleep during assessment. Pt daughter and granddaughter in room, pt agreeable to family being present and assisting with questions. Care providers, pharmacy, and demographics verified/updated. Strata: 3 Admitting Dx: Hypoxia secondary to acute on chronic HFPEF PCP: Jessie Specialists: Jessica cardio; Roland pulmonology [facility]: yes LNOK: Daughter, grandson Living Arrangements: Pt lives alone in a 1 story home with a ramp to enter. Pt family reports they have home health aides coming into the home 5 days a week from 12-23 and daughter going every Thursday. Family plans to add Thursday's as well and extend time during the day. ADLs: Pt needs assistance with bathing and getting dressed. Home health aides assist with ADLs and taking pt to appointments as well as grocery shopping. [facility] is agency. DME: CPAP, walker, wheelchair, shower bench. Pt family states no concerns with going home at time of dc. Pt family states no further concerns/needs. CM to follow. Advised pt to ask CM if any further question/concerns/needs arise, voices understanding. Pt Goal: Home with private duty aides. Plan: Home with private duty aides, ANDREW PONCE follow therapy, O2 needs and plan of care. Angeline MORALES CM
[2023-12-14 11:08] LABS: Vitamin B12 311 pg/mL (211-911)
--- NOTE | 2023-12-14 11:31 | STRESSREP_ITS ---
Stress Test Report Date: 12/14/2023 Procedure: Pharmacologic stress nuclear imaging study Indications: Chest pain Consent: Per the patient Procedure: The patient underwent pharmacologic (Regadenoson 0.4mg ) evaluation with a peak heart rate of 75 beats per minute (55%predicted maximal heart rate) and a peak blood pressure of 132/82 mmHg. The baseline ECG demonstrated atrial fibrillation with nonspecific ST changes. The peak pharmacologic ECG demonstrated no diagnostic ischemic changes. Rare PVCs noted. There was no complaint of chest discomfort during pharmacologic infusion or recovery. The patient was injected with 14.6 millicuries of technetium 99m Cardiolite and subsequently rest SPECT Cardiolite nuclear imaging was obtained in the horizontal long, vertical long, and short axis views. The patient underwent pharmacologic (Regadenoson) evaluation. The patient was injected with 44.8 millicuries of technetium 99m Cardiolite and subsequently stress SPECT Cardiolite nuclear imaging was obtained in the horizontal long, vertical long, and short axis views. A gated Cardiolite study at peak stress was obtained. The examination was stopped secondary to completion of protocol. Rest and stress SPECT Cardiolite nuclear imaging status post realignment, normalization, and attenuation correction demonstrate no fixed or reversible pe rfusion defects. There is end systolic thickening and brightening. The gated Cardiolite study demonstrates myocardial thickening and inward wall motion. The reported LVEF is 80%. Impression: 1. Pharmacologic (Regadenoson) evaluation 2. Peak pharmacologic ECG with no ischemic changes. 3. No significant cardiac dysrhythmias pretest, during infusion or recovery. 5. Rest and stress SPECT Cardiolite nuclear imaging demonstrate relative uniform tracer uptake and myocardial perfusion appearing within normal limits. 6. The gated Cardiolite study reports an LVEF of 80%. This note was generated with [employer] software. It may contain incorrect words, spelling, and punctuation that were not noted in checking the note before signing.
[2023-12-14 11:50] LABS: Pathologist Review Reviewed
[2023-12-14] MEDS: Iron Polysaccharide Complex 150 MG CAPSULE PO (12:08)
[2023-12-14] MEDS: Na Biphos/Potassium Phosphate PACKET 1 PACKET PO ×2 (12:08→22:48)
[2023-12-14] MEDS: DULoxetine Hcl 30 MG Capsule PO (12:08)
[2023-12-14] MEDS: Cholecalciferol (VIT D3) 25 MCG TABLET (1,000 UNITS) PO (12:08)
[2023-12-14] MEDS: Carvedilol 12.5 MG Tablet PO ×2 (12:09→22:49)
[2023-12-14] MEDS: Furosemide 40 MG/4 ML Vial IV ×2 (12:09→18:42)
[2023-12-14] MEDS: 0.9% Saline Lock 10 ML Syringe IV ×3 (12:35→23:10)
[2023-12-14] MEDS: Pantoprazole Sodium 40 MG in 0.9% Normal Saline (100mL MB+) 100 ML 330 MG IV ×2 (12:38→23:09)
[2023-12-14] MEDS: Empagliflozin 10 MG Tablet PO (12:42)
--- NOTE | 2023-12-14 16:09 | PN.CARD_ITS ---
Subjective Subjective The patient remains in atrial fibrillation with a controlled ventricular response. She denies any anginal type symptoms. She underwent pharmacologic nuclear stress test today which was negative for ischemia. Her echocardiogram done earlier showed an ejection fraction of 65% with severe biatrial enlargement mild mitral regurgitation mild to moderate tricuspid regurgitation. The patient tolerates her Xarelto without any nuisance bleeding. She is anemic with a hemoglobin of 8.4. The patient was resting comfortably in the seated position in her chair when I evaluated her. Objective Data Vital Signs: Vital Signs Temp Pulse Resp BP Pulse Ox O2 Del Method O2 Flow Rate 97.6 F L 67 18 139/76 H 97 Nasal Cannula 2 12/14/23 15:54 12/14/23 15:54 12/14/23 15:54 12/14/23 15:54 12/14/23 15:54 12/14/23 15:54 12/14/23 15:54 Oxygen Flow Rate (L/min) 2 Oxygen Delivery Method Nasal Cannula Weight: 222 lb 3.615 oz Body Mass Index (BMI) 43.4 Intake & Output: Intake and Output for Last 24 Hours 12/12/23 12/13/23 12/14/23 23:59 23:59 23:59 Intake Total 1635 / 1635 110 / 110 Output Total 2600 / 2600 250 / 250 Balance -965 / -965 -140 / -140 Lab / Micro Data Attestation: I reviewed the patient's lab results. 12/14/23 05:20 12/14/23 05:20 Labs: Laboratory Results - last 24 hr 12/13/23 03:50: Diff Path Review Reviewed, Vitamin B12 311 12/14/23 05:20: WBC 13.3 H, RBC 2.56 L, Hgb 8.4 L, Hct 28.4 L, MCV 110.9 H, MCH 32.8 H, MCHC 29.6 L, RDW Std Deviation 66.6 H, RDW Coeff of Gala 16.2 H, Plt Count 247, MPV 10.7, Immature Gran % (Auto) 1.400 H, Neut % (Auto) 68.5, Lymph % (Auto) 11.0 L, [place] % (Auto) 17.9 H, Eos % (Auto) 0.5, Baso % (Auto) 0.7, A bsolute Neuts (auto) 9.1 H, Absolute Lymphs (auto) 1.46, Nucleated RBC % 0, Diff Path Review May foll, Sodium 141, Potassium 3.8, Chloride 104, Carbon Dioxide 30.0, Anion Gap 7, BUN 13, Creatinine 0.79, Estim Creat Clear Calc 55.81, Est GFR (MDRD) Af Amer 90, Est GFR (MDRD) Non-Af 74, BUN/Creatinine Ratio 16.5, G lucose 115 H, Calcium 9.4 Rhythm Strip Rhythm Strip: A-fib Rate: 70 Cardiology Labs/Tests 12/14/23 05:20: WBC 13.3 H, RBC 2.56 L, Hgb 8.4 L, Hct 28.4 L, MCV 110.9 H, MCH 32.8 H, MCHC 29.6 L, Plt Count 247, MPV 10.7, Immature Gran % (Auto) 1.400 H, Neut % (Auto) 68.5, Lymph % (Auto) 11.0 L, [place] % (Auto) 17.9 H, Eos % (Auto) 0.5, Baso % (Auto) 0.7, Absolute Neuts (auto) 9.1 H, Nucleated RBC % 0, Sodium 141, Potassium 3.8, Chloride 104, Carbon Dioxide 30.0, Anion Gap 7, BUN 13, Creatinine 0.79, Est GFR (MDRD) Af Amer 90, Est GFR (MDRD) Non-Af 74, BUN/Creatinine Ratio 16.5, Glucose 115 H, Calcium 9.4 Rhythm: EKG: ECHO: Stress Test: Cardiac Cath: PCI: CT Surgery: Holter monitor: EPS: PPM: CXR: Chest CT Scan: Radiography Diagnostic Testing: Radiology Impression Echocardiogram 12/13/23 00:40 Interpretation Summary The left ventricular ejection fraction is 65 %. Stage 3 diastolic dysfunction. There is severe biatrial dilatation. Mild (1+) mitral valve insufficiency. Mild to moderate (1-2+) tricuspid valve insufficiency. Right ventricular systolic pressure estimated to be 66 mmHg. Mild (1+) aortic valve insufficiency. The study was technically difficult. Ordering Physician: Kaelyn Carlos Performed By: Arden Barber RCS Physical Exam Const alert and oriented x3 HEENT normocephalic Eyes EOMs intact bilaterally Neck no JVD Chest inspection of chest normal Resp normal respiratory effort Auscultation: diminished lung sounds bilateral lower Cardio regular rate Rate: regular rate Rhythm: abnormal rhythm irregularly irregular Heart Sounds: S1 normal and S2 normal; Negative for gallop, murmur or rub Extremity General Extremity: edema bilateral lower extremity Details: mild Skin General Skin Exam: ecchymosis Neuro Neuro Narrative: Alert and oriented x 3 Psych mental status grossly normal Assessment & Plan Assessment/Plan (1) Acute on chronic heart failure with preserved ejection fraction (HFpEF): PLAN: Patient has a history of chronic heart failure with preserved ejection fraction. Her BNP was elevated in the 300s on admission and this was up from 112 previous testing back in January 2023. She does have some lower extremity edema. She is also in atrial fibrillation. Currently the patient was resting comfortably in the seated position in her chair. The patient should be continued on her carvedilol and furosemide as well as her losartan. From a cardiovascular standpoint she appears to be at baseline. Patient's pharmacologic stress test showed no evidence of ischemia and her LV ejection fraction is preserved. LVEF is 65%. (2) Chronic atrial fibrillation: PLAN: Patient's heart rate is well-controlled and her chronic atrial fibrillation she is tolerating Xarelto although she is anemic at 8.4 hemoglobin. This needs to be monitored in the ambulatory setting. (3) Anemia: QUALIFIERS: Anemia type: unspecified type Qualified Code(s): D 64.9 - Anemia, unspecified PLAN: Uncertain etiology hemoglobin of 8.4 which is up from 8.1 on previous parts of this hospitalization. PLAN: Plan 1. Recommend continue current medical therapy. 2. Patient should follow-up in the [facility] in the next 10 to 14 days or with her devops consultant of choice. 3. From a cardiovascular standpoint no further evaluation is indicated at this point in time. Charges/Coding Visit Charges Inpatient E&M: 21255 Subs Hosp L2
--- NOTE | 2023-12-14 16:38 | CHAPLAIN ---
Type of Pastoral Visit ___ Initial Visit ___ Follow-up Visit ___ On-call Visit ___ General Patient Visit ___ Spiritual Assessment ___ Family Conference ___ Bereavement ___ Rapid Response ___ Code Blue ___ Other (describe below) Pastoral Care Referral From ___ Patient ___ Family ___ Nurse ___ Physician ___ 3Rd Grade Teacher ___ Lead Advisor ___ Other (describe below) Sacrament/Intervention ___ Active listening ___ Anointing ___ Christianity ___ Bereavement ___ Communion ___ Gela exploration ___ ___ Life review ___ Prayer ___ Reconciliation ___ Sacrament of Sick ___ Supportive presence ___ Wedding ___ Other (describe below) Pastoral Comments patient was sleeping at time of attempted visit
--- NOTE | 2023-12-14 16:45 | PN.HOSP_ITS ---
Subjective Subjective Doing well, she had some anxiety overnight was given Ativan, this morning she was little bit confused and disoriented Objective Data Objective Data Vital Signs: Vital Signs Temp Pulse Resp BP Pulse Ox O2 Del Method O2 Flow Rate 97.6 F L 67 18 139/76 H 97 Nasal Cannula 2 12/14/23 15:54 12/14/23 15:54 12/14/23 15:54 12/14/23 15:54 12/14/23 15:54 12/14/23 15:54 12/14/23 15:54 Oxygen Flow Rate (L/min) 2 Oxygen Delivery Method Nasal Cannula Weight: 222 lb 3.615 oz Body Mass Index (BMI) 43.4 Intake & Output: Intake and Output for Last 24 Hours 12/13/23 12/14/23 12/15/23 03:59 03:59 03:59 Intake Total 305 / 305 1330 / 1330 110 / 110 Output Total 2600 / 2600 250 / 250 Balance 305 / 305 -1270 / -1270 -140 / -140 Lab / Micro Data 12/14/23 05:20 12/14/23 05:20 Labs: Laboratory Results - last 24 hr 12/13/23 03:50: Diff Path Review Reviewed, Vitamin B12 311 12/14/23 05:20: WBC 13.3 H, RBC 2.56 L, Hgb 8.4 L, Hct 28.4 L, MCV 110.9 H, MCH 32.8 H, MCHC 29.6 L, RDW Std Deviation 66.6 H, RDW Coeff of Gala 16.2 H, Plt Count 247, MPV 10.7, Immature Gran % (Auto) 1.400 H, Neut % (Auto) 68.5, Lymph % (Auto) 11.0 L, [place] % (Auto) 17.9 H, Eos % (Auto) 0.5, Baso % (Auto) 0.7, A bsolute Neuts (auto) 9.1 H, Absolute Lymphs (auto) 1.46, Nucleated RBC % 0, Diff Path Review May , Sodium 141, Potassium 3.8, Chloride 104, Carbon Dioxide 30.0, Anion Gap 7, BUN 13, Creatinine 0.79, Estim Creat Clear Calc 55.81, Est GFR (MDRD) Af Amer 90, Est GFR (MDRD) Non-Af 74, BUN/Creatinine Ratio 16.5, G lucose 115 H, Calcium 9.4 Micro: Microbiology 12/12/23 21:26 Mucosa - Nasopharyngeal SARS-CoV-2, Influenza & RSV (PCR) - Final Radiography Diagnostic Testing: Radiology Impression Echocardiogram 12/13/23 00:40 Interpretation Summary The left ventricular ejection fraction is 65 %. Stage 3 diastolic dysfunction. There is severe biatrial dilatation. Mild (1+) mitral valve insufficiency. Mild to moderate (1-2+) tricuspid valve insufficiency. Right ventricular systolic pressure estimated to be 66 mmHg. Mild (1+) aortic valve insufficiency. The study was technically difficult. Ordering Physician: Kaelyn Carlos Performed By: Arden Barber RCS Rhythm Strip Rhythm Strip: A-fib Rate: 70 Physical Exam Narrative General: Alert, disoriented, Cooperative, No apparent distress HEENT: Atraumatic, PERRLA, EOMI, Normocephalic Oral: Moist Mucosa Neck: Supple, No JVD Lungs: Diminished, Normal air movement, No rhonchi, No wheeze, No rales Cardiovascular: Regular rate irregular rhythm, Normal S1, Normal S2, No murmurs Abdomen: Soft, Non Tender, Non-Distended, No Hepato-splenomegaly Extremities: Edema, Capillary Refill Less than 3 Seconds Skin: No rashes, No breakdown Musculoskeletal: No Tenderness to Palpation of Joints or Extremities Neurological: No focal neurological deficits, Motor Exam 5/5 strength throughout, Sensory exam intact to light touch and pain Psych/Mental Status: Normal Affect, Appropriate Assessment & Plan Assessment/Plan (1) Hypoxia: (2) Shortness of breath: (3) Acute on chronic heart failure with preserved ejection fraction (HFpEF): (4) Hypertensive urgency: (5) Leukocytosis: (6) Anemia: QUALIFIERS: Anemia type: unspecified type Qualified Code(s): D 64.9 - Anemia, unspecified (7) Hypokalemia: (8) Elevated brain natriuretic peptide (BNP) level: PLAN: Plan 1. Acute hypoxia ? Secondary to acute congestive heart failure with preserved ejection fraction. 2D echo from 03/18/2023 demonstrated EF of 65% with stage III diastolic dysfunction and pulmonary artery pressure of 44 mmHg. Patient has been admitted to a monitored bed. Managed with strict input and output, daily weight, fluid restriction, low-sodium diet as well as diuretic therapy.Repeat echo ordered for subsequent eval 12/14/2023: Continue with IV diuresis will likely need 94 pulse ox prior to discharge 2. Acute non-STEMI ? Patient presented with progressive dyspnea as well as chest pain. Troponin admission was 30 continues to climb. Troponin from this a.m. was 267. Echo ordered. Patient remains on therapy with beta-blockers ARB statin therapy added aspirin. Consultation was placed to cardiology on admission 12/14/2023: Appreciate cardiology's assistance, continue with current medical management 3. Hypokalemia -Corrected per protocol 4. Macrocytic anemia ? Subsequent eval with B12 folic acid stool guaiac ordered. Iron studies came back consistent with iron deficiency anemia patient ordered parenteral iron 5. Hypophosphatemia ? Corrected per protocol 6. Chronic A-fib ? Rate controlled on systemic anticoagulation with rivaroxaban 7. Hypothyroidism ? Patient is on levothyroxine home dose continued 8. Dyslipidemia ?Patient is on statin and fibrate therapy, continued at home dose 9. Acute hypertensive emergency ? Patient presented with markedly elevated blood pressure?235/119 with evidence of endorgan damage i.e. congestive heart failure as well as elevated troponin. Treatment initiated per protocol patient blood pressure control has since improved 12/14/2023: Resolved 10. Restless leg syndrome ? Patient is on pramipexole continued 11. Obstructive sleep apnea ? Consistent use of PAP therapy encouraged 12. Class III obesity with BMI of 43.3 ? Complicating care weight loss advised DVT: Xarelto Charges/Coding Visit Charges Inpatient E&M: 31476 Subs Hosp L2
--- NOTE | 2023-12-14 19:06 | CON.PCM.GI_ITS ---
HPI Consult Data Date of Consult: 12/14/23 HPI Narrative Reason for Consultation: Anemia HPI Narrative: SIS CANELA, is a 83 F 83 F who presented to the emergency department at [facility] on 12/12/2023 with a chief complaint of shortness of breath. She has had progressively worsening shortness of breath most notably with exertion since October. She reported increased swelling in her legs and she thinks that her weight is gone up but she does not weigh herself on a regular basis. She has known severe diastolic dysfunction and previously normal EF. She states she has been compliant with her home medications including her rivaroxaban. She denies any significant cough, fever, chills, she has had no URI symptoms recently and has been moving her bowels normally. Vital signs on presentation showed a temperature of 98.8, heart rate 74, respiratory rate 20, initial blood pressure was 235/119 but repeat was 121/75, oxygen saturations were 93% on 2 L nasal cannula. Upon EMS arrival she was noted to be satting 88% on room air. CBC shows a mild leukocytosis with a white count of 13. I was called to see her because she has a new anemia when compared to previous having a hemoglobin of 8.7 (baseline hemoglobin had been running between 10 and 12 in late last year. Initial troponin was 30 but delta of troponin went up to 120., BNP was 327.7. EKG showed atrial fibrillation that is rate controlled and no ST-T wave changes concerning for acute ischemia. Chest x-ray was consistent with hazy bilateral lung opacities consistent with edema She is currently being seen by cardiology. [facility] Medical History (Updated 12/14/23 @ 16:[address] Gregorio Ruiz MD) COVID-19 RSV bronchiolitis Pneumonia High cholesterol History of high blood pressure History of back problems Arthritis Stroke/cerebrovascular accident Right ventricular dilation Hyperlipidemia HELGA on CPAP Essential hypertension HELGA (obstructive sleep apnea) Asthma Chronic atrial fibrillation Non-rheumatic tricuspid valve insufficiency Secondary pulmonary arterial hypertension Morbid obesity with BMI of 40.0-44.9, adult H/O transient cerebral ischemia History of hypothyroidism Occlusion of carotid artery without cerebral infarction Home Medications ?Medication ?Instructions ?Recorded ?Last Taken ?Type pramipexole 0.25 mg tablet 0.25 mg PO BID Check with primary 04/18/16 03/07/21 21:00 History doctor albuterol sulfate 90 mcg/actuation 1 puff inhalation Q6H PRN 03/12/21 Unknown Rx aerosol inhaler (ProAir HFA) shortness of breath or wheezing #6.7 grams losartan 50 mg tablet 50 mg PO DAILY 90 days #90 tabs 06/23/22 Unknown Rx carvedilol 12.5 mg tablet 12.5 mg PO BID #180 tabs 02/17/23 Unknown Rx cholecalciferol (vitamin D3) 25 25 mcg PO DAILY 03/11/23 Unknown History mcg (1,000 unit) capsule furosemide 40 mg tablet 60 mg PO .COMPLEX diuretic 03/11/23 Unknown History albuterol sulfate 2.5 mg/3 mL 2.5 mg inhalation Q4-6H PRN 06/08/23 Unknown History (0.083 %) solution for nebulization shortness of breath or wheezing fenofibrate nanocrystallized 48 mg 48 mg PO QHS #90 tabs 07/09/23 Unknown Rx tablet simvastatin 40 mg tablet 40 mg PO QHS #90 tabs 07/27/23 Unknown Rx rivaroxaban 20 mg tablet (Xarelto) See Rx Instructions .Route 09/04/23 Unknown Rx .COMPLEX #90 tabs levothyroxine 50 mcg tablet 50 mcg PO DAILY 12/12/23 Unknown History (Synthroid) baclofen 5 mg tablet 10 mg PO TID back pain 12/13/23 Unknown History duloxetine 30 mg capsule,delayed 30 mg PO DAILY chronic back pain 12/13/23 Unknown History release Allergy/AdvReac Type Severity Reaction Status Date / Time atorvastatin calcium (From Allergy Pain in Verified 12/07/23 13:14 Lipitor) joints Penicillins Allergy Rash Verified 12/07/23 13:14 pseudoephedrine Allergy Rash Verified 12/07/23 13:14 Sulfa (Sulfonamide Allergy Rash Verified 12/07/23 13:14 Antibiotics) hydrochlorothiazide AdvReac Nausea Verified 12/07/23 13:14 sulfamethoxazole (From AdvReac Nausea Verified 12/07/23 13:14 Bactrim) trimethoprim (From Bactrim) AdvReac Nausea Verified 12/07/23 13:14 Family History Mother CVA (cerebral vascular accident) Diabetes Father Brain aneurysm Surgical History Hx of cholecystectomy History of arthroscopy of left knee History of repair of right rotator cuff History of bunionectomy of both great toes Social History household members: family Smoking Status: Never smoker second hand exposure: No alcohol intake: current alcohol intake frequency: holidays/special occasions only Alcohol type: wine details: wine occasionally substance use type: does not use caffeine: Yes Type: coffee Number of servings: 1 what type of physical activity do you participate in: none luisa/episcopal: Anabaptism seatbelt use: always ROS Constitutional Constitutional: Reports fatigue; Denies anorexia, change in weight, chills, fever(s), malaise, night sweats, weakness or other Eyes Eyes: Denies blurry vision, change in eye color, change in vision, discharge from eye(s), double vision, erythema, eye pain, loss of vision or other ENT HEENT: Denies abnormal hearing, dysphagia, ear pain, epistaxis, headache(s), hearing loss, nasal congestion, nasal discharge, post nasal drip, sinus pressure, sore throat or other Cardiovascular Cardiovascular: Reports chest pain, dyspnea on exertion, edema and orthopnea; Denies claudication, lightheadedness, palpitations, paroxysmal nocturnal dyspnea, rapid heart rate, syncope or other Respiratory/Chest Respiratory/Chest: Reports dyspnea, shortness of breath at rest and shortness of breath with exertion; Denies cough, excessive phlegm production, hemoptysis, productive cough, wheezing or other Gastrointestinal Gastrointestinal: Denies abdominal pain, coffee ground emesis, constipation, diarrhea, dyspepsia, hematemesis, hematochezia, loose stools, melena, nausea, vomiting or other Genitourinary Genitourinary: Denies burning urination, difficulty urinating, dysuria, hematuria, nocturia, urinary frequency, urinary hesitancy, urinary incontinence, urinary urgency or other Musculoskeletal Musculoskeletal: Reports back pain and other Details: Left shoulder discomfort ; Denies arthralgias, joint pain, joint stiffness, joint swelling, myalgias or neck pain Neurologic Neurologic: Denies abnormal gait, abnormal speech, confusion, disequilibrium, dizziness, focal weakness, headache(s), numbness, paresthesias, seizure-like activity, seizures, syncope, tingling, tremor(s) or other Psychiatric Psychiatric: Denies anxiety, depression, homicidal ideation, suicidal ideation or other Endocrine Endocrinology: Denies change in body appearance, cold intolerance, excessive sweating, heat intolerance, polydipsia, polyuria or other Hematologic/Lymphatic Hematologic/Lymphatic: Reports anemia, easy bleeding and easy bruising; Denies lymphadenopathy or other Allergic/Immunologic Allergic/Immunologic: Denies rhinitis, hives, eczemia, asthma or other Physical Exam Narrative General: Alert, disoriented, Cooperative, No apparent distress HEENT: Atraumatic, PERRLA, EOMI, Normocephalic Oral: Moist Mucosa Neck: Supple, No JVD Lungs: Diminished, Normal air movement, No rhonchi, No wheeze, No rales Cardiovascular: Regular rate irregular rhythm, Normal S1, Normal S2, No murmurs Abdomen: Soft, Non Tender, Non-Distended, No Hepato-splenomegaly Extremities: Edema, Capillary Refill Less than 3 Seconds Skin: No rashes, No breakdown Musculoskeletal: No Tenderness to Palpation of Joints or Extremities Neurological: No focal neurological deficits, Motor Exam 5/5 strength throughout, Sensory exam intact to light touch and pain Psych/Mental Status: Normal Affect, Appropriate Lab / Micro Data 12/14/23 05:20 12/14/23 05:20 Labs: Laboratory Results - last 24 hr 12/13/23 03:50: Diff Path Review Reviewed, Vitamin B12 311 12/14/23 05:20: WBC 13.3 H, RBC 2.56 L, Hgb 8.4 L, Hct 28.4 L, MCV 110.9 H, MCH 32.8 H, MCHC 29.6 L, RDW Std Deviation 66.6 H, RDW Coeff of Gala 16.2 H, Plt Count 247, MPV 10.7, Immature Gran % (Auto) 1.400 H, Neut % (Auto) 68.5, Lymph % (Auto) 11.0 L, [place] % (Auto) 17.9 H, Eos % (Auto) 0.5, Baso % (Auto) 0.7, A bsolute Neuts (auto) 9.1 H, Absolute Lymphs (auto) 1.46, Nucleated RBC % 0, Diff Path Review May foll, Sodium 141, Potassium 3.8, Chloride 104, Carbon Dioxide 30.0, Anion Gap 7, BUN 13, Creatinine 0.79, Estim Creat Clear Calc 55.81, Est GFR (MDRD) Af Amer 90, Est GFR (MDRD) Non-Af 74, BUN/Creatinine Ratio 16.5, G lucose 115 H, Calcium 9.4 Rhythm Strip Rhythm Strip: A-fib Rate: 70 Imaging Radiology Impression Echocardiogram 12/13/23 00:40 Interpretation Summary The left ventricular ejection fraction is 65 %. Stage 3 diastolic dysfunction. There is severe biatrial dilatation. Mild (1+) mitral valve insufficiency. Mild to moderate (1-2+) tricuspid valve insufficiency. Right ventricular systolic pressure estimated to be 66 mmHg. Mild (1+) aortic valve insufficiency. The study was technically difficult. Ordering Physician: Kaelyn Carlos Performed By: Arden Barber RCS Assessment & Plan Assessment/Plan (1) Hypoxia: (2) Shortness of breath: (3) Acute on chronic heart failure with preserved ejection fraction (HFpEF): (4) Hypertensive urgency: (5) Leukocytosis: (6) Hypokalemia: (7) Elevated brain natriuretic peptide (BNP) level: PLAN: Plan 83-year-old with multiple comorbidities including atrial fibrillation and CHF on Xarelto and medical therapy presents with shortness of breath and discovered to have CHF exacerbation. As per cardiology patient's heart rate is well- controlled and her chronic atrial fibrillation she is tolerating Xarelto although she is anemic at 8.4 hemoglobin. T Macrocytic anemia and iron deficiency anemia -She is guaiac positive -Ferritin is 74, iron is 28, TIBC 368, iron sat is 7.6 -Differential diagnosis for this would include atrophic gastritis, pernicious anemia, celiac disease, angiodysplasia, Guido's erosions, gastric antral vascular ectasia, sliding hiatal hernia, peptic ulcer disease from Xarelto. These are all entities that can be seen in upper GI tract. I would pursue an upper endoscopy prior to her getting a colonoscopy as her hemoglobin has decreased. She would also get antiparietal cell antibodies and antiintrinsic factor antibodies along with getting B12 and folate levels. Charges/Coding Visit Charges Inpatient E&M: 81900 Init Hosp L3
[2023-12-14] MEDS: Pramipexole Di-HCl 0.25 MG Tablet PO (22:47)
[2023-12-14] MEDS: Fenofibrate 48 MG Tablet PO (22:48)
[2023-12-14] MEDS: Simvastatin 20 MG Tablet 40 MG PO (22:49)
[2023-12-15] VITALS (8 sets, daily range): BP systolic 115–169; BP diastolic 69–89; PULSE 54–98; RESP 16–20; TEMP 36.6–36.9; O2SAT 93–98; BMI 43.3
[2023-12-15] MEDS: Levothyroxine 50 MCG Tablet PO (05:57)
[2023-12-15] MEDS: Baclofen 10 MG Tablet PO ×3 (05:57→22:23)
[2023-12-15 06:24] LABS: Absolute Lymphocyte Count 1.08 X10^3/uL (0.83-4.51); Absolute Neutrophil Count 7.5 X10^3/uL (2.0-7.7); Basophil# 0.06 X10^3/uL; Basophil% 0.6 % (0-1); Eosinophil# 0.17 X10^3/uL; Eosinophils% 1.6 % (0-5); Hematocrit 27.4 % (37-47); Lymphocyte # 1.08 X10^3/ul (0.83-4.51); Lymphocyte % 10.2 % (19-41); Mean Corp Hgb Conc 29.2 g/dL (32-36); Mean Corpuscular Hgb 33.1 pg (27.0-32.0); Mean Corpuscular Volume 113.2 fL (81-99); Mean Platelet Vol. 10.8 fl (6.2-12.0); Monocyte# 1.69 X10^3/uL; Monocyte% 15.9 % (0-10); NRBC Flagged by Analyzer 0.2 % (0-5); Neutrophil # 7.53 X10^3/uL (2.7-7.7); Neutrophil % 70.7 % (47-70); POSITIVE DIFFERENTIAL YES; POSITIVE MORPHOLOGY YES; Platelet Count 246 K/mm3 (150-450); RBC Distribution Width CV 16.3 % (11.6-14.6); RBC Distribution Width SD 66.8 fl (35.1-43.9); Red Blood Count 2.42 M/mm3 (4.2-5.4); White Blood Count 10.6 K/mm3 (4.4-11.0)
[2023-12-15 06:40] LABS: Differential Indicated SCAN CRITERIA MET
[2023-12-15] MEDS: Carvedilol 12.5 MG Tablet PO ×2 (08:46→22:26)
[2023-12-15] MEDS: 0.9% Saline Lock 10 ML Syringe IV ×2 (08:48→19:28)
[2023-12-15] MEDS: Pantoprazole Sodium 40 MG in 0.9% Normal Saline (100mL MB+) 100 ML 330 MG IV ×2 (08:48→22:25)
[2023-12-15] MEDS: Furosemide 40 MG/4 ML Vial IV ×2 (08:48→17:37)
[2023-12-15] MEDS: Cholecalciferol (VIT D3) 25 MCG TABLET (1,000 UNITS) PO (08:48)
[2023-12-15 08:53] LABS: Anisocytosis 1+
--- NOTE | 2023-12-15 09:36 | CASEMGMT ---
ADVANCE DIRECTIVE VALIDATION Patient has POAHC on file and scanned into current EMR. Daughter Shelly Lincoln is the POAHC. Patient has a Living Will which is currently scanned into the Echart of the EMR. Printed form, placed paper copy onto patient's chart, to be scanned into current EMR at discharge. -RICHARD Guardado
[2023-12-15 10:15] LABS: Anion Gap 10 (5-15); BUN 14 mg/dL (7-18); BUN/Creat Ratio 19.4 RATIO (10-20); Calcium,Total 9.5 mg/dL (8.5-10.1); Chloride 104 mmol/L (98-107); Creatinine, Serum 0.72 mg/dL (0.55-1.02); EST Glomerular Filtration Rate 82 mL/min (>60); Est Glom Filt Rate - Afr Amer 99 mL/min (>60); Estimated Creatinine Clearance 55.85 ml/min; Glucose 103 mg/dL (74-106); Potassium 3.4 mmol/L (3.5-5.1); Sodium Level 143 mmol/L (136-145)
[2023-12-15 11:31] LABS: Bacteria 0 SEEN /hpf (None Seen); Mucous, Urine 0 SEEN /hpf (<or=2+); Red Blood Cells-Urine 0 SEEN /hpf (0-5); Squamous Epithelial Cells - UA 0 SEEN /hpf (5-10)
[2023-12-15] MEDS: Losartan Potassium 50 MG Tablet PO (11:33)
[2023-12-15 11:36] LABS: Color, Urine Yellow (Yellow); Glucose, Dipstick 1000 mg/dl (Normal); Ketone-Dipstick Negative (Negative); Leukocyte Esterase-Dipstick 25 /ul (Negative); Nitrite-Dipstick Negative (Negative); Occult Blood-Urine 10 /ul (Negative); Protein-Dipstick 15 mg/dl (Negative); Specific Gravity, Urine 1.015 (1.002-1.030); Urine Bilirubin Dipstick Negative (Negative); Urine Clarity Clear (Clear); Urine Urobilinogen 1 mg/dl (Normal); Urine pH 6.5 (5.0 - 8.0)
[2023-12-15 11:42] LABS: White Blood Cells 0-5 SEEN /hpf (0-5)
[2023-12-15] MEDS: Albuterol 2.5 MG/3 ML VIAL.NEB. INHALATION (11:46)
--- NOTE | 2023-12-15 13:12 | CHAPLAIN ---
Type of Pastoral Visit _x__ Initial Visit ___ Follow-up Visit ___ On-call Visit ___ General Patient Visit ___ Spiritual Assessment ___ Family Conference ___ Bereavement ___ Rapid Response ___ Code Blue ___ Other (describe below) Pastoral Care Referral From _x__ Patient ___ Family ___ Nurse ___ Physician ___ Teacher Ballet ___ Bicycle Taxi Driver ___ Other (describe below) Sacrament/Intervention _x__ Active listening ___ Anointing ___ Buddhist ___ Bereavement ___ Communion _x__ Gela exploration ___ _x__ Life review _x__ Prayer ___ Reconciliation ___ Sacrament of Sick _x__ Supportive presence ___ Wedding ___ Other (describe below) Pastoral Comments patient immediately identifies some anxieties over possible dying soon and needing to say to my children that their father and I loved...; pt acknowledges that some of her children live far away while others are closer; discussion on what it is that makes patient desire this, how she believes she can go about it, and what if things go unsaid due to circumstances; time to listen and affirm the patient on her desires and wishes; asked patient what concerns she had if dying is soon and how she is coping with her situation; pt is of the Bahai gela; prayer and presence was desired and appreciated
[2023-12-15 13:48] LABS: Pathologist Review Reviewed
--- NOTE | 2023-12-15 14:02 | PCM.PN.HOSP ---
Subjective Subjective Very confused today, unknown etiology. Leukocytosis resolved without antibiotics Objective Data Objective Data Vital Signs: Vital Signs Temp Pulse Resp BP Pulse Ox O2 Del Method O2 Flow Rate 98.1 F 69 20 H 145/89 H 98 Room Air 2 12/15/23 08:41 12/15/23 11:46 12/15/23 11:46 12/15/23 11:32 12/15/23 08:41 12/15/23 08:41 12/15/23 08:40 Oxygen Flow Rate (L/min) 2 Oxygen Delivery Method Room Air Weight: 222 lb 0.088 oz Body Mass Index (BMI) 43.3 Intake & Output: Intake and Output for Last 24 Hours 12/14/23 12/15/23 12/16/23 03:59 03:59 03:59 Intake Total 1330 / 1330 1180 / 1180 560 / 560 Output Total 2600 / 2600 1250 / 1250 305 / 305 Balance -1270 / -1270 -70 / -70 255 / 255 Lab / Micro Data 12/15/23 05:14 12/15/23 05:14 Labs: Laboratory Results - last 24 hr 12/14/23 05:20: Diff Path Review Reviewed 12/15/23 05:14: WBC 10.6, RBC 2.42 L, Hgb 8.0 L, Hct 27.4 L, MCV 113.2 H, MCH 33.1 H, MCHC 29.2 L, RDW Std Deviation 66.8 H, RDW Coeff of Gala 16.3 H, Plt Count 246, MPV 10.8, Immature Gran % (Auto) 1.000 H, Neut % (Auto) 70.7 H, Lymph % (Auto) 10.2 L, [place] % (Auto) 15.9 H, Eos % (Auto) 1.6, Baso % (Auto) 0.6, Absolute Neuts (auto) 7.5, Absolute Lymphs (auto) 1.08, Nucleated RBC % 0.2, Differential Comment , Anisocytosis 1+, Sodium 143, Potassium 3.4 L, Chloride 104, Carbon Dioxide 29.0, Anion Gap 10, BUN 14, Creatinine 0.72, Estim Creat Clear Calc 55.85, Est GFR (MDRD) Af Amer 99, Est GFR (MDRD) Non-Af 82, BUN/Creatinine Ratio 19.4, Glucose 103, Calcium 9.5 12/15/23 11:30: Urine Color Yellow, Urine Clarity Clear, Urine pH 6.5, Ur Specific [place] 1.015, Urine Protein 15 H, Urine Glucose (UA) 1000 H, Urine Ketones Negative, Urine Occult Blood 10 H, Urine Nitrite Negative, Urine Bilirubin Negative, Urine Urobilinogen 1 H, Ur Leukocyte Esterase 25 H, Urine RBC 0 SEEN, Urine WBC 0-5 SEEN, Ur Squamous Epith Cells 0 SEEN, Urine Bacteria 0 SEEN, Urine Mucus 0 SEEN Micro: Microbiology 12/12/23 21:26 Mucosa - Nasopharyngeal SARS-CoV-2, Influenza & RSV (PCR) - Final Rhythm Strip Rhythm Strip: A-fib Rate: 70 Physical Exam Narrative General: Alert, disoriented, Cooperative, No apparent distress HEENT: Atraumatic, PERRLA, EOMI, Normocephalic Oral: Moist Mucosa Neck: Supple, No JVD Lungs: Diminished, Normal air movement, No rhonchi, No wheeze, No rales Cardiovascular: Regular rate irregular rhythm, Normal S1, Normal S2, No murmurs Abdomen: Soft, Non Tender, Non-Distended, No Hepato-splenomegaly Extremities: Edema, Capillary Refill Less than 3 Seconds Skin: No rashes, No breakdown Musculoskeletal: No Tenderness to Palpation of Joints or Extremities Neurological: No focal neurological deficits, Motor Exam 5/5 strength throughout, Sensory exam intact to light touch and pain Psych/Mental Status: Flat Assessment & Plan Assessment/Plan (1) Hypoxia: (2) Acute on chronic heart failure with preserved ejection fraction (HFpEF): (3) Hypertensive urgency: (4) Anemia: QUALIFIERS: Anemia type: unspecified type Qualified Code(s): D64.9 - Anemia, unspecified PLAN: Plan 1. Acute hypoxia with acute metabolic encephalopathy ? Secondary to acute congestive heart failure with preserved ejection fraction. 2D echo from 03/18/2023 demonstrated EF of 65% with stage III diastolic dysfunction and pulmonary artery pressure of 44 mmHg. Patient has been admitted to a monitored bed. Managed with strict input and output, daily weight, fluid restriction, low-sodium diet as well as diuretic therapy.Repeat echo ordered for subsequent eval 12/14/2023: Continue with IV diuresis will likely need 94 pulse ox prior to discharge 12/15/2023: She was little bit disoriented yesterday morning but that was thought to be due to the Ativan, this morning she is hallucinating and is little bit belligerent, she did spit her water on me. Leukocytosis resolved and a UA does not indicate a UTI. Will obtain an ammonia and ABG for further evaluation 2. Acute non-STEMI ? Patient presented with progressive dyspnea as well as chest pain. Troponin admission was 30 continues to climb. Troponin from this a.m. was 267. Echo ordered. Patient remains on therapy with beta-blockers ARB statin therapy added aspirin. Consultation was placed to cardiology on admission 12/14/2023: Appreciate cardiology's assistance, continue with current medical management 3. Hypokalemia -Corrected per protocol 4. Macrocytic anemia ? Subsequent eval with B12 folic acid stool guaiac ordered. Iron studies came back consistent with iron deficiency anemia patient ordered parenteral iron 12/15/2023: Appreciate gastroenterology's assistance 5. Hypophosphatemia ? Corrected per protocol 6. Chronic A-fib ? Rate controlled on systemic anticoagulation with rivaroxaban 7. Hypothyroidism ? Patient is on levothyroxine home dose continued 8. Dyslipidemia ?Patient is on statin and fibrate therapy, continued at home dose 9. Acute hypertensive emergency ? Patient presented with markedly elevated blood pressure?235/119 with evidence of endorgan damage i.e. congestive heart failure as well as elevated troponin. Treatment initiated per protocol patient blood pressure control has since improved 12/14/2023: Resolved 10. Restless leg syndrome ? Patient is on pramipexole continued 11. Obstructive sleep apnea ? Consistent use of PAP therapy encouraged 12. Class III obesity with BMI of 43.3 ? Complicating care weight loss advised DVT: Xarelto Charges/Coding Visit Charges Inpatient E&M: 07397 Subs Hosp L2
--- NOTE | 2023-12-15 15:30 | CPS ---
Attempted to explain to patient the ABG procedure. Presents as very confused. Then became agitated, combative. Patient refused procedure.
[2023-12-15 19:11] LABS: Allen Test Positive; Base Excess 11 mmol/L (-2 to +2); Bicarbonate 35.4 mmol/L (22-26); Blood Gas Specimen Type ART; Mode Not entered; O2 Delivery Device Cannula; PO2 92 mmHG (75-100); SITE L Radial; SO2 97 % (95-99); Total Carbon Dioxide 37 mmol/L; pCO2 51.5 mmHg (35-45); pH 7.45 (7.35-7.45)
--- NOTE | 2023-12-15 21:45 | CPS ---
ABG ordered at 13:56 on 12/15/23. RT on shift did not obtain specimen due to patient refusing. Day shift RT told hearing impaired teacher RT in report that patient was confused and combative at that time. RN called hearing impaired teacher RT asking about ABG results and why it was not obtained. RN explained that the dayshift RT did not communicate to RN or doctor as to why it was not done, and was waiting on results for several hours. costume maker RT went to obtain ABG since not done earlier at 13:56. Patient did not refuse for this RT. Patient was also responding appropriately at this time, and was not combative. RT was able to obtain ABG easily with patients cooperation. ABG was obtained at 19:07 on 12/15/23. Results were sent to Dr. Mccoy via [facility] at that time.
--- NOTE | 2023-12-15 21:59 | CPS ---
Patient set up with own PAP machine for night time use, with 2L bleed.
[2023-12-15] MEDS: Fenofibrate 48 MG Tablet PO (22:24)
[2023-12-15] MEDS: Simvastatin 20 MG Tablet 40 MG PO (22:24)
[2023-12-15] MEDS: Na Biphos/Potassium Phosphate PACKET 1 PACKET PO (22:24)
[2023-12-15] MEDS: Pramipexole Di-HCl 0.25 MG Tablet PO (22:25)
[2023-12-16] VITALS (8 sets, daily range): BP systolic 99–143; BP diastolic 53–98; PULSE 61–73; RESP 16–18; TEMP 36.7–37; O2SAT 84–98; BMI 43.2
[2023-12-16] MEDS: Baclofen 10 MG Tablet PO ×2 (05:36→14:41)
[2023-12-16] MEDS: Levothyroxine 50 MCG Tablet PO (05:36)
[2023-12-16 08:15] LABS: Absolute Lymphocyte Count 1.33 X10^3/uL (0.83-4.51); Absolute Neutrophil Count 7.5 X10^3/uL (2.0-7.7); Basophil# 0.07 X10^3/uL; Basophil% 0.6 % (0-1); Eosinophil# 0.18 X10^3/uL; Eosinophils% 1.6 % (0-5); Hematocrit 28.6 % (37-47); Hemoglobin 8.7 g/dL (12.0-15.0); Lymphocyte # 1.33 X10^3/ul (0.83-4.51); Lymphocyte % 12.2 % (19-41); Mean Corp Hgb Conc 30.4 g/dL (32-36); Mean Corpuscular Hgb 34.3 pg (27.0-32.0); Mean Corpuscular Volume 112.6 fL (81-99); Mean Platelet Vol. 10.2 fl (6.2-12.0); Monocyte# 1.79 X10^3/uL; Monocyte% 16.4 % (0-10); NRBC Flagged by Analyzer 0 % (0-5); Neutrophil # 7.45 X10^3/uL (2.7-7.7); Neutrophil % 68.2 % (47-70); POSITIVE DIFFERENTIAL YES; POSITIVE MORPHOLOGY YES; Platelet Count 294 K/mm3 (150-450); RBC Distribution Width CV 16.7 % (11.6-14.6); RBC Distribution Width SD 68.1 fl (35.1-43.9); Red Blood Count 2.54 M/mm3 (4.2-5.4); White Blood Count 10.9 K/mm3 (4.4-11.0)
[2023-12-16 08:16] LABS: Differential Indicated SCAN CRITERIA MET
[2023-12-16 08:39] LABS: Differential Comment SCANNED
[2023-12-16 08:46] LABS: AST(SGOT) 16 U/L (15-37); Alanine Aminotransfer ALT/SGPT 14 U/L (13-56); Albumin, Serum 3.1 g/dL (3.2-5.0); Alkaline Phosphatase 65 U/L (45-117); Anion Gap 5 (5-15); BUN 14 mg/dL (7-18); BUN/Creat Ratio 19.3 RATIO (10-20); Calcium,Total 9.1 mg/dL (8.5-10.1); Chloride 104 mmol/L (98-107); Creatinine, Serum 0.73 mg/dL (0.55-1.02); EST Glomerular Filtration Rate 81 mL/min (>60); Est Glom Filt Rate - Afr Amer 98 mL/min (>60); Estimated Creatinine Clearance 55.75 ml/min; Globulin 3.2 g/dL (2.2-4.2); Glucose 117 mg/dL (74-106); Potassium 3.5 mmol/L (3.5-5.1); Protein, Total 6.3 g/dL (6.4-8.2); Sodium Level 141 mmol/L (136-145)
[2023-12-16] MEDS: Na Biphos/Potassium Phosphate PACKET 1 PACKET PO ×2 (09:10→21:31)
[2023-12-16] MEDS: Cholecalciferol (VIT D3) 25 MCG TABLET (1,000 UNITS) PO (09:10)
[2023-12-16] MEDS: Empagliflozin 10 MG Tablet PO (09:10)
[2023-12-16] MEDS: Furosemide 40 MG/4 ML Vial IV ×2 (09:10→17:42)
[2023-12-16] MEDS: Iron Polysaccharide Complex 150 MG CAPSULE PO (09:10)
[2023-12-16] MEDS: Losartan Potassium 50 MG Tablet PO (09:10)
[2023-12-16] MEDS: Pantoprazole Sodium 40 MG in 0.9% Normal Saline (100mL MB+) 100 ML 330 MG IV ×2 (09:10→21:32)
[2023-12-16] MEDS: Carvedilol 12.5 MG Tablet PO ×2 (09:10→21:30)
[2023-12-16] MEDS: 0.9% Saline Lock 10 ML Syringe IV ×2 (09:11→19:28)
--- NOTE | 2023-12-16 11:28 | PN.HOSP_ITS ---
Subjective Subjective Was very confused yesterday no but agitated overnight. Started on BiPAP seems better this morning Objective Data Objective Data Vital Signs: Vital Signs Temp Pulse Resp BP Pulse Ox O2 Del Method O2 Flow Rate 98.2 F 66 18 120/98 H 91 Nasal Cannula 2 12/16/23 09:07 12/16/23 09:07 12/16/23 09:07 12/16/23 09:07 12/16/23 09:51 12/16/23 09:07 12/16/23 09:51 Oxygen Flow Rate (L/min) 2 Oxygen Delivery Method Nasal Cannula Weight: 221 lb 5.506 oz Body Mass Index (BMI) 43.2 Intake & Output: Intake and Output for Last 24 Hours 12/15/23 12/16/23 12/17/23 03:59 03:59 03:59 Intake Total 1180 / 1180 1150 / 1150 400 / 400 Output Total 1250 / 1250 305 / 305 Balance -70 / -70 845 / 845 400 / 400 Lab / Micro Data 12/16/23 08:00 12/16/23 08:00 Labs: Laboratory Results - last 24 hr 12/14/23 05:20: Diff Path Review Reviewed 12/15/23 11:30: Urine Color Yellow, Urine Clarity Clear, Urine pH 6.5, Ur Specific [place] 1.015, Urine Protein 15 H, Urine Glucose (UA) 1000 H, Urine Ketones Negative, Urine Occult Blood 10 H, Urine Nitrite Negative, Urine Bilirubin Negative, Urine Urobilinogen 1 H, Ur Leukocyte Esterase 25 H, Urine RBC 0 SEEN, Urine WBC 0-5 SEEN, Ur Squamous Epith Cells 0 SEEN, Urine Bacteria 0 SEEN, Urine Mucus 0 SEEN 12/15/23 15:00: Ammonia 22.0 12/16/23 08:00: WBC 10.9, RBC 2.54 L, Hgb 8.7 L, Hct 28.6 L, MCV 112.6 H, MCH 34.3 H, MCHC 30.4 L, RDW Std Deviation 68.1 H, RDW Coeff of Gala 16.7 H, Plt Count 294, MPV 10.2, Immature Gran % (Auto) 1.000 H, Neut % (Auto) 68.2, Lymph % (Auto) 12.2 L, Leon % (Auto) 16.4 H, Eos % (Auto) 1.6, Baso % (Auto) 0.6, Absolute Neuts (auto) 7.5, Absolute Lymphs (auto) 1.33, Nucleated RBC % 0, Differential Comment SCANNED, Sodium 141, Potassium 3.5, Chloride 104, Carbon Dioxide 32.0, Anion Gap 5, BUN 14, Creatinine 0.73, Estim Creat Clear Calc 55.75, Est GFR (MDRD) Af Amer 98, Est GFR (MDRD) Non-Af 81, BUN/Creatinine Ratio 19.3, Glucose 117 H, Calcium 9.1, Total Bilirubin 1.80 H, AST 16, ALT 14, Alkaline Phosphatase 65, Total Protein 6.3 L, Albumin 3.1 L, Globulin 3.2, Albumin/Globulin Ratio 1.0 Micro: Microbiology 12/12/23 21:26 Mucosa - Nasopharyngeal SARS-CoV-2, Influenza & RSV (PCR) - Final ABG Data ABG results: ABG 12/15/23 19:07 Specimen Type ART Sample Site L Radial pH 7.45 Bicarbonate Actual 35.4 H Total CO2 37 Base Excess 11 H O2 Saturation 97 O2 % 2.0 ABG pCO2 51.5 H ABG pO2 92 Sunil Test Positive O2 Delivery Device Cannula Vent Mode Not entered Rhythm Strip Rhythm Strip: A-fib Rate: 70 Physical Exam Narrative General: Alert, disoriented, Cooperative, No apparent distress HEENT: Atraumatic, PERRLA, EOMI, Normocephalic Oral: Moist Mucosa Neck: Supple, No JVD Lungs: Diminished, Normal air movement, No rhonchi, No wheeze, No rales Cardiovascular: Regular rate irregular rhythm, Normal S1, Normal S2, No murmurs Abdomen: Soft, Non Tender, Non-Distended, No Hepato-splenomegaly Extremities: Edema, Capillary Refill Less than 3 Seconds Skin: No rashes, No breakdown Musculoskeletal: No Tenderness to Palpation of Joints or Extremities Neurological: No focal neurological deficits, Motor Exam 5/5 strength throughout, Sensory exam intact to light touch and pain Psych/Mental Status: Flat Assessment & Plan Assessment/Plan (1) Hypoxia: (2) Acute on chronic heart failure with preserved ejection fraction (HFpEF): (3) Hypertensive urgency: (4) Anemia: QUALIFIERS: Anemia type: unspecified type Qualified Code(s): D 64.9 - Anemia, unspecified PLAN: Plan 1. Acute hypoxia with acute metabolic encephalopathy ? Secondary to acute congestive heart failure with preserved ejection fraction. 2D echo from 03/18/2023 demonstrated EF of 65% with stage III diastolic dysfunction and pulmonary artery pressure of 44 mmHg. Patient has been admitted to a monitored bed. Managed with strict input and output, daily weight, fluid restriction, low-sodium diet as well as diuretic therapy.Repeat echo ordered for subsequent eval 12/14/2023: Continue with IV diuresis will likely need 94 pulse ox prior to discharge 12/15/2023: She was little bit disoriented yesterday morning but that was thought to be due to the Ativan, this morning she is hallucinating and is little bit belligerent, she did spit her water on me. Leukocytosis resolved and a UA does not indicate a UTI. Will obtain an ammonia and ABG for further evaluation 12/16/2023: Seems little bit better, leukocytosis remains resolved. She did not wear her BiPAP overnight. Ammonia was only 22 and her LFTs were normal. Her ABG did demonstrate a pCO2 of 51 and per nursing, she should be wearing her CPAP but she has not been since she has been here. And ambulatory pulse ox today 2. Acute non-STEMI ? Patient presented with progressive dyspnea as well as chest pain. Troponin admission was 30 continues to climb. Troponin from this a.m. was 267. Echo ordered. Patient remains on therapy with beta-blockers ARB statin therapy added aspirin. Consultation was placed to cardiology on admission 12/14/2023: Appreciate cardiology's assistance, continue with current medical management 3. Hypokalemia -Corrected per protocol 4. Macrocytic anemia ? Subsequent eval with B12 folic acid stool guaiac ordered. Iron studies came back consistent with iron deficiency anemia patient ordered parenteral iron 12/15/2023: Appreciate gastroenterology's assistance 5. Hypophosphatemia ? Corrected per protocol 6. Chronic A-fib ? Rate controlled on systemic anticoagulation with rivaroxaban 7. Hypothyroidism ? Patient is on levothyroxine home dose continued 8. Dyslipidemia ?Patient is on statin and fibrate therapy, continued at home dose 9. Acute hypertensive emergency ? Patient presented with markedly elevated blood pressure?235/119 with evidence of endorgan damage i.e. congestive heart failure as well as elevated troponin. Treatment initiated per protocol patient blood pressure control has since improved 12/14/2023: Resolved 10. Restless leg syndrome ? Patient is on pramipexole continued 11. Obstructive sleep apnea ? Consistent use of PAP therapy encouraged 12. Class III obesity with BMI of 43.3 ? Complicating care weight loss advised DVT: Xarelto Charges/Coding Visit Charges Inpatient E&M: 48591 Subs Hosp L2
[2023-12-16 12:17] LABS: Magnesium 2.5 mg/dL (1.6-2.6); Phosphorus 3.8 mg/dL (2.5-4.9)
--- NOTE | 2023-12-16 13:56 | CASEMGMT ---
ANDREW CM to pt room at this time to discuss DC planning. Pt SACHIN at bedside. The pt confusion seems to be better today compared to yesterday, per the pt family and MD. At this time, the pt SACHIN is concerned about the pt medically and would like to talk to Dr. Mccoy. Dr. Mccoy paged and notified that the pt family would like to speak with him. At this time, the pt SACHIN anticipates the pt requiring further rehab at a skilled facility. Pt SACHIN prefers TCU at this time. SW made aware and to f/u with the pt POA to help decipher safe DC planning.
--- NOTE | 2023-12-16 14:00 | CASEMGMT ---
SW made a referral to [facility]CU per family's request. Heike RUANO
--- NOTE | 2023-12-16 15:09 | CT_ITS ---
EXAM: CT HEAD WITHOUT INTRAVENOUS CONTRAST CLINICAL INDICATION: Confusion TECHNIQUE: Multiple axial images were obtained of the head without intravenous contrast. This CT exam was performed using one or more of the following dose reduction techniques: automated exposure control, adjustment of the mA and/or kV according to patient size, and/or use of iterative reconstruction technique. COMPARISON: 11/06/2012 FINDINGS: BRAIN AND EXTRA-AXIAL SPACES: There is encephalomalacia in the right occipital lobe from a remote infarct. The ventricular system and cortical sulci are mildly enlarged in size. There is hypoattenuation in the periventricular white matter greatest in the right frontal lobe. No intra- or extra-axial hemorrhage. No intracranial mass or mass effect. Posterior fossa structures are unremarkable. Basal cisterns are patent. BONES/JOINTS: Unremarkable. No discrete lytic or blastic abnormalities. SINUSES: Unremarkable as visualized. Clear. MASTOID AIR CELLS: Unremarkable. Clear. ORBITS: Visualized globes, extraocular muscles, optic nerves and retrobulbar fat appear unremarkable. CT/Brain/Head without Contrast IMPRESSION: 1. No acute intracranial abnormality. 2. 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 There is senescent change with small vessel ischemia. Electronically Signed: Brendan Hopkins MD at 16:09 EDT ,
[2023-12-16] MEDS: Acetaminophen 325 MG Tablet 650 MG PO (21:29)
[2023-12-16] MEDS: Baclofen 10 MG Tablet 5 MG PO (21:29)
[2023-12-16] MEDS: Simvastatin 20 MG Tablet 40 MG PO (21:30)
[2023-12-16] MEDS: Fenofibrate 48 MG Tablet PO (21:31)
[2023-12-16] MEDS: Pramipexole Di-HCl 0.25 MG Tablet PO (21:32)
[2023-12-17] VITALS (8 sets, daily range): BP systolic 111–178; BP diastolic 46–102; PULSE 62–66; RESP 18; TEMP 36.3–36.8; O2SAT 84–98; BMI 43.0
--- NOTE | 2023-12-17 03:53 | CPS ---
pt on own bipap machine with o2 2 l/m bleed in
[2023-12-17] MEDS: Baclofen 10 MG Tablet 5 MG PO ×3 (05:44→22:49)
[2023-12-17] MEDS: 0.9% Saline Lock 10 ML Syringe IV ×3 (05:44→22:50)
[2023-12-17] MEDS: Levothyroxine 50 MCG Tablet PO (05:44)
[2023-12-17 06:33] LABS: Anion Gap 5 (5-15); BUN 14 mg/dL (7-18); BUN/Creat Ratio 17.4 RATIO (10-20); Calcium,Total 8.9 mg/dL (8.5-10.1); Chloride 104 mmol/L (98-107); Creatinine, Serum 0.81 mg/dL (0.55-1.02); EST Glomerular Filtration Rate 72 mL/min (>60); Est Glom Filt Rate - Afr Amer 87 mL/min (>60); Estimated Creatinine Clearance 54.93 ml/min; Glucose 115 mg/dL (74-106); Potassium 3.3 mmol/L (3.5-5.1); Sodium Level 142 mmol/L (136-145)
[2023-12-17] MEDS: Pantoprazole Sodium 40 MG in 0.9% Normal Saline (100mL MB+) 100 ML 330 MG IV ×2 (09:15→22:49)
[2023-12-17] MEDS: Iron Polysaccharide Complex 150 MG CAPSULE PO (09:17)
[2023-12-17] MEDS: Na Biphos/Potassium Phosphate PACKET 1 PACKET PO ×2 (09:17→22:49)
[2023-12-17] MEDS: Cholecalciferol (VIT D3) 25 MCG TABLET (1,000 UNITS) PO (09:17)
[2023-12-17] MEDS: Carvedilol 12.5 MG Tablet PO ×2 (09:17→22:47)
[2023-12-17] MEDS: Losartan Potassium 50 MG Tablet PO (09:17)
[2023-12-17] MEDS: Furosemide 40 MG/4 ML Vial IV ×2 (09:17→16:58)
[2023-12-17] MEDS: Empagliflozin 10 MG Tablet PO (09:17)
--- NOTE | 2023-12-17 11:00 | CASEMGMT ---
TCU is unable to take patient. SW will call patient's daughter, let her know and get more choices. Heike RUANO
--- NOTE | 2023-12-17 11:16 | CASEMGMT ---
Discharge Planning A list of?SNF providers including quality and resource use data and consistent with the patient's preferred geographic region, medical needs, and insurance network was created in [facility] [facility].? This list was provided to the SW. Chrystal Morgan Discharge Planning Asst.
--- NOTE | 2023-12-17 11:30 | CASEMGMT ---
ZAC called patient's daughter Shelly. ZAC let Shelly know TCU is unable to take patient. Shelly asked what the choices were. ZAC had the list and read through the [facility] options. Next choice would be [facility]. ZAC asked Chrystal to please send a referral to [facility]. [place] [employer]
--- NOTE | 2023-12-17 11:36 | CASEMGMT ---
Discharge Planning Referral sent to [facility] via [facility]. Chrystal Morgan DC Planning Asst.
--- NOTE | 2023-12-17 11:43 | PN.HOSP_ITS ---
Subjective Subjective Doing well, no issues overnight. This morning she is much more alert and oriented no signs of agitation Objective Data Objective Data Vital Signs: Vital Signs Temp Pulse Resp BP Pulse Ox O2 Del Method O2 Flow Rate 97.5 F L 62 18 111/59 L 94 Room Air 2 12/17/23 09:14 12/17/23 09:14 12/17/23 09:14 12/17/23 09:14 12/17/23 11:16 12/17/23 09:30 12/17/23 11:16 Oxygen Flow Rate (L/min) [ 5 AMBULATING with Oxygen #4] Oxygen Flow Rate (L/min) [ 4 AMBULATING with Oxygen #3] Oxygen Flow Rate (L/min) [ 3 AMBULATING with Oxygen #2] Oxygen Flow Rate (L/min) [ 2 AMBULATING with Oxygen #1] Oxygen Flow Rate (L/min) [At 2 REST with Oxygen] Oxygen Flow Rate (L/min) [At 0 REST on Room Air] Oxygen Flow Rate (L/min) 2 Oxygen Delivery Method Room Air Weight: 220 lb 7.396 oz Body Mass Index (BMI) 43.0 Intake & Output: Intake and Output for Last 24 Hours 12/16/23 12/17/23 12/18/23 03:59 03:59 03:59 Intake Total 1150 / 1150 1150 / 1150 540 / 540 Output Total 305 / 305 Balance 845 / 845 1150 / 1150 540 / 540 Lab / Micro Data 12/16/23 08:00 12/17/23 05:18 Labs: Laboratory Results - last 24 hr 12/16/23 08:00: Phosphorus 3.8, Magnesium 2.5 12/17/23 05:18: Sodium 142, Potassium 3.3 L, Chloride 104, Carbon Dioxide 33.0 H , Anion Gap 5, BUN 14, Creatinine 0.81, Estim Creat Clear Calc 54.93, Est GFR (MDRD) Af Amer 87, Est GFR (MDRD) Non-Af 72, BUN/Creatinine Ratio 17.4, Glucose 115 H, Calcium 8.9 Micro: Microbiology 12/12/23 21:26 Mucosa - Nasopharyngeal SARS-CoV-2, Influenza & RSV (PCR) - Final Radiography Diagnostic Testing: Radiology Impression Brain CT 12/16/23 15:09 IMPRESSION: 1. No acute intracranial abnormality. 2. 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 There is senescent change with small vessel ischemia. Electronically Signed: Brendan Hopkins MD at 16:09 EDT , Rhythm Strip Rhythm Strip: A-fib Rate: 70 Physical Exam Narrative General: Alert, oriented x 3, Cooperative, No apparent distress HEENT: Atraumatic, PERRLA, EOMI, Normocephalic Oral: Moist Mucosa Neck: Supple, No JVD Lungs: Diminished, Normal air movement, No rhonchi, No wheeze, No rales Cardiovascular: Regular rate irregular rhythm, Normal S1, Normal S2, No murmurs Abdomen: Soft, Non Tender, Non-Distended, No Hepato-splenomegaly Extremities: Edema, Capillary Refill Less than 3 Seconds Skin: No rashes, No breakdown Musculoskeletal: No Tenderness to Palpation of Joints or Extremities Neurological: No focal neurological deficits, Motor Exam 5/5 strength throughout, Sensory exam intact to light touch and pain Psych/Mental Status: Normal affect, appropriate Assessment & Plan Assessment/Plan (1) Hypoxia: (2) Acute on chronic heart failure with preserved ejection fraction (HFpEF): (3) Hypertensive urgency: (4) Anemia: QUALIFIERS: Anemia type: unspecified type Qualified Code(s): D 64.9 - Anemia, unspecified PLAN: Plan 1. Acute hypoxia with acute metabolic encephalopathy ? Secondary to acute congestive heart failure with preserved ejection fraction. 2D echo from 03/18/2023 demonstrated EF of 65% with stage III diastolic dysfunction and pulmonary artery pressure of 44 mmHg. Patient has been admitted to a monitored bed. Managed with strict input and output, daily weight, fluid restriction, low-sodium diet as well as diuretic therapy.Repeat echo ordered for subsequent eval 12/14/2023: Continue with IV diuresis will likely need 94 pulse ox prior to discharge 12/15/2023: She was little bit disoriented yesterday morning but that was thought to be due to the Ativan, this morning she is hallucinating and is little bit belligerent, she did spit her water on me. Leukocytosis resolved and a UA does not indicate a UTI. Will obtain an ammonia and ABG for further evaluation 12/16/2023: Seems little bit better, leukocytosis remains resolved. She did not wear her BiPAP overnight. Ammonia was only 22 and her LFTs were normal. Her ABG did demonstrate a pCO2 of 51 and per nursing, she should be wearing her CPAP but she has not been since she has been here. And ambulatory pulse ox today 12/17/2023: Ambulatory pulse ox demonstrates a 4 L need with ambulation. Pending pre-CERT for placement. Decreased her baclofen to 5 mg p.o. 3 times daily to also help with confusion though does appear that she did improve prior to this change unclear if the altered mental status was due to the very mild hypercapnia 51 on the ABG obtained a few days prior 2. Acute non-STEMI ? Patient presented with progressive dyspnea as well as chest pain. Troponin admission was 30 continues to climb. Troponin from this a.m. was 267. Echo ordered. Patient remains on therapy with beta-blockers ARB statin therapy added aspirin. Consultation was placed to cardiology on admission 12/14/2023: Appreciate cardiology's assistance, continue with current medical management 3. Hypokalemia -Corrected per protocol 4. Macrocytic anemia ? Subsequent eval with B12 folic acid stool guaiac ordered. Iron studies came back consistent with iron deficiency anemia patient ordered parenteral iron 12/15/2023: Appreciate gastroenterology's assistance 5. Hypophosphatemia ? Corrected per protocol 6. Chronic A-fib ? Rate controlled on systemic anticoagulation with rivaroxaban 7. Hypothyroidism ? Patient is on levothyroxine home dose continued 8. Dyslipidemia ?Patient is on statin and fibrate therapy, continued at home dose 9. Acute hypertensive emergency ? Patient presented with markedly elevated blood pressure?235/119 with evidence of endorgan damage i.e. congestive heart failure as well as elevated troponin. Treatment initiated per protocol patient blood pressure control has since improved 12/14/2023: Resolved 10. Restless leg syndrome ? Patient is on pramipexole continued 11. Obstructive sleep apnea ? Consistent use of PAP therapy encouraged 12. Class III obesity with BMI of 43.3 ? Complicating care weight loss advised DVT: Xarelto Charges/Coding Visit Charges Inpatient E&M: 14968 Subs Hosp L2
--- NOTE | 2023-12-17 12:49 | CASEMGMT ---
[facility]CU has re-considered and they will now accept patient pending pre-cert. ZAC called patient's daughter Shelly and let her know this information. ZAC asked [facility] to start pre-cert. Chrystal notified [place] that family has chosen another facility. Plan: d/c to [facility] pending insurance approval. Heike RUANO
--- NOTE | 2023-12-17 14:05 | CASEMGMT ---
Patient has been approved by insurance to go to TCU, however there will not be a bed available until tomorrow. Plan: d/c to [facility] tomorrow under skilled level of care. Heike RUANO
--- NOTE | 2023-12-17 19:43 | CPS ---
helped pt with home machine-added water and 3 l/m bleed
[2023-12-17] MEDS: Pramipexole Di-HCl 0.25 MG Tablet PO (22:47)
[2023-12-17] MEDS: Fenofibrate 48 MG Tablet PO (22:47)
[2023-12-17] MEDS: Simvastatin 20 MG Tablet 40 MG PO (22:48)
[2023-12-17] MEDS: Acetaminophen 325 MG Tablet 650 MG PO (22:50)
[2023-12-18 00:51] VITALS: BP 126/68; PULSE 65; RESP 16; TEMP 36.6; O2SAT 96
[2023-12-18 05:02] VITALS: BMI 43.2
[2023-12-18 05:36] LABS: Absolute Lymphocyte Count 1.66 X10^3/uL (0.83-4.51); Basophil# 0.07 X10^3/uL; Basophil% 0.8 % (0-1); Eosinophil# 0.19 X10^3/uL; Eosinophils% 2.2 % (0-5); Hematocrit 28.5 % (37-47); Hemoglobin 8.5 g/dL (12.0-15.0); Lymphocyte # 1.66 X10^3/ul (0.83-4.51); Lymphocyte % 19.5 % (19-41); Mean Corp Hgb Conc 29.8 g/dL (32-36); Mean Corpuscular Hgb 33.6 pg (27.0-32.0); Mean Corpuscular Volume 112.6 fL (81-99); Mean Platelet Vol. 10.2 fl (6.2-12.0); Monocyte# 1.39 X10^3/uL; Monocyte% 16.4 % (0-10); NRBC Flagged by Analyzer 0 % (0-5); Neutrophil # 5.03 X10^3/uL (2.7-7.7); Neutrophil % 59.2 % (47-70); POSITIVE MORPHOLOGY YES; Platelet Count 288 K/mm3 (150-450); RBC Distribution Width CV 16.8 % (11.6-14.6); RBC Distribution Width SD 70.1 fl (35.1-43.9); Red Blood Count 2.53 M/mm3 (4.2-5.4); White Blood Count 8.5 K/mm3 (4.4-11.0)
[2023-12-18 05:42] LABS: Differential Indicated SCAN CRITERIA MET
[2023-12-18 05:50] LABS: Anion Gap 5 (5-15); BUN 14 mg/dL (7-18); BUN/Creat Ratio 17.1 RATIO (10-20); Chloride 104 mmol/L (98-107); Creatinine, Serum 0.82 mg/dL (0.55-1.02); EST Glomerular Filtration Rate 71 mL/min (>60); Est Glom Filt Rate - Afr Amer 86 mL/min (>60); Estimated Creatinine Clearance 54.42 ml/min; Glucose 108 mg/dL (74-106); Potassium 3.3 mmol/L (3.5-5.1); Sodium Level 142 mmol/L (136-145)
[2023-12-18 05:57] VITALS: BP 143/61; PULSE 54; RESP 16; TEMP 36.6; O2SAT 99
[2023-12-18] MEDS: Levothyroxine 50 MCG Tablet PO (06:04)
[2023-12-18] MEDS: Baclofen 10 MG Tablet 5 MG PO (06:05)
[2023-12-18 06:27] LABS: Differential Comment SCANNED
[2023-12-18 06:37] LABS: Anisocytosis 1+; Red Cell Morphology N CHROM NORMAL (NORM C&C)
[2023-12-18 07:34] VITALS: O2SAT 97
[2023-12-18 08:00] VITALS: O2SAT 87; O2SAT 93; O2SAT 95
[2023-12-18 09:30] VITALS: BP 162/55; PULSE 56; RESP 18; TEMP 36.8; O2SAT 95
[2023-12-18] MEDS: Iron Polysaccharide Complex 150 MG CAPSULE PO (09:34)
[2023-12-18] MEDS: Furosemide 40 MG/4 ML Vial IV (09:34)
[2023-12-18] MEDS: Losartan Potassium 50 MG Tablet PO (09:34)
[2023-12-18] MEDS: Cholecalciferol (VIT D3) 25 MCG TABLET (1,000 UNITS) PO (09:34)
[2023-12-18] MEDS: Empagliflozin 10 MG Tablet PO (09:34)
[2023-12-18] MEDS: Pantoprazole Sodium 40 MG in 0.9% Normal Saline (100mL MB+) 100 ML 330 MG IV (09:34)
[2023-12-18] MEDS: Na Biphos/Potassium Phosphate PACKET 1 PACKET PO (09:34)
--- NOTE | 2023-12-18 11:07 | PCM.TXEXTCAR ---
Diet Diet Order/Speech Therapy: 12/14/23 12:37 Diet: Cardiac - Heart Healthy Dietary Modifications:: Sodium Restricted Fluid restriction:: 1750 mL Routine Orders/Code Status Routine Lab Work: CBC and BMP Code Status: DNRCC-A Therapies Physical Therapy: Eval and Treat Occupational Therapy: Eval and Treat Problem/Diagnosis (1) Hypoxia: Status: Acute Code(s): R09.02 - Hypoxemia (2) Acute on chronic heart failure with preserved ejection fraction (HFpEF): Status: Acute Code(s): I50.33 - Acute on chronic diastolic (congestive) heart failure (3) Hypertensive urgency: Status: Acute Code(s): I16.0 - Hypertensive urgency (4) Anemia: Status: Acute Code(s): D64.9 - Anemia, unspecified Plan 1. Acute hypoxia with acute metabolic encephalopathy ? Secondary to acute congestive heart failure with preserved ejection fraction. 2D echo from 03/18/2023 demonstrated EF of 65% with stage III diastolic dysfunction and pulmonary artery pressure of 44 mmHg. Patient has been admitted to a monitored bed. Managed with strict input and output, daily weight, fluid restriction, low-sodium diet as well as diuretic therapy.Repeat echo ordered for subsequent eval 12/14/2023: Continue with IV diuresis will likely need 94 pulse ox prior to discharge 12/15/2023: She was little bit disoriented yesterday morning but that was thought to be due to the Ativan, this morning she is hallucinating and is little bit belligerent, she did spit her water on me. Leukocytosis resolved and a UA does not indicate a UTI. Will obtain an ammonia and ABG for further evaluation 12/16/2023: Seems little bit better, leukocytosis remains resolved. She did not wear her BiPAP overnight. Ammonia was only 22 and her LFTs were normal. Her ABG did demonstrate a pCO2 of 51 and per nursing, she should be wearing her CPAP but she has not been since she has been here. And ambulatory pulse ox today 12/17/2023: Ambulatory pulse ox demonstrates a 4 L need with ambulation. Pending pre-CERT for placement. Decreased her baclofen to 5 mg p.o. 3 times daily to also help with confusion though does appear that she did improve prior to this change unclear if the altered mental status was due to the very mild hypercapnia 51 on the ABG obtained a few days prior 2. Acute non-STEMI ? Patient presented with progressive dyspnea as well as chest pain. Troponin admission was 30 continues to climb. Troponin from this a.m. was 267. Echo ordered. Patient remains on therapy with beta-blockers ARB statin therapy added aspirin. Consultation was placed to cardiology on admission 12/14/2023: Appreciate cardiology's assistance, continue with current medical management 3. Hypokalemia -Corrected per protocol 4. Macrocytic anemia ? Subsequent eval with B12 folic acid stool guaiac ordered. Iron studies came back consistent with iron deficiency anemia patient ordered parenteral iron 12/15/2023: Appreciate gastroenterology's assistance 5. Hypophosphatemia ? Corrected per protocol 6. Chronic A-fib ? Rate controlled on systemic anticoagulation with rivaroxaban 7. Hypothyroidism ? Patient is on levothyroxine home dose continued 8. Dyslipidemia ?Patient is on statin and fibrate therapy, continued at home dose 9. Acute hypertensive emergency ? Patient presented with markedly elevated blood pressure?235/119 with evidence of endorgan damage i.e. congestive heart failure as well as elevated troponin. Treatment initiated per protocol patient blood pressure control has since improved 12/14/2023: Resolved 10. Restless leg syndrome ? Patient is on pramipexole continued 11. Obstructive sleep apnea ? Consistent use of PAP therapy encouraged 12. Class III obesity with BMI of 43.3 ? Complicating care weight loss advised DVT: Xarelto Allergies/Procedures Done in Hospital Allergies atorvastatin calcium (From Lipitor) Allergy (Verified 12/07/23 13:14) Pain in joints Penicillins Allergy (Verified 12/07/23 13:14) Rash pseudoephedrine Allergy (Verified 12/07/23 13:14) Rash Sulfa (Sulfonamide Antibiotics) Allergy (Verified 12/07/23 13:14) Rash hydrochlorothiazide Adverse Reaction (Verified 12/07/23 13:14) Nausea sulfamethoxazole (From Bactrim) Adverse Reaction (Verified 12/07/23 13:14) Nausea trimethoprim (From Bactrim) Adverse Reaction (Verified 12/07/23 13:14) Nausea Procedures: None Type of Care/Length of Stay Estimated LOS: Convalescent Care Less Than 30 days Type of Care Needed: Skilled Rehab Potential: Good Prognosis: Good Additional Orders/Day of Discharge Day of Discharge: 08/30/24 Dietary and Speech Recommendations Dietitian Recommendations/Changes: Continue Cardiac/Sodium restricted diet with fluid restriction per MD to manage medical conditions. Discharge Plan Admission Admit Date/Time: 12/12/23 23:28 Attending Provider: Andi Mccoy Primary Care Provider: Otis Roman Consulting Providers: Kaelyn Carlos; Gunjan Sanchez; Ildefonso Garcia Discharge Orders/Prescriptions Prescriptions: New polysaccharide iron complex [Ferrex 150] 150 mg iron Capsule 150 mg PO DAILY Qty: 0 0RF baclofen 10 mg Tablet 5 mg PO TID Qty: 0 0RF Jardiance 10 mg Tablet 10 mg PO DAILY Qty: 0 0RF furosemide [Lasix] 40 mg tablet 40 mg PO DAILY Qty: 30 0RF pantoprazole [Protonix] 40 mg tablet,delayed release (DR/EC) 40 mg PO DAILY Qty: 30 0RF Continued furosemide 40 mg tablet 60 mg PO .COMPLEX Rx Instructions: 60 mg orally in the AM and 40 mg at 1400. cholecalciferol (vitamin D3) 25 mcg (1,000 unit) capsule 25 mcg PO DAILY albuterol sulfate 2.5 mg /3 mL (0.083 %) solution for nebulization 2.5 mg inhalation Q4-6H PRN (Reason: shortness of breath or wheezing) Patient Comments: INHALE 3 ML VIA NEBULIZER EVERY 4 HOURS NEEDED pramipexole 0.25 MG tablet 0.25 mg PO BID Patient Comments: restless legs Parkinson albuterol sulfate [ProAir HFA] 90 mcg/actuation HFA aerosol inhaler 1 puff inhalation Q6H PRN (Reason: shortness of breath or wheezing) Qty: 6.7 0RF levothyroxine [Synthroid] 50 mcg tablet 50 mcg PO DAILY duloxetine 30 mg capsule,delayed release(DR/EC) 30 mg PO DAILY losartan 50 mg tablet 50 mg PO DAILY 90 Days Qty: 90 3RF carvedilol 12.5 mg tablet 12.5 mg PO BID Qty: 180 3RF Rx Instructions: must administer with a meal/food fenofibrate nanocrystallized 48 mg tablet 48 mg PO QHS Qty: 90 3RF simvastatin 40 mg tablet 40 mg PO QHS Qty: 90 3RF Xarelto 20 mg tablet See Rx Instructions .ROUTE .COMPLEX Qty: 90 3RF Dose Instruction: TAKE 1 TABLET DAILY Rx Instructions: TAKE 1 TABLET DAILY Discontinued baclofen 5 mg tablet 10 mg PO TID Patient Comments: PLEASE SEE ATTACHED FOR DETAILED DIRECTIONS Referrals / Follow Up: Otis Roman MD [Primary Care Provider] - Disposition Disposition (needs filled in before D/C Order can be placed): Care Home Facility (4) Anemia Qualifiers: Anemia type: unspecified type Qualified Code(s): D64.9 - Anemia, unspecified
--- NOTE | 2023-12-18 12:50 | CASEMGMT ---
Patient is ready for discharge to [facility]. ZAC called patient's daughter Shelly and let her know patient was approved by insurance to go to [facility] and she will go today. Shelly thanked ZAC for the update. Plan: [facility] under skilled level of care. Heike RUANO
--- NOTE | 2023-12-18 13:49 | PCM.DC.SUM ---
Providers Date of Admission: 12/12/23 Primary Care Physician: Dr. Otis Roman MD Consultations 12/13/23 02:10 Consult: Cardiology Routine Consulting Provider: Gunjan Sanchez Reason for Consult: CHF and troponin elevation EMERGENT Consult: No Notified: Yes Date Notified: 12/13/23 Time Notified: 06:41 Method of Notification: Text 12/13/23 06:03 Consult: Gastroenterology Routine Consulting Provider: Sandra [facility] Reason for Consult: Worsening iron deficiency anemia EMERGENT Consult: No Notified: Yes Date Notified: 12/13/23 Time Notified: 06:03 Method of Notification: Text Reason For Visit: HYPOXIA 2NDARY TO ACUTE ON CHRONIC HFPEF Diagnosis Discharge Diagnosis (1) Hypoxia: Status: Acute Code(s): R09.02 - Hypoxemia (2) Acute on chronic heart failure with preserved ejection fraction (HFpEF): Status: Acute Code(s): I50.33 - Acute on chronic diastolic (congestive) heart failure (3) Hypertensive urgency: Status: Acute Code(s): I16.0 - Hypertensive urgency (4) Anemia: Status: Acute Code(s): D64.9 - Anemia, unspecified Qualifiers: Anemia type: unspecified type Qualified Code(s): D64.9 - Anemia, unspecified Medications at Discharge Home Medications pramipexole 0.25 mg tablet 0.25 mg PO BID restless legs 04/18/16 albuterol sulfate 90 mcg/actuation aerosol inhaler (ProAir HFA) 1 puff inhalation Q6H PRN shortness of breath or wheezing #6.7 grams 03/12/21 losartan 50 mg tablet 50 mg PO DAILY blood pressure 90 days #90 tabs 06/23/22 carvedilol 12.5 mg tablet 12.5 mg PO BID blood pressure #180 tabs 02/17/23 cholecalciferol (vitamin D3) 25 mcg (1,000 unit) capsule 25 mcg PO DAILY vitamin 03/11/23 furosemide 40 mg tablet 60 mg PO .COMPLEX diuretic 03/11/23 albuterol sulfate 2.5 mg/3 mL (0.083 %) solution for nebulization 2.5 mg inhalation Q4-6H PRN shortness of breath or wheezing 06/08/23 fenofibrate nanocrystallized 48 mg tablet 48 mg PO QHS cholesterol #90 tabs 07/09/23 simvastatin 40 mg tablet 40 mg PO QHS cholesterol #90 tabs 07/27/23 rivaroxaban 20 mg tablet (Xarelto) See Rx Instructions .Route .COMPLEX blood thinner #90 tabs 09/04/23 levothyroxine 50 mcg tablet (Synthroid) 50 mcg PO DAILY thyroid 12/12/23 baclofen 10 mg tablet 5 mg (1/2 x 10 mg) PO TID #0 tabs 12/18/23 empagliflozin 10 mg tablet (Jardiance) 10 mg PO DAILY #0 tabs 12/18/23 pantoprazole 40 mg tablet,delayed release (Protonix) 40 mg PO DAILY #30 tabs 12/18/23 polysaccharide iron complex 150 mg iron capsule (Ferrex) 150 mg PO DAILY #0 caps 12/18/23 Hospital Course Operations None Procedures 2-D Echocardiogram and Stress test Summary of Care Provided Minutes Spent on Discharge: 37 Hospital Course: Per HPI: SIS CANELA, is a 83 F who presented to the emergency department at [facility] on 12/12/2023 with a chief complaint of shortness of breath. She has had progressively worsening shortness of breath most notably with exertion since October. She reports her primary care physician has increased her Lasix some but she has not noticed a difference as of yet. She reports increased swelling in her legs and she thinks that her weight is gone up but she does not weigh herself on a regular basis. It does not sound like she really watches her sodium or fluid intake overall. She has known severe diastolic dysfunction and previously normal EF. She states she has been compliant with her home medications including her rivaroxaban. She denies any significant cough, fever, chills, she has had no URI symptoms recently and has been moving her bowels normally. She did say she had some nausea with some dry heaving earlier today but that has abated and now she is hungry. She does complain of orthopnea. She states she sleeps on a recliner of a bed however lately she has been able to recline at less than typical. She is compliant with home BiPAP. She does not wear oxygen at home. Vital signs on presentation showed a temperature of 98.8, heart rate 74, respiratory rate 20, initial blood pressure was 235/119 but repeat was 121/75, oxygen saturations were 93% on 2 L nasal cannula. Upon EMS arrival she was noted to be satting 88% on room air. She was given a DuoNeb and route and placed on 2 L which improved her oxygen saturations to above 89%. CBC shows a mild leukocytosis with a white count of 13. New anemia when compared to previous having a hemoglobin of 8.7 (baseline hemoglobin had been running between 10 and 12 in late last year. Her chemistry panel showed mild hypokalemia with a potassium of 3.0. Renal function is normal. Glucose was 135. Initial troponin was 30 but delta of troponin went up to 120., BNP was 327.7. EKG showed atrial fibrillation that is rate controlled and no ST-T wave changes concerning for acute ischemia. Chest x-ray was consistent with hazy bilateral lung opacities consistent with edema. Hospital Course: 1. Acute hypoxia with acute metabolic encephalopathy ? Secondary to acute congestive heart failure with preserved ejection fraction. 2D echo from 03/18/2023 demonstrated EF of 65% with stage III diastolic dysfunction and pulmonary artery pressure of 44 mmHg. Patient has been admitted to a monitored bed. Managed with strict input and output, daily weight, fluid restriction, low-sodium diet as well as diuretic therapy.Repeat echo ordered for subsequent eval 12/14/2023: Continue with IV diuresis will likely need 94 pulse ox prior to discharge 12/15/2023: She was little bit disoriented yesterday morning but that was thought to be due to the Ativan, this morning she is hallucinating and is little bit belligerent, she did spit her water on me. Leukocytosis resolved and a UA does not indicate a UTI. Will obtain an ammonia and ABG for further evaluation 12/16/2023: Seems little bit better, leukocytosis remains resolved. She did not wear her BiPAP overnight. Ammonia was only 22 and her LFTs were normal. Her ABG did demonstrate a pCO2 of 51 and per nursing, she should be wearing her CPAP but she has not been since she has been here. And ambulatory pulse ox today 12/17/2023: Ambulatory pulse ox demonstrates a 4 L need with ambulation. Pending pre-CERT for placement. Decreased her baclofen to 5 mg p.o. 3 times daily to also help with confusion though does appear that she did improve prior to this change unclear if the altered mental status was due to the very mild hypercapnia 51 on the ABG obtained a few days prior 12/18/2023: No behavioral issues for the last 48 hours. Currently at rest on room air. Echo during this admission with an EF of 65% and stage III diastolic dysfunction with an RVSP of 66 mmHg. Will plan on resuming her 60 mg of Lasix p.o. daily. Family was concerned that Cymbalta could have been leading to her confusion as she had a bad reaction to an SSRI in the past this has been discontinued on discharge. Also her baclofen was decreased from 10 mg p.o. 3 times daily down to 5 mg p.o. 3 times daily. Discussed with her the plan for discharge today she expressed understanding of the risk benefits of going to the senior living and would like to go today. 2. Acute non-STEMI ? Patient presented with progressive dyspnea as well as chest pain. Troponin admission was 30 continues to climb. Troponin from this a.m. was 267. Echo ordered. Patient remains on therapy with beta-blockers ARB statin therapy added aspirin. Consultation was placed to cardiology on admission 12/14/2023: Appreciate cardiology's assistance, continue with current medical management 3. Hypokalemia -Corrected per protocol 4. Macrocytic anemia ? Subsequent eval with B12 folic acid stool guaiac ordered. Iron studies came back consistent with iron deficiency anemia patient ordered parenteral iron 12/15/2023: Appreciate gastroenterology's assistance 12/18/2023: Continue with iron supplementation 5. Hypophosphatemia ? Corrected per protocol 6. Chronic A-fib ? Rate controlled on systemic anticoagulation with rivaroxaban 7. Hypothyroidism ? Patient is on levothyroxine home dose continued 8. Dyslipidemia ?Patient is on statin and fibrate therapy, continued at home dose 9. Acute hypertensive emergency ? Patient presented with markedly elevated blood pressure?235/119 with evidence of endorgan damage i.e. congestive heart failure as well as elevated troponin. Treatment initiated per protocol patient blood pressure control has since improved 12/14/2023: Resolved 10. Restless leg syndrome ? Patient is on pramipexole continued 11. Obstructive sleep apnea ? Consistent use of PAP therapy encouraged 12. Class III obesity with BMI of 43.3 ? Complicating care weight loss advised Physical Exam Narrative General: Alert, oriented x 3, Cooperative, No apparent distress HEENT: Atraumatic, PERRLA, EOMI, Normocephalic Oral: Moist Mucosa Neck: Supple, No JVD Lungs: Diminished, Normal air movement, No rhonchi, No wheeze, No rales Cardiovascular: Regular rate irregular rhythm, Normal S1, Normal S2, No murmurs Abdomen: Soft, Non Tender, Non-Distended, No Hepato-splenomegaly Extremities: Edema, Capillary Refill Less than 3 Seconds Skin: No rashes, No breakdown Musculoskeletal: No Tenderness to Palpation of Joints or Extremities Neurological: No focal neurological deficits, Motor Exam 5/5 strength throughout, Sensory exam intact to light touch and pain Psych/Mental Status: Normal affect, appropriate Weight / BMI Weight Weight: 221 lb 9.033 oz Body Mass Index (BMI) 43.2 ABG / Lab / Microbiology Data 12/18/23 04:45 12/18/23 04:45 Laboratory: Laboratory Results - last 24 hr 12/18/23 04:45: WBC 8.5, RBC 2.53 L, Hgb 8.5 L, Hct 28.5 L, MCV 112.6 H, MCH 33.6 H, MCHC 29.8 L, RDW Std Deviation 70.1 H, RDW Coeff of Gala 16.8 H, Plt Count 288, MPV 10.2, Immature Gran % (Auto) 1.900 H, Neut % (Auto) 59.2, Lymph % (Auto) 19.5, [place] % (Auto) 16.4 H, Eos % (Auto) 2.2, Baso % (Auto) 0.8, Absolute Neuts (auto) 5.0, Absolute Lymphs (auto) 1.66, Nucleated RBC % 0, Differential Comment SCANNED, RBC Morphology N CHROM, Anisocytosis 1+, Sodium 142, Potassium 3.3 L, Chloride 104, Carbon Dioxide 33.0 H, Anion Gap 5, BUN 14, Creatinine 0.82, Estim Creat Clear Calc 54.42, Est GFR (MDRD) Af Amer 86, Est GFR (MDRD) Non-Af 71, BUN/Creatinine Ratio 17.1, Glucose 108 H, Calcium 9.0 Microbiology: Microbiology 12/12/23 21:26 Mucosa - Nasopharyngeal SARS-CoV-2, Influenza & RSV (PCR) - Final Meaningful Use Info Meaningful Use Meaningful Use Diagnoses (Choose all that apply): None applicable Ischemic Stroke Statin Dosing Therapy Reference: STATIN DOSE THERAPY REFERENCE: * Patients > 75 years receive moderate or high dose statin therapy. * Patients 75 years or YOUNGER should receive HIGH intensity statin dose unless contraindicated. You will be required to document reason for non-treatment if statin daily dose does not meet guidelines. HIGH DOSE STATIN THERAPY DAILY Atorvastatin > than or = to 40 mg Rosuvastatin > than or = to 20 mg Amlodipine + Atorvastatin > than or = to 2.5/40 mg Ezetimibe + Simvastatin 10/80 mg Simvastatin 80mg Discharge Plan Admission Admit Date/Time: 12/12/23 23:28 Attending Provider: Andi Mccoy Primary Care Provider: Otis Roman Consulting Providers: Kaelyn Carlos; Gunjan Sanchez; Ildefonso Garcia Discharge Orders/Prescriptions Prescriptions: New polysaccharide iron complex [Ferrex 150] 150 mg iron Capsule 150 mg PO DAILY Qty: 0 0RF baclofen 10 mg Tablet 5 mg PO TID Qty: 0 0RF Jardiance 10 mg Tablet 10 mg PO DAILY Qty: 0 0RF pantoprazole [Protonix] 40 mg tablet,delayed release (DR/EC) 40 mg PO DAILY Qty: 30 0RF Continued furosemide 40 mg tablet 60 mg PO .COMPLEX Rx Instructions: 60 mg orally in the AM and 40 mg at 1400. cholecalciferol (vitamin D3) 25 mcg (1,000 unit) capsule 25 mcg PO DAILY albuterol sulfate 2.5 mg /3 mL (0.083 %) solution for nebulization 2.5 mg inhalation Q4-6H PRN (Reason: shortness of breath or wheezing) Patient Comments: INHALE 3 ML VIA NEBULIZER EVERY 4 HOURS NEEDED pramipexole 0.25 MG tablet 0.25 mg PO BID Patient Comments: restless legs Parkinson albuterol sulfate [ProAir HFA] 90 mcg/actuation HFA aerosol inhaler 1 puff inhalation Q6H PRN (Reason: shortness of breath or wheezing) Qty: 6.7 0RF levothyroxine [Synthroid] 50 mcg tablet 50 mcg PO DAILY losartan 50 mg tablet 50 mg PO DAILY 90 Days Qty: 90 3RF carvedilol 12.5 mg tablet 12.5 mg PO BID Qty: 180 3RF Rx Instructions: must administer with a meal/food fenofibrate nanocrystallized 48 mg tablet 48 mg PO QHS Qty: 90 3RF simvastatin 40 mg tablet 40 mg PO QHS Qty: 90 3RF Xarelto 20 mg tablet See Rx Instructions .ROUTE .COMPLEX Qty: 90 3RF Dose Instruction: TAKE 1 TABLET DAILY Rx Instructions: TAKE 1 TABLET DAILY Discontinued baclofen 5 mg tablet 10 mg PO TID Patient Comments: PLEASE SEE ATTACHED FOR DETAILED DIRECTIONS duloxetine 30 mg capsule,delayed release(DR/EC) 30 mg PO DAILY Referrals / Follow Up: Otis Roman MD [Primary Care Provider] - Disposition Disposition (needs filled in before D/C Order can be placed): Alf Facility Charges/Coding Visit Charges Inpatient E&M: 69905 Disch Hosp >30min
--- NOTE | 2023-12-18 13:58 | PHA.DC.MR.R ---
Pharmacy [place] Med Reconciliation Pharmacy Service has performed discharge medication reconciliation for this patient upon transfer to TCU The patient's discharge medication list was reviewed for discrepancies and discrepancies were resolved. Medications at Discharge Home Medications pramipexole 0.25 mg tablet 0.25 mg PO BID restless legs 04/18/16 albuterol sulfate 90 mcg/actuation aerosol inhaler (ProAir HFA) 1 puff inhalation Q6H PRN shortness of breath or wheezing #6.7 grams 03/12/21 losartan 50 mg tablet 50 mg PO DAILY blood pressure 90 days #90 tabs 06/23/22 carvedilol 12.5 mg tablet 12.5 mg PO BID blood pressure #180 tabs 02/17/23 cholecalciferol (vitamin D3) 25 mcg (1,000 unit) capsule 25 mcg PO DAILY vitamin 03/11/23 furosemide 40 mg tablet 60 mg PO .COMPLEX diuretic 03/11/23 albuterol sulfate 2.5 mg/3 mL (0.083 %) solution for nebulization 2.5 mg inhalation Q4-6H PRN shortness of breath or wheezing 06/08/23 fenofibrate nanocrystallized 48 mg tablet 48 mg PO QHS cholesterol #90 tabs 07/09/23 simvastatin 40 mg tablet 40 mg PO QHS cholesterol #90 tabs 07/27/23 rivaroxaban 20 mg tablet (Xarelto) See Rx Instructions .Route .COMPLEX blood thinner #90 tabs 09/04/23 levothyroxine 50 mcg tablet (Synthroid) 50 mcg PO DAILY thyroid 12/12/23 duloxetine 30 mg capsule,delayed release 30 mg PO DAILY chronic back pain 12/13/23 baclofen 10 mg tablet 5 mg (1/2 x 10 mg) PO TID #0 tabs 12/18/23 empagliflozin 10 mg tablet (Jardiance) 10 mg PO DAILY #0 tabs 12/18/23 furosemide 40 mg tablet (Lasix) 40 mg PO DAILY #30 tabs 12/18/23 pantoprazole 40 mg tablet,delayed release (Protonix) 40 mg PO DAILY #30 tabs 12/18/23 polysaccharide iron complex 150 mg iron capsule (Ferrex) 150 mg PO DAILY #0 caps 12/18/23
[2023-12-18 14:00] VITALS: BP 148/69; PULSE 58; RESP 18; TEMP 36.6; O2SAT 93
== END 2023-12-18 14:17 | disposition skilled nursing facility (03) | DRG 280 ==
LOC: ED 23:27 → PCU 23:38
PROVIDERS: Admitting Provider Internal Medicine; Emergency Provider Emergency Medicine; PCP Family Medicine; Visit Provider Family Medicine
DX: I11.0 Hypertensive heart disease with heart failure (principal); I21.4 Non-ST elevation (NSTEMI) myocardial infarction; I50.33 Acute on chronic diastolic (congestive) heart failure; G93.41 Metabolic encephalopathy; I48.20 Chronic atrial fibrillation, unspecified; Z68.41 Body mass index [BMI] 40.0-44.9, adult; I16.1 Hypertensive emergency; G25.81 Restless legs syndrome; D50.9 Iron deficiency anemia, unspecified; E83.39 Other disorders of phosphorus metabolism; E03.9 Hypothyroidism, unspecified; J45.20 Mild intermittent asthma, uncomplicated; I65.23 Occlusion and stenosis of bilateral carotid arteries; G47.33 Obstructive sleep apnea (adult) (pediatric); E66.01 Morbid (severe) obesity due to excess calories; E78.00 Pure hypercholesterolemia, unspecified; E87.6 Hypokalemia; D72.829 Elevated white blood cell count, unspecified; M54.9 Dorsalgia, unspecified; F41.9 Anxiety disorder, unspecified; Z79.01 Long term (current) use of anticoagulants; Z79.890 Hormone replacement therapy; R09.02 Hypoxemia; Z99.89 Dependence on other enabling machines and devices; Z86.73 Personal history of transient ischemic attack (TIA), and cerebral infarction without residual deficits; Z79.899 Other long term (current) drug therapy; Z90.49 Acquired absence of other specified parts of digestive tract; R79.89 Other specified abnormal findings of blood chemistry; G89.29 Other chronic pain
CPT/HCPCS: 36415; 36600; 70450; 71045; 78452; 80048; 80053; 81001; 82140; 82607; 82728; 82746; 82803; 83540; 83550; 83735; 83880; 84100; 84484; 85025; 85027; 85045; 87631; 93005; 93017; 93306; 94640; 94668; 97116; 97162; 97166; 97530; 97535; 99252; 99285; A9500; J7040; J7050; Q9957; A4216; C8929; G0463; J1940; J2785; J2916

== ENCOUNTER 2023-12-18 14:22 | Inpatient (IN) | payer MEDICARE, SELFPAY ==
[2023-12-18 14:48] VITALS: BP 157/68; PULSE 74; RESP 16; TEMP 36.4; O2SAT 92
--- NOTE | 2023-12-18 15:02 | HP.PCM_ITS ---
HPI - General General Date of Admission: 12/18/23 Date of Service: 12/18/23 Chief Complaint: Here for rehabilitation. HPI Narrative 12/12/2023 SIS CANELA, is a 83 Female who presents to [facility] ED with shortness of breath. Short of breath, left breast pain, left shoulder pain. Labetalol IV for blood pressure 235/119. covid/flu/rsv swab negative. Ceftriaxone, Azithromycin IV given for pneumonia. Furosemide 40mg IV given for Congestive Heart Failure, Chest X-ray showed volume overload. 12/12/2023 Admit [facility]. Furosemide 40mg IV twice daily, fluid restriction, strict I's and O's, for acute HFpEF. Consult Cardiology for elevated troponin, NSTEMI. Replace potassium. Evaluate anemia. Control blood pressure. 12/13/2023 Echo LVEF 65%. Stage 3 diastolic dysfunction. RVSP 46mm HG. 12/13/2023 Hemoglobin 8.1, consult GI. Hold Xarelto. 12/13/2023 Troponin 267. Beta aurelia, ARB, Statin, Aspirin for NSTEMI. IV iron for iron deficiency anemia. 12/14/2023 Nuclear stress test negative. 12/14/2023 Ativan given for anxiety, confused, disoriented. Continue IV Furosemide for acute HFpEF. Cardiology recommended medical management of NSTEMI. 12/15/2023 Very confused, elevated WBC resolved withOUT antibiotics. Check ammonia, ABG for confusion. Urinalysis negative for UTI. 12/16/2023 No agitation overnight, BiPAP helpful. BiPAP for CO2 51, supposed to be on CPAP for sleep apnea. 12/17/2023 Alert, no agitation. Pre-CERT SNF, decrease baclofen to 5mg tid to help with confusion. 12/18/2023 Admit to TCU with debility, here for rehabilitation, strengthening, prior to discharge home alone. [facility] Medical History (Updated 12/18/23 @ 15:[address] Manfred Wick MD) COVID-19 RSV bronchiolitis Pneumonia High cholesterol History of high blood pressure History of back problems Arthritis Stroke/cerebrovascular accident Right ventricular dilation Hyperlipidemia HELGA on CPAP Essential hypertension HELGA (obstructive sleep apnea) Asthma Chronic atrial fibrillation Non-rheumatic tricuspid valve insufficiency Secondary pulmonary arterial hypertension Morbid obesity with BMI of 40.0-44.9, adult H/O transient cerebral ischemia History of hypothyroidism Occlusion of carotid artery without cerebral infarction Home Medications ?Medication ?Instructions ?Recorded ?Last Taken ?Type pramipexole 0.25 mg tablet 0.25 mg PO BID restless legs 04/18/16 03/07/21 21:00 History albuterol sulfate 90 mcg/actuation 1 puff inhalation Q6H PRN 03/12/21 Unknown Rx aerosol inhaler (ProAir HFA) shortness of breath or wheezing #6.7 grams losartan 50 mg tablet 50 mg PO DAILY blood pressure 90 06/23/22 Unknown Rx days #90 tabs carvedilol 12.5 mg tablet 12.5 mg PO BID blood pressure #180 02/17/23 Unknown Rx tabs cholecalciferol (vitamin D3) 25 25 mcg PO DAILY vitamin 03/11/23 Unknown History mcg (1,000 unit) capsule furosemide 40 mg tablet 60 mg PO .COMPLEX diuretic 03/11/23 Unknown History albuterol sulfate 2.5 mg/3 mL 2.5 mg inhalation Q4-6H PRN 06/08/23 Unknown History (0.083 %) solution for nebulization shortness of breath or wheezing fenofibrate nanocrystallized 48 mg 48 mg PO QHS cholesterol #90 tabs 07/09/23 Unknown Rx tablet simvastatin 40 mg tablet 40 mg PO QHS cholesterol #90 tabs 07/27/23 Unknown Rx rivaroxaban 20 mg tablet (Xarelto) See Rx Instructions .Route 09/04/23 Unknown Rx .COMPLEX blood thinner #90 tabs levothyroxine 50 mcg tablet 50 mcg PO DAILY thyroid 12/12/23 Unknown History (Synthroid) baclofen 10 mg tablet 5 mg (1/2 x 10 mg) PO TID 12/18/23 Unknown Rx antibiotic #0 tabs empagliflozin 10 mg tablet 10 mg PO DAILY diabetes #0 tabs 12/18/23 Unknown Rx (Jardiance) pantoprazole 40 mg tablet,delayed 40 mg PO DAILY reflux #30 tabs 12/18/23 Unknown Rx release (Protonix) polysaccharide iron complex 150 mg 150 mg PO DAILY anemia #0 caps 12/18/23 Unknown Rx iron capsule (Ferrex) Allergy/AdvReac Type Severity Reaction Status Date / Time atorvastatin calcium (From Allergy Pain in Verified 12/07/23 13:14 Lipitor) joints Penicillins Allergy Rash Verified 12/07/23 13:14 pseudoephedrine Allergy Rash Verified 12/07/23 13:14 Sulfa (Sulfonamide Allergy Rash Verified 12/07/23 13:14 Antibiotics) hydrochlorothiazide AdvReac Nausea Verified 12/07/23 13:14 sulfamethoxazole (From AdvReac Nausea Verified 12/07/23 13:14 Bactrim) trimethoprim (From Bactrim) AdvReac Nausea Verified 12/07/23 13:14 Family History Mother CVA (cerebral vascular accident) Diabetes Father Brain aneurysm Surgical History Hx of cholecystectomy History of arthroscopy of left knee History of repair of right rotator cuff History of bunionectomy of both great toes Social History household members: family Smoking Status: Never smoker second hand exposure: No alcohol intake: current alcohol intake frequency: holidays/special occasions only Alcohol type: wine details: wine occasionally substance use type: does not use caffeine: Yes Type: coffee Number of servings: 1 what type of physical activity do you participate in: none luisa/sabianist: Zoroastrian seatbelt use: always ROS Constitutional Constitutional: Denies chills, fever(s) or weight gain ENT HEENT: Denies headache(s), nasal congestion or nasal discharge Cardiovascular Cardiovascular: Denies chest pain or palpitations Respiratory/Chest Respiratory/Chest: Denies cough, excessive phlegm production or shortness of b reath with exertion Gastrointestinal Gastrointestinal: Denies abdominal pain, nausea or vomiting Genitourinary Genitourinary: Denies dysuria Musculoskeletal Musculoskeletal: Denies joint pain or joint swelling Integumentary Integumentary: Denies rash or wounds Neurologic Neurologic: Denies focal weakness, numbness or tingling Psychiatric Psychiatric: Denies anxiety, auditory hallucinations, depression, homicidal ideation or suicidal ideation Physical Exam Const alert General Appearance: cooperative HEENT normocephalic Eyes PERRL and EOMs intact bilaterally Neck supple, no JVD and no carotid bruits Resp normal respiratory effort, normal air movement and clear to auscultation bilaterally Cardio regular rate and regular rhythm GI normal to inspection, nondistended, normoactive bowel sounds, non-tender and non-distended Extremity normal capillary refill General Extremity: Negative for edema Skin no rashes or lesions noted General Skin Exam: no breakdown Psych affect normal Appearance: appropriate Assessment & Plan Assessment/Plan (1) Debility: (2) Acute respiratory failure with hypoxia: (3) Acute heart failure with preserved ejection fraction (HFpEF): (4) NSTEMI (non-ST elevated myocardial infarction): (5) Coronary artery disease: (6) Iron deficiency anemia: (7) Acute encephalopathy: (8) HELGA (obstructive sleep apnea): (9) Stroke/cerebrovascular accident: (10) Restless leg syndrome: (11) Atrial fibrillation: (12) Hyperlipidemia: QUALIFIERS: Hyperlipidemia type: unspecified Qualified Code(s): E78.5 - Hyperlipidemia, unspecified (13) Hypothyroidism: (14) Asthma: PLAN: Plan 83 year old female with below past medical history hospitalized for acute respiratory failure with hypoxia 2/2 NSTEMI, acute HFpEF, complicated by hy pokalemia, iron deficiency anemia, acute encephalopathy from hypercapnia, admitted to TCU with debility, here for rehabilitation, strengthening, prior to discharge home. * Debility - PT/OT. * Pain - Tylenol 1000mg q6 prn pain (1-10). * Bowel - senna/colace 1 tablet bid, Magnesium citrate 300ml daily prn. * Adult immunization - Administer pneumonia vaccine, covid vaccine, flu vaccine as appropriate. * DVT prophylaxis - on Xarelto. * Asthma - Albuterol 2.5mg q4-6 prn, Albuterol 1 puff q6 prn. * Muscle spasm - Baclofen 5mg tid. * Chronic HFpEF - Coreg 12.5mg bid, Losartan 50mg daily, Jardiance 10mg daily, Furosemide 60mg, 40mg, Fluid restriction. * CAD s/p NSTEMI - Coreg 12.5mg bid, Losartan 50mg daily, Xarelto 20mg daily. * Atrial fibrillation - Coreg 12.5mg bid, Xarelto 20mg daily. * Vitamin D deficiency - D3 25mcg daily. * Hyperlipidemia - Fenofibrate 48mg qhs. * Iron deficiency anemia - Ferrex 150mg daily. * Hypothyroidism - Levothyroxine 50mcg daily. * GERD - Pantoprazole 40mg daily. * Restless leg syndrome - Mirapex 0.25mg bid. * Hyperlipidemia - Atorvastatin 40mg qhs.
[2023-12-18 15:19] VITALS: BMI 40.6
[2023-12-18] MEDS: Rivaroxaban 20 MG Tablet PO (17:02)
[2023-12-18] MEDS: Pramipexole Di-HCl 0.25 MG Tablet PO (20:47)
[2023-12-18] MEDS: Baclofen 10 MG Tablet 5 MG PO (20:50)
[2023-12-18] MEDS: Fenofibrate 48 MG Tablet PO (20:50)
[2023-12-18] MEDS: Carvedilol 12.5 MG Tablet PO (20:50)
[2023-12-18] MEDS: Senna/Docusate Sodium 1 Tablet PO (20:50)
[2023-12-18] MEDS: Acetaminophen 500 MG Tablet 1000 MG PO (20:54)
[2023-12-18 20:56] VITALS: BP 158/68; PULSE 71; O2SAT 93
[2023-12-19 04:15] LABS: Absolute Lymphocyte Count 1.68 X10^3/uL (0.83-4.51); Absolute Neutrophil Count 5.6 X10^3/uL (2.0-7.7); Basophil# 0.07 X10^3/uL; Basophil% 0.8 % (0-1); Eosinophil# 0.17 X10^3/uL; Eosinophils% 1.9 % (0-5); Hematocrit 29.4 % (37-47); Lymphocyte # 1.68 X10^3/ul (0.83-4.51); Lymphocyte % 18.4 % (19-41); Mean Corp Hgb Conc 30.6 g/dL (32-36); Mean Corpuscular Hgb 34.5 pg (27.0-32.0); Mean Corpuscular Volume 112.6 fL (81-99); Mean Platelet Vol. 9.9 fl (6.2-12.0); Monocyte# 1.43 X10^3/uL; Monocyte% 15.7 % (0-10); NRBC Flagged by Analyzer 0 % (0-5); Neutrophil # 5.64 X10^3/uL (2.7-7.7); Neutrophil % 61.7 % (47-70); POSITIVE MORPHOLOGY YES; Platelet Count 281 K/mm3 (150-450); RBC Distribution Width CV 16.5 % (11.6-14.6); RBC Distribution Width SD 68.9 fl (35.1-43.9); Red Blood Count 2.61 M/mm3 (4.2-5.4); White Blood Count 9.1 K/mm3 (4.4-11.0)
[2023-12-19 04:34] LABS: Differential Indicated SCAN CRITERIA MET
[2023-12-19 04:37] LABS: Anion Gap 5 (5-15); BUN 13 mg/dL (7-18); BUN/Creat Ratio 17.5 RATIO (10-20); Chloride 105 mmol/L (98-107); Creatinine, Serum 0.74 mg/dL (0.55-1.02); EST Glomerular Filtration Rate 79 mL/min (>60); Est Glom Filt Rate - Afr Amer 96 mL/min (>60); Estimated Creatinine Clearance 53.78 ml/min; Glucose 125 mg/dL (74-106); Potassium 3.3 mmol/L (3.5-5.1); Sodium Level 142 mmol/L (136-145)
[2023-12-19 05:12] LABS: Anisocytosis 1+
[2023-12-19] MEDS: Baclofen 10 MG Tablet 5 MG PO ×3 (06:23→20:15)
[2023-12-19] MEDS: Levothyroxine 50 MCG Tablet PO (06:23)
[2023-12-19] MEDS: Furosemide 40 MG Tablet 60 MG PO (07:45)
[2023-12-19 09:42] VITALS: O2SAT 96
[2023-12-19] MEDS: Empagliflozin 10 MG Tablet PO (09:50)
[2023-12-19] MEDS: Losartan Potassium 50 MG Tablet PO (09:51)
[2023-12-19] MEDS: Iron Polysaccharide Complex 150 MG CAPSULE PO (09:51)
[2023-12-19] MEDS: Carvedilol 12.5 MG Tablet PO ×2 (09:51→20:14)
[2023-12-19] MEDS: Pramipexole Di-HCl 0.25 MG Tablet PO ×2 (09:51→20:15)
[2023-12-19] MEDS: Senna/Docusate Sodium 1 Tablet PO ×2 (09:52→20:15)
[2023-12-19] MEDS: Pantoprazole Sodium 40 MG Tablet PO (09:52)
[2023-12-19] MEDS: Cholecalciferol (VIT D3) 25 MCG TABLET (1,000 UNITS) PO (09:53)
[2023-12-19 10:00] VITALS: BMI 40.6
[2023-12-19 10:01] VITALS: O2SAT 96
[2023-12-19 10:56] LABS: Bedside Glucose 117 mg/dL (74-106)
[2023-12-19] MEDS: Potassium Chloride Oral Tablet 20 MEQ 40 MEQ PO (11:45)
--- NOTE | 2023-12-19 11:48 | NURSING ---
Patient's Potassium level 3.3 this morning. New order received for KCl 40mEq x 1 dose, then KCl 20mEq daily.
[2023-12-19 12:31] VITALS: BP 130/59; PULSE 54; RESP 18; TEMP 36; O2SAT 95
[2023-12-19] MEDS: Furosemide 40 MG Tablet PO (14:22)
[2023-12-19] MEDS: Rivaroxaban 20 MG Tablet PO (16:47)
[2023-12-19] MEDS: Tuberculin,Purif.prot.deriv. 50 TU/ML Vial 0.1 ML ID (18:06)
[2023-12-19 20:05] VITALS: PULSE 67; O2SAT 99
[2023-12-19] MEDS: Simvastatin 20 MG Tablet 40 MG PO (20:15)
[2023-12-19] MEDS: Fenofibrate 48 MG Tablet PO (20:15)
[2023-12-19] MEDS: 0.9% Saline Lock 10 ML Syringe IV (20:17)
[2023-12-19 20:28] VITALS: BP 138/77; PULSE 67; RESP 18; O2SAT 99
[2023-12-20] MEDS: Baclofen 10 MG Tablet 5 MG PO ×3 (05:53→21:24)
[2023-12-20] MEDS: Levothyroxine 50 MCG Tablet PO (05:53)
[2023-12-20 05:58] LABS: Anion Gap 4 (5-15); BUN 10 mg/dL (7-18); BUN/Creat Ratio 12.3 RATIO (10-20); Calcium,Total 9.2 mg/dL (8.5-10.1); Chloride 108 mmol/L (98-107); Creatinine, Serum 0.82 mg/dL (0.55-1.02); EST Glomerular Filtration Rate 71 mL/min (>60); Est Glom Filt Rate - Afr Amer 86 mL/min (>60); Estimated Creatinine Clearance 52.47 ml/min; Glucose 118 mg/dL (74-106); Potassium 3.9 mmol/L (3.5-5.1); Sodium Level 143 mmol/L (136-145)
[2023-12-20 06:15] VITALS: PULSE 72; O2SAT 96
[2023-12-20 06:19] LABS: Bedside Glucose 110 mg/dL (74-106)
[2023-12-20] MEDS: Furosemide 40 MG Tablet 60 MG PO (08:32)
[2023-12-20] MEDS: Potassium Chloride Oral Tablet 20 MEQ PO (08:32)
[2023-12-20] MEDS: Carvedilol 12.5 MG Tablet PO ×2 (08:33→21:25)
[2023-12-20] MEDS: Senna/Docusate Sodium 1 Tablet PO ×2 (08:34→21:24)
[2023-12-20] MEDS: Iron Polysaccharide Complex 150 MG CAPSULE PO (08:34)
[2023-12-20] MEDS: Cholecalciferol (VIT D3) 25 MCG TABLET (1,000 UNITS) PO (08:34)
[2023-12-20] MEDS: Losartan Potassium 50 MG Tablet PO (08:34)
[2023-12-20] MEDS: Pantoprazole Sodium 40 MG Tablet PO (08:35)
[2023-12-20] MEDS: Empagliflozin 10 MG Tablet PO (08:35)
[2023-12-20] MEDS: Pramipexole Di-HCl 0.25 MG Tablet PO ×2 (08:35→21:24)
[2023-12-20 10:00] VITALS: BMI 40.6
[2023-12-20 11:40] VITALS: BP 138/70; PULSE 80; RESP 18; TEMP 36.2; O2SAT 92
[2023-12-20] MEDS: Furosemide 40 MG Tablet PO (14:08)
[2023-12-20] MEDS: Rivaroxaban 20 MG Tablet PO (17:42)
[2023-12-20] MEDS: Fenofibrate 48 MG Tablet PO (21:24)
[2023-12-20] MEDS: 0.9% Saline Lock 10 ML Syringe IV (21:24)
[2023-12-20] MEDS: Simvastatin 20 MG Tablet 40 MG PO (21:29)
[2023-12-21] MEDS: Levothyroxine 50 MCG Tablet PO (06:06)
[2023-12-21] MEDS: Baclofen 10 MG Tablet 5 MG PO ×3 (06:06→21:19)
[2023-12-21 07:01] VITALS: O2SAT 94
[2023-12-21 09:20] VITALS: BP 120/67; PULSE 68; RESP 16; TEMP 36.2; O2SAT 96
[2023-12-21] MEDS: Potassium Chloride Oral Tablet 20 MEQ PO (09:26)
[2023-12-21] MEDS: Pantoprazole Sodium 40 MG Tablet PO (09:27)
[2023-12-21] MEDS: Losartan Potassium 50 MG Tablet PO (09:27)
[2023-12-21] MEDS: Iron Polysaccharide Complex 150 MG CAPSULE PO (09:27)
[2023-12-21] MEDS: Pramipexole Di-HCl 0.25 MG Tablet PO ×2 (09:27→21:19)
[2023-12-21] MEDS: Senna/Docusate Sodium 1 Tablet PO (09:27)
[2023-12-21] MEDS: Carvedilol 12.5 MG Tablet PO ×2 (09:27→21:20)
[2023-12-21] MEDS: Empagliflozin 10 MG Tablet PO (09:27)
[2023-12-21] MEDS: Cholecalciferol (VIT D3) 25 MCG TABLET (1,000 UNITS) PO (09:27)
[2023-12-21] MEDS: Furosemide 40 MG Tablet 60 MG PO (09:28)
[2023-12-21] MEDS: Furosemide 40 MG Tablet PO (13:43)
[2023-12-21 14:06] VITALS: BP 132/69; PULSE 75; RESP 18; TEMP 36.7; O2SAT 92
[2023-12-21 14:58] VITALS: O2SAT 88
[2023-12-21] MEDS: Rivaroxaban 20 MG Tablet PO (16:30)
[2023-12-21] MEDS: Simvastatin 20 MG Tablet 40 MG PO (21:20)
[2023-12-21] MEDS: Fenofibrate 48 MG Tablet PO (21:20)
[2023-12-21 23:00] VITALS: PULSE 70; O2SAT 96
[2023-12-22] MEDS: Baclofen 10 MG Tablet 5 MG PO ×2 (05:16→14:29)
[2023-12-22] MEDS: Levothyroxine 50 MCG Tablet PO (05:16)
[2023-12-22 08:34] VITALS: BP 107/54; PULSE 65; RESP 16; TEMP 36.5; O2SAT 97
[2023-12-22] MEDS: Pramipexole Di-HCl 0.25 MG Tablet PO ×2 (08:39→21:55)
[2023-12-22] MEDS: Losartan Potassium 50 MG Tablet PO (08:39)
[2023-12-22] MEDS: Furosemide 40 MG Tablet 60 MG PO (08:39)
[2023-12-22] MEDS: Carvedilol 12.5 MG Tablet PO (08:39)
[2023-12-22] MEDS: Senna/Docusate Sodium 1 Tablet PO (08:39)
[2023-12-22] MEDS: Pantoprazole Sodium 40 MG Tablet PO (08:39)
[2023-12-22] MEDS: Cholecalciferol (VIT D3) 25 MCG TABLET (1,000 UNITS) PO (08:39)
[2023-12-22] MEDS: Potassium Chloride Oral Tablet 20 MEQ PO (08:39)
[2023-12-22] MEDS: Empagliflozin 10 MG Tablet PO (08:39)
[2023-12-22] MEDS: Iron Polysaccharide Complex 150 MG CAPSULE PO (08:41)
--- NOTE | 2023-12-22 12:01 | PCM.PN.DRR ---
Documented by User: James Pandey 12/22/23 12:24 TCU RX Drug Regimen Review Subjective/Objective Subjective/Objective: Subjective: TCU admission note. 83 year old female with below past medical history hospitalized for acute respiratory failure with hypoxia 2/2 NSTEMI, acute HFpEF, complicated by hypokalemia, iron deficiency anemia, acute encephalopathy from hypercapnia, admitted to TCU with debility, here for rehabilitation, strengthening, prior to discharge home. Objective: Allergies atorvastatin calcium (From Lipitor) Allergy (Verified 12/07/23 13:14) Pain in joints Penicillins Allergy (Verified 12/07/23 13:14) Rash pseudoephedrine Allergy (Verified 12/07/23 13:14) Rash Sulfa (Sulfonamide Antibiotics) Allergy (Verified 12/07/23 13:14) Rash hydrochlorothiazide Adverse Reaction (Verified 12/07/23 13:14) Nausea sulfamethoxazole (From Bactrim) Adverse Reaction (Verified 12/07/23 13:14) Nausea trimethoprim (From Bactrim) Adverse Reaction (Verified 12/07/23 13:14) Nausea Current Medications Generic Name Dose Route Start Last Admin Trade Name Freq PRN Reason Stop Dose Admin Acetaminophen 1,000 mg 12/18/23 15:25 12/18/23 20:54 Acetaminophen 500 Mg Tablet PO 1,000 mg Q6H PRN PRN Administration Pain Score 1-10 Albuterol Sulfate 1 puff 12/18/23 15:24 Albuterol Ih (6.7 Gm) 1 Puff Inhaler INHALATION Q6H PRN shortness of breath or wheezing Baclofen 5 mg 12/18/23 22:00 12/22/23 05:16 Baclofen 10 Mg Tablet PO 5 mg TID DELORES Administration Carvedilol 12.5 mg 12/18/23 22:00 12/22/23 08:39 Carvedilol 12.5 Mg Tablet PO 12.5 mg BID DELORES Administration Protocol Cholecalciferol 25 mcg 12/19/23 10:00 12/22/23 08:39 Cholecalciferol (Vit D3) 25 Mcg Tablet (1,000 Units) PO 25 mcg DAILY DELORES Administration Empagliflozin 10 mg 12/19/23 10:00 12/22/23 08:39 Empagliflozin 10 Mg Tablet PO 10 mg DAILY DELORES Administration Fenofibrate 48 mg 12/18/23 22:00 12/21/23 21:20 Fenofibrate 48 Mg Tablet PO 48 mg QHS DELORES Administration Furosemide 40 mg 12/19/23 14:00 12/21/23 13:43 Furosemide 40 Mg Tablet PO 40 mg 1400 DELORES Administration Furosemide 60 mg 12/19/23 08:00 12/22/23 08:39 Furosemide 40 Mg Tablet PO 60 mg DAILYCM DELORES Administration Levothyroxine Sodium 50 mcg 12/19/23 06:00 12/22/23 05:16 Levothyroxine 50 Mcg Tablet PO 50 mcg 0600 DELORES Administration Losartan Potassium 50 mg 12/19/23 10:00 12/22/23 08:39 Losartan Potassium 50 Mg Tablet PO 50 mg DAILY DELORES Administration Protocol Magnesium Citrate 300 ml 12/18/23 15:25 Magnesium Citrate 300 Ml PO DAILY PRN Constipation Pantoprazole Sodium 40 mg 12/19/23 10:00 12/22/23 08:39 Pantoprazole Sodium 40 Mg Tablet PO 40 mg DAILY DELORES Administration Polysaccharide Iron Complex 150 mg 12/19/23 10:00 12/22/23 08:41 Iron Polysaccharide Complex 150 Mg Capsule PO 150 mg DAILY DELORES Administration Potassium Chloride 20 meq 12/20/23 08:00 12/22/23 08:39 Potassium Chloride Oral Tablet 20 Meq PO 20 meq DAILYCM DELORES Administration Pramipexole Dihydrochloride 0.25 mg 12/18/23 22:00 12/22/23 08:39 Pramipexole Di-Hcl 0.25 Mg Tablet PO 0.25 mg BID DELORES Administration Rivaroxaban 20 mg 12/18/23 17:00 12/21/23 16:30 Rivaroxaban 20 Mg Tablet PO 20 mg DINNER DELORES Administration Senna/Docusate Sodium 1 tablet 12/18/23 22:00 12/22/23 08:39 Senna/Docusate Sodium 1 Tablet PO 1 tablet BID DELORES Administration Simvastatin 40 mg 12/18/23 22:00 12/21/23 21:20 Simvastatin 20 Mg Tablet PO 40 mg QHS DELORES Administration Sodium Chloride 10 - 40 ml 12/18/23 15:38 12/20/23 21:24 0.9% Saline Lock 10 Ml Syringe IV 10 ml UD PRN Administration SALINE FLUSH Tuberculin PPD 0.1 ml 12/26/23 10:00 Tuberculin,Purif.Prot.Deriv. 50 Tu/Ml Vial ID 12/26/23 10:01 X1 ONE Problem List Asthma (Acute) Hypothyroidism (Acute) Atrial fibrillation (Acute) Restless leg syndrome (Acute) Stroke/cerebrovascular accident (Acute) Acute encephalopathy (Acute) Iron deficiency anemia (Acute) Coronary artery disease (Acute) NSTEMI (non-ST elevated myocardial infarction) (Acute) Acute heart failure with preserved ejection fraction (HFpEF) (Acute) Debility (Acute) Hyperlipidemia (Chronic) HELGA (obstructive sleep apnea) (Chronic) Vital Signs Temp Pulse Resp BP Pulse Ox O2 Del Method O2 Flow Rate 97.7 F L 65 16 107/54 L 97 Room Air 2 12/22/23 08:34 12/22/23 08:34 12/22/23 08:34 12/22/23 08:34 12/22/23 08:34 12/22/23 08:34 12/19/23 20:28 Oxygen Flow Rate (L/min) 2 Oxygen Delivery Method Room Air Weight: 94.483 kg Body Mass Index (BMI) 40.6 Sodium 143 mmol/L (136-145) 12/20/23 05:20 Potassium 3.9 mmol/L (3.5-5.1) 12/20/23 05:20 Chloride 108 mmol/L (98-107) H 12/20/23 05:20 Carbon Dioxide 31.0 mmol/L (21.0-32.0) 12/20/23 05:20 Anion Gap 4 (5-15) L 12/20/23 05:20 BUN 10 mg/dL (7-18) 12/20/23 05:20 Creatinine 0.82 mg/dL (0.55-1.02) 12/20/23 05:20 Est GFR (MDRD) Af Amer 86 mL/min (>60) 12/20/23 05:20 Est GFR (MDRD) Non-Af 71 mL/min (>60) 12/20/23 05:20 BUN/Creatinine Ratio 12.3 RATIO (10-20) 12/20/23 05:20 Glucose 118 mg/dL (74-106) H 12/20/23 05:20 Assessment/Plan: 1. Pain: acetaminophen 1000 mg PO Q6H PRN pain. The patient has required 1 dose of PRN acetaminophen so far this admission. Please continue to monitor for PRN medication administration as well as for pain levels and LFTs (AST/ALT = 16/14 U/L on 12/16/23). 2. Bowel: senna/docusate 1 tablet PO BID, magnesium citrate 300 mL PO daily PRN constipation. The patient has not required any PRN magnesium citrate so far this admission and the patient's last bowel movement was 12/20/23. Please continue to monitor for PRN medication usage, bowel movements, constipation and diarrhea. 3. Chronic HFpEF, CAD s/p NSTEMI, Hyperlipidemia, Afib: carvedilol 12.5 mg PO BID, empagliflozin 10 mg PO daily, furosemide 60 mg PO AM, 40 mg PO @ 1400, losartan 50 mg PO daily, rivaroxaban 20 mg PO daily, simvastatin 40 mg PO QHS, fenofibrate 48 mg PO QHS. Please continue to monitor for s/s of a heart failure exacerbation such as shortness of breath, swelling, JVD, for chest/arm/jaw pain, for palpitations, for s/s of stroke, heart rates (recent range = 54-80 beats/min), blood pressures (recent range = 107-162/54-77 mmHg), for fatigue, renal function (serum creatinine = 0.82 mg/dL with creatinine clearance ~ 52 mL/min on 12/20/23), for s/s of a genitourinary infection, blood glucose levels (glucose = 118 mg/dL on 12/20/23), for s/s of dehydration, sodium levels (Na = 143 mmol/L on 12/20/23), potassium levels (K = 3.9 mmol/L on 12/20/23), hemoglobin levels (Hgb = 9.0 g/dL on 12/19/23), platelet counts (Plt = 281 K/mm3), for s/s of bleeding/excessive bruising, lipid levels (cholesterol = 126 mg/dL with LDL = 52 mg/dL and TG = 53 mg/dL on 10/31/21), and LFTs (AST/ALT = 16/14 U/L on 12/16/23), as well as for myalgias. Please consider ordering repeat lipid levels if clinically indicated. 4. Hypothyroidism: levothyroxine 150 mcg PO daily. Please continue to monitor for s/s of hypo/hyperthyroidism, and thyroid levels (TSH = 2.33 uIU/mL with T4 = 1.40 ng/dL on 10/31/21). 5. Asthma: albuterol 1 puff Q6H PRN shortness of breath. The patient has not required any PRN doses of albuterol so far this admission. Please continue to monitor for shortness of breath and for s/s of an asthma exacerbation. 6. GERD: pantoprazole 40 mg PO daily. Please continue to monitor for s/s of GERD, for diarrhea that could indicate clostridium difficile infection, for s/s of bone resorption such as fractures, and magnesium levels (Mg = 2.5 mg/dL on 12/16/23). 7. Muscle spasms: baclofen 5 mg PO TID. Please continue to monitor for muscle spasms, for confusion, dizziness, drowsiness, asthenia,and for nausea/vomiting. 8. Restless leg syndrome: pramipexole 0.25 mg PO BID. Please continue to monitor for restless legs, for s/s of orthostasis, constipation, nausea, asthenia, dizziness, drowsiness, and headache. 9. Vitamin D deficiency: cholecalciferol 25 mcg PO daily. Please continue to monitor for s/s of vitamin D deficiency and vitamin D levels (Vitamin D = 24.4 ng/mL on 01/17/21). 10. Iron deficiency anemia: iron polysaccharide 150 mg PO daily. Please continue to monitor hemoglobin levels (Hgb = 9.0 mg/dL on 12/19/23), and iron levels (iron = 28 ug/dL on 12/13/23). 11. Hypokalemia: potassium chloride 20 mEq daily. Please continue to monitor potassium levels (K = 3.9 mmol/L on 12/20/23) and for GI distress with potassium administration. Assessment/Plan for indications treated with psychotropic medications: NA Medical chart and medication regimen reviewed. The following medication irregularities or issues were identified: 1. Chronic HFpEF, CAD s/p NSTEMI, Hyperlipidemia, Afib: carvedilol 12.5 mg PO BID, empagliflozin 10 mg PO daily, furosemide 60 mg PO AM, 40 mg PO @ 1400, losartan 50 mg PO daily, rivaroxaban 20 mg PO daily, simvastatin 40 mg PO QHS, fenofibrate 48 mg PO QHS. Please consider ordering repeat lipid levels if clinically indicated. Date Date of Note:: 12/22/23 Documented by User: Dr. Manfred Wick MD 12/22/23 13:15 TCU RX Drug Regimen Review Provider Comments Provider responsibility Provider Comments to Recommendations by Pharmacy: Agree
[2023-12-22] MEDS: Albuterol IH (6.7 GM) 1 PUFF INHALER INHALATION (12:27)
--- NOTE | 2023-12-22 12:46 | NURSING ---
pt eating meal, legs elevated and noted felt like squeezing around diaphragm w/SOB. inhaler given & pt feels better, sat 93% on rm air, denies need for oxygen. legs put down and feeling better. call light in reach. pt instructed to call for nurse if it starts again. pt verbalized understanding. resting with eyes closed.
[2023-12-22 14:26] VITALS: BP 106/89; PULSE 61; RESP 20; TEMP 36.5; O2SAT 95
[2023-12-22] MEDS: Furosemide 40 MG Tablet PO (14:29)
--- NOTE | 2023-12-22 14:36 | NURSING ---
Addendum entered by Sandra Ross 12/22/23 15:19: pt still c/o SOB, dr acevedo notified, new order for cxr, labs. pt updated and will update daughter. Original Note: pt sat 95% on Rm air, pt dosing off & on, placed cpap on to help w/c/o SOB. expiratory wheezing noted, lungs clear t/o. pt sitting up in chair, call light in reach.
--- NOTE | 2023-12-22 15:42 | NURSING ---
spoke with daughter, updated her on all orders. awaiting lab and cxr results
--- NOTE | 2023-12-22 15:48 | RAD_ITS ---
INDICATION: SOB/wheezing EXAMINATION/TECHNIQUE: X-RAY - XR Chest 2 Views COMPARISON: 12/12/2023 FINDINGS: LINES/DEVICES: None. LUNGS: Mild residual airspace opacities right middle lobe. No consolidation, vascular congestion or pleural effusion. MEDIASTINUM AND CARDIOVASCULAR STRUCTURES: Stable cardiomegaly. BONES AND SOFT TISSUES: No acute changes. RAD/Chest PA and Lateral IMPRESSION: Cardiomegaly with residual patchy right middle lobe infiltrate. Recommend follow-up to complete resolution. Electronically Signed: Fernando Goodman MD at 16:53 EDT ,
--- NOTE | 2023-12-22 15:49 | NURSING ---
pt off unit to xray via WC, oxygen applied 2 liters
[2023-12-22 16:17] LABS: Absolute Lymphocyte Count 2.22 X10^3/uL (0.83-4.51); Absolute Neutrophil Count 7.8 X10^3/uL (2.0-7.7); Basophil# 0.06 X10^3/uL; Basophil% 0.5 % (0-1); Eosinophil# 0.18 X10^3/uL; Eosinophils% 1.4 % (0-5); Hematocrit 33.7 % (37-47); Hemoglobin 10.2 g/dL (12.0-15.0); Lymphocyte # 2.22 X10^3/ul (0.83-4.51); Lymphocyte % 17.6 % (19-41); Mean Corp Hgb Conc 30.3 g/dL (32-36); Mean Corpuscular Volume 112.3 fL (81-99); Mean Platelet Vol. 10.6 fl (6.2-12.0); Monocyte# 2.17 X10^3/uL; Monocyte% 17.2 % (0-10); NRBC Flagged by Analyzer 0 % (0-5); Neutrophil # 7.83 X10^3/uL (2.7-7.7); Neutrophil % 61.9 % (47-70); POSITIVE DIFFERENTIAL YES; POSITIVE MORPHOLOGY YES; Platelet Count 325 K/mm3 (150-450); RBC Distribution Width CV 16.4 % (11.6-14.6); White Blood Count 12.6 K/mm3 (4.4-11.0)
[2023-12-22 16:22] LABS: Differential Indicated SCAN CRITERIA MET
[2023-12-22 16:29] LABS: Anion Gap 5 (5-15); BUN 23 mg/dL (7-18); BUN/Creat Ratio 13.8 RATIO (10-20); Calcium,Total 9.5 mg/dL (8.5-10.1); Chloride 102 mmol/L (98-107); Creatinine, Serum 1.67 mg/dL (0.55-1.02); EST Glomerular Filtration Rate 31 mL/min (>60); Est Glom Filt Rate - Afr Amer 38 mL/min (>60); Estimated Creatinine Clearance 25.77 ml/min; Glucose 123 mg/dL (74-106); Potassium 4.3 mmol/L (3.5-5.1); Sodium Level 136 mmol/L (136-145)
[2023-12-22 16:39] VITALS: BMI 39.9
[2023-12-22 16:41] VITALS: O2SAT 98
--- NOTE | 2023-12-22 16:41 | NURSING ---
sat 98% on 2 liters oxygen. pt states i feel better awaiting CXR & BNP results
[2023-12-22 16:50] LABS: Anisocytosis 2+; Platelet Estimate ADEQUATE (ADEQ)
[2023-12-22 16:56] LABS: BNP,B-Type NATRIURETIC PEPTIDE 58.8 pg/mL (0-100)
--- NOTE | 2023-12-22 17:18 | NURSING ---
dr acevedo updated on cxr, new order for IV levaquin. daughter notified of new order
[2023-12-22] MEDS: Rivaroxaban 20 MG Tablet PO (17:36)
[2023-12-22] MEDS: 0.9% Normal Saline (250mL Bag) 250 ML 15 ML IV (17:36)
[2023-12-22] MEDS: levoFLOXacin IV 750 MG/150 ML BAG 100 MG IV (17:40)
[2023-12-22 18:34] VITALS: RESP 18; O2SAT 96
--- NOTE | 2023-12-22 23:42 | NURSING ---
Patient c/o nausea, had emesis x 1. Refused all HS medications except for Mirapex. Resting comfortably in chair with oxygen in place at this time.
[2023-12-23] VITALS (7 sets, daily range): BP systolic 108–129; BP diastolic 63–68; PULSE 62–82; RESP 16–18; TEMP 36.2; O2SAT 96–99; BMI 38.7
[2023-12-23 07:11] LABS: Cholesterol 121 mg/dL (200); High Density Lipoprotein 41 mg/dL; Triglycerides 100 mg/dL; Very Low Density Lipoprotein 20 mg/dL (5-40)
[2023-12-23] MEDS: Albuterol IH (6.7 GM) 1 PUFF INHALER INHALATION (08:04)
[2023-12-23] MEDS: Levothyroxine 50 MCG Tablet PO (08:06)
--- NOTE | 2023-12-23 08:16 | NURSING ---
pt dry heaving w/small amt of liquid emesis this AM, unable to eat brkfst or take AM meds. Dr kristina davis.
[2023-12-23] MEDS: Ondansetron ODT 4 MG Tablet PO (08:36)
[2023-12-23] MEDS: Ipratropium/Albuterol Sulfate 3 ML AMPUL.NEB INHALATION ×2 (08:41→13:40)
--- NOTE | 2023-12-23 08:47 | NURSING ---
zofran given, RT notified for breathing tx at this time. pt resting in bed, resp even & unlabored, sat 96% on 2 liters
[2023-12-23] MEDS: Azithromycin 250 MG Tablet PO (09:25)
[2023-12-23] MEDS: Cefdinir 300 MG Capsule PO (09:26)
[2023-12-23] MEDS: Potassium Chloride Oral Tablet 20 MEQ PO (10:39)
[2023-12-23] MEDS: Furosemide 40 MG Tablet 60 MG PO (10:40)
[2023-12-23] MEDS: Carvedilol 12.5 MG Tablet PO ×2 (10:41→22:30)
[2023-12-23] MEDS: Empagliflozin 10 MG Tablet PO (10:41)
[2023-12-23] MEDS: Pantoprazole Sodium 40 MG Tablet PO (10:41)
[2023-12-23] MEDS: Losartan Potassium 50 MG Tablet PO (10:41)
[2023-12-23] MEDS: Pramipexole Di-HCl 0.25 MG Tablet PO ×2 (10:41→22:29)
[2023-12-23] MEDS: Iron Polysaccharide Complex 150 MG CAPSULE PO (10:41)
[2023-12-23] MEDS: Senna/Docusate Sodium 1 Tablet PO ×2 (10:42→22:29)
[2023-12-23] MEDS: Cholecalciferol (VIT D3) 25 MCG TABLET (1,000 UNITS) PO (10:42)
--- NOTE | 2023-12-23 10:54 | NURSING ---
Addendum entered by Sandra Ross 12/23/23 11:20: bart returned call updated on all orders and pt status Original Note: attempted to update Bart, daughter with new orders, no answer.
--- NOTE | 2023-12-23 13:52 | CASEMGMT ---
Social Work IDT met with patient and SACHIN, and conference call with dtr for care plan meeting. Discussed patient's progress in PT/OT/SN. Educated to [facility] insurance with NRD 12/29 and continued stay is not guaranteed with each review. Pt has caregivers through [facility] 8-10 hours a day for 5-6 days. Pt uses LTC policy to help fund aides. DC goal is to return home with caregivers. SW will continue to follow for DC planning. JOE BallW
--- NOTE | 2023-12-23 14:34 | CASEMGMT ---
Social Work ZAC met with pt and completed initial assessment. Pt confirms that her wishes are DNRCCA no intubation. Pt has completed a living will and HCPOA and they are on file at [facility]. ZAC educated pt on [employer] Medicare benefit and that NRD is 12/29 and continued stay is not guaranteed. Pt lives at home by herself. Pt does have caregivers from [facility] and they come 5x week from 5. Pt states her dgt is working on getting evening hours added to pt's care plan. Pt plans to return home with home health aids. ZAC will continue to follow for dc planning and support. EBENEZER Chavez
--- NOTE | 2023-12-23 14:45 | RAD_ITS ---
STUDY: X-RAY - ABDOMEN/PELVIS REASON FOR EXAM: Female, 83 years old. Nausea/vomiting TECHNIQUE: Single AP view of the abdomen / pelvis. COMPARISON: None. FINDINGS: There is elevation of the right hemidiaphragm. There is a moderate amount of colonic fecal material. The visualized liver, spleen and kidneys are grossly normal in size and morphology. Normal soft tissue structures. There are diffuse degenerative changes of the visualized lumbar spine. RAD/Abdomen Single View IMPRESSION: Moderate amount of fecal material is seen in the colon. Electronically Signed: Carlos Soto MD at 15:37 EDT ,
[2023-12-23 14:48] LABS: Absolute Lymphocyte Count 1.69 X10^3/uL (0.83-4.51); Absolute Neutrophil Count 6.2 X10^3/uL (2.0-7.7); Eosinophil# 0.16 X10^3/uL; Eosinophils% 1.6 % (0-5); Hematocrit 34.2 % (37-47); Hemoglobin 10.1 g/dL (12.0-15.0); Lymphocyte # 1.69 X10^3/ul (0.83-4.51); Lymphocyte % 17.2 % (19-41); Mean Corp Hgb Conc 29.5 g/dL (32-36); Mean Corpuscular Hgb 33.4 pg (27.0-32.0); Mean Corpuscular Volume 113.2 fL (81-99); Mean Platelet Vol. 11.5 fl (6.2-12.0); Monocyte# 1.55 X10^3/uL; Monocyte% 15.8 % (0-10); NRBC Flagged by Analyzer 0 % (0-5); Neutrophil % 63.2 % (47-70); POSITIVE DIFFERENTIAL YES; POSITIVE MORPHOLOGY YES; Platelet Count 270 K/mm3 (150-450); RBC Distribution Width SD 67.9 fl (35.1-43.9); Red Blood Count 3.02 M/mm3 (4.2-5.4); White Blood Count 9.8 K/mm3 (4.4-11.0)
[2023-12-23 14:49] LABS: Differential Indicated SCAN CRITERIA MET
[2023-12-23 14:58] LABS: Anion Gap 3 (5-15); BUN 22 mg/dL (7-18); BUN/Creat Ratio 15.6 RATIO (10-20); Calcium,Total 9.2 mg/dL (8.5-10.1); Chloride 104 mmol/L (98-107); Creatinine, Serum 1.41 mg/dL (0.55-1.02); EST Glomerular Filtration Rate 38 mL/min (>60); Est Glom Filt Rate - Afr Amer 46 mL/min (>60); Estimated Creatinine Clearance 29.67 ml/min; Glucose 98 mg/dL (74-106); Potassium 4.5 mmol/L (3.5-5.1); Sodium Level 138 mmol/L (136-145)
[2023-12-23 15:08] LABS: Differential Comment SCANNED
[2023-12-23 15:14] LABS: BNP,B-Type NATRIURETIC PEPTIDE 69.4 pg/mL (0-100)
[2023-12-23] MEDS: 0.9% Normal Saline (1000mL) 1,000 ML 500 ML IV (15:17)
[2023-12-23] MEDS: 0.9% Saline Lock 10 ML Syringe IV (15:19)
[2023-12-23] MEDS: 0.9% Normal Saline (1000mL) 1,000 ML 75 ML IV (17:20)
[2023-12-23] MEDS: Fenofibrate 48 MG Tablet PO (22:29)
[2023-12-23] MEDS: Simvastatin 20 MG Tablet 40 MG PO (22:29)
[2023-12-23] MEDS: Acetaminophen 500 MG Tablet 1000 MG PO (22:29)
[2023-12-24 05:55] LABS: Absolute Lymphocyte Count 1.55 X10^3/uL (0.83-4.51); Absolute Neutrophil Count 5.6 X10^3/uL (2.0-7.7); Basophil# 0.04 X10^3/uL; Basophil% 0.5 % (0-1); Eosinophil# 0.17 X10^3/uL; Hematocrit 30.4 % (37-47); Hemoglobin 9.2 g/dL (12.0-15.0); Lymphocyte # 1.55 X10^3/ul (0.83-4.51); Lymphocyte % 17.9 % (19-41); Mean Corp Hgb Conc 30.3 g/dL (32-36); Mean Corpuscular Hgb 34.7 pg (27.0-32.0); Mean Corpuscular Volume 114.7 fL (81-99); Mean Platelet Vol. 10.9 fl (6.2-12.0); Monocyte# 1.22 X10^3/uL; Monocyte% 14.1 % (0-10); NRBC Flagged by Analyzer 0 % (0-5); Neutrophil # 5.61 X10^3/uL (2.7-7.7); Neutrophil % 64.5 % (47-70); POSITIVE MORPHOLOGY YES; Platelet Count 238 K/mm3 (150-450); RBC Distribution Width SD 66.7 fl (35.1-43.9); Red Blood Count 2.65 M/mm3 (4.2-5.4); White Blood Count 8.7 K/mm3 (4.4-11.0)
[2023-12-24 06:04] LABS: Differential Indicated SCAN CRITERIA MET
[2023-12-24] MEDS: Levothyroxine 50 MCG Tablet PO (06:23)
[2023-12-24] MEDS: Furosemide 40 MG Tablet PO ×2 (06:23→10:25)
[2023-12-24] MEDS: 0.9% Normal Saline (1000mL) 1,000 ML 75 ML IV ×2 (06:29→20:27)
[2023-12-24 06:30] LABS: Anion Gap 4 (5-15); BUN 19 mg/dL (7-18); BUN/Creat Ratio 18.1 RATIO (10-20); Calcium,Total 8.8 mg/dL (8.5-10.1); Chloride 108 mmol/L (98-107); Creatinine, Serum 1.05 mg/dL (0.55-1.02); EST Glomerular Filtration Rate 53 mL/min (>60); Est Glom Filt Rate - Afr Amer 64 mL/min (>60); Estimated Creatinine Clearance 39.84 ml/min; Glucose 104 mg/dL (74-106); Sodium Level 140 mmol/L (136-145)
[2023-12-24 06:42] LABS: Anisocytosis 1+
--- NOTE | 2023-12-24 07:03 | NURSING ---
Patient has denied any nausea or complaints all night and has been pleasant. Agreeable to wear CPAP. Patient understands fluid restriction and verbalized. IV to L FOREARM infusing per order NS 75cc per hour.
[2023-12-24 07:10] VITALS: PULSE 70; RESP 18; O2SAT 99
[2023-12-24] MEDS: Ipratropium/Albuterol Sulfate 3 ML AMPUL.NEB INHALATION ×3 (07:10→20:00)
[2023-12-24] MEDS: Potassium Chloride Oral Tablet 20 MEQ PO (07:46)
[2023-12-24 08:51] LABS: Pathologist Review Reviewed
[2023-12-24 09:14] VITALS: O2SAT 99
--- NOTE | 2023-12-24 09:52 | NURSING ---
Logistics Manager Note; Activity Asset: Juju Ibarra is independent in her choice of daily activities with reminders. She will watch tv, read, visit with her restoration family and her family visits daily. She welcomes visits from our benefits consultant and therapy dog when available. Staff will encourage social activities when sitting in day room doing puzzles, remind her of weekly activities and respect her right to say no.
[2023-12-24 10:00] VITALS: RESP 17
[2023-12-24] MEDS: Iron Polysaccharide Complex 150 MG CAPSULE PO (10:24)
[2023-12-24] MEDS: Losartan Potassium 50 MG Tablet PO (10:24)
[2023-12-24] MEDS: Pantoprazole Sodium 40 MG Tablet PO (10:26)
[2023-12-24] MEDS: Carvedilol 12.5 MG Tablet PO ×2 (10:26→21:39)
[2023-12-24] MEDS: Senna/Docusate Sodium 1 Tablet PO ×2 (10:26→20:29)
[2023-12-24] MEDS: Cefdinir 300 MG Capsule PO (10:26)
[2023-12-24] MEDS: Empagliflozin 10 MG Tablet PO (10:27)
[2023-12-24] MEDS: Cholecalciferol (VIT D3) 25 MCG TABLET (1,000 UNITS) PO (10:27)
[2023-12-24] MEDS: Pramipexole Di-HCl 0.25 MG Tablet PO ×2 (10:27→20:28)
[2023-12-24] MEDS: Azithromycin 250 MG Tablet PO (10:28)
[2023-12-24 13:03] VITALS: PULSE 81; RESP 18
[2023-12-24] MEDS: Rivaroxaban 20 MG Tablet PO (17:39)
[2023-12-24 20:00] VITALS: PULSE 85; RESP 20
[2023-12-24] MEDS: Fenofibrate 48 MG Tablet PO (20:28)
[2023-12-24] MEDS: Simvastatin 20 MG Tablet 40 MG PO (20:28)
[2023-12-24] MEDS: Acetaminophen 500 MG Tablet 1000 MG PO (20:32)
[2023-12-24 21:49] VITALS: BP 100/68; PULSE 71
[2023-12-25] MEDS: Levothyroxine 50 MCG Tablet PO (05:13)
[2023-12-25 06:49] LABS: Absolute Lymphocyte Count 1.85 X10^3/uL (0.83-4.51); Absolute Neutrophil Count 5.5 X10^3/uL (2.0-7.7); Basophil# 0.06 X10^3/uL; Basophil% 0.7 % (0-1); Eosinophil# 0.14 X10^3/uL; Eosinophils% 1.6 % (0-5); Hematocrit 32.3 % (37-47); Hemoglobin 9.6 g/dL (12.0-15.0); Lymphocyte # 1.85 X10^3/ul (0.83-4.51); Lymphocyte % 20.8 % (19-41); Mean Corp Hgb Conc 29.7 g/dL (32-36); Mean Corpuscular Hgb 33.4 pg (27.0-32.0); Mean Corpuscular Volume 112.5 fL (81-99); Mean Platelet Vol. 10.9 fl (6.2-12.0); Monocyte# 1.33 X10^3/uL; Monocyte% 14.9 % (0-10); NRBC Flagged by Analyzer 0 % (0-5); Neutrophil # 5.45 X10^3/uL (2.7-7.7); Neutrophil % 61.2 % (47-70); POSITIVE MORPHOLOGY YES; Platelet Count 274 K/mm3 (150-450); RBC Distribution Width CV 15.9 % (11.6-14.6); Red Blood Count 2.87 M/mm3 (4.2-5.4); White Blood Count 8.9 K/mm3 (4.4-11.0)
[2023-12-25 07:00] LABS: Differential Indicated SCAN CRITERIA MET
[2023-12-25] MEDS: Potassium Chloride Oral Tablet 20 MEQ PO (08:27)
[2023-12-25] MEDS: Losartan Potassium 50 MG Tablet PO (08:28)
[2023-12-25] MEDS: Carvedilol 12.5 MG Tablet PO ×2 (08:28→20:21)
[2023-12-25] MEDS: Empagliflozin 10 MG Tablet PO (08:29)
[2023-12-25] MEDS: Pramipexole Di-HCl 0.25 MG Tablet PO ×2 (08:30→20:21)
[2023-12-25] MEDS: Pantoprazole Sodium 40 MG Tablet PO (08:30)
[2023-12-25] MEDS: Furosemide 40 MG Tablet PO (08:30)
[2023-12-25] MEDS: Cefdinir 300 MG Capsule PO (08:30)
[2023-12-25] MEDS: Senna/Docusate Sodium 1 Tablet PO ×2 (08:30→20:21)
[2023-12-25] MEDS: Cholecalciferol (VIT D3) 25 MCG TABLET (1,000 UNITS) PO (08:31)
[2023-12-25] MEDS: Azithromycin 250 MG Tablet PO (08:31)
[2023-12-25 08:33] VITALS: BP 119/43; PULSE 74
[2023-12-25] MEDS: 0.9% Saline Lock 10 ML Syringe IV (08:34)
--- NOTE | 2023-12-25 08:57 | NURSING ---
Robotic Machine Tender Production Note; MDS for 12/25/2023 Complete
[2023-12-25 09:52] LABS: Anisocytosis 2+; Differential Comment SCANNED; Macrocytosis 1+; Microcytosis 1+
[2023-12-25] MEDS: Iron Polysaccharide Complex 150 MG CAPSULE PO (09:57)
[2023-12-25 10:00] VITALS: BMI 41.1
[2023-12-25 10:08] LABS: Anion Gap 7 (5-15); BUN 16 mg/dL (7-18); BUN/Creat Ratio 14.7 RATIO (10-20); Calcium,Total 9.3 mg/dL (8.5-10.1); Chloride 110 mmol/L (98-107); Creatinine, Serum 1.09 mg/dL (0.55-1.02); EST Glomerular Filtration Rate 51 mL/min (>60); Est Glom Filt Rate - Afr Amer 61 mL/min (>60); Estimated Creatinine Clearance 38.38 ml/min; Glucose 109 mg/dL (74-106); Potassium 3.9 mmol/L (3.5-5.1); Sodium Level 140 mmol/L (136-145)
[2023-12-25 13:00] VITALS: RESP 16
--- NOTE | 2023-12-25 14:16 | CASEMGMT ---
Social Work SW conducted BIMS () and PHQ-2 () completed for MDS assessment. Dawn Espinal MSW [employer] TEMPERER
[2023-12-25 14:48] VITALS: BMI 41.1
[2023-12-25 15:18] VITALS: BP 128/62; PULSE 67; RESP 14; TEMP 36.1; O2SAT 95
[2023-12-25] MEDS: Rivaroxaban 20 MG Tablet PO (16:34)
[2023-12-25 20:20] VITALS: BP 128/65; PULSE 67
[2023-12-25] MEDS: Fenofibrate 48 MG Tablet PO (20:22)
[2023-12-25] MEDS: Simvastatin 20 MG Tablet 40 MG PO (20:22)
[2023-12-25] MEDS: Acetaminophen 500 MG Tablet 1000 MG PO (20:26)
[2023-12-25 20:50] VITALS: PULSE 68; RESP 20; O2SAT 98
[2023-12-25] MEDS: Ipratropium/Albuterol Sulfate 3 ML AMPUL.NEB INHALATION (20:50)
[2023-12-26 01:15] VITALS: PULSE 75; RESP 18
[2023-12-26] MEDS: Ipratropium/Albuterol Sulfate 3 ML AMPUL.NEB INHALATION ×4 (01:15→18:45)
[2023-12-26] MEDS: Levothyroxine 50 MCG Tablet PO (04:15)
[2023-12-26 06:00] VITALS: BMI 41.0
[2023-12-26 07:30] VITALS: PULSE 77; RESP 19
[2023-12-26] MEDS: Potassium Chloride Oral Tablet 20 MEQ PO (08:33)
[2023-12-26] MEDS: Iron Polysaccharide Complex 150 MG CAPSULE PO (08:33)
[2023-12-26] MEDS: Furosemide 40 MG Tablet PO (08:33)
[2023-12-26] MEDS: Carvedilol 12.5 MG Tablet PO ×2 (08:33→20:07)
[2023-12-26] MEDS: Empagliflozin 10 MG Tablet PO (08:33)
[2023-12-26] MEDS: Losartan Potassium 50 MG Tablet PO (08:33)
[2023-12-26] MEDS: Cefdinir 300 MG Capsule PO (08:33)
[2023-12-26] MEDS: Pramipexole Di-HCl 0.25 MG Tablet PO ×2 (08:33→20:07)
[2023-12-26] MEDS: Pantoprazole Sodium 40 MG Tablet PO (08:34)
[2023-12-26] MEDS: Senna/Docusate Sodium 1 Tablet PO ×2 (08:34→20:09)
[2023-12-26] MEDS: Cholecalciferol (VIT D3) 25 MCG TABLET (1,000 UNITS) PO (08:34)
[2023-12-26] MEDS: Azithromycin 250 MG Tablet PO (08:34)
[2023-12-26] MEDS: Acetaminophen 500 MG Tablet 1000 MG PO ×2 (08:36→20:10)
[2023-12-26] MEDS: Tuberculin,Purif.prot.deriv. 50 TU/ML Vial 0.1 ML ID (11:26)
[2023-12-26 12:23] VITALS: BP 128/58; PULSE 68; RESP 16; TEMP 36.5; O2SAT 96
[2023-12-26 14:08] VITALS: PULSE 76; RESP 17
[2023-12-26] MEDS: Rivaroxaban 20 MG Tablet PO (17:42)
[2023-12-26 18:45] VITALS: PULSE 67; RESP 18
--- NOTE | 2023-12-26 19:42 | NURSING ---
Patient and family requesting something for bladder spasms, patient used to take pyridium 100mg in the past for bladder spasms. Patient also c/o dry nose and pain to shoulder from history of shingles. Consulted Dr. Wick via telephone, N.O. for pyridium 95mg TID DELORES PO, Daily lidocaine patch to affected area, and PRN saline nasal spray for dry nose. Telephone orders read back.
[2023-12-26] MEDS: Sodium Chloride 0.65% 1 SPRAY SPRAY.BTL NASAL (20:05)
[2023-12-26] MEDS: Phenazopyridine 95 MG Tablet PO (20:07)
[2023-12-26] MEDS: Simvastatin 20 MG Tablet 40 MG PO (20:08)
[2023-12-26] MEDS: Baclofen 10 MG Tablet 5 MG PO (20:08)
[2023-12-26] MEDS: Fenofibrate 48 MG Tablet PO (20:09)
[2023-12-26] MEDS: 0.9% Saline Lock 10 ML Syringe IV (20:11)
[2023-12-27] MEDS: Phenazopyridine 95 MG Tablet PO ×3 (05:36→21:05)
[2023-12-27] MEDS: Levothyroxine 50 MCG Tablet PO (05:36)
[2023-12-27] MEDS: Sodium Chloride 0.65% 1 SPRAY SPRAY.BTL NASAL (06:54)
[2023-12-27] MEDS: Ipratropium/Albuterol Sulfate 3 ML AMPUL.NEB INHALATION ×3 (07:20→19:55)
[2023-12-27 08:09] VITALS: PULSE 72; RESP 20
[2023-12-27] MEDS: Potassium Chloride Oral Tablet 20 MEQ PO (09:19)
[2023-12-27] MEDS: Pantoprazole Sodium 40 MG Tablet PO (09:20)
[2023-12-27] MEDS: Cefdinir 300 MG Capsule PO (09:20)
[2023-12-27] MEDS: Furosemide 40 MG Tablet PO (09:20)
[2023-12-27] MEDS: Iron Polysaccharide Complex 150 MG CAPSULE PO (09:20)
[2023-12-27] MEDS: Carvedilol 12.5 MG Tablet PO ×2 (09:20→21:05)
[2023-12-27] MEDS: Pramipexole Di-HCl 0.25 MG Tablet PO ×2 (09:20→21:05)
[2023-12-27] MEDS: Losartan Potassium 50 MG Tablet PO (09:21)
[2023-12-27] MEDS: Empagliflozin 10 MG Tablet PO (09:21)
[2023-12-27] MEDS: Lidocaine 5% Patch 1 PATCH TOPICAL (09:22)
[2023-12-27] MEDS: Cholecalciferol (VIT D3) 25 MCG TABLET (1,000 UNITS) PO (09:23)
[2023-12-27] MEDS: Senna/Docusate Sodium 1 Tablet PO ×2 (09:23→21:05)
[2023-12-27] MEDS: Azithromycin 250 MG Tablet PO (09:25)
[2023-12-27 13:09] VITALS: PULSE 70; RESP 17
[2023-12-27 16:00] VITALS: BP 119/53; PULSE 70; RESP 16; TEMP 36.7; O2SAT 97
[2023-12-27] MEDS: Rivaroxaban 20 MG Tablet PO (17:07)
[2023-12-27 17:29] VITALS: BMI 40.8
[2023-12-27 19:55] VITALS: PULSE 70; RESP 18; O2SAT 92
[2023-12-27] MEDS: Acetaminophen 500 MG Tablet 1000 MG PO (21:04)
[2023-12-27] MEDS: Simvastatin 20 MG Tablet 40 MG PO (21:04)
[2023-12-27] MEDS: Fenofibrate 48 MG Tablet PO (21:05)
[2023-12-28 06:00] VITALS: BMI 40.8
[2023-12-28] MEDS: Phenazopyridine 95 MG Tablet PO ×2 (06:09→15:18)
[2023-12-28] MEDS: Levothyroxine 50 MCG Tablet PO (06:10)
[2023-12-28] MEDS: Ipratropium/Albuterol Sulfate 3 ML AMPUL.NEB INHALATION ×3 (07:30→19:54)
[2023-12-28 07:40] VITALS: PULSE 75; RESP 16; O2SAT 94
[2023-12-28 08:59] VITALS: O2SAT 98
[2023-12-28] MEDS: Sodium Chloride 0.65% 1 SPRAY SPRAY.BTL NASAL ×2 (09:18→13:56)
[2023-12-28] MEDS: Lidocaine 5% Patch 1 PATCH TOPICAL (09:19)
[2023-12-28] MEDS: Pantoprazole Sodium 40 MG Tablet PO (09:19)
[2023-12-28] MEDS: Pramipexole Di-HCl 0.25 MG Tablet PO ×2 (09:19→20:32)
[2023-12-28] MEDS: Senna/Docusate Sodium 1 Tablet PO ×2 (09:19→20:32)
[2023-12-28] MEDS: Furosemide 40 MG Tablet PO (09:19)
[2023-12-28] MEDS: Iron Polysaccharide Complex 150 MG CAPSULE PO (09:19)
[2023-12-28] MEDS: Potassium Chloride Oral Tablet 20 MEQ PO (09:19)
[2023-12-28] MEDS: Azithromycin 250 MG Tablet PO (09:20)
[2023-12-28] MEDS: Cefdinir 300 MG Capsule PO ×2 (09:20→20:32)
[2023-12-28] MEDS: Losartan Potassium 50 MG Tablet PO (09:20)
[2023-12-28] MEDS: Carvedilol 12.5 MG Tablet PO ×2 (09:20→20:31)
[2023-12-28] MEDS: Empagliflozin 10 MG Tablet PO (09:20)
[2023-12-28] MEDS: Cholecalciferol (VIT D3) 25 MCG TABLET (1,000 UNITS) PO (09:21)
[2023-12-28] MEDS: Acetaminophen 500 MG Tablet 1000 MG PO ×2 (09:24→20:33)
[2023-12-28 13:35] VITALS: PULSE 65; RESP 16; O2SAT 92
[2023-12-28 15:08] VITALS: BP 131/71; PULSE 70; RESP 14; TEMP 36.2; O2SAT 97
[2023-12-28] MEDS: Rivaroxaban 20 MG Tablet PO (16:17)
[2023-12-28 19:54] VITALS: PULSE 67; RESP 16
[2023-12-28] MEDS: Fenofibrate 48 MG Tablet PO (20:32)
[2023-12-28] MEDS: Simvastatin 20 MG Tablet 40 MG PO (20:32)
[2023-12-29] MEDS: Levothyroxine 50 MCG Tablet PO (05:25)
[2023-12-29 06:00] VITALS: BMI 40.9
[2023-12-29] MEDS: Potassium Chloride Oral Tablet 20 MEQ PO (08:12)
[2023-12-29 08:24] VITALS: BP 136/58; PULSE 66; RESP 16; TEMP 36.5; O2SAT 95
[2023-12-29] MEDS: Empagliflozin 10 MG Tablet PO (09:57)
[2023-12-29] MEDS: Losartan Potassium 50 MG Tablet PO (09:58)
[2023-12-29] MEDS: Furosemide 40 MG Tablet PO (09:58)
[2023-12-29] MEDS: Carvedilol 12.5 MG Tablet PO ×2 (09:58→21:54)
[2023-12-29 10:00] VITALS: BMI 40.9
[2023-12-29] MEDS: Pantoprazole Sodium 40 MG Tablet PO (10:36)
[2023-12-29] MEDS: Azithromycin 250 MG Tablet PO (10:36)
[2023-12-29] MEDS: Iron Polysaccharide Complex 150 MG CAPSULE PO (10:36)
[2023-12-29] MEDS: Pramipexole Di-HCl 0.25 MG Tablet PO ×2 (10:36→21:54)
[2023-12-29] MEDS: Senna/Docusate Sodium 1 Tablet PO ×2 (10:37→21:54)
[2023-12-29] MEDS: Lidocaine 5% Patch 1 PATCH TOPICAL (10:37)
[2023-12-29] MEDS: Cholecalciferol (VIT D3) 25 MCG TABLET (1,000 UNITS) PO (10:37)
[2023-12-29] MEDS: Cefdinir 300 MG Capsule PO ×2 (10:37→21:54)
[2023-12-29 11:23] VITALS: O2SAT 99
[2023-12-29 13:19] VITALS: PULSE 69; RESP 18
[2023-12-29] MEDS: Ipratropium/Albuterol Sulfate 3 ML AMPUL.NEB INHALATION ×2 (13:19→19:59)
[2023-12-29] MEDS: Rivaroxaban 20 MG Tablet PO (16:19)
[2023-12-29] MEDS: proCHLORPERazine 5 MG Tablet 10 MG PO (16:21)
[2023-12-29 19:59] VITALS: PULSE 74; RESP 16; O2SAT 95
[2023-12-29 21:50] VITALS: BP 120/55; PULSE 70
[2023-12-29] MEDS: Simvastatin 20 MG Tablet 40 MG PO (21:54)
[2023-12-29] MEDS: Fenofibrate 48 MG Tablet PO (21:55)
[2023-12-29] MEDS: Acetaminophen 500 MG Tablet 1000 MG PO (21:55)
[2023-12-30 06:00] VITALS: BMI 40.8
[2023-12-30] MEDS: Levothyroxine 50 MCG Tablet PO (06:22)
[2023-12-30] MEDS: Sodium Chloride 0.65% 1 SPRAY SPRAY.BTL NASAL ×2 (08:44→20:22)
[2023-12-30] MEDS: Potassium Chloride Oral Tablet 20 MEQ PO (08:45)
[2023-12-30] MEDS: Losartan Potassium 50 MG Tablet PO (08:46)
[2023-12-30] MEDS: Carvedilol 12.5 MG Tablet PO ×2 (08:46→20:23)
[2023-12-30] MEDS: Lidocaine 5% Patch 1 PATCH TOPICAL (08:47)
[2023-12-30] MEDS: Furosemide 40 MG Tablet PO (08:47)
[2023-12-30] MEDS: Iron Polysaccharide Complex 150 MG CAPSULE PO (08:47)
[2023-12-30] MEDS: Empagliflozin 10 MG Tablet PO (08:47)
[2023-12-30] MEDS: Pramipexole Di-HCl 0.25 MG Tablet PO ×2 (08:48→20:23)
[2023-12-30] MEDS: Cholecalciferol (VIT D3) 25 MCG TABLET (1,000 UNITS) PO (08:48)
[2023-12-30] MEDS: Pantoprazole Sodium 40 MG Tablet PO (08:48)
[2023-12-30] MEDS: Senna/Docusate Sodium 1 Tablet PO ×2 (08:48→20:22)
[2023-12-30 11:01] VITALS: BP 138/60; PULSE 65; RESP 24; TEMP 36.6; O2SAT 96
[2023-12-30 12:55] VITALS: PULSE 69; RESP 18
[2023-12-30] MEDS: Ipratropium/Albuterol Sulfate 3 ML AMPUL.NEB INHALATION ×2 (12:55→20:03)
[2023-12-30 14:41] VITALS: PULSE 58; RESP 18; O2SAT 95
--- NOTE | 2023-12-30 14:47 | CASEMGMT ---
Social Work SW received information from nursing that family would like to set DC date for pt. SW phoned dtr to discuss details. After discussion, dtr requesting DC 12/31, which are when pt's caregivers are scheduled. The caregiver can transport pt at DC. IDT agreeable. SW offered skilled HHC and to provide list of agencies with quality and resource data via [employer]. Dtr denied list and requesting [facility]. SW agreed to place referral. Pt has no DME needs. SW phoned referral to [facility] for PT/OT/SN. Plan: DC home with caregivers 12/31, [facility] PT/OT/SN JOE Ball
[2023-12-30] MEDS: Rivaroxaban 20 MG Tablet PO (16:38)
[2023-12-30 20:03] VITALS: PULSE 65; RESP 18
[2023-12-30] MEDS: Fenofibrate 48 MG Tablet PO (20:22)
[2023-12-30] MEDS: Simvastatin 20 MG Tablet 40 MG PO (20:22)
[2023-12-30] MEDS: Acetaminophen 500 MG Tablet 1000 MG PO (20:23)
--- NOTE | 2023-12-30 20:26 | NURSING ---
Meds admin at this time per pt request.
[2023-12-30 20:27] VITALS: BP 131/69; PULSE 82
--- NOTE | 2023-12-30 21:24 | DS.PCM_ITS ---
Providers Date of Admission: 12/18/23 Primary Care Physician: Dr. Otis Roman MD Reason For Visit: HYPOXIA SECONDARY TO ACUTE CHRONIC HEART FAILURE Diagnosis Discharge Diagnosis (1) Debility: Status: Acute Code(s): R53.81 - Other malaise (2) Acute respiratory failure with hypoxia: Status: Resolved Code(s): J96.01 - Acute respiratory failure with hypoxia (3) Acute heart failure with preserved ejection fraction (HFpEF): Status: Acute Code(s): I50.31 - Acute diastolic (congestive) heart failure (4) NSTEMI (non-ST elevated myocardial infarction): Status: Acute Code(s): I21.4 - Non-ST elevation (NSTEMI) myocardial infarction (5) Coronary artery disease: Status: Acute Code(s): I25.10 - Atherosclerotic heart disease of saxman coronary artery without angina pectoris (6) Iron deficiency anemia: Status: Acute Code(s): D50.9 - Iron deficiency anemia, unspecified (7) Acute encephalopathy: Status: Acute Code(s): G93.40 - Encephalopathy, unspecified (8) HELGA (obstructive sleep apnea): Status: Chronic Code(s): G47.33 - Obstructive sleep apnea (adult) (pediatric) (9) Stroke/cerebrovascular accident: Status: Acute Code(s): I63.9 - Cerebral infarction, unspecified (10) Restless leg syndrome: Status: Acute Code(s): G25.81 - Restless legs syndrome (11) Atrial fibrillation: Status: Acute Code(s): I48.91 - Unspecified atrial fibrillation (12) Hyperlipidemia: Status: Chronic Code(s): E78.5 - Hyperlipidemia, unspecified Qualifiers: Hyperlipidemia type: unspecified Qualified Code(s): E78.5 - Hyperlipidemia, unspecified (13) Hypothyroidism: Status: Acute Code(s): E03.9 - Hypothyroidism, unspecified (14) Asthma: Status: Acute Code(s): J45.909 - Unspecified asthma, uncomplicated Plan 83 year old female with below past medical history hospitalized for acute respiratory failure with hypoxia 2/2 NSTEMI, acute HFpEF, complicated by hypokalemia, iron deficiency anemia, acute encephalopathy from hypercapnia, admitted to TCU with debility, here for rehabilitation, strengthening, prior to discharge home. * Debility - PT/OT. * Pain - Tylenol 1000mg q6 prn pain (1-10). * Bowel - senna/colace 1 tablet bid, Magnesium citrate 300ml daily prn. * Adult immunization - Administer pneumonia vaccine, covid vaccine, flu vaccine as appropriate. * DVT prophylaxis - on Xarelto. * Asthma - Albuterol 2.5mg q4-6 prn, Albuterol 1 puff q6 prn. * Muscle spasm - Baclofen 5mg tid. * Chronic HFpEF - Coreg 12.5mg bid, Losartan 50mg daily, Jardiance 10mg daily, Furosemide 60mg, 40mg, Fluid restriction. * CAD s/p NSTEMI - Coreg 12.5mg bid, Losartan 50mg daily, Xarelto 20mg daily. * Atrial fibrillation - Coreg 12.5mg bid, Xarelto 20mg daily. * Vitamin D deficiency - D3 25mcg daily. * Hyperlipidemia - Fenofibrate 48mg qhs. * Iron deficiency anemia - Ferrex 150mg daily. * Hypothyroidism - Levothyroxine 50mcg daily. * GERD - Pantoprazole 40mg daily. * Restless leg syndrome - Mirapex 0.25mg bid. * Hyperlipidemia - Atorvastatin 40mg qhs. Medications at Discharge Home Medications pramipexole 0.25 mg tablet 0.25 mg PO BID restless legs 04/18/16 albuterol sulfate 90 mcg/actuation aerosol inhaler (ProAir HFA) 1 puff inhalation Q6H PRN shortness of breath or wheezing #6.7 grams 03/12/21 losartan 50 mg tablet 50 mg PO DAILY blood pressure 90 days #90 tabs 06/23/22 carvedilol 12.5 mg tablet 12.5 mg PO BID blood pressure #180 tabs 02/17/23 cholecalciferol (vitamin D3) 25 mcg (1,000 unit) capsule 25 mcg PO DAILY vitamin 03/11/23 fenofibrate nanocrystallized 48 mg tablet 48 mg PO QHS cholesterol #90 tabs 07/09/23 simvastatin 40 mg tablet 40 mg PO QHS cholesterol #90 tabs 07/27/23 rivaroxaban 20 mg tablet (Xarelto) See Rx Instructions .Route .COMPLEX blood thinner #90 tabs 09/04/23 levothyroxine 50 mcg tablet (Synthroid) 50 mcg PO DAILY thyroid 12/12/23 baclofen 10 mg tablet 5 mg (1/2 x 10 mg) PO TID antibiotic #0 tabs 12/18/23 empagliflozin 10 mg tablet (Jardiance) 10 mg PO DAILY diabetes #0 tabs 12/18/23 pantoprazole 40 mg tablet,delayed release (Protonix) 40 mg PO DAILY reflux #30 tabs 12/18/23 polysaccharide iron complex 150 mg iron capsule (Ferrex) 150 mg PO DAILY anemia #0 caps 12/18/23 acetaminophen 500 mg tablet 1,000 mg (2 x 500 mg) PO Q6H PRN PRN Pain Score 1-10 #0 tabs 12/30/23 furosemide 40 mg tablet 40 mg PO DAILY 30 days #30 tabs 12/30/23 ipratropium 0.5 mg-albuterol 3 mg (2.5 mg base)/3 mL nebulization soln 3 ml inhalation Q6H.RT #0 mL 12/30/23 lidocaine 5 % topical patch 1 patch topical DAILY 30 days #30 ea 12/30/23 potassium chloride 20 mEq tablet,extended release(part/cryst) 20 meq PO DAILYCM 30 days #30 tabs 12/30/23 Hospital Course Operations None Procedures None Summary of Care Provided Minutes Spent on Discharge: 35 Hospital Course: 83 year old female with below past medical history hospitalized for acute respiratory failure with hypoxia 2/2 NSTEMI, acute HFpEF, complicated by hypokalemia, iron deficiency anemia, acute encephalopathy from hypercapnia, admitted to TCU with debility, here for rehabilitation, strengthening, prior to discharge home. 12/22/2023 Resident treated for rml pneumonia with Cefdinir, Zithromax. Resident acute kidney injury due to dehydration, Furosemide lowered to 40mg daily, given iv fluids overnight with good results. Discharge home with caregivers 01/01/2024, [facility] PT/OT/SN. Physical Exam Const alert General Appearance: cooperative HEENT normocephalic Eyes PERRL and EOMs intact bilaterally Neck supple, no JVD and no carotid bruits Resp normal respiratory effort, normal air movement and clear to auscultation bilaterally Cardio regular rate and regular rhythm GI normal to inspection, nondistended, normoactive bowel sounds, non-tender and non-distended Extremity normal capillary refill General Extremity: Negative for edema Skin no rashes or lesions noted General Skin Exam: no breakdown Psych affect normal Appearance: appropriate Weight / BMI Weight Weight: 95.118 kg Body Mass Index (BMI) 40.8 ABG / Lab / Microbiology Data 12/25/23 06:03 12/25/23 06:03 D/C Instructions Discharge Diet: No restrictions Discharge Activity: Return to Normal Activity, May Shower and Use Walker Weight Bearing Status: Weight bearing as tolerated Call your doctor if you observe: Fever of 101 or Higher, Inability to urinate, Inability to have a bowel movement, Shortness of breath, Dizziness, Fainting spells, Swelling in the ankles, Chest pain and Uncontrolled pain Additional Instructions: Discharge home with caregivers 01/01/2024, [facility] PT/OT/SN. Meaningful Use Info Meaningful Use Meaningful Use Diagnoses (Choose all that apply): AMI AMI/Post PCI/Angioplasty Aspirin given w/in 24hrs of arrival?: Yes ASA at discharge?: Yes Statins at discharge?: Yes Moris/ARB at discharge?: Yes Beta Jenna at discharge?: Yes Done w/ Acute UT measure.: Yes Ischemic Stroke Statin Dosing Therapy Reference: STATIN DOSE THERAPY REFERENCE: * Patients > 75 years receive moderate or high dose statin therapy. * Patients 75 years or YOUNGER should receive HIGH intensity statin dose unless contraindicated. You will be required to document reason for non-treatment if statin daily dose does not meet guidelines. HIGH DOSE STATIN THERAPY DAILY Atorvastatin > than or = to 40 mg Rosuvastatin > than or = to 20 mg Amlodipine + Atorvastatin > than or = to 2.5/40 mg Ezetimibe + Simvastatin 10/80 mg Simvastatin 80mg Discharge Plan Admission Admit Date/Time: 12/18/23 14:22 Primary Reason for Your Visit: Debility. Attending Provider: Manfred Wick Chi Primary Care Provider: Otis Roman Instructions Additional Instructions / Restrictions: Discharge home with caregivers 01/01/2024, [facility] PT/OT/SN. Discharge Orders/Prescriptions Prescriptions: New furosemide 40 mg Tablet 40 mg PO DAILY 30 Days Qty: 30 0RF ipratropium-albuterol 0.5 mg-3 mg(2.5 mg base)/3 mL Solution For Nebulization 3 ml inhalation Q6H.RT Qty: 0 0RF acetaminophen 500 mg Tablet 1,000 mg PO Q6H PRN PRN (Reason: Pain Score 1-10) Qty: 0 0RF lidocaine 5 % Adhesive Patch,Medicated 1 patch topical DAILY 30 Days Qty: 30 0RF Protocol: *Topical Application Instructions APPLICATION INSTRUCTIONS: Apply to affected area daily, remove at HS. potassium chloride 20 mEq Tablet,Er Particles/Crystals 20 meq PO DAILYCM 30 Days Qty: 30 0RF Continued cholecalciferol (vitamin D3) 25 mcg (1,000 unit) capsule 25 mcg PO DAILY pramipexole 0.25 MG tablet 0.25 mg PO BID Patient Comments: restless legs Parkinson albuterol sulfate [ProAir HFA] 90 mcg/actuation HFA aerosol inhaler 1 puff inhalation Q6H PRN (Reason: shortness of breath or wheezing) Qty: 6.7 0RF levothyroxine [Synthroid] 50 mcg tablet 50 mcg PO DAILY polysaccharide iron complex [Ferrex 150] 150 mg iron Capsule 150 mg PO DAILY Qty: 0 0RF baclofen 10 mg Tablet 5 mg PO TID Qty: 0 0RF Jardiance 10 mg Tablet 10 mg PO DAILY Qty: 0 0RF pantoprazole [Protonix] 40 mg tablet,delayed release (DR/EC) 40 mg PO DAILY Qty: 30 0RF losartan 50 mg tablet 50 mg PO DAILY 90 Days Qty: 90 3RF carvedilol 12.5 mg tablet 12.5 mg PO BID Qty: 180 3RF Rx Instructions: must administer with a meal/food fenofibrate nanocrystallized 48 mg tablet 48 mg PO QHS Qty: 90 3RF simvastatin 40 mg tablet 40 mg PO QHS Qty: 90 3RF Xarelto 20 mg tablet See Rx Instructions .ROUTE .COMPLEX Qty: 90 3RF Dose Instruction: TAKE 1 TABLET DAILY Rx Instructions: TAKE 1 TABLET DAILY Discontinued furosemide 40 mg tablet 60 mg PO .COMPLEX Rx Instructions: 60 mg orally in the AM and 40 mg at 1400. albuterol sulfate 2.5 mg /3 mL (0.083 %) solution for nebulization 2.5 mg inhalation Q4-6H PRN (Reason: shortness of breath or wheezing) Patient Comments: INHALE 3 ML VIA NEBULIZER EVERY 4 HOURS NEEDED Referrals / Follow Up: Otis Roman MD [Primary Care Provider] - 01/05/24 11:20 am Disposition Disposition (needs filled in before D/C Order can be placed): Home Health Service
[2023-12-31 06:00] VITALS: BMI 40.6
[2023-12-31] MEDS: Levothyroxine 50 MCG Tablet PO (06:36)
[2023-12-31] MEDS: Sodium Chloride 0.65% 1 SPRAY SPRAY.BTL NASAL ×2 (06:40→12:55)
[2023-12-31 07:05] VITALS: PULSE 65; RESP 20
[2023-12-31] MEDS: Ipratropium/Albuterol Sulfate 3 ML AMPUL.NEB INHALATION ×3 (07:05→19:39)
[2023-12-31 08:34] VITALS: BP 108/67; PULSE 79; RESP 16; TEMP 36.3; O2SAT 94
[2023-12-31] MEDS: Lidocaine 5% Patch 1 PATCH TOPICAL (08:36)
[2023-12-31] MEDS: Empagliflozin 10 MG Tablet PO (08:37)
[2023-12-31] MEDS: Potassium Chloride Oral Tablet 20 MEQ PO (08:37)
[2023-12-31] MEDS: Furosemide 40 MG Tablet PO (08:37)
[2023-12-31] MEDS: Losartan Potassium 50 MG Tablet PO (08:37)
[2023-12-31] MEDS: Carvedilol 12.5 MG Tablet PO ×2 (08:37→20:36)
[2023-12-31] MEDS: Cholecalciferol (VIT D3) 25 MCG TABLET (1,000 UNITS) PO (08:37)
[2023-12-31] MEDS: Pantoprazole Sodium 40 MG Tablet PO (08:37)
[2023-12-31] MEDS: Iron Polysaccharide Complex 150 MG CAPSULE PO (08:37)
[2023-12-31] MEDS: Senna/Docusate Sodium 1 Tablet PO ×2 (08:38→20:36)
[2023-12-31] MEDS: Pramipexole Di-HCl 0.25 MG Tablet PO ×2 (08:38→20:37)
--- NOTE | 2023-12-31 10:02 | MDS.RN ---
Information for the MDS was obtained from review of the clinical record, interview of resident, staff, and direct observation of resident?s care.
[2023-12-31] MEDS: Acetaminophen 500 MG Tablet 1000 MG PO ×2 (12:54→20:40)
[2023-12-31 13:29] VITALS: PULSE 68; RESP 20
--- NOTE | 2023-12-31 15:00 | NURSING ---
daughter called & states pt needs scripts for Discharge tomorrow- protonix, jardiance, iron to [facility]. pt was not taking these prior to hospital admit per daughter
--- NOTE | 2023-12-31 15:40 | MDS.RN ---
MDS pain interview complete.
[2023-12-31] MEDS: Rivaroxaban 20 MG Tablet PO (17:10)
[2023-12-31 19:39] VITALS: PULSE 76; RESP 20
[2023-12-31 20:33] VITALS: BP 119/70; PULSE 70
[2023-12-31] MEDS: Simvastatin 20 MG Tablet 40 MG PO (20:37)
[2023-12-31] MEDS: Fenofibrate 48 MG Tablet PO (20:38)
[2024-01-01 00:56] VITALS: PULSE 74; RESP 16; O2SAT 94
[2024-01-01 06:05] LABS: Absolute Lymphocyte Count 1.57 X10^3/uL (0.83-4.51); Absolute Neutrophil Count 3.6 X10^3/uL (2.0-7.7); Basophil# 0.05 X10^3/uL; Basophil% 0.8 % (0-1); Eosinophil# 0.13 X10^3/uL; Eosinophils% 2.1 % (0-5); Hematocrit 31.2 % (37-47); Hemoglobin 9.4 g/dL (12.0-15.0); Lymphocyte # 1.57 X10^3/ul (0.83-4.51); Lymphocyte % 24.8 % (19-41); Mean Corp Hgb Conc 30.1 g/dL (32-36); Mean Corpuscular Hgb 34.1 pg (27.0-32.0); Mean Platelet Vol. 10.9 fl (6.2-12.0); Monocyte# 0.93 X10^3/uL; Monocyte% 14.7 % (0-10); NRBC Flagged by Analyzer 0 % (0-5); Platelet Count 274 K/mm3 (150-450); RBC Distribution Width CV 15.1 % (11.6-14.6); RBC Distribution Width SD 63.2 fl (35.1-43.9); Red Blood Count 2.76 M/mm3 (4.2-5.4); White Blood Count 6.3 K/mm3 (4.4-11.0)
[2024-01-01] MEDS: Levothyroxine 50 MCG Tablet PO (06:22)
[2024-01-01 06:27] VITALS: BMI 39.9
[2024-01-01 06:38] LABS: Anion Gap 6 (5-15); BUN 22 mg/dL (7-18); BUN/Creat Ratio 23.6 RATIO (10-20); Calcium,Total 9.2 mg/dL (8.5-10.1); Chloride 109 mmol/L (98-107); Creatinine, Serum 0.93 mg/dL (0.55-1.02); EST Glomerular Filtration Rate 61 mL/min (>60); Est Glom Filt Rate - Afr Amer 74 mL/min (>60); Estimated Creatinine Clearance 45.78 ml/min; Glucose 109 mg/dL (74-106); Potassium 4.1 mmol/L (3.5-5.1); Sodium Level 142 mmol/L (136-145)
[2024-01-01] MEDS: Ipratropium/Albuterol Sulfate 3 ML AMPUL.NEB INHALATION (07:28)
[2024-01-01 07:29] VITALS: RESP 16
[2024-01-01 08:27] VITALS: BP 135/53; PULSE 68; RESP 18; TEMP 36.3; O2SAT 95
[2024-01-01] MEDS: Lidocaine 5% Patch 1 PATCH TOPICAL (08:32)
[2024-01-01] MEDS: Iron Polysaccharide Complex 150 MG CAPSULE PO (08:33)
[2024-01-01] MEDS: Furosemide 40 MG Tablet PO (08:33)
[2024-01-01] MEDS: Empagliflozin 10 MG Tablet PO (08:33)
[2024-01-01] MEDS: Carvedilol 12.5 MG Tablet PO (08:33)
[2024-01-01] MEDS: Pramipexole Di-HCl 0.25 MG Tablet PO (08:33)
[2024-01-01] MEDS: Potassium Chloride Oral Tablet 20 MEQ PO (08:33)
[2024-01-01] MEDS: Losartan Potassium 50 MG Tablet PO (08:33)
[2024-01-01] MEDS: Pantoprazole Sodium 40 MG Tablet PO (08:33)
[2024-01-01] MEDS: Senna/Docusate Sodium 1 Tablet PO (08:34)
[2024-01-01] MEDS: Cholecalciferol (VIT D3) 25 MCG TABLET (1,000 UNITS) PO (08:34)
--- NOTE | 2024-01-01 10:54 | CASEMGMT ---
Social Work SW conducted BIMS () and PHQ-2 () completed for MDS assessment. Dawn Espinal MSW [employer]
== END 2024-01-01 11:30 | disposition home health service (06) | DRG 280 ==
PROVIDERS: Admitting Provider Family Medicine Geriatric Medicine; PCP Family Medicine; Referring Provider Family Medicine Geriatric Medicine; Visit Provider Family Medicine Geriatric Medicine
DX: I21.4 Non-ST elevation (NSTEMI) myocardial infarction (principal); J96.01 Acute respiratory failure with hypoxia; I50.33 Acute on chronic diastolic (congestive) heart failure; J18.9 Pneumonia, unspecified organism; G93.40 Encephalopathy, unspecified; N17.9 Acute kidney failure, unspecified; I11.0 Hypertensive heart disease with heart failure; D50.9 Iron deficiency anemia, unspecified; E03.9 Hypothyroidism, unspecified; G25.81 Restless legs syndrome; J45.909 Unspecified asthma, uncomplicated; I48.91 Unspecified atrial fibrillation; E55.9 Vitamin D deficiency, unspecified; G47.33 Obstructive sleep apnea (adult) (pediatric); I25.10 Atherosclerotic heart disease of native coronary artery without angina pectoris; E87.6 Hypokalemia; K21.9 Gastro-esophageal reflux disease without esophagitis; E78.00 Pure hypercholesterolemia, unspecified; Z79.01 Long term (current) use of anticoagulants; Z79.890 Hormone replacement therapy; Z79.899 Other long term (current) drug therapy; Z86.16 Personal history of COVID-19; Z86.73 Personal history of transient ischemic attack (TIA), and cerebral infarction without residual deficits
CPT/HCPCS: 36415; 71046; 74018; 80048; 80061; 82962; 83880; 85025; 94640; 97110; 97116; 97162; 97166; 97530; 97535; J7030; J7050; A4216

== ENCOUNTER → 2024-01-05 | Outpatient (CLI) | payer MEDICARE, SELFPAY ==
[2024-01-05 16:03] LABS: Mucous, Urine 0 SEEN /hpf (<or=2+)
[2024-01-05 16:41] LABS: Color, Urine Brown (Yellow); Glucose, Dipstick 1000 mg/dl (Normal); Ketone-Dipstick Negative (Negative); Leukocyte Esterase-Dipstick 25 /ul (Negative); Nitrite-Dipstick Negative (Negative); Occult Blood-Urine 250 /ul (Negative); Protein-Dipstick 15 mg/dl (Negative); Specific Gravity, Urine 1.015 (1.002-1.030); Urine Bilirubin Dipstick Negative (Negative); Urine Clarity Sl. Cloudy (Clear); Urine Urobilinogen Normal (Normal)
[2024-01-05 16:59] LABS: Bacteria 2+ /hpf (None Seen); Red Blood Cells-Urine > 100 SEEN /hpf (0-5); Renal Epithelial Cells 0-5 SEEN /hpf (0-5); Squamous Epithelial Cells - UA 0-5 SEEN /hpf (5-10); White Blood Cells 0-5 SEEN /hpf (0-5)
== END | disposition home or self-care (01) ==
LOC: LABSPEC 15:45
PROVIDERS: PCP Family Medicine; Referring Provider Family Medicine; Visit Provider Family Medicine
DX: R30.0 Dysuria (principal)
CPT/HCPCS: 81001; 87086; 87088; 87186

== ENCOUNTER → 2024-02-19 | Outpatient (CLI) | payer MEDICARE, SELFPAY ==
[2024-02-19 13:50] LABS: ALB/GLOB Ratio 1.3 RATIO (0.9-2.4); AST(SGOT) 12 U/L (15-37); Alanine Aminotransfer ALT/SGPT 16 U/L (13-56); Albumin, Serum 3.7 g/dL (3.2-5.0); Alkaline Phosphatase 65 U/L (45-117); Anion Gap 4 (5-15); BUN 14 mg/dL (7-18); BUN/Creat Ratio 15.9 RATIO (10-20); Chloride 107 mmol/L (98-107); Creatinine, Serum 0.88 mg/dL (0.55-1.02); EST Glomerular Filtration Rate 65 mL/min (>60); Est Glom Filt Rate - Afr Amer 79 mL/min (>60); Globulin 2.9 g/dL (2.2-4.2); Glucose 123 mg/dL (74-106); Magnesium 2.6 mg/dL (1.6-2.6); Phosphorus 3.2 mg/dL (2.5-4.9); Potassium 4.1 mmol/L (3.5-5.1); Protein, Total 6.6 g/dL (6.4-8.2); Sodium Level 140 mmol/L (136-145)
== END | disposition home or self-care (01) ==
LOC: LAB 13:04
PROVIDERS: PCP Family Medicine; Referring Provider Anesthesiology; Visit Provider Anesthesiology
DX: R25.2 Cramp and spasm (principal)
CPT/HCPCS: 36415; 80053; 83735; 84100

== ENCOUNTER → 2024-03-21 | Outpatient (CLI) | payer MEDICARE, SELFPAY ==
--- NOTE | 2024-03-21 11:00 | MRI_ITS ---
HISTORY: lumbar stenosis, BACK PAIN [id number] TECHNIQUE: Multiplanar and multisequence MR images of the lumbar spine were obtained without intravenous contrast. 126 images. COMPARISON: CT 09/28/2020, XR 02/23/2018. FINDINGS: VERTEBRAE: Chronic mild T12 compression fracture at the superior endplate. New mild T12 compression fracture with bone marrow edema at the inferior endplate. No significant retropulsion into the spinal canal. Degenerative endplate changes at multiple levels, particularly L4-5. ALIGNMENT: Chronic mild L5-S1 anterolisthesis. SPINAL CANAL: Normal morphology and position of the conus medullaris at L1. No gross epidural collection. Small S2 sacral Tarlov cyst. INTERVERTEBRAL DISCS: T10-11: Disc extrusion with superior migration and facet arthropathy resulting in moderate central canal stenosis and bilateral foraminal narrowing based on the sagittal images. T11-12, T12-L1: Mild disc bulges with facet arthropathy resulting in mild central canal stenosis and bilateral foraminal narrowing based on the sagittal images. L1-2: Moderate disc bulge with facet arthropathy resulting in moderate central canal stenosis and bilateral foraminal narrowing. L2-3: Posterior disc bulge osteophyte complex with superimposed right paracentral disc extrusion and superior migration in combination with facet arthropathy resulting in mild central canal stenosis with moderate left greater than right foraminal narrowing. L3-4: Posterior disc bulge osteophyte complex with facet arthropathy superimposed on a developmentally narrow spinal canal resulting in severe central canal stenosis and bilateral foraminal narrowing with left L3 nerve root abutment or impingement. L4-5: Moderate posterior disc bulge osteophyte complex with facet arthropathy superimposed on a developmentally narrow spinal canal resulting in bilateral L5 nerve root abutment, severe central canal stenosis, and bilateral foraminal narrowing with probable right L4 nerve root impingement. L5-S1: Moderate disc bulge with facet arthropathy superimposed on a developmentally narrow spinal canal resulting in moderate to severe central canal stenosis and bilateral foraminal narrowing. SOFT TISSUES: Posterior subcutaneous edema. MRI/Spine Lumbar (Routine) IMPRESSION: Mild acute on chronic T12 compression fracture. 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 Electronically Signed: Kylie Hernández MD at 10:45 EST ,
== END | disposition home or self-care (01) ==
LOC: MRI 10:17
PROVIDERS: PCP Family Medicine; Referring Provider Anesthesiology; Visit Provider Anesthesiology
DX: M48.062 Spinal stenosis, lumbar region with neurogenic claudication (principal)
CPT/HCPCS: 72148

== ENCOUNTER → 2024-04-21 | Outpatient (CLI) | payer MEDICARE, SELFPAY ==
[2024-04-21 15:14] LABS: Mucous, Urine 0 SEEN /hpf (<or=2+)
[2024-04-21 17:33] LABS: Color, Urine Yellow (Yellow); Glucose, Dipstick 1000 mg/dl (Normal); Ketone-Dipstick Negative (Negative); Leukocyte Esterase-Dipstick 100 /ul (Negative); Nitrite-Dipstick Positive (Negative); Occult Blood-Urine 10 /ul (Negative); Protein-Dipstick 15 mg/dl (Negative); Urine Bilirubin Dipstick Negative (Negative); Urine Urobilinogen Normal (Normal)
[2024-04-21 17:37] LABS: Hemoglobin 11.7 g/dL (12.0-15.0); Mean Corp Hgb Conc 30.8 g/dL (32-36); Mean Corpuscular Hgb 34.5 pg (27.0-32.0); Mean Corpuscular Volume 112.1 fL (81-99); Mean Platelet Vol. 10.3 fl (6.2-12.0); Platelet Count 321 K/mm3 (150-450); RBC Distribution Width CV 14.7 % (11.6-14.6); RBC Distribution Width SD 61.7 fl (35.1-43.9); Red Blood Count 3.39 M/mm3 (4.2-5.4); Reticulocyte Count 4.31 % (0.5-1.5); White Blood Count 14.7 K/mm3 (4.4-11.0)
[2024-04-21 18:11] LABS: ALB/GLOB Ratio 1.1 RATIO (0.9-2.4); AST(SGOT) 14 U/L (15-37); Alanine Aminotransfer ALT/SGPT 24 U/L (13-56); Albumin, Serum 3.4 g/dL (3.2-5.0); Alkaline Phosphatase 66 U/L (45-117); Anion Gap 4 (5-15); BUN 20 mg/dL (7-18); BUN/Creat Ratio 17.1 RATIO (10-20); Calcium,Total 9.2 mg/dL (8.5-10.1); Chloride 105 mmol/L (98-107); Creatinine, Serum 1.17 mg/dL (0.55-1.02); EST Glomerular Filtration Rate 47 mL/min (>60); Est Glom Filt Rate - Afr Amer 57 mL/min (>60); Ferritin 74 ng/mL (8-252); Globulin 3.2 g/dL (2.2-4.2); Glucose 102 mg/dL (74-106); Iron 92 ug/dL (50-170); Protein, Total 6.6 g/dL (6.4-8.2); Sodium Level 138 mmol/L (136-145)
[2024-04-21 19:30] LABS: White Blood Cells 10-25 SEEN /hpf (0-5)
[2024-04-21 19:31] LABS: Amorphous Sediment 1+ URATE; Bacteria 1+ /hpf (None Seen); Red Blood Cells-Urine 0-5 SEEN /hpf (0-5); Squamous Epithelial Cells - UA 0-5 SEEN /hpf (5-10); Urine Clarity Sl Cldy (Clear)
== END | disposition home or self-care (01) ==
LOC: MFPLAB 14:56
PROVIDERS: PCP Family Medicine; Visit Provider Family Medicine
DX: D64.9 Anemia, unspecified (principal); I50.9 Heart failure, unspecified; I48.91 Unspecified atrial fibrillation; R30.0 Dysuria
CPT/HCPCS: 36415; 80053; 81001; 82728; 83540; 84443; 85027; 85045; 87077; 87086; 87088; 87186

== ENCOUNTER → 2024-08-22 | Outpatient (CLI) | payer MEDICARE, SELFPAY ==
[2024-08-22 18:05] LABS: Anion Gap 12 (5-15); BUN 16 mg/dL (4-19); BUN/Creat Ratio 18.2 RATIO (10-20); Calcium,Total 9.5 mg/dL (7.6-11.0); Carbon Dioxide 24.8 mmol/L (21.0-32.0); Chloride 99 mmol/L (98-108); Creatinine, Serum 0.87 mg/dL (0.70-1.20); EST Glomerular Filtration Rate 65 (>60); Glucose 86 mg/dL (70-99); Potassium 4.2 mmol/L (3.3-5.1); Sodium Level 136 mmol/L (133-145)
== END | disposition home or self-care (01) ==
LOC: MFPLAB 14:00
PROVIDERS: PCP Family Medicine; Referring Provider Family Medicine; Visit Provider Family Medicine
DX: N18.2 Chronic kidney disease, stage 2 (mild) (principal)
CPT/HCPCS: 36415; 80048

== ENCOUNTER → 2024-09-26 | Outpatient (CLI) | payer MEDICARE, SELFPAY ==
--- NOTE | 2024-09-26 13:38 | RAD_ITS ---
PROCEDURE: KNEE 4 OR MORE VIEWS 09/26/2024 REASON FOR EXAM: B/L KNEE PAIN TECHNIQUE: 4 view(s) of the right knee COMPARISON: None. FINDINGS: Moderate to severe tricompartmental changes of degenerative joint disease, more prominent in the medial tibiofemoral compartment. Mild osteopenia of the visualized bones. No fracture or dislocation is seen. No lytic or blastic bone lesion is noted. Enthesophyte formation at the upper pole of the patella. Calcified atheromatous plaques are noted. RAD/Knee 4 or More Views IMPRESSION: Moderate to severe tricompartmental changes of degenerative joint disease, more prominent in the medial tibiofemoral compartment. Chondrocalcinosis is noted. [facility]
--- NOTE | 2024-09-26 13:39 | RAD_ITS ---
PROCEDURE: KNEE 4 OR MORE VIEWS 09/26/2024 REASON FOR EXAM: B/L KNEE PAIN TECHNIQUE: 4 view(s) of the left knee COMPARISON: No left knee comparisons FINDINGS: Bones/joints: Bone mineralization within normal limits. No dislocation. Cartilage height loss in the lateral compartment of the femorotibial joint with subchondral sclerosis and deformity of bone ends. Effusion: Small Soft tissues: Large loose body within the posterior capsule Other: RAD/Knee 4 or More Views IMPRESSION: Osteoarthritis Reading Location[facility]
== END | disposition home or self-care (01) ==
LOC: RAD 13:38
PROVIDERS: PCP Family Medicine; Referring Provider Anesthesiology; Visit Provider Anesthesiology
DX: M25.561 Pain in right knee (principal); M25.562 Pain in left knee
CPT/HCPCS: 73564

== ENCOUNTER → 2024-12-29 | Outpatient (CLI) | payer MEDICARE, SELFPAY | END | disposition home or self-care (01) | LOC: LABSPEC 11:09 | PROVIDERS: PCP Family Medicine | DX: N39.0 Urinary tract infection, site not specified (principal) | CPT/HCPCS: 87077; 87086; 87088; 87186 ==

== ENCOUNTER → 2025-02-22 | Outpatient (CLI) | payer MEDICARE, SELFPAY ==
[2025-02-22 18:05] LABS: Immature Reticulocyte Fraction 25.60 % (3.00-15.90); Platelet Count 306 K/mm3 (150-450); Reticulocyte Count 5.06 % (0.5-1.5)
[2025-02-22 19:16] LABS: AST(SGOT) 17 U/L (<=31); Alanine Aminotransfer ALT/SGPT 8 U/L (<=34); Albumin, Serum 3.8 g/dL (3.4-4.8); Alkaline Phosphatase 61 U/L (35-104); Anion Gap 14 (5-15); BUN 12 mg/dL (4-19); BUN/Creat Ratio 14.9 RATIO (10-20); Calcium,Total 9.1 mg/dL (7.6-11.0); Carbon Dioxide 24.5 mmol/L (21.0-32.0); Chloride 101 mmol/L (98-108); Ferritin 80 ng/mL (22-378); Globulin 1.9 g/dL (2.2-4.2); Glucose 94 mg/dL (70-99); Iron 74 ug/dL (50-170); Potassium 4.3 mmol/L (3.3-5.1); Pro- Brain NATRIURETIC PEPTIDE 1112 pg/mL (<=1800); Vitamin B12 282 pg/mL (180-914); Vitamin D,25 Hydroxy 31.8 ng/mL (30-100)
== END | disposition home or self-care (01) ==
LOC: MFPLAB 14:26
PROVIDERS: PCP Family Medicine; Visit Provider Family Medicine
DX: I50.9 Heart failure, unspecified (principal); L65.9 Nonscarring hair loss, unspecified; D50.9 Iron deficiency anemia, unspecified
CPT/HCPCS: 36415; 80053; 82306; 82607; 82728; 83540; 83880; 84443; 85045